=== PATIENT | male | born 1970 | race Caucasian/White ===

== ENCOUNTER 2018-04-26 08:14 | Day surgery (SDC) | payer MEDICARE, OTHER ==
[2018-04-21 10:58] VITALS: BMI 49.7
[~2018-04-26 08:14] MED LIST: LACTATED RINGERS 1,000 ML IV SCH
[2018-04-26 08:43] VITALS: TEMP 98.4
[2018-04-26 08:44] LABS: Glucose,Whole Blood 119 mg/dL (75-99)
[2018-04-26] MEDS ORDERED: LIDOCAINE 1% 20 ML VIAL (10MG/ML) FOR IV START INTRADERMA ONE (08:44)
[2018-04-26] MEDS ORDERED: PROPOFOL 10 MG/ML 20 ML VIAL IV ONE (09:10)
[2018-04-26 10:16] VITALS: BP 135/86; PULSE 87; RESP 18
--- NOTE | 2018-04-26 12:23 | P.PCN ---
Date of Procedure: 04/26/18 Procedure(s) Performed: BRIEF HISTORY: Patient is a 47-year-old pleasant white male, scheduled for an elective colonoscopy as a part of evaluation of rectal bleeding on and off for the last few weeks duration. PROCEDURE PERFORMED: Colonoscopy with biopsy, snare polypectomy and tattooing with Jesika ink. PREOPERATIVE DIAGNOSIS: Intermittent rectal bleeding. IV sedation per Anesthesia. PROCEDURE: After informed consent was obtained, the patient, was brought into the endoscopy unit. IV sedation was administered by Anesthesia under continuous monitoring. Digital rectal examination was normal. Initially the Olympus CF- 160 flexible video colonoscope was then inserted in the rectum, gradually advanced into the cecum without any difficulty. Careful examination was performed as the scope was gradually being withdrawn. Ileocecal valve and the appendiceal orifice were visualized and appeared normal. Prep was excellent. Mucosa of the cecum, appeared normal. In the ascending colon there was a 4-5 cm broad-based polyp with central depression and multiple biopsies were done from this area to rule out neoplasia. The polyp was not amenable for endoscopic resection. Tattooing was performed with Jesika ink. In the transverse colon there was a 1 cm polyp removed by snare polypectomy. The rest of the transverse colon, descending colon, sigmoid colon appeared normal. In the sigmoid: At 27 m from the anal was there was a 2.5-3 cm pedunculated polyp that was removed by snare polypectomy. In the proximal rectum 15 cm from the anal verge there was a 4-5 cm large polypoid lesion with a broad base and the snare polypectomy was performed. 75% of the polyp was removed and at this point the base appeared very brought and it felt hard, because of the clinical suspicion for neoplasm at this point I did not remove the polyp completely. At this point approximately 2 cm the polyp was still present. Retroflexion was performed in the rectum and no lesions were seen. The patient tolerated the procedure well. IMPRESSION: 1. 4-5 cm broad-based ascending colon polyp status post multiple biopsies and tattooing with Jesika ink 2. 1 cm transverse colon polyp status post polypectomy 3. 2.5-3 cm pedunculated rectosigmoid polyp status post polypectomy 4. 4-5 cm polypoid proximal rectal polyp status post partial piecemeal snare polypectomy and complete polypectomy was not performed. Proximal to 75% of the polyp removed. RECOMMENDATIONS: Findings of this examination were discussed with the patient as well as his family. He was advised to follow with the biopsy results. He' ll be seen in office in a week and further plans will be made regarding surgical intervention.
== END 2018-04-26 10:40 | disposition home or self-care (01) ==
LOC: ORWHC2ENDO 08:14
PROVIDERS: ATTEND Internal Medicine Gastroenterology
DX: D12.2 Benign neoplasm of ascending colon (principal); D12.3 Benign neoplasm of transverse colon; D12.7 Benign neoplasm of rectosigmoid junction; C20 Malignant neoplasm of rectum; D12.8 Benign neoplasm of rectum; E66.01 Morbid (severe) obesity due to excess calories; E11.9 Type 2 diabetes mellitus without complications; R56.9 Unspecified convulsions; Z79.84 Long term (current) use of oral hypoglycemic drugs; Z79.899 Other long term (current) drug therapy; Z68.42 Body mass index [BMI] 45.0-49.9, adult
CPT/HCPCS: 88305; 45385; 45380; 45381; J2704; 44404

== ENCOUNTER → 2018-05-09 | Outpatient (CLI) | payer MEDICARE, OTHER ==
[2018-05-09 17:09] LABS: Blood Urea Nitrogen 13 mg/dL (9-20)
--- NOTE | 2018-05-09 21:45 | CT ---
EXAMINATION TYPE: CT abdomen pelvis w con DATE OF EXAM: 05/09/2018 COMPARISON: None HISTORY: Adenocarcinoma of rectum newly diagnosed. CT DLP: 2286.6 mGycm, Automated Exposure Control for Dose Reduction was Utilized. CONTRAST: CT scan of the abdomen and pelvis is performed with oral and with IV Contrast, patient injected with 100 mL of Isovue 300. FINDINGS: LUNG BASES: Slight motion artifact is present. Lung bases are grossly clear. LIVER/GB: Liver is heterogeneously slightly hypodense suggesting fatty infiltration. Gallbladder is n ot visualized and presumed surgically absent. PANCREAS: No significant abnormality is seen. SPLEEN: No significant abnormality is seen. ADRENALS: No significant abnormality is seen. KIDNEYS: No significant abnormality is seen. BOWEL: Oral contrast extends to distal ileum making evaluation of distal bowel including colon subopt imal. There is no suspicious small or large bowel dilatation. There is mild focal wall thickening beg inning at level of hepatic flexure extending through proximal transverse colon. There is mild wall th ickening in the mid to distal transverse colon through splenic flexure extending into the left colon. Diverticular disease in the left colon is present. There is mild wall thickening extending through t he sigmoid colon and rectum. Findings representing products of poor distention. A multifocal colitis is not entirely excluded. Correlate clinically. Rectal mass or neoplasm not obvious on CT. PROSTATE/SEMINAL VESICLES: No gross abnormality seen. LYMPH NODES: No greater than 1cm abdominal or pelvic lymph nodes are appreciated. OSSEOUS STRUCTURES: Moderate axial joint space loss with mild to moderate acetabular spurring in both hips is present. OTHER: There are numerous coils from inguinal hernia repair surgery bilateral groin region. IMPRESSION: No significant suspicious mass or adenopathy is identified to suggest metastatic disease .
== END | disposition home or self-care (01) ==
LOC: RADCTMAIN 16:31
PROVIDERS: ATTEND Internal Medicine Gastroenterology
DX: C20 Malignant neoplasm of rectum (principal)
CPT/HCPCS: 82565; 84520; 74177; 36415; Q9967

== ENCOUNTER → 2018-05-13 | Outpatient (CLI) | payer MEDICARE, OTHER ==
--- NOTE | 2018-05-14 10:00 | PE ---
EXAMINATION TYPE: PET CT fusion skull to thigh DATE OF EXAM: 05/13/2018 COMPARISON: CT abdomen pelvis 05/09/2018 Prior PET/CT: None HISTORY: Rectal cancer TECHNIQUE: Following the intravenous administration of 10.901 mCi of F-18 FDG, whole body images are performed from the skull base to the midthigh. Images are reviewed on the computer in the coronal, axial, and sagittal planes. Reconstructed rotating images are created on independent workstation and reviewed on the computer. A localization and attenuation correction CT is performed in conjunction with the PET scan. DLP: 475.12 mGycm SCAN: Initial Scan Blood glucose: 121 mg/dL Average Mediastinum SUV: 2.03 Average Liver SUV: 3.67 FINDINGS: NECK: No abnormal uptake THORAX: No abnormal uptake ABDOMEN: In the lower right quadrant near the level of the iliac crests there is focal increased radi otracer accumulation within the ascending colon. This area has an SUV value of 8.98. This is more foc al in typically identified. Underlying neoplasm at this level is not excluded. PELVIS: Intense uptake is within urinary bladder. Just posterior to the urinary bladder there is some increased uptake within the rectum. Residual contrast is present in on the localization CT some wall irregularity is noted. SUV value at this level is 9.36. Image 204. No suspicious lymph node uptake. OSSEOUS STRUCTURES: No abnormal uptake LOCALIZATION CT: Some streak opacities are at the lower lung bases likely on the basis of atelectasis . Ascending thoracic aorta at the level of main pulmonary artery is 3.7 cm patent main pulmonary cricket ry bifurcation is 2.8 cm. COMPARISON: The wall irregularity within the rectosigmoid junction is better visualized on the curren t examination. Series 3 image 206. IMPRESSION: 1. Increased uptake within the patient's reported rectal cancer. 2. Metastatic disease is not clearly evident. 3. There is a focal radiotracer accumulation within the ascending colon region. Additional neoplasm a t this level is not excluded.
== END | disposition home or self-care (01) ==
LOC: RADPETMAIN 15:51
PROVIDERS: ATTEND Internal Medicine Hematology & Oncology
DX: C20 Malignant neoplasm of rectum (principal); R93.3 Abnormal findings on diagnostic imaging of other parts of digestive tract
CPT/HCPCS: 78815; A9552

== ENCOUNTER → 2018-08-30 | Outpatient (CLI) | payer MEDICARE, OTHER ==
[2018-08-30 11:26] LABS: Potassium 3.7 mmol/L (3.5-5.1)
[2018-08-30 11:28] LABS: Anisocytosis Moderate; HCT 31.9 % (39.0-53.0); Hypochromasia Marked; MCH 25.9 pg (25.0-35.0); MCHC 31.4 g/dL (31.0-37.0); MCV 82.4 fL (80.0-100.0); Microcytosis Slight; Platelet Count 397 k/uL (150-450); Poikilocytosis Moderate; RBC 3.87 m/uL (4.30-5.90); RDW 20.9 % (11.5-15.5); WBC 3.5 k/uL (3.8-10.6)
== END | disposition home or self-care (01) ==
LOC: LABPAT 10:00
PROVIDERS: ATTEND Surgery
DX: Z01.812 Encounter for preprocedural laboratory examination (principal); C20 Malignant neoplasm of rectum
CPT/HCPCS: 36415; 80051; 85027; 86850; 86900; 86901

== ENCOUNTER 2018-09-05 06:26 | Day surgery (SDC) | payer MEDICARE, OTHER ==
[2018-08-29 12:07] VITALS: BMI 47.7
[2018-09-05 07:26] VITALS: TEMP 98.3
[2018-09-05] MEDS ORDERED: LIDOCAINE 1% INJ 10MG/ML (20 ML MDV) ONE (07:51)
[2018-09-05] MEDS ORDERED: fentaNYL (PF) 50 MCG/ML 2 ML AMP ONE (07:51)
[2018-09-05] MEDS ORDERED: PROPOFOL 10 MG/ML 20 ML VIAL IV ONE (07:51)
--- NOTE | 2018-09-05 07:56 | P.GSHP ---
History of Present Illness H&P Date: 09/05/18 Chief Complaint: History of rectal cancer This a 48-year-old male who presents today for colonoscopy. Patient appears history of rectal cancer he had a colonoscopy performed by Dr. Wright in April 2018 wishes found have an invasive rectal cancer in a polyp. Past Medical History Past Medical History: Cancer, Diabetes Mellitus, GERD/Reflux, Hypertension, Seizure Disorder Additional Past Medical History / Comment(s): epilepsy-last seizure "years ago" , ANEMIA, rectal cancer-had chemo through 08/06/18 and radiation through History of Any Multi-Drug Resistant Organisms: None Reported Past Surgical History: Appendectomy, Cholecystectomy, Hernia Repair Additional Past Surgical History / Comment(s): vasectomy, surg. to repair hypospadias as a child Past Anesthesia/Blood Transfusion Reactions: No Reported Reaction Smoking Status: Former smoker - Past Family History Brother(s) Family Medical History: Deep Vein Thrombosis (DVT) Medications and Allergies Home Medications Medication Instructions Recorded Confirmed Type Divalproex [Depakote] 250 mg PO TID 10/29/15 09/05/18 History clonazePAM [KlonoPIN] 1 mg PO BID 10/29/15 09/05/18 History metFORMIN HCL 1,000 mg PO BID 04/21/18 09/05/18 History Lisinopril-Hctz 20-25 mg 1 tab PO DAILY 08/29/18 09/05/18 History [Zestoretic 20-25] Allergies Allergy/AdvReac Type Severity Reaction Status Date / Time celery Allergy Unknown face turns Verified 09/05/18 07:19 red chicken derived [Chicken] Allergy Unknown face turns Verified 09/05/18 07:19 red Surgical - Exam Vital Signs Temp Pulse Resp BP Pulse Ox 98.3 F 99 16 129/85 93 L 09/05/18 07:24 09/05/18 07:24 09/05/18 07:24 09/05/18 07:24 09/05/18 07:24 - General well developed, no distress - Eyes PERRL - ENT normal pinna - Neck no masses - Respiratory normal expansion - Cardiovascular Rhythm: regular - Abdomen Abdomen: soft, non tender Assessment and Plan Assessment: History of rectal cancer. We'll perform colonoscopy.
--- NOTE | 2018-09-05 08:21 | P.OP ---
Date of Procedure: 09/05/18 Preoperative Diagnosis: Rectal cancer Postoperative Diagnosis: Rectal cancer Villous tumor right colon Procedure(s) Performed: Colonoscopy Anesthesia: MAC Surgeon: Daniel Sherman Pathology: other (Right colon) Condition: stable Disposition: PACU Description of Procedure: The patient's placed on the endoscopy table lateral position. He received IV sedation digital rectal exam performed which revealed a few mild external hemorrhoids. The flexible colonoscope was then placed patient anus and passed throughout the entire colon. The ileocecal valve was visualized. In the right colon just distal to the valve was a villous tumor which was biopsied. Scope was then withdrawn and the remainder of the ascending colon transverse colon and descending colon appeared normal in the sigmoid colon was a few scattered diverticuli. Scope was then brought back the rectum and at the 18 cm robbie there was evidence of a tumor. This had been previously biopsied. The area was tattooed. The scope was withdrawn for patient.
[2018-09-05 08:28] LABS: Glucose,Whole Blood 150 mg/dL (75-99)
[2018-09-05 08:35] VITALS: RESP 18
[2018-09-05 09:08] VITALS: BP 133/86; PULSE 92
== END 2018-09-05 09:52 | disposition home or self-care (01) ==
LOC: ORWHC2ENDO 06:26
PROVIDERS: ATTEND Surgery
DX: D12.2 Benign neoplasm of ascending colon (principal); K64.4 Residual hemorrhoidal skin tags; K57.30 Diverticulosis of large intestine without perforation or abscess without bleeding; E11.9 Type 2 diabetes mellitus without complications; Z79.84 Long term (current) use of oral hypoglycemic drugs; K21.9 Gastro-esophageal reflux disease without esophagitis; I10 Essential (primary) hypertension; G40.909 Epilepsy, unspecified, not intractable, without status epilepticus; Z92.21 Personal history of antineoplastic chemotherapy; Z87.891 Personal history of nicotine dependence; Z79.899 Other long term (current) drug therapy; Z91.018 Allergy to other foods
CPT/HCPCS: 88305; 45380; 45381; J2001; J3010; J2704; 44404

== ENCOUNTER 2018-09-06 08:00 | Inpatient (IN) | payer MEDICARE, OTHER ==
[~2018-09-06 08:00] MED LIST changes: +DEXAMETHASONE SOD PHOSPHATE 10 MG/ML 1 ML VIAL IV ONE; +HEPARIN SODIUM,PORCINE 5,000 UNIT/ML 1 ML VIAL SQ ONE; +HYDROmorphone 1 MG/ML 1 ML SYRINGE IVP PRN; +MIDAZOLAM 2 MG/2 ML VIAL IV PRN; +ONDANSETRON 4 MG/2 ML VIAL IVP ONE; +SCOPOLAMINE 1.5MG/72HR PATCH TRANSDERM ONE; +metroNIDAZOLE-NS PMX 500 MG in SALINE 1 100ML.BAG IVPB ONE
[2018-09-06 09:56] LABS: Glucose,Whole Blood 181 mg/dL (75-99)
[2018-09-06] MEDS ORDERED: LACTATED RINGERS 1,000 ML IV ONE ×2 (10:07→14:04)
[2018-09-06] MEDS ORDERED: LIDOCAINE 1% 20 ML VIAL (10MG/ML) FOR IV START INTRADERMA ONE (10:07)
[2018-09-06] MEDS ORDERED: MIDAZOLAM 2 MG/2 ML VIAL IVP ONE (10:38)
[2018-09-06] MEDS ORDERED: fentaNYL (PF) 50 MCG/ML 2 ML AMP IVP ONE (10:38)
[2018-09-06] MEDS ORDERED: NALOXONE 0.4 MG/ML 1 ML VIAL IV PRN (11:06)
[2018-09-06] MEDS ORDERED: ROPIVACAINE 400 MG, fentaNYL (PF) 1,250 MCG in SODIUM CHLORIDE 0.9% 145 ML EPIDURAL PRN (11:06)
--- NOTE | 2018-09-06 12:05 | P.GSHP ---
History of Present Illness H&P Date: 09/06/18 Chief Complaint: Rectal cancer, right colon polyp 's is a 48-year-old male who presents today for low anterior resection for rectal cancer. Patient also has a large villous polyp of the right colon. He' ll be having a right colectomy with with synchronous low anterior section today. Patient aware the risks of surgery including infection, bleeding and possible colostomy. Past Medical History Past Medical History: Cancer, Diabetes Mellitus, GERD/Reflux, Hypertension, Seizure Disorder Additional Past Medical History / Comment(s): epilepsy-last seizure "years ago" , ANEMIA, rectal cancer-had chemo through 08/06/18 and radiation through History of Any Multi-Drug Resistant Organisms: None Reported Past Surgical History: Appendectomy, Cholecystectomy, Hernia Repair Additional Past Surgical History / Comment(s): vasectomy, surg. to repair hypospadias as a child Past Anesthesia/Blood Transfusion Reactions: No Reported Reaction Smoking Status: Former smoker - Past Family History Brother(s) Family Medical History: Deep Vein Thrombosis (DVT) Medications and Allergies Home Medications Medication Instructions Recorded Confirmed Type Divalproex [Depakote] 250 mg PO TID 10/29/15 09/05/18 History clonazePAM [KlonoPIN] 1 mg PO BID 10/29/15 09/05/18 History metFORMIN HCL 1,000 mg PO BID 04/21/18 09/05/18 History Lisinopril-Hctz 20-25 mg 1 tab PO DAILY 08/29/18 09/05/18 History [Zestoretic 20-25] Allergies Allergy/AdvReac Type Severity Reaction Status Date / Time celery Allergy Unknown face turns Verified 09/05/18 07:19 red chicken derived [Chicken] Allergy Unknown face turns Verified 09/05/18 07:19 red Surgical - Exam Vital Signs Temp Pulse Resp BP Pulse Ox 96.8 F L 118 H 18 119/78 96 09/06/18 09:44 09/06/18 09:44 09/06/18 09:44 09/06/18 09:44 09/06/18 09:44 Morbid obesity with BMI 48 - General well developed, no distress - Eyes PERRL - ENT normal pinna - Neck no masses - Respiratory normal expansion - Cardiovascular Rhythm: regular - Abdomen Abdomen: soft, non tender Results - Labs Abnormal Lab Results - Last 24 Hours (Table) 09/06/18 Range/Units 09:50 POC Glucose (mg/dL) 181 H (75-99) mg/dL Assessment and Plan Assessment: Rectal cancer, right colon villous polyp We'll perform right colectomy and low anterior resection.
[2018-09-06] MEDS ORDERED: GLYCOPYRROLATE 0.2 MG/ML 2 ML VIAL ONE (12:27)
[2018-09-06] MEDS ORDERED: PHENYLEPHRINE-0.9% NACL SYG 1 MG/10 ML SYRINGE ONE (12:27)
[2018-09-06] MEDS ORDERED: PROPOFOL 10 MG/ML 20 ML VIAL IV ONE (12:27)
[2018-09-06] MEDS ORDERED: ROCURONIUM BROMIDE 10 MG/ML 10 ML VIAL IV ONE (12:27)
[2018-09-06] MEDS ORDERED: MIDAZOLAM 2 MG/2 ML VIAL ONE (12:27)
[2018-09-06] MEDS ORDERED: NEOSTIGMINE 1 MG/ML 10 ML VIAL ONE (12:27)
[2018-09-06] MEDS ORDERED: fentaNYL (PF) 50 MCG/ML 2 ML AMP ONE (12:27)
[2018-09-06] MEDS ORDERED: LIDOCAINE 1% INJ 10MG/ML (20 ML MDV) ONE (12:27)
[2018-09-06] MEDS ORDERED: HEPARIN SODIUM,PORCINE 5,000 UNIT/ML 1 ML VIAL ONE (12:27)
[2018-09-06] MEDS ORDERED: BENZOCAINE/MENTHOL LOZENG 1 EACH LOZENGE MUCOUS MEM PRN (15:44)
[2018-09-06] MEDS ORDERED: KETOROLAC 30 MG/ML 1 ML VIAL IVP PRN (15:44)
[2018-09-06] MEDS ORDERED: ALBUTEROL NEBULIZED 2.5 MG/3 ML INHALATION ONE (16:45)
[2018-09-06 18:03] LABS: Anisocytosis Moderate; Basophils % (A) 0 %; Eosinophils % (A) 0 %; HCT 32.7 % (39.0-53.0); HGB 9.5 gm/dL (13.0-17.5); Hypochromasia Marked; Lymphocytes # (A) 0.8 k/uL (1.0-4.8); Lymphocytes % (A) 9 %; MCH 24.7 pg (25.0-35.0); MCHC 29.1 g/dL (31.0-37.0); Mean Platelet Volume 6.5; Monocytes # (A) 0.5 k/uL (0-1.0); Monocytes % (A) 6 %; Neutrophils # (A) 7.5 k/uL (1.3-7.7); Neutrophils % (A) 84 %; Platelet Count 379 k/uL (150-450); Poikilocytosis Moderate; RBC 3.85 m/uL (4.30-5.90); RDW 20.7 % (11.5-15.5)
[2018-09-06 18:18] LABS: Anion Gap 9 mmol/L; Blood Urea Nitrogen 14 mg/dL (9-20); Calcium 8.3 mg/dL (8.4-10.2); Carbon Dioxide 23 mmol/L (22-30); Chloride 105 mmol/L (98-107); Glucose 162 mg/dL (74-99); Potassium 3.9 mmol/L (3.5-5.1); Sodium 137 mmol/L (137-145)
[2018-09-06] MEDS: LACTATED RINGERS 500 ML IV SCH ×3 (18:23→20:06)
[2018-09-06] MEDS: D5-0.45% NACL WITH KCL 20MEQ/L 1,000 ML IV SCH (19:41)
[2018-09-06] MEDS: LACTATED RINGERS 1,000 ML IV SCH ×2 (19:48→20:06)
[2018-09-06] MEDS: FAMOTIDINE 20 MG/2 ML VIAL IV SCH (23:00)
[2018-09-06 23:39] LABS: Glucose,Whole Blood 162 mg/dL (75-99)
[2018-09-07] MEDS: D5-0.45% NACL WITH KCL 20MEQ/L 1,000 ML IV SCH ×3 (03:38→23:09)
--- NOTE | 2018-09-07 05:53 | P.PN ---
Progress Note - Text Progress Note Date: 09/07/18 patient evaluated POD 1 VAS 0/10 Vitals WNL with drop in SBP post op 2/2 Hypovolemia. Epidural Stopped until BP recovered, continued at BAsal rate 5ml/hr Continue rate, managment per primary team
[2018-09-07 06:01] LABS: Glucose,Whole Blood 183 mg/dL (75-99)
[2018-09-07] MEDS ORDERED: INSULIN ASPART 100 UNIT/ML 1 ML 10 ML VIAL SQ SCH (07:30)
[2018-09-07] MEDS: FAMOTIDINE 20 MG/2 ML VIAL IV SCH ×2 (10:12→23:08)
--- NOTE | 2018-09-07 10:40 | P.CONS ---
History of Present Illness - Reason for Consult Tachycardia, hypotension - History of Present Illness 48-year-old pleasant gentleman admitted electively for colectomy for rectal cancer and successful underwent surgery patient has a colostomy bag in place patient was bit hypotensive tachycardic post surgery which is expected outcome patient is also on the scopolamine patch which may have contributed to that and patient does have seizure disorder patient will be resumed on his Depakote patient denied any fever chills nausea vomiting chest pain abdominal pain did pass gas 1 sister he does have sluggish bowel sounds. Review of Systems REVIEW OF SYSTEMS: CONSTITUTIONAL: No fever, no malaise, no fatigue. HEENT: No recent visual problems or hearing problems. Denied any sore throat. CARDIOVASCULAR: No chest pain, orthopnea, PND, no palpitations, no syncope. PULMONARY: No shortness of breath, no cough, no hemoptysis. GASTROINTESTINAL: No diarrhea, no nausea, no vomiting, no abdominal pain. Normoactive bowel sounds. NEUROLOGICAL: No headaches, no weakness, no numbness. HEMATOLOGICAL: Denies any bleeding or petechiae. GENITOURINARY: Denies any burning micturition, frequency, or urgency. MUSCULOSKELETAL/RHEUMATOLOGICAL: Denies any joint pain, swelling, or any muscle pain. ENDOCRINE: Denies any polyuria or polydipsia. The rest of the 14-point review of systems is negative. Past Medical History Past Medical History: Cancer, Diabetes Mellitus, GERD/Reflux, Hypertension, Seizure Disorder Additional Past Medical History / Comment(s): epilepsy-last seizure "10 years ago", ANEMIA, rectal cancer-had chemo through 08/06/18 and radiation through History of Any Multi-Drug Resistant Organisms: None Reported Past Surgical History: Appendectomy, Cholecystectomy, Hernia Repair Additional Past Surgical History / Comment(s): vasectomy, surg. to repair hypospadias as a child Past Anesthesia/Blood Transfusion Reactions: No Reported Reaction Past Psychological History: No Psychological Hx Reported Smoking Status: Former smoker Past Alcohol Use History: Rare Additional Past Alcohol Use History / Comment(s): quit smoking 2009, smoked 1ppd for 4 yrs., STARTED BACK UP FOR A FEW MONTHS, quit smoking 3 months ago Past Drug Use History: None Reported - Past Family History Brother(s) Family Medical History: Deep Vein Thrombosis (DVT) Medications and Allergies Home Medications Medication Instructions Recorded Confirmed Type Divalproex [Depakote] 250 mg PO TID 10/29/15 09/06/18 History clonazePAM [KlonoPIN] 1 mg PO BID 10/29/15 09/06/18 History metFORMIN HCL 1,000 mg PO BID 04/21/18 09/06/18 History Lisinopril-Hctz 20-25 mg 1 tab PO DAILY 08/29/18 09/06/18 History [Zestoretic 20-25] Allergies Allergy/AdvReac Type Severity Reaction Status Date / Time celery Allergy Unknown face turns Verified 09/06/18 18:20 red chicken derived [Chicken] Allergy Unknown face turns Verified 09/06/18 18:20 red Physical Exam Vitals: Vital Signs Temp Pulse Pulse Pulse Pulse Resp BP 09/07/18 07:00 98.9 F 117 H 12 95/67 09/07/18 03:45 98.4 F 89 17 136/88 09/07/18 00:09 17 09/06/18 23:00 99.1 F 93 16 108/68 09/06/18 20:41 90 16 100/64 09/06/18 20:35 96 16 104/66 09/06/18 20:20 97 16 92/61 09/06/18 20:05 89 16 88/59 09/06/18 20:03 98.6 F 90 18 92/61 09/06/18 19:50 88 16 87/60 09/06/18 19:35 89 16 93/63 09/06/18 19:20 88 16 90/58 09/06/18 19:05 90 16 76/51 09/06/18 18:50 91 16 81/56 09/06/18 18:45 93 16 97/63 09/06/18 18:35 89 16 97/63 09/06/18 18:25 68 16 70/52 09/06/18 18:20 89 16 82/52 09/06/18 18:05 90 16 87/59 09/06/18 17:50 91 16 88/58 09/06/18 17:45 97.6 F 95 16 70/46 09/06/18 17:37 97.6 F 95 16 70/43 09/06/18 17:00 94 20 100/46 09/06/18 16:45 87 20 91/46 09/06/18 16:30 91 20 108/48 09/06/18 16:15 95 18 107/53 09/06/18 16:04 97.3 F L 100 18 09/06/18 11:03 99 18 112/73 Pulse Ox 09/07/18 07:00 95 09/07/18 03:45 97 09/07/18 00:09 09/06/18 23:00 89 L 09/06/18 20:41 09/06/18 20:35 91 L 09/06/18 20:20 92 L 09/06/18 20:05 95 09/06/18 20:03 94 L 09/06/18 19:50 96 09/06/18 19:35 95 09/06/18 19:20 96 09/06/18 19:05 98 09/06/18 18:50 88 L 09/06/18 18:45 98 09/06/18 18:35 97 09/06/18 18:25 99 09/06/18 18:20 100 09/06/18 18:05 97 09/06/18 17:50 98 09/06/18 17:45 98 09/06/18 17:37 97 09/06/18 17:00 98 09/06/18 16:45 96 09/06/18 16:30 94 L 09/06/18 16:15 92 L 09/06/18 16:04 100 09/06/18 11:03 99 Intake and Output 09/06/18 09/07/18 09/07/18 22:59 06:59 14:59 Intake Total 3225 Output Total 580 175 Balance 2645 -175 Intake: IV 1600 Intake, IV Titration 1625 Amount D5-0.45% NaCl with KCl 125 20Meq/l 1,000 ml @ 125 mls/hr IV .Q8H SERJIO Rx#: [id number] Lactated Ringers 1,000 ml 1000 @ 999 mls/hr IV .Q1H1M SERJIO Rx#:[id number] Lactated Ringers 500 ml @ 500 999 mls/hr IV .Q31M SERJIO Rx#:[id number] Oral 0 Output: Urine 510 175 Estimated Blood Loss 70 Other: Voiding Method Indwelling Catheter # Voids 1 PHYSICAL EXAMINATION: GENERAL: The patient is alert and oriented x3, not in any acute distress. Well developed, well nourished. HEENT: Pupils are round and equally reacting to light. EOMI. No scleral icterus. No conjunctival pallor. Normocephalic, atraumatic. No pharyngeal erythema. No thyromegaly. CARDIOVASCULAR: S1 and S2 present. No murmurs, rubs, or gallops. PULMONARY: Chest is clear to auscultation, no wheezing or crackles. ABDOMEN: Soft, nontender, nondistended, normoactive bowel sounds. No palpable organomegaly. MUSCULOSKELETAL: No joint swelling or deformity. EXTREMITIES: No cyanosis, clubbing, or pedal edema. NEUROLOGICAL: Gross neurological examination did not reveal any focal deficits. SKIN: No rashes. Results CBC & Chem 7: 09/06/18 17:06 09/06/18 17:06 Labs: Abnormal Lab Results - Last 24 Hours (Table) 09/06/18 09/06/18 09/06/18 Range/Units 17:06 17:06 23:38 RBC 3.85 L (4.30-5.90) m/uL Hgb 9.5 L (13.0-17.5) gm/dL Hct 32.7 L (39.0-53.0) % MCH 24.7 L (25.0-35.0) pg MCHC 29.1 L (31.0-37.0) g/dL RDW 20.7 H (11.5-15.5) % Lymphocytes # 0.8 L (1.0-4.8) k/uL Glucose 162 H (74-99) mg/dL POC Glucose (mg/dL) 162 H (75-99) mg/dL Calcium 8.3 L (8.4-10.2) mg/dL 09/07/18 Range/Units 05:59 RBC (4.30-5.90) m/uL Hgb (13.0-17.5) gm/dL Hct (39.0-53.0) % MCH (25.0-35.0) pg MCHC (31.0-37.0) g/dL RDW (11.5-15.5) % Lymphocytes # (1.0-4.8) k/uL Glucose (74-99) mg/dL POC Glucose (mg/dL) 183 H (75-99) mg/dL Calcium (8.4-10.2) mg/dL Assessment and Plan Plan: -Hypotension and tachycardia: Expected in perioperative period improved with IV fluids and scopolamine patch may have contributed to that which was discontinued. No further intervention is necessary. -Rectal cancer status post colectomy and colostomy. -Seizure disorder patient will be resumed on Depakote we'll give the first dose now -Type 2 diabetes mellitus: Metformin will be held and patient will be on sliding scale insulin for now during this hospitalization . Gastroesophageal reflux disease -Hypertension: Hold off on antidepressant medications to prevent perioperative hypotension -DVT prophylaxis as per primary service
[2018-09-07] MEDS: DIVALPROEX 250 MG TABLET.DR PO SCH ×2 (12:32→18:58)
[2018-09-07 12:33] LABS: Glucose,Whole Blood 139 mg/dL (75-99)
[2018-09-07] MEDS: INSULIN ASPART 100 UNIT/ML 1 ML 10 ML VIAL SQ SCH ×2 (14:23→21:22)
[2018-09-07] MEDS ORDERED: SODIUM CHLORIDE 0.9% 1,000 ML IV ONE (14:44)
[2018-09-07] MEDS ORDERED: DIVALPROEX 250 MG TABLET.DR PO SCH ×2 (16:00→22:00)
--- NOTE | 2018-09-07 16:40 | P.PN ---
Progress Note - Text Progress Note Date: 09/07/18 postoperative day 1 The patient is postop day 1 from low anterior resection and right colectomy. He had some issues with hypotension last night. He received some fluid boluses Patient states he feels well today. He has no significant complaints of pain. On exam his vital signs are stable. His abdomen is soft. His incision site is clean dry and intact. Status post low anterior resection and right colectomy for rectal cancer and large right colon polyp. Patient has a diverting colostomy for protection of his colorectal anastomosis. He'll remain on sips of clears.
--- NOTE | 2018-09-07 17:12 | P.OP ---
Date of Procedure: 09/06/18 Preoperative Diagnosis: rectal cancer Right colon polyp Postoperative Diagnosis: deferred to pathology Procedure(s) Performed: low anterior resection Right colectomy Takedown splenic flexure Diverting loop colostomy Anesthesia: JOHN Surgeon: Daniel Sherman Estimated Blood Loss (ml): 50 Pathology: other (colon, small bowel) Condition: stable Disposition: PACU Description of Procedure: the patient was placed on the operating table in the supine position. He received general ans abdomen was prepped and draped The abdomen was entered through a midline incision. And then the Bookwalter retractor was placed in the wound. The abdomen was explored. The liver was palpated and was normal. Small bowel appeared normal. In the right colon there was a tattoo robbie of the area of the large colon polyp. This was palpated. The transverse colon and descending colon and sigmoid colon appeared normal. At this point the sigmoid colon was transected. Then using the Enseal device the mesentery of the sigmoid colon and rectum were divided. The peritoneal reflection over top the rectum was divided. I then the mesorectum was divided using the Enseal device. The tattoo robbie of the rectum for the rectal cancer was visualized. The rectum was transected very distally beyond the tattoo robbie. The contour stapler was used to divide its the colon. The specimen was opened. The complete rectal cancer appeared to be approximately 2.5 cm from the staple line. next, a pursestring device was placed onto the descending colon and then the anvil for the 25 mm EEA stapler was placed in the colon and the pursen was lengthened by taking down the splenic flexure. This provided adequate length for the anastomosis. Next, the insurance legal assistant placed the EEA stapler in the patient' s anus and then the stapler rectal stump. The spike was driven through the rectal stump and then the anvil was connected to the rectal stapler. The stapler was then closed and fired. 2 intact tissue rings were withdrawn. The anastomosis was very low. Using a hydro-machine plug shaper the bowel was occluded and then a rigid sigmoidoscope was placed in the anus. The rectum was insufflated with air. There was a very small extravasation of air. Due to the very low nature of the anastomosis of this area could not be reached with suture. It was decided to perform a protecting loop transverse colostomy to protect the anastomosis. At this point the right colon was mobilized. Thethe right colon was mobilized. And the terminal ileum and right colon were transected. The mesentery of the right colon and ileum were divided using the Enseal device. A functional end-to-end [id number] anastomosis was created using the ANNITA and TA staplers. A 3-0 GI silk suture was used as a crotch stitch. Next window was made in the mesentery of the transverse colon. And then a suitable loop of transverse colon was brought up in the right upper quadrant. The colostomy site was created by dividing the skin with a 15 blade and then the fascia was divided in a cruciate incision. And the loop colostomy was brought up through the rectus muscles. At this point the abdomen was irrigated. There is no bleeding seen. The fascia was closed with looped #1 PDS suture. Skin was closed staple 3-0 Vicryl suture. A shunt procedure well and sent to recovery room stable condition.
[2018-09-07] MEDS: DIVALPROEX 500 MG TABLET.DR PO SCH ×2 (17:32→23:08)
[2018-09-07 19:46] LABS: Glucose,Whole Blood 188 mg/dL (75-99)
[2018-09-07] MEDS ORDERED: DIVALPROEX 500 MG TABLET.DR PO SCH (22:00)
[2018-09-07 23:32] LABS: Glucose,Whole Blood 158 mg/dL (75-99)
[2018-09-08] MEDS: INSULIN ASPART 100 UNIT/ML 1 ML 10 ML VIAL SQ SCH ×4 (01:08→18:21)
[2018-09-08] MEDS: D5-0.45% NACL WITH KCL 20MEQ/L 1,000 ML IV SCH ×4 (02:59→21:51)
[2018-09-08 06:06] LABS: Glucose,Whole Blood 189 mg/dL (75-99)
[2018-09-08] MEDS: ONDANSETRON 4 MG/2 ML VIAL IVP PRN (06:10)
--- NOTE | 2018-09-08 06:45 | P.PN ---
Progress Note - Text Progress Note Date: 09/08/18 48 yo male s/p open right colectomy. POD#2. Epidural running at a rate of 3 ml/ hr. Adequate pain control.VAS=2/10. No motor deficit, no itching, no headache.feeling bloated this morning. Relieved after he vomited once. Epidural catheter in place. No redness, no discharge, no fever. May D/C catheter today.
[2018-09-08] MEDS: METOCLOPRAMIDE 5 MG/ML 2 ML VIAL IVP PRN (07:18)
[2018-09-08] MEDS: DIVALPROEX 500 MG TABLET.DR PO SCH ×3 (08:14→21:50)
[2018-09-08] MEDS: FAMOTIDINE 20 MG/2 ML VIAL IV SCH ×2 (08:14→21:50)
[2018-09-08] MEDS ORDERED: SODIUM CHLORIDE 0.9% 1,000 ML IV ONE (09:51)
--- NOTE | 2018-09-08 10:00 | P.PN ---
Subjective Progress Note Date: 09/08/18 48-year-old being seen in postop surgical visit. Events noted. Currently awake states pain medication effective for pain control denies dizziness lightheadedness chest pain or shortness of breath. Ostomy stoma pink not passing gas no stool tolerating ice chips and clear liquid nursing reports patient has been reluctant to get out of bed. Postop September 06 diverging loop colostomy, takedown splenic flexure, right colectomy, low anterior resection for rectal cancer Objective - Vital Signs Vital signs: Vital Signs Temp 98.9 F 09/08/18 07:00 Pulse 107 H 09/08/18 07:00 Resp 14 09/08/18 00:00 BP 131/81 09/08/18 07:00 Pulse Ox 90 L 09/08/18 07:00 Intake & Output 09/07/18 09/08/18 09/08/18 18:59 06:59 18:59 Intake Total 106.25 1370 Output Total 125 750 Balance -18.75 620 Intake: Intake, IV Titration 106.25 1250 Amount D5-0.45% NaCl with KCl 1250 20Meq/l 1,000 ml @ 125 mls/hr IV .Q8H [facility] Rx#: [id number] Ropivacaine 400 mg 106.25 fentaNYL (PF) 1,250 mcg In Sodium Chloride 0.9% 145 ml @ Per Protocol EPIDURAL .Q0M PRN Rx#: [id number] Oral 120 Output: Urine 125 750 Other: Voiding Method Indwelling Catheter Indwelling Catheter Indwelling Catheter # Voids 1 - Exam Physical exam 48-year-old male resting in bed at bedside appears in no acute distress reports a nausea sensation no active emesis Lungs adequate air movement bilaterally Heart S1-S2 audible regular Abdomen soft surgical incisions dressing dry ostomy right quadrant no stool not passing gas stoma pink surgical tenderness appropriate to hypoactive bowel tones indwelling Samuel catheter in place with dark urine Extremities Venodyne's on to the bilateral lower extremities trace pedal edema - Labs CBC & Chem 7: 09/06/18 17:06 09/06/18 17:06 Labs: Abnormal Lab Results - Last 24 Hours (Table) 09/07/18 09/07/18 09/07/18 Range/Units 12:32 19:44 23:31 POC Glucose (mg/dL) 139 H 188 H 158 H (75-99) mg/dL 09/08/18 Range/Units 06:04 POC Glucose (mg/dL) 189 H (75-99) mg/dL Assessment and Plan Assessment: Impression Status post September 06 low anterior resection right colectomy for rectal cancer with a diverting colostomy for protection of his colorectal anastomosis. Postop hypotensive with tachycardia expected improved suspect due to scopolamine patch and hypovolemia improved with IV fluid bolus and scopolamine patch being discontinued Seizure disorder Type 2 diabetes Hypertension off antihypertensive meds for now to prevent perioperative hypotension Morbid obesity BMI 47 Plan 1 L fluid bolus now Continue postop surgical care Epidural per anesthesia for pain control Increase activity DVT and GI prophylaxis Monitor labs Will follow The above impression and plan of care have been discussed and directed by signing physician. Ailin Pino nurse practitioner acting as scribe for signing physician.
--- NOTE | 2018-09-08 11:24 | P.PN ---
Subjective 48-year-old admitted for low anterior resection of the rectum patient has a colostomy in place patient abdomen is distended has sluggish bowel sounds because of which his heart rate is bit elevated will obtain a TSH. Patient the SATURATIONS IS GONE DOWN TO 90% I'M OBTAINING A CHEST X-RAY, PATIENT WILL CONTINUE HIS INCENTIVE SPIROMETRY. PATIENT HAS AN EPIDURAL IN PLACE AN BIT NAUSEOUS NOW. THIS IS BEING ADDRESSED BY GENERAL SURGERY. Constitutional: Denied any fatigue denied any fever. Cardio vascular: denied any chest pain, palpitations Gastrointestinal she and is having nausea abdomen is bit distended Pulmonary: Denied any shortness of breath cough Neurologic denied any new focal deficits All inpatient medications were reviewed and appropriate changes in these medications as dictated in the interval history and assessment and plan. Objective - Vital Signs Vital signs: Vital Signs Temp 98.9 F 09/08/18 07:00 Pulse 107 H 09/08/18 07:00 Resp 14 09/08/18 00:00 BP 131/81 09/08/18 07:00 Pulse Ox 90 L 09/08/18 07:00 Intake & Output 09/07/18 09/08/18 09/08/18 18:59 06:59 18:59 Intake Total 106.25 1370 Output Total 125 750 Balance -18.75 620 Intake: Intake, IV Titration 106.25 1250 Amount D5-0.45% NaCl with KCl 1250 20Meq/l 1,000 ml @ 125 mls/hr IV .Q8H [facility] Rx#: [id number] Ropivacaine 400 mg 106.25 fentaNYL (PF) 1,250 mcg In Sodium Chloride 0.9% 145 ml @ Per Protocol EPIDURAL .Q0M PRN Rx#: [id number] Oral 120 Output: Urine 125 750 Other: Voiding Method Indwelling Catheter Indwelling Catheter Indwelling Catheter # Voids 1 - Exam PHYSICAL EXAMINATION: GENERAL: The patient is alert and oriented x3, not in any acute distress. Morbidly obese HEENT: Pupils are round and equally reacting to light. EOMI. No scleral icterus. No conjunctival pallor. Normocephalic, atraumatic. No pharyngeal erythema. No thyromegaly. CARDIOVASCULAR: S1 and S2 present. No murmurs, rubs, or gallops. PULMONARY: Chest is clear to auscultation, no wheezing or crackles. ABDOMEN: Distended colostomy in place. Tympanic. MUSCULOSKELETAL: No joint swelling or deformity. EXTREMITIES: No cyanosis, clubbing, or pedal edema. NEUROLOGICAL: Gross neurological examination did not reveal any focal deficits. SKIN: No rashes. - Labs CBC & Chem 7: 09/06/18 17:06 09/06/18 17:06 Labs: Abnormal Lab Results - Last 24 Hours (Table) 09/07/18 09/07/18 09/07/18 Range/Units 12:32 19:44 23:31 POC Glucose (mg/dL) 139 H 188 H 158 H (75-99) mg/dL 09/08/18 Range/Units 06:04 POC Glucose (mg/dL) 189 H (75-99) mg/dL Assessment and Plan Plan: -Hypotension and tachycardia: Patient is hypotension improved with IV fluids. Patient remains bit tachycardic secondary to nausea and believed will obtain a TSH. Due to prophylaxis as per primary service. -Abdominal distention: Secondary to epidural expected to improve once his pain is controlled and once epidural is removed. Obtaining a chest x-ray because of mild hypoxia most probably related to atelectasis and his body habitus -Rectal cancer status post colectomy and colostomy. -Seizure disorder patient was resumed on Depakote -Type 2 diabetes mellitus: Metformin held and patient will be on sliding scale insulin for now during this hospitalization . Gastroesophageal reflux disease -Hypertension: Hold off on antihypertensive medications medications to prevent perioperative hypotension -DVT prophylaxis as per primary service
--- NOTE | 2018-09-08 11:24 | XR ---
EXAMINATION TYPE: XR chest 1V DATE OF EXAM: 09/08/2018 CLINICAL HISTORY: Hypoxia. History of rectal cancer. TECHNIQUE: Single AP portable frontal upright view of the chest is obtained. COMPARISON: PET/CT May 13, 2018 FINDINGS: Low lung volumes are redemonstrated. There is new left basilar opacity and patchy right med ial basilar opacity. No pleural effusion or pneumothorax is seen bilaterally. Cardiac silhouette size is stable and upper limits of normal. Osseous structures are intact. IMPRESSION: Low lung volumes with left greater than right bibasilar acute infiltrate and/or atelectas is.
[2018-09-08 11:59] LABS: Glucose,Whole Blood 183 mg/dL (75-99)
[2018-09-08 18:19] LABS: Glucose,Whole Blood 166 mg/dL (75-99)
[2018-09-08] MEDS: HYDROmorphone 1 MG/ML 1 ML SYRINGE IVP PRN ×2 (18:21→22:59)
[2018-09-09 00:01] LABS: Glucose,Whole Blood 141 mg/dL (75-99)
[2018-09-09 00:55] LABS: Anion Gap 7 mmol/L; Blood Urea Nitrogen 13 mg/dL (9-20); Carbon Dioxide 26 mmol/L (22-30); Chloride 102 mmol/L (98-107); Glucose 134 mg/dL (74-99); Sodium 135 mmol/L (137-145)
[2018-09-09] MEDS: INSULIN ASPART 100 UNIT/ML 1 ML 10 ML VIAL SQ SCH ×4 (01:10→17:30)
[2018-09-09 01:14] LABS: Anisocytosis Moderate; Basophils % (A) 0 %; Eosinophils % (A) 0 %; HCT 26.7 % (39.0-53.0); Hypochromasia Marked; Lymphocytes # (A) 0.8 k/uL (1.0-4.8); Lymphocytes % (A) 8 %; MCH 24.9 pg (25.0-35.0); MCHC 29.6 g/dL (31.0-37.0); Mean Platelet Volume 6.8; Monocytes # (A) 1.3 k/uL (0-1.0); Monocytes % (A) 14 %; Neutrophils # (A) 6.8 k/uL (1.3-7.7); Neutrophils % (A) 74 %; Platelet Count 265 k/uL (150-450); Poikilocytosis Moderate; RBC 3.18 m/uL (4.30-5.90); WBC 9.2 k/uL (3.8-10.6)
[2018-09-09 01:29] LABS: HGB 7.9 gm/dL (13.0-17.5)
[2018-09-09] MEDS ORDERED: IPRATROPIUM-ALBUTEROL 3 ML NEB INHALATION PRN (01:58)
[2018-09-09] MEDS ORDERED: IPRATROPIUM-ALBUTEROL 3 ML NEB INHALATION STA (01:58)
[2018-09-09] MEDS ORDERED: LEVOFLOXACIN 500MG-D5W PMX 500 MG in DEXTROSE/WATER 1 100ML.BAG IVPB STA (01:59)
[2018-09-09] MEDS: LEVOFLOXACIN 500MG-D5W PMX 500 MG in DEXTROSE/WATER 1 100ML.BAG IVPB SCH (03:22)
--- NOTE | 2018-09-09 03:24 | CT ---
EXAM: CT Chest With Intravenous Contrast CLINICAL HISTORY: Reason: Rule out PE TECHNIQUE: Axial computed tomography images of the chest with intravenous contrast during the arterial phase of enhancement. CTDI is 28.6 mGy and DLP is 906.3 mGy-cm. This CT exam was performed using one or more of the following dose reduction techniques: automated exposure control, adjustment of the mA and/or kV according to patient size, and/or use of iterative reconstruction technique. COMPARISON: None available FINDINGS: Pulmonary arteries: Evidence of extensive pulmonary embolic disease. There are multiple lobar and segmental pulmonary emboli involving right upper lobe, right middle lobe and right lower lobe pulmonary arteries. Nonoccluding embolus identified at bifurcation of the left main pulmonary artery as well as multiple lobar and segmental pulmonary emboli involving left upper lobe and left lower lobe pulmonary arteries. Aorta: Mild aneurysmal dilatation of ascending thoracic aorta measuring 4.2 cm in maximum AP diameter. No evidence of dissection. Lungs: Bilateral dependent and scattered subsegmental atelectasis. No evidence of acute pulmonary parenchymal disease or pulmonary consolidation. Pleural space: No significant effusion. No pneumothorax. Heart: Heart size is within normal limits. No significant pericardial effusion. Mediastinum: Probable adherent mucus secretions along right side of upper trachea. Bones/joints: No acute bony abnormality is identified. Soft tissues: Soft tissue gas in the left paramedian dorsal subcutaneous soft tissues of lower thorax which is of uncertain etiology. This could be postsurgical or related to other intervention. Clinical correlation recommended. Lymph nodes: No pathologically enlarged lymphadenopathy. Intraperitoneal space: Small amount of pneumoperitoneum with several small extraluminal gas locules identified along the imaged anterior upper abdomen. Moderate gaseous and fluid distention of stomach. Moderate gaseous and fluid dilatation of several small bowel loops in the imaged upper to mid abdomen which may reflect focal ileus or possible early or partial small bowel obstruction. Small amount of abdominal free fluid. IMPRESSION: Evidence of extensive pulmonary embolic disease throughout both lungs as described in body of report. Mild aneurysmal dilatation of ascending thoracic aorta measuring 4.2 cm in maximum AP diameter. No evidence of dissection. Small amount of pneumoperitoneum which may be post surgical as midline abdominal surgical skin el are evident on applications coordinator image. Clinical correlation is recommended as gastrointestinal perforation would be differential possibility if the patient has not undergone recent abdominal surgery. Moderate gaseous and fluid dilatation of partially imaged small bowel loops in the upper-mid abdomen which may reflect focal ileus or possible small bowel obstruction. Small amount of abdominal free fluid. Critical Value Communications 09/09/18 03:29 Call Doctor Regarding Other, called ANTONIA Goss on 4S on 09/09 03:28 (-05:00) 09/09/18 03:55 Call Doctor Regarding Pulmonary Embolism, called Dr. Worrell on 09/09 03:55 (-05:00)
[2018-09-09] MEDS: HYDROmorphone 1 MG/ML 1 ML SYRINGE IVP PRN (04:11)
[2018-09-09 04:21] LABS: Glucose,Whole Blood 145 mg/dL (75-99)
[2018-09-09] MEDS: HEPARIN SOD,PORK IN 0.45% NACL 25,000 UNIT in 0.45% NACL 1 500ML.BAG IV SCH ×2 (04:40→17:30)
[2018-09-09 05:20] LABS: Anisocytosis Moderate; Basophils % (A) 0 %; Eosinophils % (A) 0 %; HCT 25.9 % (39.0-53.0); HGB 7.8 gm/dL (13.0-17.5); Hypochromasia Marked; Lymphocytes # (A) 0.5 k/uL (1.0-4.8); Lymphocytes % (A) 7 %; MCV 83.2 fL (80.0-100.0); Mean Platelet Volume 6.7; Microcytosis Slight; Monocytes # (A) 1.1 k/uL (0-1.0); Monocytes % (A) 14 %; Neutrophils # (A) 6.1 k/uL (1.3-7.7); Neutrophils % (A) 76 %; Platelet Count 262 k/uL (150-450); Poikilocytosis Moderate; RBC 3.11 m/uL (4.30-5.90); RDW 20.9 % (11.5-15.5); WBC 8.1 k/uL (3.8-10.6)
[2018-09-09 05:22] LABS: INR 1.1 (<1.2); Partial Thromboplastin Time 25.4 sec (22.0-30.0); Prothrombin Time 10.4 sec (9.0-12.0)
[2018-09-09 05:32] LABS: ALT 17 U/L (21-72); AST 18 U/L (17-59); Albumin 2.4 g/dL (3.5-5.0); Alkaline Phosphatase 51 U/L (38-126); Anion Gap 6 mmol/L; Blood Urea Nitrogen 12 mg/dL (9-20); Calcium 8.2 mg/dL (8.4-10.2); Carbon Dioxide 27 mmol/L (22-30); Chloride 101 mmol/L (98-107); Glucose 134 mg/dL (74-99); Magnesium 1.9 mg/dL (1.6-2.3); Phosphorus 3.1 mg/dL (2.5-4.5); Potassium 4.2 mmol/L (3.5-5.1); Sodium 134 mmol/L (137-145); Total Bilirubin 0.4 mg/dL (0.2-1.3); Total Protein 5.1 g/dL (6.3-8.2)
[2018-09-09] MEDS: ONDANSETRON 4 MG/2 ML VIAL IVP PRN ×2 (06:23→17:30)
[2018-09-09 06:26] LABS: Glucose,Whole Blood 151 mg/dL (75-99)
[2018-09-09] MEDS ORDERED: Magnesium Replacement Protocol 1 EACH MISC MISCELLANE PRN (07:03)
[2018-09-09] MEDS: MAGNESIUM SULFATE-D5W PMX 1 GM in DEXTROSE/WATER 1 100ML.BAG IVPB SCH ×2 (07:44→10:29)
[2018-09-09] MEDS: DIVALPROEX 500 MG TABLET.DR PO SCH ×3 (08:07→21:01)
[2018-09-09] MEDS: FAMOTIDINE 20 MG/2 ML VIAL IV SCH ×2 (08:07→20:48)
[2018-09-09] MEDS: D5-0.45% NACL WITH KCL 20MEQ/L 1,000 ML IV SCH ×2 (08:08→17:31)
--- NOTE | 2018-09-09 08:17 | XR ---
EXAMINATION TYPE: XR chest 1V DATE OF EXAM: 09/09/2018 COMPARISON: 09/08/2018 HISTORY: Shortness of breath. Follow-up exam. TECHNIQUE: Single frontal view of the chest is obtained. FINDINGS: There is redemonstration of slight elevation of the right hemidiaphragm and minimal bibasi lar airspace disease that appears linear likely related to atelectasis. Cardiomediastinal silhouette is upper limits of normal. No sizable pneumothorax or pleural effusion. IMPRESSION: Smaller appearing bibasilar atelectasis and low lung volumes.
--- NOTE | 2018-09-09 11:12 | P.PN ---
Subjective Progress Note Date: 09/09/18 Principal diagnosis: Colectomy Patient develops shortness of breath last night. He was found on CAT scan to have a large pulmonary embolism. The patient was started on anticoagulation. Remains short of breath. Patient actually complaining of hunger. No bowel function. Ostomy remains pink. Objective - Vital Signs Vital signs: Vital Signs Temp 98.9 F 09/09/18 04:36 Pulse 99 09/09/18 07:00 Resp 29 H 09/09/18 07:00 BP 133/87 09/09/18 07:00 Pulse Ox 96 09/09/18 07:00 Intake & Output 09/08/18 09/09/18 09/09/18 18:59 06:59 18:59 Intake Total 1625 1282 171 Output Total 720 75 Balance 1625 562 96 Weight 134.263 kg Intake: IV 342 171 [id number] 250 125 Heparin Sod,Pork in 0.45% 92 46 NaCl 25,000 unit In 0.45 % NaCl 1 500ml.bag @ 46 mls/hr IV .[id number] [facility] Rx #:[id number] Intake, IV Titration 1625 490 Amount D5-0.45% NaCl with KCl 625 490 20Meq/l 1,000 ml @ 125 mls/hr IV .Q8H [facility] Rx#: [id number] Sodium Chloride 0.9% 1, 1000 000 ml @ 999 mls/hr IV . Q1H1M [facility] Rx#:[id number] Oral 450 Output: Urine 720 75 Other: Voiding Method Indwelling Catheter Indwelling Catheter # Voids 1 - Exam Abdomen: Soft, distended, ostomy pink, mild tenderness - Labs CBC & Chem 7: 09/09/18 04:53 09/09/18 04:46 Labs: Abnormal Lab Results - Last 24 Hours (Table) 09/08/18 09/08/18 09/08/18 Range/Units 11:56 18:17 23:49 RBC (4.30-5.90) m/uL Hgb (13.0-17.5) gm/dL Hct (39.0-53.0) % MCH (25.0-35.0) pg MCHC (31.0-37.0) g/dL RDW (11.5-15.5) % Lymphocytes # (1.0-4.8) k/uL Monocytes # (0-1.0) k/uL Sodium (137-145) mmol/L Creatinine (0.66-1.25) mg/dL Glucose (74-99) mg/dL POC Glucose (mg/dL) 183 H 166 H 141 H (75-99) mg/dL Calcium (8.4-10.2) mg/dL ALT (21-72) U/L Total Protein (6.3-8.2) g/dL Albumin (3.5-5.0) g/dL 09/09/18 09/09/18 09/09/18 Range/Units 00:17 00:17 04:09 RBC 3.18 L (4.30-5.90) m/uL Hgb 7.9 L D (13.0-17.5) gm/dL Hct 26.7 L (39.0-53.0) % MCH 24.9 L (25.0-35.0) pg MCHC 29.6 L (31.0-37.0) g/dL RDW 21.0 H (11.5-15.5) % Lymphocytes # 0.8 L (1.0-4.8) k/uL Monocytes # 1.3 H (0-1.0) k/uL Sodium 135 L (137-145) mmol/L Creatinine 0.54 L (0.66-1.25) mg/dL Glucose 134 H (74-99) mg/dL POC Glucose (mg/dL) 145 H (75-99) mg/dL Calcium 8.0 L (8.4-10.2) mg/dL ALT (21-72) U/L Total Protein (6.3-8.2) g/dL Albumin (3.5-5.0) g/dL 09/09/18 09/09/18 09/09/18 Range/Units 04:46 04:53 06:14 RBC 3.11 L (4.30-5.90) m/uL Hgb 7.8 L (13.0-17.5) gm/dL Hct 25.9 L (39.0-53.0) % MCH (25.0-35.0) pg MCHC 30.0 L (31.0-37.0) g/dL RDW 20.9 H (11.5-15.5) % Lymphocytes # 0.5 L (1.0-4.8) k/uL Monocytes # 1.1 H (0-1.0) k/uL Sodium 134 L (137-145) mmol/L Creatinine 0.53 L (0.66-1.25) mg/dL Glucose 134 H (74-99) mg/dL POC Glucose (mg/dL) 151 H (75-99) mg/dL Calcium 8.2 L (8.4-10.2) mg/dL ALT 17 L (21-72) U/L Total Protein 5.1 L (6.3-8.2) g/dL Albumin 2.4 L (3.5-5.0) g/dL Assessment and Plan (1) Rectal cancer Narrative/Plan: Patient post low anterior resection with right colectomy and loop colostomy. Patient with large pulmonary embolism identified last night. Pulmonary following this patient closely. They're considering transfer for endovascular therapy. Keep nothing by mouth for now. Current Visit: Yes Status: Acute Code(s): C20 - MALIGNANT NEOPLASM OF RECTUM SNOMED Code(s): 981580493
--- NOTE | 2018-09-09 11:13 | P.CNPUL ---
History of Present Illness Consult date: 09/09/18 Requesting physician: Jose M Miner Reason for consult: dyspnea, hypoxemia, pulmonary embolism, abnormal CXR/CT Chief complaint: Acute pulmonary embolisms, hypoxemia, tachycardia History of present illness: This is a 48-year-old white male patient who initially came into the hospital for low anterior resection of the rectum her history of rectal cell carcinoma. Patient had surgery on 09/07/2018 Dr. Sherman, he had right colectomy, lower anterior resection, with loop colostomy, and the biopsies of the surgical specimen are still pending. Patient was on the medical surgical floor, doing relatively well. On 09/08/2018, patient was noted to be approximately, chest x- ray was obtained, and showed low lung volumes with left greater than the right bibasilar infiltrate and/or atelectasis. Later in the evening patient's saturations went down to mid 80s on 3 L per nasal cannula, patient was increasingly tachycardic, rapid response team was called, stated CT angios of the chest was obtained, and it showed evidence of extensive pulmonary embolic disease, multiple lobar and segmental pulmonary emboli involving right upper lobe, right middle lobe and right lower lobe pulmonary arteries. Nonoccluding embolus and bifurcation of the left main pulmonary artery as well as multiple lobar and segmental pulmonary emboli involving left upper lobe and left lower lobe pulmonary arteries. Lung windows showed bilateral dependent and scattered subsegmental atelectasis, no evidence of any acute pulmonary parenchymal disease or pulmonary consolidation. No pleural effusion, no pneumothorax. Patient was transferred to the intensive care for further monitoring, he was started on heparin infusion, and currently patient is on auto percent nonrebreather with a pulse ox of 96%, currently less tachycardic, and the heart rate is ranging in the 99-100 BPM. Patient denies any acute distress, looking slightly pale, denied any chest pain, or hemoptysis. Today's chest x-ray showed smaller-appearing bibasilar atelectasis and low lung volumes. Today's lab work showed WBC of 8.1, hemoglobin 7.8, INR of 1.1, sodium is 134, the rest of electrolytes were within normal limits, BUN was 12 and creatinine 0.53, current IV fluids is D5.45 with 20 of potassium at a rate of 125 ML per hour. High intensity heparin infusion is currently on. Lung sounds are diminished, mid abdominal incision is clean dry and intact, ostomy is pink, patient has not passed any gas or stool. He is tolerating ice chips. Other past vertical history is positive for diabetes mellitus type 2, GERD/reflux, hypertension, seizure disorder in patient has not had any breakthrough seizures in years, chronic anemia, street of rectal cancer status post chemo and radiation therapy completed on 08/06/2018. Patient is a former smoker. Review of Systems All systems: negative Constitutional: Denies chills, Denies fever Eyes: denies blurred vision, denies pain Ears, nose, mouth and throat: Denies headache, Denies sore throat Cardiovascular: Denies chest pain, Denies shortness of breath Respiratory: Reports dyspnea, Denies cough Gastrointestinal: Denies abdominal pain, Denies diarrhea, Denies nausea, Denies vomiting Musculoskeletal: Denies myalgias Integumentary: Denies pruritus, Denies rash Neurological: Denies numbness, Denies weakness Psychiatric: Denies anxiety, Denies depression Endocrine: Denies fatigue, Denies weight change Past Medical History Past Medical History: Cancer, Diabetes Mellitus, GERD/Reflux, Hypertension, Seizure Disorder Additional Past Medical History / Comment(s): epilepsy-last seizure "10 years ago", ANEMIA, rectal cancer-had chemo through 08/06/18 and radiation through History of Any Multi-Drug Resistant Organisms: None Reported Past Surgical History: Appendectomy, Cholecystectomy, Hernia Repair Additional Past Surgical History / Comment(s): vasectomy, surg. to repair hypospadias as a child Past Anesthesia/Blood Transfusion Reactions: No Reported Reaction Past Psychological History: No Psychological Hx Reported Smoking Status: Former smoker Past Alcohol Use History: Rare Additional Past Alcohol Use History / Comment(s): quit smoking 2009, smoked 1ppd for 4 yrs., STARTED BACK UP FOR A FEW MONTHS, quit smoking 3 months ago Past Drug Use History: None Reported - Past Family History Brother(s) Family Medical History: Deep Vein Thrombosis (DVT) Medications and Allergies Home Medications Medication Instructions Recorded Confirmed Type Divalproex [Depakote] 500 mg PO TID 10/29/15 09/07/18 History clonazePAM [KlonoPIN] 1 mg PO BID 10/29/15 09/06/18 History metFORMIN HCL 1,000 mg PO BID 04/21/18 09/06/18 History Lisinopril-Hctz 20-25 mg 1 tab PO DAILY 08/29/18 09/06/18 History [Zestoretic 20-25] Allergies Allergy/AdvReac Type Severity Reaction Status Date / Time celery Allergy Unknown face turns Verified 09/06/18 18:20 red chicken derived [Chicken] Allergy Unknown face turns Verified 09/06/18 18:20 red Physical Exam Vitals: Vital Signs Temp Pulse Pulse Resp BP BP Pulse Ox 09/09/18 07:00 99 29 H 133/87 96 09/09/18 06:00 100 30 H 133/87 96 09/09/18 05:30 101 H 16 145/95 97 09/09/18 05:00 100 16 96 09/09/18 04:36 98.9 F 101 H 24 145/89 98 09/09/18 03:12 98 09/09/18 03:05 98 09/08/18 23:09 98.6 F 106 H 20 155/86 86 L 09/08/18 21:40 98 20 09/08/18 18:44 98.5 F 85 134/85 90 L 09/08/18 16:06 14 09/08/18 14:42 97.5 F L 113 H 129/90 88 L Intake and Output 09/08/18 09/09/18 09/09/18 22:59 06:59 14:59 Intake Total 815 467 171 Output Total 520 200 75 Balance 295 267 96 Intake: IV 342 171 D5.4520K 250 125 Heparin Sod,Pork in 0.45% 92 46 NaCl 25,000 unit In 0.45 % NaCl 1 500ml.bag @ 46 mls/hr IV .[id number] [facility] Rx #:[id number] Intake, IV Titration 365 125 Amount D5-0.45% NaCl with KCl 365 125 20Meq/l 1,000 ml @ 125 mls/hr IV .Q8H [facility] Rx#: [id number] Oral 450 Output: Urine 520 200 75 Other: Voiding Method Indwelling Catheter Indwelling Catheter # Voids 1 1 Weight 134.263 kg GENERAL EXAM: Alert, pleasant, 48-year-old white male on 100% nonrebreather, comfortable in no apparent distress. HEAD: Normocephalic/atraumatic. EYES: Normal reaction of pupils, equal size. Conjunctiva pink, sclera white. NOSE: Clear with pink turbinates. THROAT: No erythema or exudates. NECK: No masses, no JVD, no thyroid enlargement, no adenopathy. CHEST: No chest wall deformity. Symmetrical expansion. LUNGS: Equal air entry with no crackles, wheeze, rhonchi or dullness. CVS: Regular rate and rhythm, normal S1 and S2, no gallops, no murmurs, no rubs ABDOMEN: Soft, nontender. No hepatosplenomegaly, normal bowel sounds, no guarding or rigidity. Midline abdominal incision is clean dry and intact, covered with a surgical dressing, right-sided colostomy, and colostomy is pink, viable, no gas or stool noted in the bag. EXTREMITIES: No clubbing, diffuse generalized edema, no cyanosis, 2+ pulses and upper and lower extremities. MUSCULOSKELETAL: Muscle strength and tone normal. SPINE: No scoliosis or deformity SKIN: No rashes CENTRAL NERVOUS SYSTEM: Alert and oriented -3. No focal deficits, tone is normal in all 4 extremities. PSYCHIATRIC: Alert and oriented -3. Appropriate affect. Intact judgment and insight. Results - Laboratory Findings CBC and BMP: 09/09/18 04:53 09/09/18 04:46 PT/INR, D-dimer PT 10.4 sec (9.0-12.0) 09/09/18 04:46 INR 1.1 (<1.2) 09/09/18 04:46 Abnormal lab findings: Abnormal Labs 09/06/18 09/06/18 09/06/18 09:50 17:06 17:06 RBC 3.85 L Hgb 9.5 L Hct 32.7 L MCH 24.7 L MCHC 29.1 L RDW 20.7 H Lymphocytes # 0.8 L Monocytes # Sodium Creatinine Glucose 162 H POC Glucose (mg/dL) 181 H Calcium 8.3 L ALT Total Protein Albumin 09/06/18 09/07/18 09/07/18 23:38 05:59 12:32 RBC Hgb Hct MCH MCHC RDW Lymphocytes # Monocytes # Sodium Creatinine Glucose POC Glucose (mg/dL) 162 H 183 H 139 H Calcium ALT Total Protein Albumin 09/07/18 09/07/18 09/08/18 19:44 23:31 06:04 RBC Hgb Hct MCH MCHC RDW Lymphocytes # Monocytes # Sodium Creatinine Glucose POC Glucose (mg/dL) 188 H 158 H 189 H Calcium ALT Total Protein Albumin 09/08/18 09/08/18 09/08/18 11:56 18:17 23:49 RBC Hgb Hct MCH MCHC RDW Lymphocytes # Monocytes # Sodium Creatinine Glucose POC Glucose (mg/dL) 183 H 166 H 141 H Calcium ALT Total Protein Albumin 09/09/18 09/09/18 09/09/18 00:17 00:17 04:09 RBC 3.18 L Hgb 7.9 L D Hct 26.7 L MCH 24.9 L MCHC 29.6 L RDW 21.0 H Lymphocytes # 0.8 L Monocytes # 1.3 H Sodium 135 L Creatinine 0.54 L Glucose 134 H POC Glucose (mg/dL) 145 H Calcium 8.0 L ALT Total Protein Albumin 09/09/18 09/09/18 09/09/18 04:46 04:53 06:14 RBC 3.11 L Hgb 7.8 L Hct 25.9 L MCH MCHC 30.0 L RDW 20.9 H Lymphocytes # 0.5 L Monocytes # 1.1 H Sodium 134 L Creatinine 0.53 L Glucose 134 H POC Glucose (mg/dL) 151 H Calcium 8.2 L ALT 17 L Total Protein 5.1 L Albumin 2.4 L - Diagnostic Findings Chest x-ray: report reviewed, image reviewed CT scan - chest: report reviewed, image reviewed Assessment and Plan Plan: Assessment: #1. Acute hypoxemic respiratory failure secondary to extensive pulmonary embolic disease, and CT angios chest showed multiple lobar and segmental pulmonary emboli involving the right upper lobe, right middle lobe, right lower lobe pulmonary arteries, nonoccluding embolus at the bifurcation of the left main pulmonary artery, as well as multiple lobar and segmental pulmonary emboli involving left upper lobe and left lower lobe pulmonary arteries. #2. Rectal cancer status post colectomy and colostomy, this is postop day 3, patient surgery was on 09/07/2018 #3. History of rectal cancer, status post chemo and radiation, completed on , patient had a PET scan on 05/14/2018 which showed increased uptake within the patient reported rectal cancer, but metastatic disease was not clearly evident, there was a focal radiotracer accumulation within the ascending colon region, and additional neoplasm at that level was not excluded. #4. Diabetes mellitus type 2 #5. GERD/reflux #6. Hypertension #7. Seizure disorder, on Depakote, patient has not had a breakthrough seizure in years #8. Nicotine dependence, in remission Plan: Stat echocardiogram has been ordered and is pending at this time, patient is hemodynamically stable, non-tachycardic, still requiring high dose of oxygen, currently on 100% nonrebreather. CT angios chest, chest x-rays, labs have been reviewed by Dr. Jones. If the echocardiogram shows ventricular strain, will be inclined to arrange a transfer to [facility] for possible ECOS procedure. For now continue with current medical treatment, continue heparin infusion. We'll continue to monitor I performed a history & physical examination of the patient and discussed their management with my nurse practitioner, Kenisha Kaur. I reviewed the nurse practitioner's note and agree with the documented findings and plan of care. Lung sounds are diminished. The findings and the impression was discussed with the patient. I attest to the documentation by the nurse practitioner. Time with Patient: Greater than 30
[2018-09-09 11:43] LABS: Glucose,Whole Blood 132 mg/dL (75-99)
[2018-09-09 12:54] LABS: Glucose,Whole Blood 159 mg/dL (75-99)
--- NOTE | 2018-09-09 13:21 | ECHOF ---
Referral Reason:pulmonary embolisms MEASUREMENTS -------- HEIGHT: 165.1 cm WEIGHT: 108.4 kg BP: 160/98 IVSd: 1.4 cm (0.6 - 1.1) LVIDd: 3.0 cm (3.9 - 5.3) LVPWd: 1.4 cm (0.6 - 1.1) EDV(Teich): 34 ml IVSs: 1.7 cm LVIDs: 2.3 cm LVPWs: 1.9 cm %IVS Thck: 22 % ESV(Teich): 19 ml EF(Teich): 44 % %FS: 21 % SV(Teich): 15 ml LA Diam: 2.9 cm (2.7 - 3.8) RVIDd: 3.7 cm (< 3.3) LALs A4C: 4.4 cm LAAs A4C: 14.2 cm LAESV A-L A4C: 39 ml LAESV MOD A4C: 37 ml LALs A2C: 5.3 cm LAAs A2C: 13.4 cm LAESV A-L A2C: 29 ml LAESV MOD A2C: 26 ml LAESV(A-L): 37 ml LAESV Index (A-L): 17.09 ml/m Ao Diam: 3.3 cm (2.0 - 3.7) AV Cusp: 2.5 cm (1.5 - 2.6) EPSS: 1.7 cm MV E Kd: 0.98 m/s MV DecT: 182 ms MV Dec [place]: 5.4 m/s MV A Kd: 1.03 m/s MV E/A Ratio: 0.95 MV PHT: 53 ms AV Vmax: 1.34 m/s AV maxP.13 mmHg TR Vmax: 3.76 m/s TR maxP.60 mmHg RAP: 5.00 mmHg RVSP: 61.60 mmHg MV EF SLOPE: 72.68 mm/s (70 - 150) MV EXCURSION: 18.05 mm (> 18.000) FINDINGS -------- Sinus rhythm. This was a technically difficult study with suboptimal views. The left ventricular size is normal. There is moderate concentric left ventricular hypertrophy. O verall left ventricular systolic function is normal with, an EF between 60 - 65 %. The right ventricle is mild to moderately enlarged. Normal LA size by volume 22+/-6 ml/m2. The right atrium was not well visualized. 3 ml of Lumason was utilized for enhancement of images. There is mild aortic valve sclerosis. The mitral valve is normal. Mild tricuspid regurgitation present. There is severe pulmonary hypertension. The right ventricul ar systolic pressure, as measured by Doppler, is 61.60mmHg. There is no pulmonic regurgitation present. The aortic root size is normal. Normal inferior vena cava with normal inspiratory collapse consistent with estimated right atrial pre ssure of 5 mmHg. There is no pericardial effusion. CONCLUSIONS -------- 1. Sinus rhythm. 2. This was a technically difficult study with suboptimal views. 3. The left ventricular size is normal. 4. There is moderate concentric left ventricular hypertrophy. 5. Overall left ventricular systolic function is normal with, an EF between 60 - 65 %. 6. The right ventricle is mild to moderately enlarged. 7. Normal LA size by volume 22+/-6 ml/m2. 8. The right atrium was not well visualized. 9. 3 ml of Lumason was utilized for enhancement of images. 10. There is mild aortic valve sclerosis. 11. The mitral valve is normal. 12. Mild tricuspid regurgitation present. 13. There is severe pulmonary hypertension. 14. The right ventricular systolic pressure, as measured by Doppler, is 61.60mmHg. 15. There is no pulmonic regurgitation present. 16. The aortic root size is normal. 17. Normal inferior vena cava with normal inspiratory collapse consistent with estimated right atrial pressure of 5 mmHg. 18. There is no pericardial effusion. RESIDENTIAL TEAM LEADER: Chrissie Sandhu RDCS
--- NOTE | 2018-09-09 13:29 | P.CONS ---
History of Present Illness - Reason for Consult Consult date: 09/09/18 PE Requesting physician: Dina Torres - Chief Complaint elective colon surgery - History of Present Illness Mr. Weller is a very pleasant 48-year-old male patient of Dr. Vargas. He completed neoadjuvant chemotherapy and concurrent radiation at the end of May for rectal cancer. I do not have all of the details of patient's treatment history but I will get more information to the chart after reviewing office medical records. Patient was admitted for rectal surgery post treatment. Patient did have a colonoscopy posttreatment with noted large polyp, plan was to resect that as well. Patient is status post low anterior resection, right colectomy and diverting loop colostomy. Postprocedure patient did experience significant difficulty in breathing requiring a nonrebreather, increased respiratory rate and tachycardia. CTA of the chest was positive for bilateral pulmonary embolism and a non-occluding saddle PE. Patient is on a heparin drip. When seen today patient is still having some difficulty breathing, he denies fever, nausea, cough or hemoptysis, other bleeding, unrealistic abdominal pain, or pain in his legs. Patient is a lethargic during our conversation but he arouses easily to voice and answers questions appropriately Review of Systems 14 point ROS is negative except as stated in HPI Past Medical History Past Medical History: Cancer, Diabetes Mellitus, GERD/Reflux, Hypertension, Seizure Disorder Additional Past Medical History / Comment(s): epilepsy-last seizure "10 years ago", ANEMIA, rectal cancer-had chemo through 08/06/18 and radiation through History of Any Multi-Drug Resistant Organisms: None Reported Past Surgical History: Appendectomy, Cholecystectomy, Hernia Repair Additional Past Surgical History / Comment(s): vasectomy, surg. to repair hypospadias as a child Past Anesthesia/Blood Transfusion Reactions: No Reported Reaction Past Psychological History: No Psychological Hx Reported Smoking Status: Former smoker Past Alcohol Use History: Rare Additional Past Alcohol Use History / Comment(s): quit smoking 2009, smoked 1ppd for 4 yrs., STARTED BACK UP FOR A FEW MONTHS, quit smoking 3 months ago Past Drug Use History: None Reported - Past Family History Brother(s) Family Medical History: Deep Vein Thrombosis (DVT) Medications and Allergies Home Medications Medication Instructions Recorded Confirmed Type Divalproex [Depakote] 500 mg PO TID 10/29/15 09/07/18 History clonazePAM [KlonoPIN] 1 mg PO BID 10/29/15 09/06/18 History metFORMIN HCL 1,000 mg PO BID 04/21/18 09/06/18 History Lisinopril-Hctz 20-25 mg 1 tab PO DAILY 08/29/18 09/06/18 History [Zestoretic 20-25] Allergies Allergy/AdvReac Type Severity Reaction Status Date / Time celery Allergy Unknown face turns Verified 09/06/18 18:20 red chicken derived [Chicken] Allergy Unknown face turns Verified 09/06/18 18:20 red Physical Exam Vitals: Vital Signs Temp Pulse Pulse Resp BP BP Pulse Ox 09/09/18 07:00 99 29 H 133/87 96 09/09/18 06:00 100 30 H 133/87 96 09/09/18 05:30 101 H 16 145/95 97 09/09/18 05:00 100 16 96 09/09/18 04:36 98.9 F 101 H 24 145/89 98 09/09/18 03:12 98 09/09/18 03:05 98 09/08/18 23:09 98.6 F 106 H 20 155/86 86 L 09/08/18 21:40 98 20 09/08/18 18:44 98.5 F 85 134/85 90 L 09/08/18 16:06 14 09/08/18 14:42 97.5 F L 113 H 129/90 88 L Intake and Output 09/08/18 09/09/18 09/09/18 22:59 06:59 14:59 Intake Total 815 467 522.9 Output Total 520 200 75 Balance 295 267 447.9 Intake: IV 342 171 D5.4520K 250 125 Heparin Sod,Pork in 0.45% 92 46 NaCl 25,000 unit In 0.45 % NaCl 1 500ml.bag @ 46 mls/hr IV .[id number] [facility] Rx #:[id number] Intake, IV Titration 365 125 351.9 Amount D5-0.45% NaCl with KCl 365 125 20Meq/l 1,000 ml @ 125 mls/hr IV .Q8H [facility] Rx#: [id number] Heparin Sod,Pork in 0.45% 351.9 NaCl 25,000 unit In 0.45 % NaCl 1 500ml.bag @ 46 mls/hr IV .[id number] [facility] Rx #:[id number] Oral 450 Output: Urine 520 200 75 Other: Voiding Method Indwelling Catheter Indwelling Catheter # Voids 1 1 Weight 134.263 kg - Constitutional drifts off to sleep but arouses easily and answers questions appropriately General appearance: mild distress, morbidly obese - EENT Eyes: anicteric sclerae, EOMI ENT: hearing grossly normal - Neck Neck: no lymphadenopathy - Respiratory Respiratory: bilateral: CTA - Cardiovascular Rhythm: regular Heart sounds: normal: S1, S2 Abnormal Heart Sounds: no systolic murmur, no diastolic murmur, no rub, no S3 Gallop, no S4 Gallop, no click, no other leg Peripheral Edema: bilateral: Trace - Gastrointestinal 2 BS noted at 1 min ausculatation. Midline incision dressing CDI, small amount of serosang drainage in ostomy appliance, no gross bleeding of stoma noted General gastrointestinal: distended - Neurologic Neurologic: CNII-XII intact - Musculoskeletal Musculoskeletal: generalized weakness - Psychiatric oriented x 3 Psychiatric: appropriate affect, intact judgment & insight Results CBC & Chem 7: 09/09/18 04:53 09/09/18 04:46 Labs: Abnormal Lab Results - Last 24 Hours (Table) 09/08/18 09/08/18 09/09/18 Range/Units 18:17 23:49 00:17 RBC 3.18 L (4.30-5.90) m/uL Hgb 7.9 L D (13.0-17.5) gm/dL Hct 26.7 L (39.0-53.0) % MCH 24.9 L (25.0-35.0) pg MCHC 29.6 L (31.0-37.0) g/dL RDW 21.0 H (11.5-15.5) % Lymphocytes # 0.8 L (1.0-4.8) k/uL Monocytes # 1.3 H (0-1.0) k/uL APTT (22.0-30.0) sec Sodium (137-145) mmol/L Creatinine (0.66-1.25) mg/dL Glucose (74-99) mg/dL POC Glucose (mg/dL) 166 H 141 H (75-99) mg/dL Calcium (8.4-10.2) mg/dL ALT (21-72) U/L Total Protein (6.3-8.2) g/dL Albumin (3.5-5.0) g/dL 09/09/18 09/09/18 09/09/18 Range/Units 00:17 04:09 04:46 RBC (4.30-5.90) m/uL Hgb (13.0-17.5) gm/dL Hct (39.0-53.0) % MCH (25.0-35.0) pg MCHC (31.0-37.0) g/dL RDW (11.5-15.5) % Lymphocytes # (1.0-4.8) k/uL Monocytes # (0-1.0) k/uL APTT (22.0-30.0) sec Sodium 135 L 134 L (137-145) mmol/L Creatinine 0.54 L 0.53 L (0.66-1.25) mg/dL Glucose 134 H 134 H (74-99) mg/dL POC Glucose (mg/dL) 145 H (75-99) mg/dL Calcium 8.0 L 8.2 L (8.4-10.2) mg/dL ALT 17 L (21-72) U/L Total Protein 5.1 L (6.3-8.2) g/dL Albumin 2.4 L (3.5-5.0) g/dL 09/09/18 09/09/18 09/09/18 Range/Units 04:53 06:14 10:20 RBC 3.11 L (4.30-5.90) m/uL Hgb 7.8 L (13.0-17.5) gm/dL Hct 25.9 L (39.0-53.0) % MCH (25.0-35.0) pg MCHC 30.0 L (31.0-37.0) g/dL RDW 20.9 H (11.5-15.5) % Lymphocytes # 0.5 L (1.0-4.8) k/uL Monocytes # 1.1 H (0-1.0) k/uL APTT 53.0 H (22.0-30.0) sec Sodium (137-145) mmol/L Creatinine (0.66-1.25) mg/dL Glucose (74-99) mg/dL POC Glucose (mg/dL) 151 H (75-99) mg/dL Calcium (8.4-10.2) mg/dL ALT (21-72) U/L Total Protein (6.3-8.2) g/dL Albumin (3.5-5.0) g/dL 09/09/18 Range/Units 11:31 RBC (4.30-5.90) m/uL Hgb (13.0-17.5) gm/dL Hct (39.0-53.0) % MCH (25.0-35.0) pg MCHC (31.0-37.0) g/dL RDW (11.5-15.5) % Lymphocytes # (1.0-4.8) k/uL Monocytes # (0-1.0) k/uL APTT (22.0-30.0) sec Sodium (137-145) mmol/L Creatinine (0.66-1.25) mg/dL Glucose (74-99) mg/dL POC Glucose (mg/dL) 132 H (75-99) mg/dL Calcium (8.4-10.2) mg/dL ALT (21-72) U/L Total Protein (6.3-8.2) g/dL Albumin (3.5-5.0) g/dL Chest x-ray: report reviewed CT scan - chest: report reviewed Assessment and Plan (1) Pulmonary embolism during current hospitalization Narrative/Plan: Bilateral lungs with non-occluding saddle PE. Agree with heparin drip for now due to symptoms and recent surgery. Close monitoring for bleeding post op, CBC daily. BLE doppler ordered for baseline Transition to oral anticoagulation once symptoms improved and Hgb has remained stable for a few days after post op Anticipate at least 1 year anticoagulation but, quite possibly longer due to extensiveness of this post op PE. Current Visit: Yes Status: Acute Priority: High Code(s): I26.99 - OTHER PULMONARY EMBOLISM WITHOUT ACUTE COR PULMONALE SNOMED Code(s): 48146766 (2) Normocytic normochromic anemia Narrative/Plan: Anemia work up ordered. Pt is post chemo and surgery for rectal cancer so, multifactorial underlying cause anticipated. Will supplement as work up indicates. Conservative transfusion for Hgb< 7 or if symptomatic Current Visit: Yes Status: Acute Priority: High Code(s): D64.9 - ANEMIA, UNSPECIFIED SNOMED Code(s): 08206769 (3) Rectal cancer Narrative/Plan: Noble-adjuvant treatment with chemo and XRT completed in the last 4 months. Pt had surgery to remove cancerous area of the rectum and a suspicious polyp identified on colonoscopy done post treatment. Path pending. Current Visit: Yes Status: Chronic Priority: Medium Code(s): C20 - MALIGNANT NEOPLASM OF RECTUM SNOMED Code(s): 068971758
--- NOTE | 2018-09-09 14:57 | US ---
EXAMINATION TYPE: US venous doppler duplex LE BI DATE OF EXAM: 09/09/2018 1:53 PM COMPARISON: NONE CLINICAL HISTORY: massive bilateral PE, baseline. SIDE PERFORMED: TECHNIQUE: The lower extremity deep venous system is examined utilizing real time linear array sonog levi with graded compression, doppler sonography and color-flow sonography. VESSELS IMAGED: External Iliac Vein (EIV) Common Femoral Vein Deep Femoral Vein Greater Saphenous Vein * Femoral Vein Popliteal Vein Small Saphenous Vein * Proximal Calf Veins (* superficial vessels) Limited due to body habitus. Right Leg: Negative for DVT Left Leg: Negative for DVT IMPRESSION: Normal bilateral leg duplex venous sonogram.
[2018-09-09 17:27] LABS: Glucose,Whole Blood 145 mg/dL (75-99)
[2018-09-09 17:40] LABS: Iron Saturation 3.11 (15.00-50.00)
[2018-09-09] MEDS: METOCLOPRAMIDE 5 MG/ML 2 ML VIAL IVP PRN (17:53)
--- NOTE | 2018-09-09 18:07 | P.PN ---
Subjective 48-year-old admitted for low anterior resection of the rectum patient has a colostomy in place patient abdomen is distended has sluggish bowel sounds because of which his heart rate is bit elevated will obtain a TSH. Patient the SATURATIONS IS GONE DOWN TO 90% I'M OBTAINING A CHEST X-RAY, PATIENT WILL CONTINUE HIS INCENTIVE SPIROMETRY. PATIENT HAS AN EPIDURAL IN PLACE AN BIT NAUSEOUS NOW. THIS IS BEING ADDRESSED BY GENERAL SURGERY. 09/09/2018 Patient became more hypoxic yesterday the chest x-ray are ordered before the left showed bilateral infiltrates may be atelectasis rather than pneumonia although patient was started on empiric antibiotics which are being continued him unfortunately I'm unable to open the CAT scan. Patient became more hypoxic and tachycardic because of which CAT scan was opted to rule out pulmonary embolism which showed extensive bilateral PE. Patient was started on IV heparin transferred to ICU because patient is on Ventimask troponin is negative BNP is not elevated patient is low to intermediate risk pulmonary embolism probably will not be a candidate for intralesional thrombolytics. Patient is presently on Ventimask All inpatient medications were reviewed and appropriate changes in these medications as dictated in the interval history and assessment and plan. Objective - Vital Signs Vital signs: Vital Signs Temp 98.1 F 09/09/18 16:00 Pulse 92 09/09/18 18:00 Resp 25 H 09/09/18 18:00 BP 162/81 09/09/18 18:00 Pulse Ox 96 09/09/18 18:00 Intake & Output 09/08/18 09/09/18 09/09/18 18:59 06:59 18:59 Intake Total 1625 1282 2631.0 Output Total 720 1115 Balance 7420 084 0965.0 Weight 134.263 kg 134.263 kg Intake: IV 342 1881 D5.4520K 250 1375 Heparin Sod,Pork in 0.45% 92 506 NaCl 25,000 unit In 0.45 % NaCl 1 500ml.bag @ 46 mls/hr IV .[id number] [facility] Rx #:[id number] Intake, IV Titration 1625 490 500.0 Amount D5-0.45% NaCl with KCl 625 490 20Meq/l 1,000 ml @ 125 mls/hr IV .Q8H [facility] Rx#: [id number] Heparin Sod,Pork in 0.45% 500.0 NaCl 25,000 unit In 0.45 % NaCl 1 500ml.bag @ 46 mls/hr IV .[id number] [facility] Rx #:[id number] Sodium Chloride 0.9% 1, 1000 000 ml @ 999 mls/hr IV . Q1H1M ONE Rx#:[id number] Oral 450 250 Output: Urine 720 1075 Uretheral (Samuel) 200 Stool 40 Other: Voiding Method Indwelling Catheter Indwelling Catheter Indwelling Catheter # Voids 1 0 - Exam PHYSICAL EXAMINATION: GENERAL: The patient is drowsy sleepy unable to assess his orientation, not in any acute distress. Morbidly obese him on Ventimask HEENT: Pupils are round and equally reacting to light. EOMI. No scleral icterus. No conjunctival pallor. Normocephalic, atraumatic. No pharyngeal erythema. No thyromegaly. CARDIOVASCULAR: S1 and S2 present. No murmurs, rubs, or gallops. PULMONARY: Chest is clear to auscultation, no wheezing or crackles. ABDOMEN: Distended colostomy in place. Tympanic. MUSCULOSKELETAL: No joint swelling or deformity. EXTREMITIES: No cyanosis, clubbing, or pedal edema. NEUROLOGICAL: Gross neurological examination did not reveal any focal deficits. SKIN: No rashes. - Labs CBC & Chem 7: 09/09/18 04:53 09/09/18 04:46 Labs: Abnormal Lab Results - Last 24 Hours (Table) 09/08/18 09/08/18 09/09/18 Range/Units 18:17 23:49 00:17 RBC 3.18 L (4.30-5.90) m/uL Hgb 7.9 L D (13.0-17.5) gm/dL Hct 26.7 L (39.0-53.0) % MCH 24.9 L (25.0-35.0) pg MCHC 29.6 L (31.0-37.0) g/dL RDW 21.0 H (11.5-15.5) % Lymphocytes # 0.8 L (1.0-4.8) k/uL Monocytes # 1.3 H (0-1.0) k/uL APTT (22.0-30.0) sec Sodium (137-145) mmol/L Creatinine (0.66-1.25) mg/dL Glucose (74-99) mg/dL POC Glucose (mg/dL) 166 H 141 H (75-99) mg/dL Calcium (8.4-10.2) mg/dL Iron (65-175) ug/dL Iron Saturation (15.00-50.00) ALT (21-72) U/L Total Protein (6.3-8.2) g/dL Albumin (3.5-5.0) g/dL 09/09/18 09/09/18 09/09/18 Range/Units 00:17 04:09 04:46 RBC (4.30-5.90) m/uL Hgb (13.0-17.5) gm/dL Hct (39.0-53.0) % MCH (25.0-35.0) pg MCHC (31.0-37.0) g/dL RDW (11.5-15.5) % Lymphocytes # (1.0-4.8) k/uL Monocytes # (0-1.0) k/uL APTT (22.0-30.0) sec Sodium 135 L 134 L (137-145) mmol/L Creatinine 0.54 L 0.53 L (0.66-1.25) mg/dL Glucose 134 H 134 H (74-99) mg/dL POC Glucose (mg/dL) 145 H (75-99) mg/dL Calcium 8.0 L 8.2 L (8.4-10.2) mg/dL Iron (65-175) ug/dL Iron Saturation (15.00-50.00) ALT 17 L (21-72) U/L Total Protein 5.1 L (6.3-8.2) g/dL Albumin 2.4 L (3.5-5.0) g/dL 09/09/18 09/09/18 09/09/18 Range/Units 04:53 06:14 10:20 RBC 3.11 L (4.30-5.90) m/uL Hgb 7.8 L (13.0-17.5) gm/dL Hct 25.9 L (39.0-53.0) % MCH (25.0-35.0) pg MCHC 30.0 L (31.0-37.0) g/dL RDW 20.9 H (11.5-15.5) % Lymphocytes # 0.5 L (1.0-4.8) k/uL Monocytes # 1.1 H (0-1.0) k/uL APTT 53.0 H (22.0-30.0) sec Sodium (137-145) mmol/L Creatinine (0.66-1.25) mg/dL Glucose (74-99) mg/dL POC Glucose (mg/dL) 151 H (75-99) mg/dL Calcium (8.4-10.2) mg/dL Iron (65-175) ug/dL Iron Saturation (15.00-50.00) ALT (21-72) U/L Total Protein (6.3-8.2) g/dL Albumin (3.5-5.0) g/dL 09/09/18 09/09/18 09/09/18 Range/Units 10:20 11:31 12:18 RBC (4.30-5.90) m/uL Hgb (13.0-17.5) gm/dL Hct (39.0-53.0) % MCH (25.0-35.0) pg MCHC (31.0-37.0) g/dL RDW (11.5-15.5) % Lymphocytes # (1.0-4.8) k/uL Monocytes # (0-1.0) k/uL APTT (22.0-30.0) sec Sodium (137-145) mmol/L Creatinine (0.66-1.25) mg/dL Glucose (74-99) mg/dL POC Glucose (mg/dL) 132 H 159 H (75-99) mg/dL Calcium (8.4-10.2) mg/dL Iron 9 L (65-175) ug/dL Iron Saturation 3.11 L (15.00-50.00) ALT (21-72) U/L Total Protein (6.3-8.2) g/dL Albumin (3.5-5.0) g/dL 09/09/18 Range/Units 17:06 RBC (4.30-5.90) m/uL Hgb (13.0-17.5) gm/dL Hct (39.0-53.0) % MCH (25.0-35.0) pg MCHC (31.0-37.0) g/dL RDW (11.5-15.5) % Lymphocytes # (1.0-4.8) k/uL Monocytes # (0-1.0) k/uL APTT (22.0-30.0) sec Sodium (137-145) mmol/L Creatinine (0.66-1.25) mg/dL Glucose (74-99) mg/dL POC Glucose (mg/dL) 145 H (75-99) mg/dL Calcium (8.4-10.2) mg/dL Iron (65-175) ug/dL Iron Saturation (15.00-50.00) ALT (21-72) U/L Total Protein (6.3-8.2) g/dL Albumin (3.5-5.0) g/dL Assessment and Plan Plan: -Extensive bilateral pulmonary embolism leading to acute hypoxic respiratory failure: Continue with respiratory support Ventimask patient is on Olympic antibiotics for possibility of her pneumonia mostly appears to have atelectasis. Patient doesn't have any left ventricle strain on the echocardiogram will continue the respirator support IV heparin. Patient may have had PE even before surgery -Tachycardia secondary to PE -Abdominal distention: And constipation secondary to abdominal surgery and multiple other radical issues going on at this time -Rectal cancer status post colectomy and colostomy. -Seizure disorder patient was resumed on Depakote -Type 2 diabetes mellitus: Metformin held and patient will be on sliding scale insulin for now during this hospitalization . Gastroesophageal reflux disease -Hypertension: Hold off on antihypertensive medications medications to prevent perioperative hypotension -DVT prophylaxis as per primary service
[2018-09-10] MEDS: INSULIN ASPART 100 UNIT/ML 1 ML 10 ML VIAL SQ SCH ×4 (00:22→19:31)
[2018-09-10 00:32] LABS: Glucose,Whole Blood 136 mg/dL (75-99)
[2018-09-10] MEDS: D5-0.45% NACL WITH KCL 20MEQ/L 1,000 ML IV SCH ×2 (02:00→09:28)
[2018-09-10] MEDS: HEPARIN SOD,PORK IN 0.45% NACL 25,000 UNIT in 0.45% NACL 1 500ML.BAG IV SCH ×2 (04:23→14:31)
[2018-09-10 05:19] LABS: Anisocytosis Moderate; Basophils % (A) 0 %; Eosinophils # (A) 0.1 k/uL (0-0.7); Eosinophils % (A) 1 %; HCT 25.8 % (39.0-53.0); HGB 7.6 gm/dL (13.0-17.5); Hypochromasia Marked; Lymphocytes # (A) 0.6 k/uL (1.0-4.8); Lymphocytes % (A) 10 %; MCH 24.5 pg (25.0-35.0); MCHC 29.3 g/dL (31.0-37.0); MCV 83.8 fL (80.0-100.0); Mean Platelet Volume 6.8; Microcytosis Slight; Monocytes # (A) 0.8 k/uL (0-1.0); Monocytes % (A) 13 %; Neutrophils # (A) 4.4 k/uL (1.3-7.7); Neutrophils % (A) 72 %; Platelet Count 287 k/uL (150-450); Poikilocytosis Moderate; RBC 3.08 m/uL (4.30-5.90); RDW 20.6 % (11.5-15.5); WBC 6.1 k/uL (3.8-10.6)
[2018-09-10 05:28] LABS: Anion Gap 6 mmol/L; Blood Urea Nitrogen 13 mg/dL (9-20); Carbon Dioxide 26 mmol/L (22-30); Chloride 102 mmol/L (98-107); Glucose 118 mg/dL (74-99); Magnesium 2.3 mg/dL (1.6-2.3); Phosphorus 3.3 mg/dL (2.5-4.5); Potassium 4.3 mmol/L (3.5-5.1); Sodium 134 mmol/L (137-145)
[2018-09-10 05:29] LABS: Glucose,Whole Blood 128 mg/dL (75-99)
--- NOTE | 2018-09-10 07:31 | XR ---
EXAMINATION TYPE: XR chest 1V portable DATE OF EXAM: 09/10/2018 HISTORY: Shortness of breath. COMPARISON: 09/09/2018 TECHNIQUE: Single view of the chest is submitted. FINDINGS: Demonstrated are scattered senescent parenchymal change. Increasing patchy airspace infiltrates may reflect underlying pneumonia. Continued progress study is advised. The heart is stable. Hilar and mediastinal structures are within normal limits. Degenerative changes are seen of the dorsal spine. IMPRESSION: 1. Increasing patchy airspace infiltrates may reflect underlying pneumonia. Continued progress study is advised.
[2018-09-10] MEDS: DIVALPROEX 500 MG TABLET.DR PO SCH ×3 (08:59→21:45)
[2018-09-10] MEDS: FAMOTIDINE 20 MG/2 ML VIAL IV SCH ×2 (08:59→21:45)
--- NOTE | 2018-09-10 09:08 | P.PN ---
Subjective Progress Note Date: 09/10/18 Principal diagnosis: Colectomy Patient has shown some improvement from an oxygenation standpoint. His echo showed no evidence of right heart strain. He was not transferred to a higher level of care for that reason. Mild abdominal discomfort. He had some stool and flatus in his ostomy bag. Appetite diminished today however. Objective - Vital Signs Vital signs: Vital Signs Temp 98.5 F 09/10/18 05:00 Pulse 92 09/10/18 07:00 Resp 22 09/10/18 07:00 BP 151/90 09/10/18 07:00 Pulse Ox 97 09/10/18 07:00 Intake & Output 09/09/18 09/10/18 09/10/18 18:59 06:59 18:59 Intake Total 2631.0 2046 125 Output Total 1115 2505 20 Balance 1516.0 -459 105 Weight 134.263 kg Intake: IV 1881 171 D5.4520K 1375 125 Heparin Sod,Pork in 0.45% 506 46 NaCl 25,000 unit In 0.45 % NaCl 1 500ml.bag @ 46 mls/hr IV .[id number] [facility] Rx #:[id number] Intake, IV Titration 500.0 1875 125 Amount D5-0.45% NaCl with KCl 1375 125 20Meq/l 1,000 ml @ 125 mls/hr IV .Q8H [facility] Rx#: [id number] Heparin Sod,Pork in 0.45% 500.0 500 NaCl 25,000 unit In 0.45 % NaCl 1 500ml.bag @ 46 mls/hr IV .[id number] [facility] Rx #:[id number] Oral 250 Output: Urine 1075 605 20 Uretheral (Samuel) 200 150 Stool 40 1900 Other: Voiding Method Indwelling Catheter Indwelling Catheter # Voids 0 0 - Exam Abdomen: Soft, distended, dressing clean and dry, ostomy pink with some function - Labs CBC & Chem 7: 09/10/18 04:29 09/10/18 04:29 Labs: Abnormal Lab Results - Last 24 Hours (Table) 09/09/18 09/09/18 09/09/18 Range/Units 10:20 10:20 11:31 RBC (4.30-5.90) m/uL Hgb (13.0-17.5) gm/dL Hct (39.0-53.0) % MCH (25.0-35.0) pg MCHC (31.0-37.0) g/dL RDW (11.5-15.5) % Lymphocytes # (1.0-4.8) k/uL APTT 53.0 H (22.0-30.0) sec Sodium (137-145) mmol/L Creatinine (0.66-1.25) mg/dL Glucose (74-99) mg/dL POC Glucose (mg/dL) 132 H (75-99) mg/dL Calcium (8.4-10.2) mg/dL Iron 9 L (65-175) ug/dL Iron Saturation 3.11 L (15.00-50.00) 09/09/18 09/09/18 09/10/18 Range/Units : 17:06 00:20 RBC (4.30-5.90) m/uL Hgb (13.0-17.5) gm/dL Hct (39.0-53.0) % MCH (25.0-35.0) pg MCHC (31.0-37.0) g/dL RDW (11.5-15.5) % Lymphocytes # (1.0-4.8) k/uL APTT (22.0-30.0) sec Sodium (137-145) mmol/L Creatinine (0.66-1.25) mg/dL Glucose (74-99) mg/dL POC Glucose (mg/dL) 159 H 145 H 136 H (75-99) mg/dL Calcium (8.4-10.2) mg/dL Iron (65-175) ug/dL Iron Saturation (15.00-50.00) 09/10/18 09/10/18 09/10/18 Range/Units 04:29 04:29 04:29 RBC 3.08 L (4.30-5.90) m/uL Hgb 7.6 L (13.0-17.5) gm/dL Hct 25.8 L (39.0-53.0) % MCH 24.5 L (25.0-35.0) pg MCHC 29.3 L (31.0-37.0) g/dL RDW 20.6 H (11.5-15.5) % Lymphocytes # 0.6 L (1.0-4.8) k/uL APTT 51.5 H (22.0-30.0) sec Sodium 134 L (137-145) mmol/L Creatinine 0.51 L (0.66-1.25) mg/dL Glucose 118 H (74-99) mg/dL POC Glucose (mg/dL) (75-99) mg/dL Calcium 8.0 L (8.4-10.2) mg/dL Iron (65-175) ug/dL Iron Saturation (15.00-50.00) 09/10/18 Range/Units 05:18 RBC (4.30-5.90) m/uL Hgb (13.0-17.5) gm/dL Hct (39.0-53.0) % MCH (25.0-35.0) pg MCHC (31.0-37.0) g/dL RDW (11.5-15.5) % Lymphocytes # (1.0-4.8) k/uL APTT (22.0-30.0) sec Sodium (137-145) mmol/L Creatinine (0.66-1.25) mg/dL Glucose (74-99) mg/dL POC Glucose (mg/dL) 128 H (75-99) mg/dL Calcium (8.4-10.2) mg/dL Iron (65-175) ug/dL Iron Saturation (15.00-50.00) Assessment and Plan (1) Rectal cancer Narrative/Plan: Continue ICU care. Keep nothing by mouth for now. Continue anticoagulation. Appreciate pulmonary and hematology consult. Current Visit: Yes Status: Chronic Priority: Medium Code(s): C20 - MALIGNANT NEOPLASM OF RECTUM SNOMED Code(s): 747509589
[2018-09-10] MEDS ORDERED: FUROSEMIDE 10 MG/ML 2 ML VIAL IV STA (09:17)
[2018-09-10 09:21] LABS: Glucose,Whole Blood 126 mg/dL (75-99)
[2018-09-10] MEDS: ONDANSETRON 4 MG/2 ML VIAL IVP PRN (09:27)
--- NOTE | 2018-09-10 11:40 | PN ---
PROGRESS NOTE DATE OF SERVICE: 09/10/2018 This is a patient who was seen yesterday in consultation. Today is a progress note dated September 10. This is a 48-year-old male who was admitted on September 06. He has a history of acute hypoxemic respiratory failure secondary to extensive bilateral pulmonary embolic disease. The patient was initially considered for possible EKOS, but the patient's echocardiogram, although it did reveal evidence of pulmonary hypertension, did not show evidence of right heart strain or changes in his septum including shift or flattening. Hence, the patient was kept here at [facility]. The patient has a history of rectal carcinoma status post colectomy with colostomy, who is postop day #4. The surgery was done on September 07. He had previous chemo and radiation for his rectal carcinoma completed back on July 29, 2018. A PET scan did not reveal any metastatic disease. In addition, he has a history of diabetes, GERD, hypertension, seizure disorder, and nicotine dependence. He has not smoked for some time. Currently, he is resting comfortably in the ICU. He has been seen by surgery already. Dr. Sherman actually did the procedure. Today, he was seen by Dr. Rivera. He is currently on a non-rebreather. He is going to be converted over to high-flow oxygen. He is getting D5 0.45 IV with 20 of KCl at 1:25 am to be turned on the 75 mL an hour. He is on heparin via weight based protocol. His ejection fraction on echo was 60-65 percent. His right ventricular systolic pressure, estimated, over 62 mmHg. There was no evidence of right heart strain. His Doppler studies of the lower extremities were negative. Over the last couple days, he has been way down fluids. On September 09 he was up to 2 L; on September 08 he was up to 600 mL and on September 07, he was up to 5 L. For that reason, his IV will be turned on the 75 mL an hour. He is going to get Lasix 20 mg IV push x1. That may improve his oxygenation. The patient states he is feeling okay. Does have some abdominal pain. A bit short of breath. No pain otherwise. He does look better today than he did yesterday. PHYSICAL EXAMINATION: Current vital signs include temperature 98.5, heart rate about 90 beats per minute, respiratory rate about 19 breaths per minute, blood pressure 151/90 with a mean of 110, saturations are 97% on 15 L high flow. He appears mildly diaphoretic. Mildly tachypneic. States his breathing is better today than it was yesterday. HEENT examination is grossly unremarkable. Nasal O2 in place. NECK: Supple. Full range of motion. No adenopathy or thyromegaly. Neck veins are flat. Cardiovascular examination reveals regular rhythm and rate. Heart rate about 90. S1, S2 normal. No murmur noted. LUNGS: A few scattered rhonchi. No wheezes or crackles. Breath sounds equal. ABDOMEN: Obese bowel sounds are not heard. There is a colostomy bag. Abdomen is mildly distended and mildly tender on palpation. Extremities are intact. No cyanosis, clubbing, or edema. Skin without rash. Neurologic examination is brief but nonfocal. Again, the Dopplers of the lower extremities were negative. Echocardiogram showed ejection fraction of 60 to 65%. Estimated right ventricular systolic pressure was 62. The patient remains on his IV all those to be cut back to 75 mL an hour. He will be given Lasix 20 mg IV push. He remains on IV heparin. His chest x-ray shows some patchy bilateral and mostly basilar infiltrates. White count 6.1, hemoglobin 7.6, hematocrit 25.8, platelet count 287,000, PTT 51.5. Sodium 134, potassium 4.3, chloride 102, CO2 26, BUN and creatinine were 13 and 0.51. Microbiologic studies are negative. Medications are reviewed. He remains on all appropriate medications. He does get 1 dose of Lasix today. He is on breathing treatments in the form of DuoNeb. He also remains on Levaquin. ASSESSMENT: 1. Acute hypoxemic respiratory failure secondary to extensive bilateral pulmonary embolism. No evidence of right heart strain or septal shift or flattening. 2. Rectal carcinoma, status post colectomy and colostomy, postop day number four. 3. History of rectal cancer, status post chemo/radiation, completed in late July, with a PET scan showing no evidence of metastatic disease. 4. Diabetes mellitus. 5. Gastroesophageal reflux disease. 6. Hypertension. 7. Seizure disorder. 8. Previous history of nicotine dependence. PLAN: The patient remains on IV heparin. The IV fluids will be cut back to 75 mL an hour. The patient will be given some Lasix 20 mg IV push x1. Dopplers of the lower extremities were negative. I had reviewed the echocardiogram with Dr. Flowers. The patient's fluid status is noted. Additional recommendations and suggestions are forthcoming. Prognosis is guarded. I did speak to the patient and to the . They understand. Critical care time is 34 minutes. MMODL / IJN: [id number] /
--- NOTE | 2018-09-10 12:46 | P.PN ---
Subjective Progress Note Date: 09/10/18 Principal diagnosis: elective surgery for treated rectal cancer, post op PE Pt seen today in f/u, breathing is better then yesterday but he is still unable to complete a sentence without having SOB, denies bleeding, abd is distended, not unrealistically painful. Objective - Vital Signs Vital signs: Vital Signs Temp 98.5 F 09/10/18 05:00 Pulse 92 09/10/18 07:00 Resp 22 09/10/18 07:00 BP 151/90 09/10/18 07:00 Pulse Ox 97 09/10/18 07:00 Intake & Output 09/09/18 09/10/18 09/10/18 18:59 06:59 18:59 Intake Total 2631.0 2046 125 Output Total 1115 2505 20 Balance 1516.0 -459 105 Weight 134.263 kg Intake: IV 1881 171 D5.4520K 1375 125 Heparin Sod,Pork in 0.45% 506 46 NaCl 25,000 unit In 0.45 % NaCl 1 500ml.bag @ 46 mls/hr IV .[id number] [facility] Rx #:[id number] Intake, IV Titration 500.0 1875 125 Amount D5-0.45% NaCl with KCl 1375 125 20Meq/l 1,000 ml @ 125 mls/hr IV .Q8H [facility] Rx#: [id number] Heparin Sod,Pork in 0.45% 500.0 500 NaCl 25,000 unit In 0.45 % NaCl 1 500ml.bag @ 46 mls/hr IV .[id number] [facility] Rx #:[id number] Oral 250 Output: Urine 1075 605 20 Uretheral (Samuel) 200 150 Stool 40 1900 Other: Voiding Method Indwelling Catheter Indwelling Catheter # Voids 0 0 - Constitutional General appearance: Present: cooperative, mild distress, obese - EENT Eyes: Present: anicteric sclerae, edentulous ENT: Present: hearing grossly normal - Respiratory Respiratory: bilateral: CTA - Cardiovascular Rhythm: regular Heart sounds: normal: S1, S2 Abnormal Heart Sounds: Absent: systolic murmur, diastolic murmur, rub, S3 Gallop , S4 Gallop, click, other - Peripheral edema leg Peripheral Edema: bilateral: 1+ - Gastrointestinal Gastrointestinal Comment(s): 1 BS noted at 1 min, ostomy in LLQ has large amount of bloody fluid, midline dressing is CDI. General gastrointestinal: Present: distended - Integumentary Integumentary: Present: pale - Musculoskeletal Musculoskeletal: Present: generalized weakness - Psychiatric Psychiatric Comment(s): drifts to sleep, easily aroused with voice Psychiatric: Present: appropriate affect, intact judgment & insight - Labs CBC & Chem 7: 09/10/18 04:29 09/10/18 04:29 Labs: Abnormal Lab Results - Last 24 Hours (Table) 09/09/18 09/09/18 09/09/18 Range/Units 10:20 12:18 17:06 RBC (4.30-5.90) m/uL Hgb (13.0-17.5) gm/dL Hct (39.0-53.0) % MCH (25.0-35.0) pg MCHC (31.0-37.0) g/dL RDW (11.5-15.5) % Lymphocytes # (1.0-4.8) k/uL APTT (22.0-30.0) sec Sodium (137-145) mmol/L Creatinine (0.66-1.25) mg/dL Glucose (74-99) mg/dL POC Glucose (mg/dL) 159 H 145 H (75-99) mg/dL Calcium (8.4-10.2) mg/dL Iron 9 L (65-175) ug/dL Iron Saturation 3.11 L (15.00-50.00) 09/10/18 09/10/18 09/10/18 Range/Units 00:20 04:29 04:29 RBC 3.08 L (4.30-5.90) m/uL Hgb 7.6 L (13.0-17.5) gm/dL Hct 25.8 L (39.0-53.0) % MCH 24.5 L (25.0-35.0) pg MCHC 29.3 L (31.0-37.0) g/dL RDW 20.6 H (11.5-15.5) % Lymphocytes # 0.6 L (1.0-4.8) k/uL APTT (22.0-30.0) sec Sodium 134 L (137-145) mmol/L Creatinine 0.51 L (0.66-1.25) mg/dL Glucose 118 H (74-99) mg/dL POC Glucose (mg/dL) 136 H (75-99) mg/dL Calcium 8.0 L (8.4-10.2) mg/dL Iron (65-175) ug/dL Iron Saturation (15.00-50.00) 09/10/18 09/10/18 09/10/18 Range/Units 04:29 05:18 09:08 RBC (4.30-5.90) m/uL Hgb (13.0-17.5) gm/dL Hct (39.0-53.0) % MCH (25.0-35.0) pg MCHC (31.0-37.0) g/dL RDW (11.5-15.5) % Lymphocytes # (1.0-4.8) k/uL APTT 51.5 H (22.0-30.0) sec Sodium (137-145) mmol/L Creatinine (0.66-1.25) mg/dL Glucose (74-99) mg/dL POC Glucose (mg/dL) 128 H 126 H (75-99) mg/dL Calcium (8.4-10.2) mg/dL Iron (65-175) ug/dL Iron Saturation (15.00-50.00) - Imaging and Cardiology Chest x-ray: report reviewed Venous US: report reviewed Assessment and Plan (1) Pulmonary embolism during current hospitalization Narrative/Plan: BLE doppler neg for DVT Cont hep drip for now. Pt is still symptomatic but, improving Current Visit: Yes Status: Acute Priority: High Code(s): I26.99 - OTHER PULMONARY EMBOLISM WITHOUT ACUTE COR PULMONALE SNOMED Code(s): 17056727 (2) Normocytic normochromic anemia Narrative/Plan: No transfusion today, Hgb stable. Work up reveals iron deficiency and low normal B12, more likely deficient. Supplementation for both planned. Current Visit: Yes Status: Acute Priority: High Code(s): D64.9 - ANEMIA, UNSPECIFIED SNOMED Code(s): 08635197 (3) Rectal cancer Narrative/Plan: S/P neoadjuvant chemo. Path pending. Current Visit: Yes Status: Chronic Priority: Medium Code(s): C20 - MALIGNANT NEOPLASM OF RECTUM SNOMED Code(s): 589304446
[2018-09-10] MEDS: CYANOCOBALAMIN 1,000 MCG/ML 1 ML VIAL IM SCH (14:34)
--- NOTE | 2018-09-10 16:05 | P.PN ---
Subjective 48-year-old admitted for low anterior resection of the rectum patient has a colostomy in place patient abdomen is distended has sluggish bowel sounds because of which his heart rate is bit elevated will obtain a TSH. Patient the SATURATIONS IS GONE DOWN TO 90% I'M OBTAINING A CHEST X-RAY, PATIENT WILL CONTINUE HIS INCENTIVE SPIROMETRY. PATIENT HAS AN EPIDURAL IN PLACE AN BIT NAUSEOUS NOW. THIS IS BEING ADDRESSED BY GENERAL SURGERY. 09/09/2018 Patient became more hypoxic yesterday the chest x-ray are ordered before the left showed bilateral infiltrates may be atelectasis rather than pneumonia although patient was started on empiric antibiotics which are being continued him unfortunately I'm unable to open the CAT scan. Patient became more hypoxic and tachycardic because of which CAT scan was opted to rule out pulmonary embolism which showed extensive bilateral PE. Patient was started on IV heparin transferred to ICU because patient is on Ventimask troponin is negative BNP is not elevated patient is low to intermediate risk pulmonary embolism probably will not be a candidate for intralesional thrombolytics. Patient is presently on Ventimask All inpatient medications were reviewed and appropriate changes in these medications as dictated in the interval history and assessment and plan. 09/10/2018 Patient is feeling much better today patient is on high flow nasal cannula oxygen Patient does have significant output from the colostomy abdominal distention improved Constitutional: Denied any fatigue denied any fever. Cardio vascular: denied any chest pain, palpitations Gastrointestinal denied any nausea vomiting Pulmonary: Denied any shortness of breath cough Neurologic denied any new focal deficits All inpatient medications were reviewed and appropriate changes in these medications as dictated in the interval history and assessment and plan. Objective - Vital Signs Vital signs: Vital Signs Temp 97.4 F L 09/10/18 12:00 Pulse 92 09/10/18 15:00 Resp 20 09/10/18 15:00 BP 144/88 09/10/18 15:00 Pulse Ox 92 L 09/10/18 15:00 Intake & Output 09/09/18 09/10/18 09/10/18 18:59 06:59 18:59 Intake Total 2631.0 2046 1276.133 Output Total 1115 2505 1485 Balance 1516.0 -459 -208.867 Weight 134.263 kg Intake: IV 1881 171 625 D5.4520K 1375 125 625 Heparin Sod,Pork in 0.45% 506 46 NaCl 25,000 unit In 0.45 % NaCl 1 500ml.bag @ 46 mls/hr IV .[id number] [facility] Rx #:[id number] Intake, IV Titration 500.0 1875 591.133 Amount D5-0.45% NaCl with KCl 1375 125 20Meq/l 1,000 ml @ 75 mls /hr IV .[id number] [facility] Rx#: [id number] Heparin Sod,Pork in 0.45% 500.0 500 466.133 NaCl 25,000 unit In 0.45 % NaCl 1 500ml.bag @ 46 mls/hr IV .[id number] [facility] Rx #:[id number] Oral 250 60 Output: Urine 4312 408 2938 Uretheral (Samuel) 200 150 Stool 40 1900 400 Other: Voiding Method Indwelling Catheter Indwelling Catheter Indwelling Catheter # Voids 0 0 0 - Exam PHYSICAL EXAMINATION: GENERAL: Her to oriented 3 not in any acute distress. Morbidly obese him on Ventimask HEENT: Pupils are round and equally reacting to light. EOMI. No scleral icterus. No conjunctival pallor. Normocephalic, atraumatic. No pharyngeal erythema. No thyromegaly. CARDIOVASCULAR: S1 and S2 present. No murmurs, rubs, or gallops. PULMONARY: Chest is clear to auscultation, no wheezing or crackles. ABDOMEN: Abdominal distention improved bowel sounds are present MUSCULOSKELETAL: No joint swelling or deformity. EXTREMITIES: No cyanosis, clubbing, or pedal edema. NEUROLOGICAL: Gross neurological examination did not reveal any focal deficits. SKIN: No rashes. - Labs CBC & Chem 7: 09/10/18 04:29 09/10/18 04:29 Labs: Abnormal Lab Results - Last 24 Hours (Table) 09/09/18 09/09/18 09/10/18 Range/Units 10:20 17:06 00:20 RBC (4.30-5.90) m/uL Hgb (13.0-17.5) gm/dL Hct (39.0-53.0) % MCH (25.0-35.0) pg MCHC (31.0-37.0) g/dL RDW (11.5-15.5) % Lymphocytes # (1.0-4.8) k/uL APTT (22.0-30.0) sec Sodium (137-145) mmol/L Creatinine (0.66-1.25) mg/dL Glucose (74-99) mg/dL POC Glucose (mg/dL) 145 H 136 H (75-99) mg/dL Calcium (8.4-10.2) mg/dL Iron 9 L (65-175) ug/dL Iron Saturation 3.11 L (15.00-50.00) 09/10/18 09/10/18 09/10/18 Range/Units 04:29 04:29 04:29 RBC 3.08 L (4.30-5.90) m/uL Hgb 7.6 L (13.0-17.5) gm/dL Hct 25.8 L (39.0-53.0) % MCH 24.5 L (25.0-35.0) pg MCHC 29.3 L (31.0-37.0) g/dL RDW 20.6 H (11.5-15.5) % Lymphocytes # 0.6 L (1.0-4.8) k/uL APTT 51.5 H (22.0-30.0) sec Sodium 134 L (137-145) mmol/L Creatinine 0.51 L (0.66-1.25) mg/dL Glucose 118 H (74-99) mg/dL POC Glucose (mg/dL) (75-99) mg/dL Calcium 8.0 L (8.4-10.2) mg/dL Iron (65-175) ug/dL Iron Saturation (15.00-50.00) 09/10/18 09/10/18 Range/Units 05:18 09:08 RBC (4.30-5.90) m/uL Hgb (13.0-17.5) gm/dL Hct (39.0-53.0) % MCH (25.0-35.0) pg MCHC (31.0-37.0) g/dL RDW (11.5-15.5) % Lymphocytes # (1.0-4.8) k/uL APTT (22.0-30.0) sec Sodium (137-145) mmol/L Creatinine (0.66-1.25) mg/dL Glucose (74-99) mg/dL POC Glucose (mg/dL) 128 H 126 H (75-99) mg/dL Calcium (8.4-10.2) mg/dL Iron (65-175) ug/dL Iron Saturation (15.00-50.00) Assessment and Plan Plan: -Extensive bilateral pulmonary embolism leading to acute hypoxic respiratory failure: Continue with respiratory support patient is on high flow nasal cannula oxygen patient is on empiric and a biotics antibiotics for possibility of her pneumonia mostly appears to have atelectasis. Patient doesn't have any left ventricle strain on the echocardiogram will continue the respirator support IV heparin. Patient may have had PE even before surgery -Tachycardia secondary to PE -Abdominal distention: And constipation secondary to abdominal surgery and multiple other radical issues going on at this time -Rectal cancer status post colectomy and colostomy. -Seizure disorder patient is on Depakote -Type 2 diabetes mellitus: Metformin held and patient will be on sliding scale insulin for now during this hospitalization . Gastroesophageal reflux disease -Hypertension: Hold off on antihypertensive medications medications to prevent perioperative hypotension -DVT prophylaxis as per primary service
[2018-09-10] MEDS: HYDROmorphone 1 MG/ML 1 ML SYRINGE IVP PRN (18:17)
[2018-09-10 18:40] LABS: Glucose,Whole Blood 111 mg/dL (75-99)
[2018-09-10] MEDS: LEVOFLOXACIN 500MG-D5W PMX 500 MG in DEXTROSE/WATER 1 100ML.BAG IVPB SCH (21:44)
[2018-09-11] MEDS: D5-0.45% NACL WITH KCL 20MEQ/L 1,000 ML IV SCH ×2 (00:35→17:51)
[2018-09-11 00:57] LABS: Glucose,Whole Blood 91 mg/dL (75-99)
[2018-09-11] MEDS: INSULIN ASPART 100 UNIT/ML 1 ML 10 ML VIAL SQ SCH ×4 (01:09→20:53)
[2018-09-11] MEDS: HEPARIN SOD,PORK IN 0.45% NACL 25,000 UNIT in 0.45% NACL 1 500ML.BAG IV SCH ×3 (01:33→21:53)
[2018-09-11 06:22] LABS: Glucose,Whole Blood 97 mg/dL (75-99)
[2018-09-11 06:48] LABS: Anisocytosis Moderate; HGB 7.2 gm/dL (13.0-17.5); Hypochromasia Marked; MCH 24.5 pg (25.0-35.0); MCHC 28.7 g/dL (31.0-37.0); MCV 85.3 fL (80.0-100.0); Mean Platelet Volume 6.5; Platelet Count 302 k/uL (150-450); Poikilocytosis Moderate; RBC 2.93 m/uL (4.30-5.90); RDW 20.9 % (11.5-15.5); WBC 5.1 k/uL (3.8-10.6)
[2018-09-11 07:03] LABS: Anion Gap 6 mmol/L; Blood Urea Nitrogen 14 mg/dL (9-20); Calcium 7.9 mg/dL (8.4-10.2); Carbon Dioxide 26 mmol/L (22-30); Chloride 101 mmol/L (98-107); Glucose 86 mg/dL (74-99); Potassium 4.2 mmol/L (3.5-5.1); Sodium 133 mmol/L (137-145)
[2018-09-11] MEDS: FAMOTIDINE 20 MG/2 ML VIAL IV SCH ×2 (08:21→20:44)
[2018-09-11] MEDS: CYANOCOBALAMIN 1,000 MCG/ML 1 ML VIAL IM SCH (08:21)
[2018-09-11] MEDS: SODIUM FERRIC GLUCONAT-SUCROSE 125 MG in SODIUM CHLORIDE 0.9% 100 ML IVPB SCH (08:21)
[2018-09-11] MEDS: DIVALPROEX 500 MG TABLET.DR PO SCH ×3 (08:21→21:52)
--- NOTE | 2018-09-11 10:40 | P.PN ---
Subjective Progress Note Date: 09/11/18 Principal diagnosis: elective surgery for treated rectal cancer, post op PE Pt seen today in f/u, he continues on high flow O2, he can speak a short sentence without having SOB, denies bleeding, abd pain. Objective - Vital Signs Vital signs: Vital Signs Temp 97.6 F 09/11/18 08:00 Pulse 84 09/11/18 09:00 Resp 15 09/11/18 09:00 BP 127/80 09/11/18 09:00 Pulse Ox 94 L 09/11/18 09:00 Intake & Output 09/10/18 09/11/18 09/11/18 18:59 06:59 18:59 Intake Total 2295.262 5237 346 Output Total 1785 690 350 Balance 31.133 986 -4 Weight 144.8 kg Intake: IV 925 1176 346 D5.4520K 925 900 300 Heparin Sod,Pork in 0.45% 276 46 NaCl 25,000 unit In 0.45 % NaCl 1 500ml.bag @ 46 mls/hr IV .[id number] [facility] Rx #:[id number] Intake, IV Titration 591.133 500 Amount D5-0.45% NaCl with KCl 125 20Meq/l 1,000 ml @ 75 mls /hr IV .[id number] [facility] Rx#: [id number] Heparin Sod,Pork in 0.45% 466.133 500 NaCl 25,000 unit In 0.45 % NaCl 1 500ml.bag @ 46 mls/hr IV .[id number] [facility] Rx #:[id number] Oral 300 Output: Urine 1385 690 350 Stool 400 Other: Voiding Method Indwelling Catheter Indwelling Catheter Indwelling Catheter # Voids 0 - Constitutional General appearance: Present: cooperative, morbidly obese, no acute distress - EENT Eyes: Present: anicteric sclerae, EOMI ENT: Present: hearing grossly normal - Respiratory Respiratory: bilateral: rhonchi (scattered, slightly improved) - Cardiovascular Rhythm: regular Heart sounds: normal: S1, S2 - Peripheral edema leg Peripheral Edema: bilateral: Trace - Gastrointestinal General gastrointestinal: Present: decreased bowel sounds, soft - Integumentary Integumentary Comment(s): pale but, better color in the cheeks today, some pink - Neurologic Neurologic: Present: CNII-XII intact - Musculoskeletal Musculoskeletal: Present: generalized weakness - Psychiatric Psychiatric: Present: A&O x's 3, appropriate affect, intact judgment & insight - Labs CBC & Chem 7: 09/11/18 04:37 09/11/18 04:37 Labs: Abnormal Lab Results - Last 24 Hours (Table) 09/09/18 09/10/18 09/11/18 Range/Units 10:20 18:28 04:37 RBC (4.30-5.90) m/uL Hgb (13.0-17.5) gm/dL Hct (39.0-53.0) % MCH (25.0-35.0) pg MCHC (31.0-37.0) g/dL RDW (11.5-15.5) % APTT 63.4 H (22.0-30.0) sec Sodium (137-145) mmol/L Creatinine (0.66-1.25) mg/dL POC Glucose (mg/dL) 111 H (75-99) mg/dL Calcium (8.4-10.2) mg/dL RBC Folate 1,268 H (280 - 791) ng/mL 09/11/18 09/11/18 Range/Units 04:37 04:37 RBC 2.93 L (4.30-5.90) m/uL Hgb 7.2 L (13.0-17.5) gm/dL Hct 25.0 L (39.0-53.0) % MCH 24.5 L (25.0-35.0) pg MCHC 28.7 L (31.0-37.0) g/dL RDW 20.9 H (11.5-15.5) % APTT (22.0-30.0) sec Sodium 133 L (137-145) mmol/L Creatinine 0.50 L (0.66-1.25) mg/dL POC Glucose (mg/dL) (75-99) mg/dL Calcium 7.9 L (8.4-10.2) mg/dL RBC Folate (280 - 791) ng/mL Assessment and Plan (1) Pulmonary embolism during current hospitalization Narrative/Plan: BLE doppler neg for DVT Cont hep drip for now. Pt is still symptomatic but, improving. Plan for oral anticoagulation once pt deemed stable from Pulmonary and Surgery standpoint. Pt reports a history of blood clots in brother and mother so, hypercoaguable work will be ordered as an outpatient as the results do not change current management of patient. Current Visit: Yes Status: Acute Priority: High Code(s): I26.99 - OTHER PULMONARY EMBOLISM WITHOUT ACUTE COR PULMONALE SNOMED Code(s): 76637660 (2) Normocytic normochromic anemia Narrative/Plan: No transfusion today, Hgb stable. Iron deficiency and low normal B12, more likely deficient. Supplementation for both ordered. Current Visit: Yes Status: Acute Priority: High Code(s): D64.9 - ANEMIA, UNSPECIFIED SNOMED Code(s): 50154023 (3) Rectal cancer Narrative/Plan: S/P neoadjuvant chemo with curative surgery completed. Path pending. Pt will begin routine monitoring as dictated by NCCN guidelines Current Visit: Yes Status: Chronic Priority: Medium Code(s): C20 - MALIGNANT NEOPLASM OF RECTUM SNOMED Code(s): 044295526
[2018-09-11] MEDS ORDERED: FUROSEMIDE 10 MG/ML 4 ML VIAL IV STA (10:45)
--- NOTE | 2018-09-11 11:01 | P.PN ---
Subjective Progress Note Date: 09/11/18 Principal diagnosis: Acute pulmonary embolisms, hypoxemia, tachycardia, rectal carcinoma status post colectomy and colostomy This is a 48-year-old white male patient who initially came into the hospital for low anterior resection of the rectum her history of rectal cell carcinoma. Patient had surgery on 09/07/2018 Dr. Sherman, he had right colectomy, lower anterior resection, with loop colostomy, and the biopsies of the surgical specimen are still pending. Patient was on the medical surgical floor, doing relatively well. On 09/08/2018, patient was noted to be approximately, chest x- ray was obtained, and showed low lung volumes with left greater than the right bibasilar infiltrate and/or atelectasis. Later in the evening patient's saturations went down to mid 80s on 3 L per nasal cannula, patient was increasingly tachycardic, rapid response team was called, stated CT angios of the chest was obtained, and it showed evidence of extensive pulmonary embolic disease, multiple lobar and segmental pulmonary emboli involving right upper lobe, right middle lobe and right lower lobe pulmonary arteries. Nonoccluding embolus and bifurcation of the left main pulmonary artery as well as multiple lobar and segmental pulmonary emboli involving left upper lobe and left lower lobe pulmonary arteries. Lung windows showed bilateral dependent and scattered subsegmental atelectasis, no evidence of any acute pulmonary parenchymal disease or pulmonary consolidation. No pleural effusion, no pneumothorax. Patient was transferred to the intensive care for further monitoring, he was started on heparin infusion, and currently patient is on auto percent nonrebreather with a pulse ox of 96%, currently less tachycardic, and the heart rate is ranging in the 99-100 BPM. Patient denies any acute distress, looking slightly pale, denied any chest pain, or hemoptysis. Today's chest x-ray showed smaller-appearing bibasilar atelectasis and low lung volumes. Today's lab work showed WBC of 8.1, hemoglobin 7.8, INR of 1.1, sodium is 134, the rest of electrolytes were within normal limits, BUN was 12 and creatinine 0.53, current IV fluids is D5.45 with 20 of potassium at a rate of 125 ML per hour. High intensity heparin infusion is currently on. Lung sounds are diminished, mid abdominal incision is clean dry and intact, ostomy is pink, patient has not passed any gas or stool. He is tolerating ice chips. Other past vertical history is positive for diabetes mellitus type 2, GERD/reflux, hypertension, seizure disorder in patient has not had any breakthrough seizures in years, chronic anemia, street of rectal cancer status post chemo and radiation therapy completed on 08/06/2018. Patient is a former smoker. On 09/11/2018 patient seen in follow-up in the intensive care unit, he is resting comfortably in bed, currently on 15 L per high flow nasal cannula, his pulse ox is 94%, he is calm and comfortable, he denies any dyspnea, denies any chest pain, denies any hemoptysis. He is afebrile, hemodynamically stable, non- tachycardic, heart rate is 87 BPM, in sinus mechanism. Respirations are even and nonlabored, lung sounds are diminished. Patient remains on heparin infusion at 16 units per kilo per hour. Daily labs have been reviewed, the WBC is 5.1, hemoglobin 7.2, serum sodium is 133, and rest of the electrodes urine profile are within normal limits. Venous Dopplers were negative for any evidence of DVT. X-rays chest x-ray has been reviewed by Dr. Cruz, and showed increasing patchy airspace infiltrates, patient has some generalized swelling, in upper and lower extremities, yesterday she received 1 dose of Lasix 20 mg IV push. Patient is at least 10 kg positive since admission. He has been at least 10 L positive since surgery. Surgical biopsy of the colon is still pending at this time. Patient is tolerating clear liquid diet, no nausea no vomiting, his colostomy is producing gas and liquid stool. Objective - Vital Signs Vital signs: Vital Signs Temp 97.6 F 09/11/18 08:00 Pulse 84 09/11/18 09:00 Resp 15 09/11/18 09:00 BP 127/80 09/11/18 09:00 Pulse Ox 94 L 09/11/18 09:00 Intake & Output 09/10/18 09/11/18 09/11/18 18:59 06:59 18:59 Intake Total 1847.426 2626 346 Output Total 1785 690 350 Balance 31.133 986 -4 Weight 144.8 kg Intake: IV 925 1176 346 D5.4520K 925 900 300 Heparin Sod,Pork in 0.45% 276 46 NaCl 25,000 unit In 0.45 % NaCl 1 500ml.bag @ 46 mls/hr IV .[id number] [facility] Rx #:[id number] Intake, IV Titration 591.133 500 Amount D5-0.45% NaCl with KCl 125 20Meq/l 1,000 ml @ 75 mls /hr IV .[id number] [facility] Rx#: [id number] Heparin Sod,Pork in 0.45% 466.133 500 NaCl 25,000 unit In 0.45 % NaCl 1 500ml.bag @ 46 mls/hr IV .[id number] [facility] Rx #:[id number] Oral 300 Output: Urine 1385 690 350 Stool 400 Other: Voiding Method Indwelling Catheter Indwelling Catheter Indwelling Catheter # Voids 0 - Exam GENERAL EXAM: Alert, pleasant, 48-year-old white male on 15l high flow nasal cannula comfortable in no apparent distress. HEAD: Normocephalic/atraumatic. EYES: Normal reaction of pupils, equal size. Conjunctiva pink, sclera white. NOSE: Clear with pink turbinates. THROAT: No erythema or exudates. NECK: No masses, no JVD, no thyroid enlargement, no adenopathy. CHEST: No chest wall deformity. Symmetrical expansion. LUNGS: Equal air entry with no crackles, wheeze, rhonchi or dullness. CVS: Regular rate and rhythm, normal S1 and S2, no gallops, no murmurs, no rubs ABDOMEN: Soft, nontender. No hepatosplenomegaly, normal bowel sounds, no guarding or rigidity. Midline abdominal incision is clean dry and intact, covered with a surgical dressing, right-sided colostomy, and colostomy is pink, viable, there is liquid green stool and gas in the colostomy EXTREMITIES: No clubbing, diffuse generalized edema, no cyanosis, 2+ pulses and upper and lower extremities. MUSCULOSKELETAL: Muscle strength and tone normal. SPINE: No scoliosis or deformity SKIN: No rashes CENTRAL NERVOUS SYSTEM: Alert and oriented -3. No focal deficits, tone is normal in all 4 extremities. PSYCHIATRIC: Alert and oriented -3. Appropriate affect. Intact judgment and insight. - Labs CBC & Chem 7: 09/11/18 04:37 09/11/18 04:37 Labs: Abnormal Lab Results - Last 24 Hours (Table) 09/09/18 09/10/18 09/11/18 Range/Units 10:20 18:28 04:37 RBC (4.30-5.90) m/uL Hgb (13.0-17.5) gm/dL Hct (39.0-53.0) % MCH (25.0-35.0) pg MCHC (31.0-37.0) g/dL RDW (11.5-15.5) % APTT 63.4 H (22.0-30.0) sec Sodium (137-145) mmol/L Creatinine (0.66-1.25) mg/dL POC Glucose (mg/dL) 111 H (75-99) mg/dL Calcium (8.4-10.2) mg/dL RBC Folate 1,268 H (280 - 791) ng/mL 09/11/18 09/11/18 Range/Units 04:37 04:37 RBC 2.93 L (4.30-5.90) m/uL Hgb 7.2 L (13.0-17.5) gm/dL Hct 25.0 L (39.0-53.0) % MCH 24.5 L (25.0-35.0) pg MCHC 28.7 L (31.0-37.0) g/dL RDW 20.9 H (11.5-15.5) % APTT (22.0-30.0) sec Sodium 133 L (137-145) mmol/L Creatinine 0.50 L (0.66-1.25) mg/dL POC Glucose (mg/dL) (75-99) mg/dL Calcium 7.9 L (8.4-10.2) mg/dL RBC Folate (280 - 791) ng/mL Assessment and Plan Plan: Assessment: #1. Acute hypoxemic respiratory failure secondary to extensive pulmonary embolic disease, and CT angios chest showed multiple lobar and segmental pulmonary emboli involving the right upper lobe, right middle lobe, right lower lobe pulmonary arteries, nonoccluding embolus at the bifurcation of the left main pulmonary artery, as well as multiple lobar and segmental pulmonary emboli involving left upper lobe and left lower lobe pulmonary arteries. 2-D echocardiogram was completed, and showed evidence of pulmonary hypertension, did not show evidence of right heart strain or changes in his septum including shifter flattening. #2. Rectal cancer status post colectomy and colostomy, this is postop day , patient surgery was on 09/07/2018 #3. History of rectal cancer, status post chemo and radiation, completed on , patient had a PET scan on 05/14/2018 which showed increased uptake within the patient reported rectal cancer, but metastatic disease was not clearly evident, there was a focal radiotracer accumulation within the ascending colon region, and additional neoplasm at that level was not excluded. #4. Diabetes mellitus type 2 #5. GERD/reflux #6. Hypertension #7. Seizure disorder, on Depakote, patient has not had a breakthrough seizure in years #8. Nicotine dependence, in remission Plan: Continue current plan of care, may decrease the IV fluids down to KVO, patient is positive at least 10 kg since admission, yesterday we gave the patient a dose of IV Lasix 1, did not have significant diuresis, we will give the patient another dose of IV Lasix today, weaning FiO2, encourage deep breathing and coughing, patient remains on heparin infusion. Hematology is following. He denies any worsening dyspnea, no chest pain or hemoptysis. We'll continue to follow. I performed a history & physical examination of the patient and discussed their management with my nurse practitioner, Kenisha Kaur. I reviewed the nurse practitioner's note and agree with the documented findings and plan of care. Lung sounds are diminished. The findings and the impression was discussed with the patient. I attest to the documentation by the nurse practitioner. Time with Patient: Greater than 30
[2018-09-11 12:38] LABS: Glucose,Whole Blood 97 mg/dL (75-99)
--- NOTE | 2018-09-11 13:32 | P.PN ---
Subjective Progress Note Date: 09/11/18 48-year-old male seen in the ICU this morning currently on 15 L high flow nasal cannula sats are 93-94%. With coaching will use IS can achieve 500. Currently on IV heparin drip due to a pulmonary emboli involving the right upper lobe right middle lobe right lower lobe currently is awake alert and oriented 3 at bedside.. Ostomy is noted in the ostomy bag liquid stool noted. Nursing reports that they indicated 600 stool in the ostomy bag this morning. Currently is taking ice chips and tolerating Postop September 06 diverging loop colostomy, takedown splenic flexure, right colectomy, low anterior resection for rectal cancer Objective - Vital Signs Vital signs: Vital Signs Temp 97.6 F 09/11/18 08:00 Pulse 89 09/11/18 11:00 Resp 15 09/11/18 11:00 BP 140/88 09/11/18 11:00 Pulse Ox 94 L 09/11/18 11:00 Intake & Output 09/10/18 09/11/18 09/11/18 18:59 06:59 18:59 Intake Total 6251.455 5061 897.1 Output Total 1785 690 475 Balance 31.133 986 422.1 Weight 144.8 kg 144.8 kg Intake: IV 925 1176 421 D5.4520K 925 900 375 Heparin Sod,Pork in 0.45% 276 46 NaCl 25,000 unit In 0.45 % NaCl 1 500ml.bag @ 46 mls/hr IV .[id number] [facility] Rx #:[id number] Intake, IV Titration 591.133 500 476.1 Amount D5-0.45% NaCl with KCl 125 20Meq/l 1,000 ml @ 20 mls /hr IV .Q24H [facility] Rx#: [id number] Heparin Sod,Pork in 0.45% 466.133 500 476.1 NaCl 25,000 unit In 0.45 % NaCl 1 500ml.bag @ 46 mls/hr IV .[id number] [facility] Rx #:[id number] Oral 300 Output: Urine 1385 690 475 Stool 400 Other: Voiding Method Indwelling Catheter Indwelling Catheter Indwelling Catheter # Voids 0 - Exam Physical exam 48-year-old male sitting up in bed awake alert oriented 3 Lungs posterior diminished at the bases otherwise adequate air movement on high flow 15 L Heart S1-S2 audible heart rate in the 80s Abdomen surgical dressing dry a moderate amount of liquid green stool with gas noted in the ostomy bag surgical tenderness appropriate mid abdominal incision dressing dry ostomy in the right quadrant indwelling Samuel catheter in place tolerating ice chips was no nausea no vomiting Extremities edema noted to the lower extreme - Labs CBC & Chem 7: 09/11/18 04:37 09/11/18 04:37 Labs: Abnormal Lab Results - Last 24 Hours (Table) 09/09/18 09/10/18 09/11/18 Range/Units 10:20 18:28 04:37 RBC (4.30-5.90) m/uL Hgb (13.0-17.5) gm/dL Hct (39.0-53.0) % MCH (25.0-35.0) pg MCHC (31.0-37.0) g/dL RDW (11.5-15.5) % APTT 63.4 H (22.0-30.0) sec Sodium (137-145) mmol/L Creatinine (0.66-1.25) mg/dL POC Glucose (mg/dL) 111 H (75-99) mg/dL Calcium (8.4-10.2) mg/dL RBC Folate 1,268 H (280 - 791) ng/mL 09/11/18 09/11/18 Range/Units 04:37 04:37 RBC 2.93 L (4.30-5.90) m/uL Hgb 7.2 L (13.0-17.5) gm/dL Hct 25.0 L (39.0-53.0) % MCH 24.5 L (25.0-35.0) pg MCHC 28.7 L (31.0-37.0) g/dL RDW 20.9 H (11.5-15.5) % APTT (22.0-30.0) sec Sodium 133 L (137-145) mmol/L Creatinine 0.50 L (0.66-1.25) mg/dL POC Glucose (mg/dL) (75-99) mg/dL Calcium 7.9 L (8.4-10.2) mg/dL RBC Folate (280 - 791) ng/mL Assessment and Plan Assessment: Impression Status post September 06 low anterior resection right colectomy for rectal cancer with a diverting colostomy for protection of his colorectal anastomosis. Postop hypotensive with tachycardia expected improved suspect due to scopolamine patch and hypovolemia improved with IV fluid bolus and scopolamine patch being discontinued Seizure disorder Type 2 diabetes Hypertension off antihypertensive meds for now to prevent perioperative hypotension Morbid obesity BMI 47 Acute hypoxic respiratory failure secondary to extensive pulmonary emboli disease CAT scan and showed the chest showed evidence of multiple lobar and segmental pulmonary emboli involving the right upper middle and lower lobe History of rectal cancer status post colectomy and ostomy Plan Continue postop surgical care Continue ICU management 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 Ailin Pino nurse practitioner acting as scribe for signing physician.
--- NOTE | 2018-09-11 14:17 | P.PN ---
Subjective 48-year-old admitted for low anterior resection of the rectum patient has a colostomy in place patient abdomen is distended has sluggish bowel sounds because of which his heart rate is bit elevated will obtain a TSH. Patient the SATURATIONS IS GONE DOWN TO 90% I'M OBTAINING A CHEST X-RAY, PATIENT WILL CONTINUE HIS INCENTIVE SPIROMETRY. PATIENT HAS AN EPIDURAL IN PLACE AN BIT NAUSEOUS NOW. THIS IS BEING ADDRESSED BY GENERAL SURGERY. 09/09/2018 Patient became more hypoxic yesterday the chest x-ray are ordered before the left showed bilateral infiltrates may be atelectasis rather than pneumonia although patient was started on empiric antibiotics which are being continued him unfortunately I'm unable to open the CAT scan. Patient became more hypoxic and tachycardic because of which CAT scan was opted to rule out pulmonary embolism which showed extensive bilateral PE. Patient was started on IV heparin transferred to ICU because patient is on Ventimask troponin is negative BNP is not elevated patient is low to intermediate risk pulmonary embolism probably will not be a candidate for intralesional thrombolytics. Patient is presently on Ventimask All inpatient medications were reviewed and appropriate changes in these medications as dictated in the interval history and assessment and plan. 09/10/2018 Patient is feeling much better today patient is on high flow nasal cannula oxygen Patient does have significant output from the colostomy abdominal distention improved 09/11/2018 Patient is presently on 30 L of high flow mask cannula oxygen no significant overnight events good output from the colostomy. Constitutional: Denied any fatigue denied any fever. Cardio vascular: denied any chest pain, palpitations Gastrointestinal denied any nausea vomiting Pulmonary: Denied any shortness of breath cough Neurologic denied any new focal deficits All inpatient medications were reviewed and appropriate changes in these medications as dictated in the interval history and assessment and plan. Objective - Vital Signs Vital signs: Vital Signs Temp 97.6 F 09/11/18 08:00 Pulse 89 09/11/18 11:00 Resp 15 09/11/18 11:00 BP 140/88 09/11/18 11:00 Pulse Ox 94 L 09/11/18 11:00 Intake & Output 09/10/18 09/11/18 09/11/18 18:59 06:59 18:59 Intake Total 2359.782 6569 1022.1 Output Total 1785 690 475 Balance 31.133 986 547.1 Weight 144.8 kg 144.8 kg Intake: IV 925 1176 421 D5.4520K 925 900 375 Heparin Sod,Pork in 0.45% 276 46 NaCl 25,000 unit In 0.45 % NaCl 1 500ml.bag @ 46 mls/hr IV .[id number] [facility] Rx #:[id number] Intake, IV Titration 591.133 500 476.1 Amount D5-0.45% NaCl with KCl 125 20Meq/l 1,000 ml @ 20 mls /hr IV .Q24H [facility] Rx#: [id number] Heparin Sod,Pork in 0.45% 466.133 500 476.1 NaCl 25,000 unit In 0.45 % NaCl 1 500ml.bag @ 46 mls/hr IV .[id number] [facility] Rx #:[id number] Oral 300 125 Output: Urine 1385 690 475 Stool 400 Other: Voiding Method Indwelling Catheter Indwelling Catheter Indwelling Catheter # Voids 0 - Exam PHYSICAL EXAMINATION: GENERAL: Her to oriented 3 not in any acute distress. Morbidly obese him on Ventimask HEENT: Pupils are round and equally reacting to light. EOMI. No scleral icterus. No conjunctival pallor. Normocephalic, atraumatic. No pharyngeal erythema. No thyromegaly. CARDIOVASCULAR: S1 and S2 present. No murmurs, rubs, or gallops. PULMONARY: Chest is clear to auscultation, no wheezing or crackles. ABDOMEN: Abdominal distention improved bowel sounds are present MUSCULOSKELETAL: No joint swelling or deformity. EXTREMITIES: No cyanosis, clubbing, or pedal edema. NEUROLOGICAL: Gross neurological examination did not reveal any focal deficits. SKIN: No rashes. - Labs CBC & Chem 7: 09/11/18 04:37 09/11/18 04:37 Labs: Abnormal Lab Results - Last 24 Hours (Table) 09/09/18 09/10/18 09/11/18 Range/Units 10:20 18:28 04:37 RBC (4.30-5.90) m/uL Hgb (13.0-17.5) gm/dL Hct (39.0-53.0) % MCH (25.0-35.0) pg MCHC (31.0-37.0) g/dL RDW (11.5-15.5) % APTT 63.4 H (22.0-30.0) sec Sodium (137-145) mmol/L Creatinine (0.66-1.25) mg/dL POC Glucose (mg/dL) 111 H (75-99) mg/dL Calcium (8.4-10.2) mg/dL RBC Folate 1,268 H (280 - 791) ng/mL 09/11/18 09/11/18 Range/Units 04:37 04:37 RBC 2.93 L (4.30-5.90) m/uL Hgb 7.2 L (13.0-17.5) gm/dL Hct 25.0 L (39.0-53.0) % MCH 24.5 L (25.0-35.0) pg MCHC 28.7 L (31.0-37.0) g/dL RDW 20.9 H (11.5-15.5) % APTT (22.0-30.0) sec Sodium 133 L (137-145) mmol/L Creatinine 0.50 L (0.66-1.25) mg/dL POC Glucose (mg/dL) (75-99) mg/dL Calcium 7.9 L (8.4-10.2) mg/dL RBC Folate (280 - 791) ng/mL Assessment and Plan Plan: -Extensive bilateral pulmonary embolism leading to acute hypoxic respiratory failure: Continue with respiratory support patient is on high flow nasal cannula oxygen patient is on empiric and a biotics antibiotics for possibility of her pneumonia mostly appears to have atelectasis. Patient doesn't have any left ventricle strain on the echocardiogram will continue the respirator support IV heparin. Patient may have had PE even before surgery -Tachycardia secondary to PE -Abdominal distention: And constipation secondary to abdominal surgery and multiple other radical issues going on at this time -Rectal cancer status post colectomy and colostomy. -Seizure disorder patient is on Depakote -Type 2 diabetes mellitus: Metformin held and patient will be on sliding scale insulin for now during this hospitalization . Gastroesophageal reflux disease -Hypertension: Hold off on antihypertensive medications medications to prevent perioperative hypotension -DVT prophylaxis as per primary service
[2018-09-11 17:57] LABS: Glucose,Whole Blood 106 mg/dL (75-99)
[2018-09-11] MEDS: LEVOFLOXACIN 500MG-D5W PMX 500 MG in DEXTROSE/WATER 1 100ML.BAG IVPB SCH (20:44)
[2018-09-11] MEDS ORDERED: FUROSEMIDE 10 MG/ML 4 ML VIAL IV SCH (21:00)
[2018-09-11 21:02] LABS: Glucose,Whole Blood 110 mg/dL (75-99)
[2018-09-12] MEDS: HYDROmorphone 1 MG/ML 1 ML SYRINGE IVP PRN ×2 (00:33→21:07)
[2018-09-12] MEDS: HEPARIN SOD,PORK IN 0.45% NACL 25,000 UNIT in 0.45% NACL 1 500ML.BAG IV SCH (00:37)
[2018-09-12] MEDS: D5-0.45% NACL WITH KCL 20MEQ/L 1,000 ML IV SCH ×2 (00:38→14:57)
[2018-09-12 06:00] LABS: Anion Gap 8 mmol/L; Blood Urea Nitrogen 13 mg/dL (9-20); Calcium 8.6 mg/dL (8.4-10.2); Carbon Dioxide 26 mmol/L (22-30); Chloride 101 mmol/L (98-107); Glucose 93 mg/dL (74-99); Magnesium 2.1 mg/dL (1.6-2.3); Phosphorus 3.8 mg/dL (2.5-4.5); Potassium 4.2 mmol/L (3.5-5.1); Sodium 135 mmol/L (137-145)
[2018-09-12 06:26] LABS: Anisocytosis Moderate; HCT 28.1 % (39.0-53.0); HGB 7.9 gm/dL (13.0-17.5); Hypochromasia Marked; MCH 24.4 pg (25.0-35.0); MCHC 28.1 g/dL (31.0-37.0); MCV 86.9 fL (80.0-100.0); Mean Platelet Volume 6.7; Platelet Count 299 k/uL (150-450); Poikilocytosis Moderate; RBC 3.24 m/uL (4.30-5.90); RDW 20.4 % (11.5-15.5); WBC 5.8 k/uL (3.8-10.6)
[2018-09-12 06:55] LABS: Glucose,Whole Blood 102 mg/dL (75-99)
[2018-09-12] MEDS: INSULIN ASPART 100 UNIT/ML 1 ML 10 ML VIAL SQ SCH ×4 (08:36→22:34)
[2018-09-12] MEDS: FAMOTIDINE 20 MG/2 ML VIAL IV SCH ×2 (08:36→21:07)
[2018-09-12] MEDS: CYANOCOBALAMIN 1,000 MCG/ML 1 ML VIAL IM SCH (08:36)
[2018-09-12] MEDS: SODIUM FERRIC GLUCONAT-SUCROSE 125 MG in SODIUM CHLORIDE 0.9% 100 ML IVPB SCH (08:36)
[2018-09-12] MEDS: DIVALPROEX 500 MG TABLET.DR PO SCH ×3 (08:36→21:07)
[2018-09-12] MEDS: FUROSEMIDE 10 MG/ML 4 ML VIAL IV SCH ×2 (11:29→21:06)
--- NOTE | 2018-09-12 11:43 | P.PN ---
Subjective Progress Note Date: 09/12/18 Principal diagnosis: Acute pulmonary embolisms, hypoxemia, tachycardia, rectal carcinoma status post colectomy and colostomy This is a 48-year-old white male patient who initially came into the hospital for low anterior resection of the rectum her history of rectal cell carcinoma. Patient had surgery on 09/07/2018 Dr. Sherman, he had right colectomy, lower anterior resection, with loop colostomy, and the biopsies of the surgical specimen are still pending. Patient was on the medical surgical floor, doing relatively well. On 09/08/2018, patient was noted to be approximately, chest x- ray was obtained, and showed low lung volumes with left greater than the right bibasilar infiltrate and/or atelectasis. Later in the evening patient's saturations went down to mid 80s on 3 L per nasal cannula, patient was increasingly tachycardic, rapid response team was called, stated CT angios of the chest was obtained, and it showed evidence of extensive pulmonary embolic disease, multiple lobar and segmental pulmonary emboli involving right upper lobe, right middle lobe and right lower lobe pulmonary arteries. Nonoccluding embolus and bifurcation of the left main pulmonary artery as well as multiple lobar and segmental pulmonary emboli involving left upper lobe and left lower lobe pulmonary arteries. Lung windows showed bilateral dependent and scattered subsegmental atelectasis, no evidence of any acute pulmonary parenchymal disease or pulmonary consolidation. No pleural effusion, no pneumothorax. Patient was transferred to the intensive care for further monitoring, he was started on heparin infusion, and currently patient is on auto percent nonrebreather with a pulse ox of 96%, currently less tachycardic, and the heart rate is ranging in the 99-100 BPM. Patient denies any acute distress, looking slightly pale, denied any chest pain, or hemoptysis. Today's chest x-ray showed smaller-appearing bibasilar atelectasis and low lung volumes. Today's lab work showed WBC of 8.1, hemoglobin 7.8, INR of 1.1, sodium is 134, the rest of electrolytes were within normal limits, BUN was 12 and creatinine 0.53, current IV fluids is D5.45 with 20 of potassium at a rate of 125 ML per hour. High intensity heparin infusion is currently on. Lung sounds are diminished, mid abdominal incision is clean dry and intact, ostomy is pink, patient has not passed any gas or stool. He is tolerating ice chips. Other past vertical history is positive for diabetes mellitus type 2, GERD/reflux, hypertension, seizure disorder in patient has not had any breakthrough seizures in years, chronic anemia, street of rectal cancer status post chemo and radiation therapy completed on 08/06/2018. Patient is a former smoker. On 09/11/2018 patient seen in follow-up in the intensive care unit, he is resting comfortably in bed, currently on 15 L per high flow nasal cannula, his pulse ox is 94%, he is calm and comfortable, he denies any dyspnea, denies any chest pain, denies any hemoptysis. He is afebrile, hemodynamically stable, non- tachycardic, heart rate is 87 BPM, in sinus mechanism. Respirations are even and nonlabored, lung sounds are diminished. Patient remains on heparin infusion at 16 units per kilo per hour. Daily labs have been reviewed, the WBC is 5.1, hemoglobin 7.2, serum sodium is 133, and rest of the electrodes urine profile are within normal limits. Venous Dopplers were negative for any evidence of DVT. X-rays chest x-ray has been reviewed by Dr. Cruz, and showed increasing patchy airspace infiltrates, patient has some generalized swelling, in upper and lower extremities, yesterday she received 1 dose of Lasix 20 mg IV push. Patient is at least 10 kg positive since admission. He has been at least 10 L positive since surgery. Surgical biopsy of the colon is still pending at this time. Patient is tolerating clear liquid diet, no nausea no vomiting, his colostomy is producing gas and liquid stool. On 09/12/2018 patient seen in follow-up in the intensive care unit. Awake and alert, in no acute distress, his FiO2 is down to 4 L per high flow nasal cannula and the pulse ox is 92%, yesterday 8. Patient is dose of IV Lasix, and he is in negative 1 L fluid balance over the last 24 hours. He is down 5.8 kg. Lung sounds are diminished. His labs have been reviewed, WBC is 5.8, hemoglobin is 7.9, BMP is unremarkable. Ostomy is viable, patient is producing gas and liquid stool. He is tolerating full liquid diet, we will advance his diet. May increase patient's activity, up out of bed, encouraged deep breathing and coughing. Her chest x-rays today, we will give the patient additional doses of Lasix, we'll initiate oral anticoagulation was Xarelto. Objective - Vital Signs Vital signs: Vital Signs Temp 97.8 F 09/12/18 08:00 Pulse 90 09/12/18 10:00 Resp 19 09/12/18 10:00 BP 127/83 09/12/18 10:00 Pulse Ox 92 L 09/12/18 10:00 Intake & Output 09/11/18 09/12/18 09/12/18 18:59 06:59 18:59 Intake Total 1722.1 1384.966 620.3 Output Total 3000 1115 915 Balance -1277.9 269.966 -294.7 Weight 144.8 kg 139 kg 139 kg Intake: IV 771 600 250 D5.4520K 725 600 250 Heparin Sod,Pork in 0.45% 46 NaCl 25,000 unit In 0.45 % NaCl 1 500ml.bag @ 46 mls/hr IV .[id number] [facility] Rx #:[id number] Intake, IV Titration 476.1 584.966 370.3 Amount Heparin Sod,Pork in 0.45% 476.1 584.966 370.3 NaCl 25,000 unit In 0.45 % NaCl 1 500ml.bag @ 46 mls/hr IV .[id number] [facility] Rx #:[id number] Oral 475 200 Output: Urine 3000 715 915 Stool 400 Other: Voiding Method Indwelling Catheter Indwelling Catheter Indwelling Catheter # Bowel Movements 1,000 150 - Exam GENERAL EXAM: Alert, pleasant, 48-year-old white male on 4l high flow nasal cannula comfortable in no apparent distress. HEAD: Normocephalic/atraumatic. EYES: Normal reaction of pupils, equal size. Conjunctiva pink, sclera white. NOSE: Clear with pink turbinates. THROAT: No erythema or exudates. NECK: No masses, no JVD, no thyroid enlargement, no adenopathy. CHEST: No chest wall deformity. Symmetrical expansion. LUNGS: Equal air entry with no crackles, wheeze, rhonchi or dullness. CVS: Regular rate and rhythm, normal S1 and S2, no gallops, no murmurs, no rubs ABDOMEN: Soft, nontender. No hepatosplenomegaly, normal bowel sounds, no guarding or rigidity. Midline abdominal incision is clean dry and intact, covered with a surgical dressing, right-sided colostomy, and colostomy is pink, viable, there is liquid green stool and gas in the colostomy EXTREMITIES: No clubbing, diffuse generalized edema, no cyanosis, 2+ pulses and upper and lower extremities. MUSCULOSKELETAL: Muscle strength and tone normal. SPINE: No scoliosis or deformity SKIN: No rashes CENTRAL NERVOUS SYSTEM: Alert and oriented -3. No focal deficits, tone is normal in all 4 extremities. PSYCHIATRIC: Alert and oriented -3. Appropriate affect. Intact judgment and insight. - Labs CBC & Chem 7: 09/12/18 05:13 09/12/18 05:13 Labs: Abnormal Lab Results - Last 24 Hours (Table) 09/11/18 09/11/18 09/12/18 Range/Units 17:45 20:51 05:13 RBC 3.24 L (4.30-5.90) m/uL Hgb 7.9 L (13.0-17.5) gm/dL Hct 28.1 L (39.0-53.0) % MCH 24.4 L (25.0-35.0) pg MCHC 28.1 L (31.0-37.0) g/dL RDW 20.4 H (11.5-15.5) % APTT (22.0-30.0) sec Sodium (137-145) mmol/L Creatinine (0.66-1.25) mg/dL POC Glucose (mg/dL) 106 H 110 H (75-99) mg/dL 09/12/18 09/12/18 09/12/18 Range/Units 05:13 05:13 06:52 RBC (4.30-5.90) m/uL Hgb (13.0-17.5) gm/dL Hct (39.0-53.0) % MCH (25.0-35.0) pg MCHC (31.0-37.0) g/dL RDW (11.5-15.5) % APTT 42.3 H (22.0-30.0) sec Sodium 135 L (137-145) mmol/L Creatinine 0.48 L (0.66-1.25) mg/dL POC Glucose (mg/dL) 102 H (75-99) mg/dL Assessment and Plan Plan: Assessment: #1. Acute hypoxemic respiratory failure secondary to extensive pulmonary embolic disease, and CT angios chest showed multiple lobar and segmental pulmonary emboli involving the right upper lobe, right middle lobe, right lower lobe pulmonary arteries, nonoccluding embolus at the bifurcation of the left main pulmonary artery, as well as multiple lobar and segmental pulmonary emboli involving left upper lobe and left lower lobe pulmonary arteries. 2-D echocardiogram was completed, and showed evidence of pulmonary hypertension, did not show evidence of right heart strain or changes in his septum including shifter flattening. #2. Rectal cancer status post colectomy and colostomy, this is postop day 5, patient surgery was on 09/07/2018 #3. History of rectal cancer, status post chemo and radiation, completed on , patient had a PET scan on 05/14/2018 which showed increased uptake within the patient reported rectal cancer, but metastatic disease was not clearly evident, there was a focal radiotracer accumulation within the ascending colon region, and additional neoplasm at that level was not excluded. #4. Diabetes mellitus type 2 #5. GERD/reflux #6. Hypertension #7. Seizure disorder, on Depakote, patient has not had a breakthrough seizure in years #8. Nicotine dependence, in remission Plan: We will advance patient stop to soft diet, We'll give the patient additional dose of Lasix from the 24 hours, patient is in negative fluid balance. Increase activity as tolerated, up out of bed. Ostomy is functioning, patient is tolerating oral diet. No nausea no vomiting, passing liquid stool. We will start the patient on oral Xarelto, 50 mg twice daily for 21 days, and 20 mg daily thereafter. We'll discontinue heparin drip. I performed a history & physical examination of the patient and discussed their management with my nurse practitioner, Kenisha Kaur. I reviewed the nurse practitioner's note and agree with the documented findings and plan of care. Lung sounds are diminished. The findings and the impression was discussed with the patient. I attest to the documentation by the nurse practitioner. Time with Patient: Greater than 30
[2018-09-12 12:23] LABS: Glucose,Whole Blood 121 mg/dL (75-99)
[2018-09-12] MEDS: RIVAROXABAN 15 MG TAB PO SCH ×2 (12:49→18:59)
[2018-09-12] MEDS: LEVOFLOXACIN 500 MG TAB PO SCH (12:50)
--- NOTE | 2018-09-12 13:43 | P.PN ---
Subjective Progress Note Date: 09/12/18 48-year-old male seen in the ICU currently sitting up in a chair. A moderate amount of liquid brown stool in the ostomy tolerating diet no nausea no vomiting pain medication effective for pain control O2 down to 4 L keeping a sat greater than 90% Objective - Vital Signs Vital signs: Vital Signs Temp 97.8 F 09/12/18 08:00 Pulse 96 09/12/18 13:00 Resp 18 09/12/18 13:00 BP 131/83 09/12/18 13:00 Pulse Ox 92 L 09/12/18 13:00 Intake & Output 09/11/18 09/12/18 09/12/18 18:59 06:59 18:59 Intake Total 1722.1 1384.966 720.3 Output Total 3000 1115 2215 Balance -1277.9 269.966 -1494.7 Weight 144.8 kg 139 kg 139 kg Intake: IV 771 600 350 D5.4520K 725 600 350 Heparin Sod,Pork in 0.45% 46 NaCl 25,000 unit In 0.45 % NaCl 1 500ml.bag @ 46 mls/hr IV .[id number] [facility] Rx #:[id number] Intake, IV Titration 476.1 584.966 370.3 Amount Heparin Sod,Pork in 0.45% 476.1 584.966 370.3 NaCl 25,000 unit In 0.45 % NaCl 1 500ml.bag @ 46 mls/hr IV .[id number] [facility] Rx #:[id number] Oral 475 200 Output: Urine 3000 715 2215 Stool 400 Other: Voiding Method Indwelling Catheter Indwelling Catheter Indwelling Catheter # Bowel Movements 1,000 150 - Exam Physical exam 48-year-old male sitting up in a chair being seen in the ICU pleasant cooperative oriented 3 Lungs diminished at the bases no wheezing rail rhonchi noted O2 4 L nasal cannula no shortness of breath with conversation no cough Heart S1-S2 audible regular Abdomen ostomy right quadrant moderate amount of liquid brown stool states no nausea no vomiting midline abdominal incision dressing dry. Indwelling Samuel catheter in place surgical tenderness appropriate nondistended tolerating diet bowel tones present Extremities 1+ pitting edema to the bilateral lower extremities - Labs CBC & Chem 7: 09/12/18 05:13 09/12/18 05:13 Labs: Abnormal Lab Results - Last 24 Hours (Table) 09/11/18 09/11/18 09/12/18 Range/Units 17:45 20:51 05:13 RBC 3.24 L (4.30-5.90) m/uL Hgb 7.9 L (13.0-17.5) gm/dL Hct 28.1 L (39.0-53.0) % MCH 24.4 L (25.0-35.0) pg MCHC 28.1 L (31.0-37.0) g/dL RDW 20.4 H (11.5-15.5) % APTT (22.0-30.0) sec Sodium (137-145) mmol/L Creatinine (0.66-1.25) mg/dL POC Glucose (mg/dL) 106 H 110 H (75-99) mg/dL 09/12/18 09/12/18 09/12/18 Range/Units 05:13 05:13 06:52 RBC (4.30-5.90) m/uL Hgb (13.0-17.5) gm/dL Hct (39.0-53.0) % MCH (25.0-35.0) pg MCHC (31.0-37.0) g/dL RDW (11.5-15.5) % APTT 42.3 H (22.0-30.0) sec Sodium 135 L (137-145) mmol/L Creatinine 0.48 L (0.66-1.25) mg/dL POC Glucose (mg/dL) 102 H (75-99) mg/dL 09/12/18 Range/Units 12:09 RBC (4.30-5.90) m/uL Hgb (13.0-17.5) gm/dL Hct (39.0-53.0) % MCH (25.0-35.0) pg MCHC (31.0-37.0) g/dL RDW (11.5-15.5) % APTT (22.0-30.0) sec Sodium (137-145) mmol/L Creatinine (0.66-1.25) mg/dL POC Glucose (mg/dL) 121 H (75-99) mg/dL Assessment and Plan Assessment: Impression Status post September 06 low anterior resection right colectomy for rectal cancer with a diverting colostomy for protection of his colorectal anastomosis. Postop hypotensive with tachycardia expected improved suspect due to scopolamine patch and hypovolemia improved with IV fluid bolus and scopolamine patch being discontinued Seizure disorder Type 2 diabetes Hypertension off antihypertensive meds for now to prevent perioperative hypotension Morbid obesity BMI 47 Acute hypoxic respiratory failure secondary to extensive pulmonary emboli disease CAT scan and showed the chest showed evidence of multiple lobar and segmental pulmonary emboli involving the right upper middle and lower lobe History of rectal cancer status post colectomy and ostomy Plan Encourage the use of the incentive spirometer Pain control Titrate the O2 down keep sats greater than 90% Continue postop surgical care Continue ICU management per the crossing supervisor Continue recommendations by hematology Increase activity DVT and GI prophylaxis Will follow The above impression and plan of care have been discussed and directed by signing physician. Ailin Pino nurse practitioner acting as scribe for signing physician.
--- NOTE | 2018-09-12 14:38 | CDI ---
Last Revision, September 2017 Documentation Clarification Form Date: 09/12/2018 1:58:58 PM From: Avril Huang RN, CCDS Admit Date: 09/06/2018 9:18:00 AM Patient Name: Edd Weller Visit Number: [id number] Discharge Date: ATTENTION: The Clinical Documentation Specialists (CDI) and [facility] Coding Staff appreciate your assistance in clarifying documentation. Please respond to the clarification below the line at the bottom and electronically sign. The CDI & [facility] Coding staff will review the response and follow-up if needed. Please note: Queries are made part of the Legal Health Record. If you have any questions, please contact the author of this message via ITS. Daniel Solorio MD 09/09/18 Acute pulmonary embolism is documented in the Internal medicine and pulmonary progress notes per Ct angiogram of the chest. . Patients Admitting Diagnosis: Rectal cancer, Right colon polyp Post-Operative Diagnosis: deferred to pathology Procedure performed: 09/07/18 Low anterior resection, Right colectomy, Takedown splenic flexture, Diverting loop colostomy History/Risk Factors: Rectal cancer, Diabetes mellitus, Hypertension, Former smoker Clinical Indicators: Patient had surgery on 09/07/18. On 09/08/18 chest x-ray showed low lung volumes with left greater than the right bibasilar infiltrate and /or atelectasis. Later patient's saturations went down to mid 80s on 3/L per nasal cannula. The patient had increasing tachycardia and a CT angio showed evidence of extensive pulmonary embolic disease, multiple lobar and segmental pulmonary emboli involving right upper lobe, right middle lobe and right lower lobe pulmonary arteries. Nonoccluding embolus and bifurcation of the left main pulmonary artery and pulmonary emboli involving left upper and lower lobe pulmonary arteries. Treatment: ICU Monitoring Heparin drip Monitor PT/INR, CBC Non rebreather, Monitor O2 Sat's and titrate In order to accurately reflect this patients severity of illness, please clarify if the bilateral pulmonary embolism is a complication of the surgical procedure? Yes No Other, please specify Unable to determine Please continue to document in your progress notes and discharge summary in order to capture severity of illness and risk of mortality. Include clinical findings that support your diagnosis. MTDD
--- NOTE | 2018-09-12 15:44 | P.PN ---
Subjective 48-year-old admitted for low anterior resection of the rectum patient has a colostomy in place patient abdomen is distended has sluggish bowel sounds because of which his heart rate is bit elevated will obtain a TSH. Patient the SATURATIONS IS GONE DOWN TO 90% I'M OBTAINING A CHEST X-RAY, PATIENT WILL CONTINUE HIS INCENTIVE SPIROMETRY. PATIENT HAS AN EPIDURAL IN PLACE AN BIT NAUSEOUS NOW. THIS IS BEING ADDRESSED BY GENERAL SURGERY. 09/09/2018 Patient became more hypoxic yesterday the chest x-ray are ordered before the left showed bilateral infiltrates may be atelectasis rather than pneumonia although patient was started on empiric antibiotics which are being continued him unfortunately I'm unable to open the CAT scan. Patient became more hypoxic and tachycardic because of which CAT scan was opted to rule out pulmonary embolism which showed extensive bilateral PE. Patient was started on IV heparin transferred to ICU because patient is on Ventimask troponin is negative BNP is not elevated patient is low to intermediate risk pulmonary embolism probably will not be a candidate for intralesional thrombolytics. Patient is presently on Ventimask All inpatient medications were reviewed and appropriate changes in these medications as dictated in the interval history and assessment and plan. 09/10/2018 Patient is feeling much better today patient is on high flow nasal cannula oxygen Patient does have significant output from the colostomy abdominal distention improved 09/11/2018 Patient is presently on 30 L of high flow mask cannula oxygen no significant overnight events good output from the colostomy. 09/12/2018 Patient is not doing much better today patient is on 5 L of onset today, had about 1 50 mL of liquidy stool Constitutional: Denied any fatigue denied any fever. Cardio vascular: denied any chest pain, palpitations Gastrointestinal denied any nausea vomiting Pulmonary: Denied any shortness of breath cough Neurologic denied any new focal deficits All inpatient medications were reviewed and appropriate changes in these medications as dictated in the interval history and assessment and plan. Objective - Vital Signs Vital signs: Vital Signs Temp 97.8 F 09/12/18 08:00 Pulse 91 09/12/18 14:00 Resp 18 09/12/18 14:00 BP 127/88 09/12/18 14:00 Pulse Ox 91 L 09/12/18 14:00 Intake & Output 09/11/18 09/12/18 09/12/18 18:59 06:59 18:59 Intake Total 1722.1 1384.966 820.3 Output Total 3000 1115 2365 Balance -1277.9 269.966 -1544.7 Weight 144.8 kg 139 kg 139 kg Intake: IV 771 600 450 [id number] 725 600 450 Heparin Sod,Pork in 0.45% 46 NaCl 25,000 unit In 0.45 % NaCl 1 500ml.bag @ 46 mls/hr IV .[id number] [facility] Rx #:[id number] Intake, IV Titration 476.1 584.966 370.3 Amount Heparin Sod,Pork in 0.45% 476.1 584.966 370.3 NaCl 25,000 unit In 0.45 % NaCl 1 500ml.bag @ 46 mls/hr IV .[id number] [facility] Rx #:[id number] Oral 475 200 Output: Urine 3000 715 2365 Stool 400 Other: Voiding Method Indwelling Catheter Indwelling Catheter Indwelling Catheter # Bowel Movements 1,000 150 - Exam PHYSICAL EXAMINATION: GENERAL: Her to oriented 3 not in any acute distress. Morbidly obese him on Ventimask HEENT: Pupils are round and equally reacting to light. EOMI. No scleral icterus. No conjunctival pallor. Normocephalic, atraumatic. No pharyngeal erythema. No thyromegaly. CARDIOVASCULAR: S1 and S2 present. No murmurs, rubs, or gallops. PULMONARY: Chest is clear to auscultation, no wheezing or crackles. ABDOMEN: Abdominal distention improved bowel sounds are present MUSCULOSKELETAL: No joint swelling or deformity. EXTREMITIES: No cyanosis, clubbing, or pedal edema. NEUROLOGICAL: Gross neurological examination did not reveal any focal deficits. SKIN: No rashes. - Labs CBC & Chem 7: 09/12/18 05:13 09/12/18 05:13 Labs: Abnormal Lab Results - Last 24 Hours (Table) 09/11/18 09/11/18 09/12/18 Range/Units 17:45 20:51 05:13 RBC 3.24 L (4.30-5.90) m/uL Hgb 7.9 L (13.0-17.5) gm/dL Hct 28.1 L (39.0-53.0) % MCH 24.4 L (25.0-35.0) pg MCHC 28.1 L (31.0-37.0) g/dL RDW 20.4 H (11.5-15.5) % APTT (22.0-30.0) sec Sodium (137-145) mmol/L Creatinine (0.66-1.25) mg/dL POC Glucose (mg/dL) 106 H 110 H (75-99) mg/dL 09/12/18 09/12/18 09/12/18 Range/Units 05:13 05:13 06:52 RBC (4.30-5.90) m/uL Hgb (13.0-17.5) gm/dL Hct (39.0-53.0) % MCH (25.0-35.0) pg MCHC (31.0-37.0) g/dL RDW (11.5-15.5) % APTT 42.3 H (22.0-30.0) sec Sodium 135 L (137-145) mmol/L Creatinine 0.48 L (0.66-1.25) mg/dL POC Glucose (mg/dL) 102 H (75-99) mg/dL 09/12/18 Range/Units 12:09 RBC (4.30-5.90) m/uL Hgb (13.0-17.5) gm/dL Hct (39.0-53.0) % MCH (25.0-35.0) pg MCHC (31.0-37.0) g/dL RDW (11.5-15.5) % APTT (22.0-30.0) sec Sodium (137-145) mmol/L Creatinine (0.66-1.25) mg/dL POC Glucose (mg/dL) 121 H (75-99) mg/dL Assessment and Plan Plan: -Extensive bilateral pulmonary embolism leading to acute hypoxic respiratory failure: Continue with respiratory support patient is on high flow nasal cannula oxygen patient is on empiric and a biotics antibiotics for possibility of her pneumonia mostly appears to have atelectasis. Patient doesn't have any left ventricle strain on the echocardiogram will continue the respirator support IV heparin. Patient may have had PE even before surgery -Tachycardia secondary to PE -Abdominal distention: And constipation secondary to abdominal surgery and multiple other radical issues going on at this time -Rectal cancer status post colectomy and colostomy. -Seizure disorder patient is on Depakote -Type 2 diabetes mellitus: Metformin held and patient will be on sliding scale insulin for now during this hospitalization . Gastroesophageal reflux disease -Hypertension: Hold off on antihypertensive medications medications to prevent perioperative hypotension -DVT prophylaxis as per primary service
[2018-09-12 17:05] LABS: Glucose,Whole Blood 156 mg/dL (75-99)
[2018-09-12 21:07] LABS: Glucose,Whole Blood 107 mg/dL (75-99)
[2018-09-13 05:35] LABS: Anisocytosis Moderate; HCT 26.1 % (39.0-53.0); HGB 7.9 gm/dL (13.0-17.5); Hypochromasia Marked; MCH 25.3 pg (25.0-35.0); MCHC 30.2 g/dL (31.0-37.0); MCV 83.7 fL (80.0-100.0); Mean Platelet Volume 6.9; Microcytosis Slight; Platelet Count 368 k/uL (150-450); Poikilocytosis Moderate; RBC 3.12 m/uL (4.30-5.90); RDW 21.9 % (11.5-15.5); WBC 7.2 k/uL (3.8-10.6)
[2018-09-13 05:50] LABS: Anion Gap 10 mmol/L; Blood Urea Nitrogen 13 mg/dL (9-20); Calcium 8.7 mg/dL (8.4-10.2); Carbon Dioxide 27 mmol/L (22-30); Chloride 98 mmol/L (98-107); Glucose 104 mg/dL (74-99); Phosphorus 4.3 mg/dL (2.5-4.5); Potassium 3.6 mmol/L (3.5-5.1); Sodium 135 mmol/L (137-145)
[2018-09-13] MEDS ORDERED: Potassium Replacement Protocol 1 EACH MISC MISCELLANE PRN (05:53)
[2018-09-13] MEDS ORDERED: POTASSIUM CHLORIDE ER 20 MEQ TAB.ER PO SCH (06:00)
[2018-09-13 07:48] LABS: Glucose,Whole Blood 105 mg/dL (75-99)
[2018-09-13] MEDS: FAMOTIDINE 20 MG/2 ML VIAL IV SCH ×2 (08:01→21:33)
[2018-09-13] MEDS: FUROSEMIDE 10 MG/ML 4 ML VIAL IV SCH ×2 (08:02→21:32)
[2018-09-13] MEDS: DIVALPROEX 500 MG TABLET.DR PO SCH ×3 (08:02→21:33)
[2018-09-13] MEDS: CYANOCOBALAMIN 1,000 MCG/ML 1 ML VIAL IM SCH (08:03)
[2018-09-13] MEDS: RIVAROXABAN 15 MG TAB PO SCH ×2 (08:03→16:56)
[2018-09-13] MEDS: SODIUM FERRIC GLUCONAT-SUCROSE 125 MG in SODIUM CHLORIDE 0.9% 100 ML IVPB SCH (08:08)
[2018-09-13] MEDS: INSULIN ASPART 100 UNIT/ML 1 ML 10 ML VIAL SQ SCH ×4 (08:09→21:32)
[2018-09-13 12:09] LABS: Glucose,Whole Blood 139 mg/dL (75-99)
--- NOTE | 2018-09-13 13:08 | P.PN ---
Subjective Progress Note Date: 09/13/18 48-year-old seen in the ICU this morning has been up ambulating in the hallway this morning. Nasal cannula at 3 L titrating down to keep a sat greater than 90 % Moderate amount stool from the ostomy. Pain medication effective for pain control surgical dressing dry tolerating a diet with no nausea no vomiting indwelling Samuel catheter in place abdomen soft September 06 low anterior resection right colectomy for rectal cancer with a diverting colostomy for protection of his colorectal anastomosis. Objective - Vital Signs Vital signs: Vital Signs Temp 97.8 F 09/13/18 12:00 Pulse 102 H 09/13/18 12:00 Resp 19 09/13/18 12:00 BP 148/94 09/13/18 12:00 Pulse Ox 94 L 09/13/18 12:00 Intake & Output 09/12/18 09/13/18 09/13/18 18:59 06:59 18:59 Intake Total 1020.3 600 250 Output Total 2625 2295 1910 Balance -1604.7 -1695 -1660 Weight 139 kg 137.2 kg Intake: IV 650 600 250 [id number] 650 600 250 Intake, IV Titration 370.3 Amount Heparin Sod,Pork in 0.45% 370.3 NaCl 25,000 unit In 0.45 % NaCl 1 500ml.bag @ 46 mls/hr IV .[id number] [facility] Rx #:[id number] Output: Urine 2625 2070 1910 Stool 225 Other: Voiding Method Indwelling Catheter Indwelling Catheter Indwelling Catheter - Exam Physical exam 48-year-old male sitting up in a chair being seen in the ICU pleasant cooperative oriented 3 has been up ambulating in the hallway Lungs diminished at the bases no wheezing rail rhonchi noted O2 3 L nasal cannula no shortness of breath with conversation no cough Heart S1-S2 audible regular denying chest pain Abdomen ostomy right quadrant moderate amount of liquid brown stool states no nausea no vomiting midline abdominal incision dressing dry. Indwelling Samuel catheter in place surgical tenderness appropriate nondistended tolerating diet no nausea no vomiting bowel tones present Extremities 1+ pitting edema to the bilateral lower extremities - Labs CBC & Chem 7: 09/13/18 04:58 09/13/18 04:58 Labs: Abnormal Lab Results - Last 24 Hours (Table) 09/12/18 09/12/1809/13/18 Range/Units 16:53 20:55 04:58 RBC 3.12 L (4.30-5.90) m/uL Hgb 7.9 L (13.0-17.5) gm/dL Hct 26.1 L (39.0-53.0) % MCHC 30.2 L (31.0-37.0) g/dL RDW 21.9 H (11.5-15.5) % APTT (22.0-30.0) sec Sodium (137-145) mmol/L Creatinine (0.66-1.25) mg/dL Glucose (74-99) mg/dL POC Glucose (mg/dL) 156 H 107 H (75-99) mg/dL 09/13/18 09/13/18 09/13/18 Range/Units 04:58 04:58 07:36 RBC (4.30-5.90) m/uL Hgb (13.0-17.5) gm/dL Hct (39.0-53.0) % MCHC (31.0-37.0) g/dL RDW (11.5-15.5) % APTT 30.9 H (22.0-30.0) sec Sodium 135 L (137-145) mmol/L Creatinine 0.57 L (0.66-1.25) mg/dL Glucose 104 H (74-99) mg/dL POC Glucose (mg/dL) 105 H (75-99) mg/dL 09/13/18 Range/Units 11:58 RBC (4.30-5.90) m/uL Hgb (13.0-17.5) gm/dL Hct (39.0-53.0) % MCHC (31.0-37.0) g/dL RDW (11.5-15.5) % APTT (22.0-30.0) sec Sodium (137-145) mmol/L Creatinine (0.66-1.25) mg/dL Glucose (74-99) mg/dL POC Glucose (mg/dL) 139 H (75-99) mg/dL Assessment and Plan Assessment: Impression Status post September 06 low anterior resection right colectomy for rectal cancer with a diverting colostomy for protection of his colorectal anastomosis. Postop hypotensive with tachycardia expected improved suspect due to scopolamine patch and hypovolemia improved with IV fluid bolus and scopolamine patch being discontinued Seizure disorder Type 2 diabetes Hypertension off antihypertensive meds for now to prevent perioperative hypotension Morbid obesity BMI 47 Acute hypoxic respiratory failure secondary to extensive pulmonary emboli disease CAT scan of chest showed evidence of multiple lobar and segmental pulmonary emboli involving the right upper middle and lower lobe pulmonary emboli was not a surgical complication of the procedure History of rectal cancer status post colectomy and ostomy Pulmonary embolus was not a complication of this surgical procedure Normocytic normochromic Anemia iron deficiency with a low B12 most likely deficit supplements being given Plan Encourage the use of the incentive spirometer Pain control Titrate the O2 down keep sats greater than 90% Continue postop surgical care Continue ICU management per the lead tinner Continue recommendations by hematology Increase activity DVT and GI prophylaxis Iron supplements as ordered The above impression and plan of care have been discussed and directed by signing physician. Ailin Pino nurse practitioner acting as scribe for signing physician.
--- NOTE | 2018-09-13 14:09 | P.PN ---
Subjective Progress Note Date: 09/13/18 Principal diagnosis: Acute pulmonary embolisms, hypoxemia, tachycardia, rectal carcinoma status post colectomy and colostomy This is a 48-year-old white male patient who initially came into the hospital for low anterior resection of the rectum her history of rectal cell carcinoma. Patient had surgery on 09/07/2018 Dr. Sherman, he had right colectomy, lower anterior resection, with loop colostomy, and the biopsies of the surgical specimen are still pending. Patient was on the medical surgical floor, doing relatively well. On 09/08/2018, patient was noted to be approximately, chest x- ray was obtained, and showed low lung volumes with left greater than the right bibasilar infiltrate and/or atelectasis. Later in the evening patient's saturations went down to mid 80s on 3 L per nasal cannula, patient was increasingly tachycardic, rapid response team was called, stated CT angios of the chest was obtained, and it showed evidence of extensive pulmonary embolic disease, multiple lobar and segmental pulmonary emboli involving right upper lobe, right middle lobe and right lower lobe pulmonary arteries. Nonoccluding embolus and bifurcation of the left main pulmonary artery as well as multiple lobar and segmental pulmonary emboli involving left upper lobe and left lower lobe pulmonary arteries. Lung windows showed bilateral dependent and scattered subsegmental atelectasis, no evidence of any acute pulmonary parenchymal disease or pulmonary consolidation. No pleural effusion, no pneumothorax. Patient was transferred to the intensive care for further monitoring, he was started on heparin infusion, and currently patient is on auto percent nonrebreather with a pulse ox of 96%, currently less tachycardic, and the heart rate is ranging in the 99-100 BPM. Patient denies any acute distress, looking slightly pale, denied any chest pain, or hemoptysis. Today's chest x-ray showed smaller-appearing bibasilar atelectasis and low lung volumes. Today's lab work showed WBC of 8.1, hemoglobin 7.8, INR of 1.1, sodium is 134, the rest of electrolytes were within normal limits, BUN was 12 and creatinine 0.53, current IV fluids is D5.45 with 20 of potassium at a rate of 125 ML per hour. High intensity heparin infusion is currently on. Lung sounds are diminished, mid abdominal incision is clean dry and intact, ostomy is pink, patient has not passed any gas or stool. He is tolerating ice chips. Other past vertical history is positive for diabetes mellitus type 2, GERD/reflux, hypertension, seizure disorder in patient has not had any breakthrough seizures in years, chronic anemia, street of rectal cancer status post chemo and radiation therapy completed on 08/06/2018. Patient is a former smoker. On 09/11/2018 patient seen in follow-up in the intensive care unit, he is resting comfortably in bed, currently on 15 L per high flow nasal cannula, his pulse ox is 94%, he is calm and comfortable, he denies any dyspnea, denies any chest pain, denies any hemoptysis. He is afebrile, hemodynamically stable, non- tachycardic, heart rate is 87 BPM, in sinus mechanism. Respirations are even and nonlabored, lung sounds are diminished. Patient remains on heparin infusion at 16 units per kilo per hour. Daily labs have been reviewed, the WBC is 5.1, hemoglobin 7.2, serum sodium is 133, and rest of the electrodes urine profile are within normal limits. Venous Dopplers were negative for any evidence of DVT. X-rays chest x-ray has been reviewed by Dr. Cruz, and showed increasing patchy airspace infiltrates, patient has some generalized swelling, in upper and lower extremities, yesterday she received 1 dose of Lasix 20 mg IV push. Patient is at least 10 kg positive since admission. He has been at least 10 L positive since surgery. Surgical biopsy of the colon is still pending at this time. Patient is tolerating clear liquid diet, no nausea no vomiting, his colostomy is producing gas and liquid stool. On 09/12/2018 patient seen in follow-up in the intensive care unit. Awake and alert, in no acute distress, his FiO2 is down to 4 L per high flow nasal cannula and the pulse ox is 92%, yesterday 8. Patient is dose of IV Lasix, and he is in negative 1 L fluid balance over the last 24 hours. He is down 5.8 kg. Lung sounds are diminished. His labs have been reviewed, WBC is 5.8, hemoglobin is 7.9, BMP is unremarkable. Ostomy is viable, patient is producing gas and liquid stool. He is tolerating full liquid diet, we will advance his diet. May increase patient's activity, up out of bed, encouraged deep breathing and coughing. Her chest x-rays today, we will give the patient additional doses of Lasix, we'll initiate oral anticoagulation was Xarelto. On 09/13/2018 patient seen in follow-up in the intensive care unit, 5 to is down to 3 L, his pulse ox is 94%, patient is afebrile, hemodynamically stable. She is are even and nonlabored, lung sounds are diminished to auscultation. No chest pain, no worsening dyspnea, patient has been diuresing, is in -30-99 mL fluid balance over the last 24 hours. The generalized edema is improving. Today's blood work has been reviewed, WBC 7.2, hemoglobin is 7.9, sodium is 135 , the rest of the electrolytes and renal profile were unremarkable. No chest x- ray today, patient is working his incentive spirometry, history of started patient on oral anticoagulation the form of Xarelto. Heparin drip has been discontinued, is tolerating an oral diet, his colostomy is producing gas and liquid stool. His biopsy of the colon is still pending. We'll continue with the current pain of care, patient will remain in the ICU 1 more day, we will probably cut back to diuretics tomorrow, increase activity as tolerated, continue encouraging incentive spirometry Objective - Vital Signs Vital signs: Vital Signs Temp 97.8 F 09/13/18 12:00 Pulse 102 H 09/13/18 12:00 Resp 19 09/13/18 12:00 BP 148/94 09/13/18 12:00 Pulse Ox 94 L 09/13/18 12:00 Intake & Output 09/12/18 09/13/18 09/13/18 18:59 06:59 18:59 Intake Total 1020.3 600 250 Output Total 2625 2295 1910 Balance -1604.7 -1695 -1660 Weight 139 kg 137.2 kg Intake: IV 650 600 250 D5.4520K 650 600 250 Intake, IV Titration 370.3 Amount Heparin Sod,Pork in 0.45% 370.3 NaCl 25,000 unit In 0.45 % NaCl 1 500ml.bag @ 46 mls/hr IV .[id number] [facility] Rx #:[id number] Output: Urine 2625 2070 1910 Stool 225 Other: Voiding Method Indwelling Catheter Indwelling Catheter Indwelling Catheter - Exam GENERAL EXAM: Alert, pleasant, 48-year-old white male on 3 l/min high flow nasal cannula comfortable in no apparent distress. HEAD: Normocephalic/atraumatic. EYES: Normal reaction of pupils, equal size. Conjunctiva pink, sclera white. NOSE: Clear with pink turbinates. THROAT: No erythema or exudates. NECK: No masses, no JVD, no thyroid enlargement, no adenopathy. CHEST: No chest wall deformity. Symmetrical expansion. LUNGS: Equal air entry with no crackles, wheeze, rhonchi or dullness. CVS: Regular rate and rhythm, normal S1 and S2, no gallops, no murmurs, no rubs ABDOMEN: Soft, nontender. No hepatosplenomegaly, normal bowel sounds, no guarding or rigidity. Midline abdominal incision is clean dry and intact, covered with a surgical dressing, right-sided colostomy, and colostomy is pink, viable, there is liquid green stool and gas in the colostomy EXTREMITIES: No clubbing, diffuse generalized edema, no cyanosis, 2+ pulses and upper and lower extremities. MUSCULOSKELETAL: Muscle strength and tone normal. SPINE: No scoliosis or deformity SKIN: No rashes CENTRAL NERVOUS SYSTEM: Alert and oriented -3. No focal deficits, tone is normal in all 4 extremities. PSYCHIATRIC: Alert and oriented -3. Appropriate affect. Intact judgment and insight. - Labs CBC & Chem 7: 09/13/18 04:58 09/13/18 12:40 Labs: Abnormal Lab Results - Last 24 Hours (Table) 09/12/18 09/12/18 09/13/18 Range/Units 16:53 20:55 04:58 RBC 3.12 L (4.30-5.90) m/uL Hgb 7.9 L (13.0-17.5) gm/dL Hct 26.1 L (39.0-53.0) % MCHC 30.2 L (31.0-37.0) g/dL RDW 21.9 H (11.5-15.5) % APTT (22.0-30.0) sec Sodium (137-145) mmol/L Creatinine (0.66-1.25) mg/dL Glucose (74-99) mg/dL POC Glucose (mg/dL) 156 H 107 H (75-99) mg/dL 09/13/18 09/13/18 09/13/18 Range/Units 04:58 04:58 07:36 RBC (4.30-5.90) m/uL Hgb (13.0-17.5) gm/dL Hct (39.0-53.0) % MCHC (31.0-37.0) g/dL RDW (11.5-15.5) % APTT 30.9 H (22.0-30.0) sec Sodium 135 L (137-145) mmol/L Creatinine 0.57 L (0.66-1.25) mg/dL Glucose 104 H (74-99) mg/dL POC Glucose (mg/dL) 105 H (75-99) mg/dL 09/13/18 Range/Units 11:58 RBC (4.30-5.90) m/uL Hgb (13.0-17.5) gm/dL Hct (39.0-53.0) % MCHC (31.0-37.0) g/dL RDW (11.5-15.5) % APTT (22.0-30.0) sec Sodium (137-145) mmol/L Creatinine (0.66-1.25) mg/dL Glucose (74-99) mg/dL POC Glucose (mg/dL) 139 H (75-99) mg/dL Assessment and Plan Plan: Assessment: #1. Acute hypoxemic respiratory failure secondary to extensive pulmonary embolic disease, and CT angios chest showed multiple lobar and segmental pulmonary emboli involving the right upper lobe, right middle lobe, right lower lobe pulmonary arteries, nonoccluding embolus at the bifurcation of the left main pulmonary artery, as well as multiple lobar and segmental pulmonary emboli involving left upper lobe and left lower lobe pulmonary arteries. 2-D echocardiogram was completed, and showed evidence of pulmonary hypertension, did not show evidence of right heart strain or changes in his septum including shifter flattening. #2. Rectal cancer status post colectomy and colostomy, this is postop day 6, patient surgery was on 09/07/2018 #3. History of rectal cancer, status post chemo and radiation, completed on , patient had a PET scan on 05/14/2018 which showed increased uptake within the patient reported rectal cancer, but metastatic disease was not clearly evident, there was a focal radiotracer accumulation within the ascending colon region, and additional neoplasm at that level was not excluded. #4. Diabetes mellitus type 2 #5. GERD/reflux #6. Hypertension #7. Seizure disorder, on Depakote, patient has not had a breakthrough seizure in years #8. Nicotine dependence, in remission Plan: Patient is working on his incentive spirometry, yesterday we started patient on oral anticoagulation in the form of Xarelto. Heparin drip has been discontinued , is tolerating an oral diet, his colostomy is producing gas and liquid stool. His biopsy of the colon is still pending. We'll continue with the current pain of care, patient will remain in the ICU 1 more day, we will probably cut back to diuretics tomorrow, increase activity as tolerated, continue encouraging incentive spirometryOstomy is functioning, patient is tolerating oral diet. No nausea no vomiting, passing liquid stool. I performed a history & physical examination of the patient and discussed their management with my nurse practitioner, Kenisha Kaur. I reviewed the nurse practitioner's note and agree with the documented findings and plan of care. Lung sounds are diminished. The findings and the impression was discussed with the patient. I attest to the documentation by the nurse practitioner. Time with Patient: Greater than 30
[2018-09-13] MEDS: LEVOFLOXACIN 500 MG TAB PO SCH (16:56)
[2018-09-13] MEDS: D5-0.45% NACL WITH KCL 20MEQ/L 1,000 ML IV SCH (16:58)
[2018-09-13 17:22] LABS: Glucose,Whole Blood 125 mg/dL (75-99)
[2018-09-13 21:42] LABS: Glucose,Whole Blood 112 mg/dL (75-99)
[2018-09-13] MEDS: HYDROmorphone 1 MG/ML 1 ML SYRINGE IVP PRN (23:19)
[2018-09-14 06:23] LABS: Anisocytosis Moderate; HCT 27.8 % (39.0-53.0); HGB 8.3 gm/dL (13.0-17.5); Hypochromasia Marked; MCH 25.3 pg (25.0-35.0); MCHC 29.8 g/dL (31.0-37.0); MCV 84.9 fL (80.0-100.0); Mean Platelet Volume 6.5; Microcytosis Slight; Platelet Count 360 k/uL (150-450); Poikilocytosis Moderate; RBC 3.28 m/uL (4.30-5.90); RDW 23.7 % (11.5-15.5); WBC 7.9 k/uL (3.8-10.6)
[2018-09-14 06:35] LABS: Anion Gap 7 mmol/L; Blood Urea Nitrogen 13 mg/dL (9-20); Calcium 8.7 mg/dL (8.4-10.2); Carbon Dioxide 29 mmol/L (22-30); Chloride 99 mmol/L (98-107); Glucose 106 mg/dL (74-99); Phosphorus 4.5 mg/dL (2.5-4.5); Sodium 135 mmol/L (137-145)
[2018-09-14] MEDS: INSULIN ASPART 100 UNIT/ML 1 ML 10 ML VIAL SQ SCH ×4 (06:55→21:19)
[2018-09-14] MEDS: RIVAROXABAN 15 MG TAB PO SCH ×2 (06:55→17:45)
[2018-09-14 07:04] LABS: Glucose,Whole Blood 108 mg/dL (75-99)
[2018-09-14] MEDS: HYDROmorphone 1 MG/ML 1 ML SYRINGE IVP PRN (08:07)
[2018-09-14] MEDS: FUROSEMIDE 10 MG/ML 4 ML VIAL IV SCH (08:12)
[2018-09-14] MEDS: DIVALPROEX 500 MG TABLET.DR PO SCH ×3 (08:13→20:59)
[2018-09-14] MEDS: D5-0.45% NACL WITH KCL 20MEQ/L 1,000 ML IV SCH (08:13)
[2018-09-14] MEDS: SODIUM FERRIC GLUCONAT-SUCROSE 125 MG in SODIUM CHLORIDE 0.9% 100 ML IVPB SCH (08:13)
[2018-09-14] MEDS: FAMOTIDINE 20 MG/2 ML VIAL IV SCH (08:13)
[2018-09-14] MEDS: CYANOCOBALAMIN 1,000 MCG/ML 1 ML VIAL IM SCH (08:36)
--- NOTE | 2018-09-14 10:08 | P.PN ---
Subjective Progress Note Date: 09/14/18 Principal diagnosis: Acute pulmonary embolisms, hypoxemia, tachycardia, rectal carcinoma status post colectomy and colostomy. This is a 48-year-old white male patient who initially came into the hospital for low anterior resection of the rectum her history of rectal cell carcinoma. Patient had surgery on 09/07/2018 Dr. Sherman, he had right colectomy, lower anterior resection, with loop colostomy, and the biopsies of the surgical specimen are still pending. Patient was on the medical surgical floor, doing relatively well. On 09/08/2018, patient was noted to be approximately, chest x- ray was obtained, and showed low lung volumes with left greater than the right bibasilar infiltrate and/or atelectasis. Later in the evening patient's saturations went down to mid 80s on 3 L per nasal cannula, patient was increasingly tachycardic, rapid response team was called, stated CT angios of the chest was obtained, and it showed evidence of extensive pulmonary embolic disease, multiple lobar and segmental pulmonary emboli involving right upper lobe, right middle lobe and right lower lobe pulmonary arteries. Nonoccluding embolus and bifurcation of the left main pulmonary artery as well as multiple lobar and segmental pulmonary emboli involving left upper lobe and left lower lobe pulmonary arteries. Lung windows showed bilateral dependent and scattered subsegmental atelectasis, no evidence of any acute pulmonary parenchymal disease or pulmonary consolidation. No pleural effusion, no pneumothorax. Patient was transferred to the intensive care for further monitoring, he was started on heparin infusion, and currently patient is on auto percent nonrebreather with a pulse ox of 96%, currently less tachycardic, and the heart rate is ranging in the 99-100 BPM. Patient denies any acute distress, looking slightly pale, denied any chest pain, or hemoptysis. Today's chest x-ray showed smaller-appearing bibasilar atelectasis and low lung volumes. Today's lab work showed WBC of 8.1, hemoglobin 7.8, INR of 1.1, sodium is 134, the rest of electrolytes were within normal limits, BUN was 12 and creatinine 0.53, current IV fluids is D5.45 with 20 of potassium at a rate of 125 ML per hour. High intensity heparin infusion is currently on. Lung sounds are diminished, mid abdominal incision is clean dry and intact, ostomy is pink, patient has not passed any gas or stool. He is tolerating ice chips. Other past vertical history is positive for diabetes mellitus type 2, GERD/reflux, hypertension, seizure disorder in patient has not had any breakthrough seizures in years, chronic anemia, street of rectal cancer status post chemo and radiation therapy completed on 08/06/2018. Patient is a former smoker. On 09/11/2018 patient seen in follow-up in the intensive care unit, he is resting comfortably in bed, currently on 15 L per high flow nasal cannula, his pulse ox is 94%, he is calm and comfortable, he denies any dyspnea, denies any chest pain, denies any hemoptysis. He is afebrile, hemodynamically stable, non- tachycardic, heart rate is 87 BPM, in sinus mechanism. Respirations are even and nonlabored, lung sounds are diminished. Patient remains on heparin infusion at 16 units per kilo per hour. Daily labs have been reviewed, the WBC is 5.1, hemoglobin 7.2, serum sodium is 133, and rest of the electrodes urine profile are within normal limits. Venous Dopplers were negative for any evidence of DVT. X-rays chest x-ray has been reviewed by Dr. Cruz, and showed increasing patchy airspace infiltrates, patient has some generalized swelling, in upper and lower extremities, yesterday she received 1 dose of Lasix 20 mg IV push. Patient is at least 10 kg positive since admission. He has been at least 10 L positive since surgery. Surgical biopsy of the colon is still pending at this time. Patient is tolerating clear liquid diet, no nausea no vomiting, his colostomy is producing gas and liquid stool. On 09/12/2018 patient seen in follow-up in the intensive care unit. Awake and alert, in no acute distress, his FiO2 is down to 4 L per high flow nasal cannula and the pulse ox is 92%, yesterday 8. Patient is dose of IV Lasix, and he is in negative 1 L fluid balance over the last 24 hours. He is down 5.8 kg. Lung sounds are diminished. His labs have been reviewed, WBC is 5.8, hemoglobin is 7.9, BMP is unremarkable. Ostomy is viable, patient is producing gas and liquid stool. He is tolerating full liquid diet, we will advance his diet. May increase patient's activity, up out of bed, encouraged deep breathing and coughing. Her chest x-rays today, we will give the patient additional doses of Lasix, we'll initiate oral anticoagulation was Xarelto. On 09/13/2018 patient seen in follow-up in the intensive care unit, 5 to is down to 3 L, his pulse ox is 94%, patient is afebrile, hemodynamically stable. She is are even and nonlabored, lung sounds are diminished to auscultation. No chest pain, no worsening dyspnea, patient has been diuresing, is in -30-99 mL fluid balance over the last 24 hours. The generalized edema is improving. Today's blood work has been reviewed, WBC 7.2, hemoglobin is 7.9, sodium is 135 , the rest of the electrolytes and renal profile were unremarkable. No chest x- ray today, patient is working his incentive spirometry, history of started patient on oral anticoagulation the form of Xarelto. Heparin drip has been discontinued, is tolerating an oral diet, his colostomy is producing gas and liquid stool. His biopsy of the colon is still pending. We'll continue with the current pain of care, patient will remain in the ICU 1 more day, we will probably cut back to diuretics tomorrow, increase activity as tolerated, continue encouraging incentive spirometry. The patient is seen again today 09/14/2018 in follow-up in the intensive care unit. He is awake and alert in no acute distress. He denies any worsening shortness of breath, cough or congestion. He continues to maintain good O2 saturations in the 90s on 3 L/m per nasal cannula. Chest x-ray shows improvement. He continues to work well with the incentive spirometer. He's been afebrile. Hemodynamically stable. White count 7.9. Hemoglobin 8.3. Creatinine 0.58. He has been initiated on Xarelto. His only complaint today is some mild discomfort at the surgical area. Colostomy is functioning. Objective - Vital Signs Vital signs: Vital Signs Temp 98.2 F 09/14/18 08:00 Pulse 90 09/14/18 09:00 Resp 17 09/14/18 09:00 BP 156/95 09/14/18 09:00 Pulse Ox 92 L 09/14/18 09:00 Intake & Output 09/13/18 09/14/18 09/14/18 18:59 06:59 18:59 Intake Total 950 600 600 Output Total 2200 1810 1545 Balance -8850 -9340 -585 Weight 139.5 kg Intake: IV 550 600 150 [id number] 550 600 150 Intake, IV Titration 100 Amount Sodium Ferric Gluconat- 100 Sucrose 125 mg In Sodium Chloride 0.9% 100 ml @ 100 mls/hr IVPB DAILY [facility] Rx#:[id number] Oral 400 350 Output: Urine 2200 1710 1545 Stool 100 Other: Voiding Method Indwelling Catheter Indwelling Catheter Indwelling Catheter - Exam GENERAL EXAM: Alert, oriented 3, on 3 l/min high flow nasal cannula comfortable in no acute respiratory distress. HEAD: Normocephalic/atraumatic. EYES: Normal reaction of pupils, equal size. Conjunctiva pink, sclera white. NOSE: Clear with pink turbinates. THROAT: No erythema or exudates. NECK: No masses, no JVD, no thyroid enlargement, no adenopathy. CHEST: No chest wall deformity. Symmetrical expansion. LUNGS: Equal air entry with no crackles, wheeze, rhonchi or dullness. CVS: Regular rate and rhythm, normal S1 and S2, no gallops, no murmurs, no rubs ABDOMEN: Soft, nontender. No hepatosplenomegaly, normal bowel sounds, no guarding or rigidity. Midline abdominal incision is clean dry and intact, covered with a surgical dressing, right-sided colostomy, and colostomy is pink, viable, there is liquid green stool and gas in the colostomy EXTREMITIES: No clubbing, diffuse generalized edema, no cyanosis, 2+ pulses and upper and lower extremities. MUSCULOSKELETAL: Muscle strength and tone normal. SPINE: No scoliosis or deformity SKIN: No rashes CENTRAL NERVOUS SYSTEM: Alert and oriented -3. No focal deficits, tone is normal in all 4 extremities. PSYCHIATRIC: Alert and oriented -3. Appropriate affect. Intact judgment and insight. - Labs CBC & Chem 7: 09/14/18 05:55 09/14/18 05:55 Labs: Abnormal Lab Results - Last 24 Hours (Table) 09/13/18 09/13/18 09/13/18 Range/Units 11:58 17:10 21:31 RBC (4.30-5.90) m/uL Hgb (13.0-17.5) gm/dL Hct (39.0-53.0) % MCHC (31.0-37.0) g/dL RDW (11.5-15.5) % Sodium (137-145) mmol/L Creatinine (0.66-1.25) mg/dL Glucose (74-99) mg/dL POC Glucose (mg/dL) 139 H 125 H 112 H (75-99) mg/dL 09/14/18 09/14/18 09/14/18 Range/Units 05:55 05:55 06:52 RBC 3.28 L (4.30-5.90) m/uL Hgb 8.3 L (13.0-17.5) gm/dL Hct 27.8 L (39.0-53.0) % MCHC 29.8 L (31.0-37.0) g/dL RDW 23.7 H (11.5-15.5) % Sodium 135 L (137-145) mmol/L Creatinine 0.58 L (0.66-1.25) mg/dL Glucose 106 H (74-99) mg/dL POC Glucose (mg/dL) 108 H (75-99) mg/dL Assessment and Plan Assessment: Assessment: #1. Acute hypoxemic respiratory failure secondary to extensive pulmonary embolic disease, and CT angios chest showed multiple lobar and segmental pulmonary emboli involving the right upper lobe, right middle lobe, right lower lobe pulmonary arteries, nonoccluding embolus at the bifurcation of the left main pulmonary artery, as well as multiple lobar and segmental pulmonary emboli involving left upper lobe and left lower lobe pulmonary arteries. 2-D echocardiogram was completed, and showed evidence of pulmonary hypertension, did not show evidence of right heart strain or changes in his septum including flattening. Improved. Maintaining good O2 saturations in the 90s on 3 L/m per nasal cannula. #2. Rectal cancer status post colectomy and colostomy, this is postop day 7, patient surgery was on 09/07/2018 #3. History of rectal cancer, status post chemo and radiation, completed on , patient had a PET scan on 05/14/2018 which showed increased uptake within the patient reported rectal cancer, but metastatic disease was not clearly evident, there was a focal radiotracer accumulation within the ascending colon region, and additional neoplasm at that level was not excluded. #4. Diabetes mellitus type 2 #5. GERD/reflux #6. Hypertension #7. Seizure disorder, on Depakote, patient has not had a breakthrough seizure in years #8. Nicotine dependence, in remission Plan: The patient was seen and evaluated by Dr. Cruz. The patient is stable from the pulmonary and critical care standpoint and could be transferred out of the ICU today. He's been transitioned to oral anticoagulant in the form of Xarelto. Chest x-ray shows improvement. We'll continue to titrate down the FiO2 as tolerated. Continue to work with the incentive spirometer. He remains in a negative balance. We'll discontinue IV Lasix. Discontinue Samuel catheter. Continue regular diet. We will continue to follow and make further recommendations based on his clinical status. I, the cosigning physician, performed a history & physical examination of the patient. Lungs sounds with few scattered rhonchi. Maintaining good O2 saturations in the 90s on 3 L/m per nasal cannula. I discussed the assessment and plan of care with my nurse practitioner, Sushma Coello. I attest to the above note as dictated by her.
[2018-09-14] MEDS: LEVOFLOXACIN 500 MG TAB PO SCH (11:33)
--- NOTE | 2018-09-14 11:50 | XR ---
EXAMINATION TYPE: XR chest 1V portable DATE OF EXAM: 09/14/2018 COMPARISON: 09/10/2018 HISTORY: Cough and congestion TECHNIQUE: Single frontal view of the chest is obtained. FINDINGS: There is a new linear oriented left basilar opacity. 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 Remainder the lungs are clear. Cardia mediastinal silhouette is mildly enlarged. No sizable pneu mothorax or pleural effusion. IMPRESSION: New linear left basilar opacity that may represent atelectasis or pneumonia in the appro priate clinical setting.
[2018-09-14 12:28] LABS: Glucose,Whole Blood 121 mg/dL (75-99)
--- NOTE | 2018-09-14 15:33 | P.PN ---
Subjective Progress Note Date: 09/14/18 48-year-old male sitting up in bed being seen in the intensive care unit eli cooperative oriented 3 ostomy functioning moderate amount of stool passing gas ostomy teaching has been initiated. September 06 low anterior resection right colectomy for rectal cancer with a diverting colostomy for protection of his colorectal anastomosis. Objective - Vital Signs Vital signs: Vital Signs Temp 98.2 F 09/14/18 08:00 Pulse 91 09/14/18 11:00 Resp 17 09/14/18 11:00 BP 148/82 09/14/18 11:00 Pulse Ox 95 09/14/18 11:16 Intake & Output 09/13/18 09/14/18 09/14/18 18:59 06:59 18:59 Intake Total 950 600 900 Output Total 2200 1810 1650 Balance -1250 -1210 -750 Weight 139.5 kg Intake: IV 550 600 250 [id number] 550 600 250 Intake, IV Titration 100 Amount Sodium Ferric Gluconat- 100 Sucrose 125 mg In Sodium Chloride 0.9% 100 ml @ 100 mls/hr IVPB DAILY [facility] Rx#:[id number] Oral 400 550 Output: Urine 2200 1710 1650 Stool 100 Other: Voiding Method Indwelling Catheter Indwelling Catheter Indwelling Catheter # Voids 1 - Exam Physical exam eli 48-year-old male sitting up in bed this morning taking a diet no nausea no vomiting states pain medication effective for pain control Lungs decreased at the bases otherwise adequate air movement Heart S1-S2 audible regular Abdomen ostomy moderate amount stool midline abdominal incision dry ostomy appliance in place tolerating diet no nausea no vomiting Extremities decrease edema to the lower extremities - Labs CBC & Chem 7: 09/14/18 05:55 09/14/18 05:55 Labs: Abnormal Lab Results - Last 24 Hours (Table) 09/13/18 09/13/18 09/14/18 Range/Units 17:10 21:31 05:55 RBC 3.28 L (4.30-5.90) m/uL Hgb 8.3 L (13.0-17.5) gm/dL Hct 27.8 L (39.0-53.0) % MCHC 29.8 L (31.0-37.0) g/dL RDW 23.7 H (11.5-15.5) % Sodium (137-145) mmol/L Creatinine (0.66-1.25) mg/dL Glucose (74-99) mg/dL POC Glucose (mg/dL) 125 H 112 H (75-99) mg/dL 09/14/18 09/14/18 09/14/18 Range/Units 05:55 06:52 12:16 RBC (4.30-5.90) m/uL Hgb (13.0-17.5) gm/dL Hct (39.0-53.0) % MCHC (31.0-37.0) g/dL RDW (11.5-15.5) % Sodium 135 L (137-145) mmol/L Creatinine 0.58 L (0.66-1.25) mg/dL Glucose 106 H (74-99) mg/dL POC Glucose (mg/dL) 108 H 121 H (75-99) mg/dL Assessment and Plan Assessment: Impression Status post September 06 low anterior resection right colectomy for rectal cancer with a diverting colostomy for protection of his colorectal anastomosis. Postop hypotensive with tachycardia expected improved suspect due to scopolamine patch and hypovolemia improved with IV fluid bolus and scopolamine patch being discontinued Seizure disorder Type 2 diabetes Hypertension off antihypertensive meds for now to prevent perioperative hypotension Morbid obesity BMI 47 Acute hypoxic respiratory failure secondary to extensive pulmonary emboli disease CAT scan of chest showed evidence of multiple lobar and segmental pulmonary emboli involving the right upper middle and lower lobe pulmonary emboli was not a surgical complication of the procedure History of rectal cancer status post colectomy and ostomy Pulmonary embolus was not a complication of this surgical procedure Normocytic normochromic Anemia iron deficiency with a low B12 most likely deficit supplements being given Plan Encourage the use of the incentive spirometer Pain control Titrate the O2 down keep sats greater than 90% Continue postop surgical care Continue ICU management per the art director Continue recommendations by hematology Increase activity DVT and GI prophylaxis Iron supplements as ordered The above impression and plan of care have been discussed and directed by signing physician. Ailin Pino nurse practitioner acting as scribe for signing physician.
[2018-09-14 17:09] LABS: Glucose,Whole Blood 119 mg/dL (75-99)
--- NOTE | 2018-09-14 17:51 | P.PN ---
Subjective Progress Note Date: 09/13/18 Progress note being dictated for Dr. Miner Interval history:48-year-old admitted for low anterior resection of the rectum patient has a colostomy in place patient abdomen is distended has sluggish bowel sounds because of which his heart rate is bit elevated will obtain a TSH. Patient the SATURATIONS IS GONE DOWN TO 90% I'M OBTAINING A CHEST X-RAY, PATIENT WILL CONTINUE HIS INCENTIVE SPIROMETRY. PATIENT HAS AN EPIDURAL IN PLACE AN BIT NAUSEOUS NOW. THIS IS BEING ADDRESSED BY GENERAL SURGERY. 09/09/2018 Patient became more hypoxic yesterday the chest x-ray are ordered before the left showed bilateral infiltrates may be atelectasis rather than pneumonia although patient was started on empiric antibiotics which are being continued him unfortunately I'm unable to open the CAT scan. Patient became more hypoxic and tachycardic because of which CAT scan was opted to rule out pulmonary embolism which showed extensive bilateral PE. Patient was started on IV heparin transferred to ICU because patient is on Ventimask troponin is negative BNP is not elevated patient is low to intermediate risk pulmonary embolism probably will not be a candidate for intralesional thrombolytics. Patient is presently on Ventimask All inpatient medications were reviewed and appropriate changes in these medications as dictated in the interval history and assessment and plan. 09/10/2018 Patient is feeling much better today patient is on high flow nasal cannula oxygen Patient does have significant output from the colostomy abdominal distention improved 09/11/2018 Patient is presently on 30 L of high flow mask cannula oxygen no significant overnight events good output from the colostomy. 09/12/2018 Patient is not doing much better today patient is on 5 L of onset today, had about 1 50 mL of liquidy stool 09/13/2018 ambulating in [place], maintaining O2 sats in the low 90s on 3 L nasal cannula. Incentive spirometer up to 1999. Telemetry sinus rhythm. Diet intake improving, approximately 25%. Blood sugars controlled. Diuretics decreased .Anticoagulated on Xarelto. Colon biopsy pending. Constitutional: Denied any fatigue denied any fever. Cardio vascular: denied any chest pain, palpitations Gastrointestinal denied any nausea vomiting Pulmonary: Denied any shortness of breath cough Neurologic denied any new focal deficits Active Medications Generic Name Dose Route Start Last Admin Trade Name Freq PRN Reason Stop Dose Admin Hydrocodone Bitart/Acetaminophen 1 each 09/14/18 10:01 Thor 5-325 PO Q4HR PRN Moderate Pain Albuterol/Ipratropium 3 ml 09/09/18 01:58 09/10/18 20:14 Duoneb 0.5 Mg-3 Mg/3 Ml Soln INHALATION 3 ml RT-Q2H PRN Administration Shortness Of Breath Or Wheezing Benzocaine/Menthol 1 each 09/06/18 15:44 Cepacol Lozenge MUCOUS MEM Q1HR PRN Sore Throat Cyanocobalamin 1,000 mcg 09/10/18 13:00 09/14/18 08:36 Vitamin B-12 IM 09/16/18 09:01 1,000 mcg DAILY SERJIO Administration Divalproex Sodium 500 mg 09/07/18 17:06 09/14/18 08:13 Depakote PO 500 mg TID SERJIO Administration Famotidine 20 mg 09/14/18 21:00 Pepcid PO BID [facility] Insulin Aspart 0 unit 09/11/18 21:00 09/14/18 14:25 Novolog SQ Not Given ACHS [facility] Protocol Levofloxacin 500 mg 09/12/18 11:00 09/14/18 11:33 Levaquin PO 500 mg Q24H SERJIO Administration Melatonin 6 mg 09/14/18 21:00 Melatonin PO HS [facility] Metoclopramide HCl 10 mg 09/06/18 15:44 09/09/18 17:53 Reglan IVP 10 mg Q6HR PRN Administration Nausea and Vomiting Miscellaneous Information 1 each 09/09/18 07:03 Magnesium Per Protocol MISCELLANE DAILY PRN Per Protocol Protocol Miscellaneous Information 1 each 09/13/18 05:53 Potassium Per Protocol MISCELLANE DAILY PRN Per Protocol Protocol Naloxone HCl 0.2 mg 09/06/18 11:06 Narcan IV Q2M PRN Opioid Reversal Ondansetron HCl 4 mg 09/06/18 15:44 09/10/18 09:27 Zofran IVP 4 mg Q8HR PRN Administration Nausea And Vomiting Rivaroxaban 15 mg 09/12/18 11:00 09/14/18 06:55 Xarelto PO 10/03/18 11:01 15 mg BID-W/MEALS SERJIO Administration Objective - Vital Signs Vital signs: Vital Signs Temp 98 F 09/13/18 08:00 Pulse 92 09/13/18 10:00 Resp 19 09/13/18 10:00 BP 127/82 09/13/18 10:00 Pulse Ox 91 L 09/13/18 10:00 Intake & Output 09/12/18 09/13/18 09/13/18 18:59 06:59 18:59 Intake Total 1020.3 600 150 Output Total 2625 2295 1790 Balance -1604.7 -1695 -1640 Weight 139 kg 137.2 kg Intake: IV 650 600 150 D5.4520K 650 600 150 Intake, IV Titration 370.3 Amount Heparin Sod,Pork in 0.45% 370.3 NaCl 25,000 unit In 0.45 % NaCl 1 500ml.bag @ 46 mls/hr IV .[id number] [facility] Rx #:[id number] Output: Urine 2625 2070 1790 Stool 225 Other: Voiding Method Indwelling Catheter Indwelling Catheter Indwelling Catheter - Exam GENERAL: Sitting up in chair, alert, oriented 3 not in any acute distress. HEENT: Pupils are round and equally reacting to light. EOMI. No scleral icterus. No conjunctival pallor. Normocephalic, atraumatic. CARDIOVASCULAR: S1 and S2 present. No murmurs, rubs, or gallops. PULMONARY: Chest is clear to auscultation, no wheezing or crackles. ABDOMEN: Soft, nontender, colostomy bag with gas and green liquidy stool, positive bowel sounds. Midline abdominal dressing clean dry and intact. MUSCULOSKELETAL: No joint swelling or deformity. EXTREMITIES: No cyanosis, clubbing, or pedal edema. NEUROLOGICAL: Gross neurological examination did not reveal any focal deficits. SKIN: No rashes. - Labs CBC & Chem 7: 09/14/18 05:55 09/14/18 05:55 Labs: Abnormal Lab Results - Last 24 Hours (Table) 09/12/18 09/12/18 09/12/18 Range/Units 12:09 16:53 20:55 RBC (4.30-5.90) m/uL Hgb (13.0-17.5) gm/dL Hct (39.0-53.0) % MCHC (31.0-37.0) g/dL RDW (11.5-15.5) % APTT (22.0-30.0) sec Sodium (137-145) mmol/L Creatinine (0.66-1.25) mg/dL Glucose (74-99) mg/dL POC Glucose (mg/dL) 121 H 156 H 107 H (75-99) mg/dL 09/13/18 09/13/18 09/13/18 Range/Units 04:58 04:58 04:58 RBC 3.12 L (4.30-5.90) m/uL Hgb 7.9 L (13.0-17.5) gm/dL Hct 26.1 L (39.0-53.0) % MCHC 30.2 L (31.0-37.0) g/dL RDW 21.9 H (11.5-15.5) % APTT 30.9 H (22.0-30.0) sec Sodium 135 L (137-145) mmol/L Creatinine 0.57 L (0.66-1.25) mg/dL Glucose 104 H (74-99) mg/dL POC Glucose (mg/dL) (75-99) mg/dL 09/13/18 Range/Units 07:36 RBC (4.30-5.90) m/uL Hgb (13.0-17.5) gm/dL Hct (39.0-53.0) % MCHC (31.0-37.0) g/dL RDW (11.5-15.5) % APTT (22.0-30.0) sec Sodium (137-145) mmol/L Creatinine (0.66-1.25) mg/dL Glucose (74-99) mg/dL POC Glucose (mg/dL) 105 H (75-99) mg/dL Assessment and Plan Assessment: -Extensive bilateral pulmonary embolism leading to acute hypoxic respiratory failure: Continue with respiratory support patient is on high flow nasal cannula oxygen patient is on empiric and a biotics antibiotics for possibility of her pneumonia mostly appears to have atelectasis. Patient doesn't have any left ventricle strain on the echocardiogram will continue the respirator support IV heparin. Patient may have had PE even before surgery -Tachycardia secondary to PE -Abdominal distention: And constipation secondary to abdominal surgery and multiple other radical issues going on at this time -Rectal cancer status post colectomy and colostomy. -Seizure disorder patient is on Depakote -Type 2 diabetes mellitus: Metformin held and patient will be on sliding scale insulin for now during this hospitalization . Gastroesophageal reflux disease -Hypertension: Hold off on antihypertensive medications medications to prevent perioperative hypotension -DVT prophylaxis as per primary service Plan: Continue current medication regime , Xarelto, monitoring and symptomatic treatment. Colon biopsy pending .Aggressive pulmonary toileting with incentive spirometer reinforced. Potential transfer out of ICU tomorrow as per ferris wheel attendant. PT/OT. Increase ambulation as tolerated. The impression and plan of care has been dictated as directed. : I performed a history and examination of this patient, discussed the same with the dictator. I agree with the dictator's note ,documented as a scribe. Any additional findings or plans will be noted.
--- NOTE | 2018-09-14 18:32 | P.PN ---
Subjective Progress Note Date: 09/14/18 Progress note being dictated for Dr. Miner Interval history:48-year-old admitted for low anterior resection of the rectum patient has a colostomy in place patient abdomen is distended has sluggish bowel sounds because of which his heart rate is bit elevated will obtain a TSH. Patient the SATURATIONS IS GONE DOWN TO 90% I'M OBTAINING A CHEST X-RAY, PATIENT WILL CONTINUE HIS INCENTIVE SPIROMETRY. PATIENT HAS AN EPIDURAL IN PLACE AN BIT NAUSEOUS NOW. THIS IS BEING ADDRESSED BY GENERAL SURGERY. 09/09/2018 Patient became more hypoxic yesterday the chest x-ray are ordered before the left showed bilateral infiltrates may be atelectasis rather than pneumonia although patient was started on empiric antibiotics which are being continued him unfortunately I'm unable to open the CAT scan. Patient became more hypoxic and tachycardic because of which CAT scan was opted to rule out pulmonary embolism which showed extensive bilateral PE. Patient was started on IV heparin transferred to ICU because patient is on Ventimask troponin is negative BNP is not elevated patient is low to intermediate risk pulmonary embolism probably will not be a candidate for intralesional thrombolytics. Patient is presently on Ventimask All inpatient medications were reviewed and appropriate changes in these medications as dictated in the interval history and assessment and plan. 09/10/2018 Patient is feeling much better today patient is on high flow nasal cannula oxygen Patient does have significant output from the colostomy abdominal distention improved 09/11/2018 Patient is presently on 30 L of high flow mask cannula oxygen no significant overnight events good output from the colostomy. 09/12/2018 Patient is not doing much better today patient is on 5 L of onset today, had about 1 50 mL of liquidy stool 09/13/2018 ambulating in [place], maintaining O2 sats in the low 90s on 3 L nasal cannula. Incentive spirometer up to 2000. Telemetry sinus rhythm. Diet intake improving, approximately 25%. Blood sugars controlled. Diuretics decreased .Anticoagulated on Xarelto. Colon biopsy pending. 09/14/2018 afebrile, maintaining O2 sats in the low 90s on 3 L nasal cannula. Chest x-ray reports new linear left basilar opacity. Colon biopsy pending. Constitutional: Denied any fatigue denied any fever. Cardio vascular: denied any chest pain, palpitations Gastrointestinal denied any nausea vomiting Pulmonary: Denied any shortness of breath cough Neurologic denied any new focal deficits Active Medications Generic Name Dose Route Start Last Admin Trade Name Freq PRN Reason Stop Dose Admin Hydrocodone Bitart/Acetaminophen 1 each 09/14/18 10:01 [place] 5-325 PO Q4HR PRN Moderate Pain Albuterol/Ipratropium 3 ml 09/09/18 01:58 09/10/18 20:14 Duoneb 0.5 Mg-3 Mg/3 Ml Soln INHALATION 3 ml RT-Q2H PRN Administration Shortness Of Breath Or Wheezing Benzocaine/Menthol 1 each 09/06/18 15:44 Cepacol Lozenge MUCOUS MEM Q1HR PRN Sore Throat Cyanocobalamin 1,000 mcg 09/10/18 13:00 09/14/18 08:36 Vitamin B-12 IM 09/16/18 09:01 1,000 mcg DAILY SERJIO Administration Divalproex Sodium 500 mg 09/07/18 17:06 09/14/18 08:13 Depakote PO 500 mg TID SERJIO Administration Famotidine 20 mg 09/14/18 21:00 Pepcid PO BID SERJIO Insulin Aspart 0 unit 09/11/18 21:00 09/14/18 14:25 Novolog SQ Not Given ACHS [facility] Protocol Levofloxacin 500 mg 09/12/18 11:00 09/14/18 11:33 Levaquin PO 500 mg Q24H SERJIO Administration Melatonin 6 mg 09/14/18 21:00 Melatonin PO HS SERJIO Metoclopramide HCl 10 mg 09/06/18 15:44 09/09/18 17:53 Reglan IVP 10 mg Q6HR PRN Administration Nausea and Vomiting Miscellaneous Information 1 each 09/09/18 07:03 Magnesium Per Protocol MISCELLANE DAILY PRN Per Protocol Protocol Miscellaneous Information 1 each 09/13/18 05:53 Potassium Per Protocol MISCELLANE DAILY PRN Per Protocol Protocol Naloxone HCl 0.2 mg 09/06/18 11:06 Narcan IV Q2M PRN Opioid Reversal Ondansetron HCl 4 mg 09/06/18 15:44 09/10/18 09:27 Zofran IVP 4 mg Q8HR PRN Administration Nausea And Vomiting Rivaroxaban 15 mg 09/12/18 11:00 09/14/18 06:55 Xarelto PO 10/03/18 11:01 15 mg BID-W/MEALS SERJIO Administration Objective - Vital Signs Vital signs: Vital Signs Temp 97.9 F 09/14/18 15:00 Pulse 93 09/14/18 15:00 Resp 18 09/14/18 15:00 BP 148/82 09/14/18 11:00 Pulse Ox 93 L 09/14/18 15:00 Intake & Output 09/13/18 09/14/18 09/14/18 18:59 06:59 18:59 Intake Total 950 600 900 Output Total 2200 1810 1650 Balance -1250 -1210 -750 Weight 139.5 kg Intake: IV 550 600 250 D5.4520K 550 600 250 Intake, IV Titration 100 Amount Sodium Ferric Gluconat- 100 Sucrose 125 mg In Sodium Chloride 0.9% 100 ml @ 100 mls/hr IVPB DAILY SERJIO Rx#:[id number] Oral 400 550 Output: Urine 2200 1710 1650 Stool 100 Other: Voiding Method Indwelling Catheter Indwelling Catheter Indwelling Catheter # Voids 1 - Exam GENERAL: Sitting up in chair, alert, oriented 3 not in any acute distress. HEENT: Pupils are round and equally reacting to light. EOMI. No scleral icterus. No conjunctival pallor. Normocephalic, atraumatic. CARDIOVASCULAR: S1 and S2 present. No murmurs, rubs, or gallops. PULMONARY: Chest is clear to auscultation, no wheezing or crackles. ABDOMEN: Soft, nontender, colostomy bag with stool, positive bowel sounds. Midline abdominal dressing clean dry and intact. MUSCULOSKELETAL: No joint swelling or deformity. EXTREMITIES: No cyanosis, clubbing, or pedal edema. NEUROLOGICAL: Gross neurological examination did not reveal any focal deficits. SKIN: No rashes. - Labs CBC & Chem 7: 09/14/18 05:55 09/14/18 05:55 Labs: Abnormal Lab Results - Last 24 Hours (Table) 09/13/18 09/14/18 09/14/18 Range/Units 21:31 05:55 05:55 RBC 3.28 L (4.30-5.90) m/uL Hgb 8.3 L (13.0-17.5) gm/dL Hct 27.8 L (39.0-53.0) % MCHC 29.8 L (31.0-37.0) g/dL RDW 23.7 H (11.5-15.5) % Sodium 135 L (137-145) mmol/L Creatinine 0.58 L (0.66-1.25) mg/dL Glucose 106 H (74-99) mg/dL POC Glucose (mg/dL) 112 H (75-99) mg/dL 09/14/18 09/14/18 09/14/18 Range/Units 06:52 12:16 16:57 RBC (4.30-5.90) m/uL Hgb (13.0-17.5) gm/dL Hct (39.0-53.0) % MCHC (31.0-37.0) g/dL RDW (11.5-15.5) % Sodium (137-145) mmol/L Creatinine (0.66-1.25) mg/dL Glucose (74-99) mg/dL POC Glucose (mg/dL) 108 H 121 H 119 H (75-99) mg/dL Assessment and Plan Assessment: -Extensive bilateral pulmonary embolism leading to acute hypoxic respiratory failure -Rectal cancer status post colectomy and colostomy. Colon biopsy pending -Seizure disorder patient is on Depakote -Type 2 diabetes mellitulitis Gastroesophageal reflux disease -Hypertension -DVT prophylaxis as per primary service Plan: Continue current medication regime , Xarelto, monitoring and symptomatic treatment. Sewer And Inspector has cleared patient for transfer out of ICU to [facility]. Aggressive pulmonary toileting with incentive spirometer reinforced. Increase ambulation as tolerated. PT/OT The impression and plan of care has been dictated as directed. : I performed a history and examination of this patient, discussed the same with the dictator. I agree with the dictator's note ,documented as a scribe. Any additional findings or plans will be noted.
[2018-09-14] MEDS: HYDROcodone/APAP 5-325MG 1 EACH TAB PO PRN (19:13)
[2018-09-14 20:53] LABS: Glucose,Whole Blood 113 mg/dL (75-99)
[2018-09-14] MEDS: MELATONIN 3 MG TABLET PO SCH (20:59)
[2018-09-14] MEDS: FAMOTIDINE 20 MG TAB PO SCH (20:59)
[2018-09-15 05:46] LABS: Anisocytosis Marked; HCT 28.5 % (39.0-53.0); HGB 8.3 gm/dL (13.0-17.5); Hypochromasia Marked; MCH 25.4 pg (25.0-35.0); MCHC 29.3 g/dL (31.0-37.0); MCV 86.9 fL (80.0-100.0); Macrocytosis Slight; Mean Platelet Volume 6.7; Microcytosis Slight; Platelet Count 355 k/uL (150-450); Poikilocytosis Moderate; RBC 3.28 m/uL (4.30-5.90); WBC 7.1 k/uL (3.8-10.6)
[2018-09-15 05:49] LABS: RDW 25.1 % (11.5-15.5)
[2018-09-15 06:06] LABS: Anion Gap 8 mmol/L; Blood Urea Nitrogen 16 mg/dL (9-20); Calcium 9.2 mg/dL (8.4-10.2); Carbon Dioxide 29 mmol/L (22-30); Chloride 98 mmol/L (98-107); Glucose 102 mg/dL (74-99); Phosphorus 5.4 mg/dL (2.5-4.5); Potassium 4.1 mmol/L (3.5-5.1); Sodium 135 mmol/L (137-145)
[2018-09-15] MEDS: INSULIN ASPART 100 UNIT/ML 1 ML 10 ML VIAL SQ SCH ×4 (06:35→20:47)
[2018-09-15] MEDS: RIVAROXABAN 15 MG TAB PO SCH ×2 (06:38→19:03)
[2018-09-15] MEDS: HYDROcodone/APAP 5-325MG 1 EACH TAB PO PRN ×3 (07:04→17:48)
[2018-09-15] MEDS: FAMOTIDINE 20 MG TAB PO SCH ×2 (07:51→20:48)
[2018-09-15] MEDS: DIVALPROEX 500 MG TABLET.DR PO SCH ×3 (07:51→20:48)
[2018-09-15] MEDS: CYANOCOBALAMIN 1,000 MCG/ML 1 ML VIAL IM SCH (07:51)
[2018-09-15 09:57] VITALS: BMI 49.6
[2018-09-15] MEDS: LEVOFLOXACIN 500 MG TAB PO SCH (10:37)
--- NOTE | 2018-09-15 11:51 | P.PN ---
Subjective Progress Note Date: 09/15/18 48-year-old male seen in the intensive care unit sitting in a chair. Ostomy functioning moderate amount of stool noted in the ostomy bag surgical dressing dry with el in place suture line well approximated no redness white count 7.1 hemoglobin 8.3 Mag 2 afebrile currently patient is on room air sats greater than 90% path report pending September 06 low anterior resection right colectomy for rectal cancer with a diverting colostomy for protection of his colorectal anastomosis. Objective - Vital Signs Vital signs: Vital Signs Temp 98.0 F 09/15/18 06:52 Pulse 84 09/15/18 06:52 Resp 14 09/15/18 06:52 BP 152/97 09/15/18 06:52 Pulse Ox 94 L 09/15/18 08:35 Intake & Output 09/14/18 09/15/18 09/15/18 18:59 06:59 18:59 Intake Total 900 400 Output Total 1650 0 Balance -750 400 Weight 139.5 kg Intake: IV 250 D5.4520K 250 Intake, IV Titration 100 Amount Sodium Ferric Gluconat- 100 Sucrose 125 mg In Sodium Chloride 0.9% 100 ml @ 100 mls/hr IVPB DAILY [facility] Rx#:[id number] Oral 550 400 Output: Urine 1650 0 Other: Voiding Method Urinal Indwelling Catheter Urinal # Voids 1 5 - Exam Physical exam 48-year-old male sitting up in a chair at bedside talkative appears in no acute distress Lungs adequate air movement bilaterally on room air Heart S1-S2 audible regular Abdomen dressing to surgical site dry el in place ostomy appliance in place moderate amount of stool brown in the bag no nausea no vomiting tolerating diet Extremities decreasing edema to the lower extremity - Labs CBC & Chem 7: 09/15/18 05:22 09/15/18 05:22 Labs: Abnormal Lab Results - Last 24 Hours (Table) 09/14/18 09/14/18 09/14/18 Range/Units 12:16 16:57 20:41 RBC (4.30-5.90) m/uL Hgb (13.0-17.5) gm/dL Hct (39.0-53.0) % MCHC (31.0-37.0) g/dL RDW (11.5-15.5) % Sodium (137-145) mmol/L Glucose (74-99) mg/dL POC Glucose (mg/dL) 121 H 119 H 113 H (75-99) mg/dL Phosphorus (2.5-4.5) mg/dL 09/15/18 09/15/18 Range/Units 05:22 05:22 RBC 3.28 L (4.30-5.90) m/uL Hgb 8.3 L (13.0-17.5) gm/dL Hct 28.5 L (39.0-53.0) % MCHC 29.3 L (31.0-37.0) g/dL RDW 25.1 H (11.5-15.5) % Sodium 135 L (137-145) mmol/L Glucose 102 H (74-99) mg/dL POC Glucose (mg/dL) (75-99) mg/dL Phosphorus 5.4 H (2.5-4.5) mg/dL Assessment and Plan Assessment: Impression Status post September 06 low anterior resection right colectomy for rectal cancer with a diverting colostomy for protection of his colorectal anastomosis. Postop hypotensive with tachycardia expected improved suspect due to scopolamine patch and hypovolemia improved with IV fluid bolus and scopolamine patch being discontinued Seizure disorder Type 2 diabetes Hypertension off antihypertensive meds for now to prevent perioperative hypotension Morbid obesity BMI 47 Acute hypoxic respiratory failure secondary to extensive pulmonary emboli disease CAT scan of chest showed evidence of multiple lobar and segmental pulmonary emboli involving the right upper middle and lower lobe pulmonary emboli was not a surgical complication of the procedure History of rectal cancer status post colectomy and ostomy Pulmonary embolus was not a complication of this surgical procedure Normocytic normochromic Anemia iron deficiency with a low B12 most likely deficit supplements being given Plan Encourage the use of the incentive spirometer Pain control Titrate the O2 down keep sats greater than 90% Continue postop surgical care Continue ICU management per the aircraft lay out worker Increase activity DVT and GI prophylaxis The above impression and plan of care have been discussed and directed by signing physician. Ailin Pino nurse practitioner acting as scribe for signing physician.
[2018-09-15 12:23] LABS: Glucose,Whole Blood 103 mg/dL (75-99)
--- NOTE | 2018-09-15 15:10 | P.PN ---
Subjective Progress Note Date: 09/15/18 Principal diagnosis: Acute pulmonary embolisms, hypoxemia, tachycardia, rectal carcinoma status post colectomy and colostomy. This is a 48-year-old white male patient who initially came into the hospital for low anterior resection of the rectum her history of rectal cell carcinoma. Patient had surgery on 09/07/2018 Dr. Sherman, he had right colectomy, lower anterior resection, with loop colostomy, and the biopsies of the surgical specimen are still pending. Patient was on the medical surgical floor, doing relatively well. On 09/08/2018, patient was noted to be approximately, chest x- ray was obtained, and showed low lung volumes with left greater than the right bibasilar infiltrate and/or atelectasis. Later in the evening patient's saturations went down to mid 80s on 3 L per nasal cannula, patient was increasingly tachycardic, rapid response team was called, stated CT angios of the chest was obtained, and it showed evidence of extensive pulmonary embolic disease, multiple lobar and segmental pulmonary emboli involving right upper lobe, right middle lobe and right lower lobe pulmonary arteries. Nonoccluding embolus and bifurcation of the left main pulmonary artery as well as multiple lobar and segmental pulmonary emboli involving left upper lobe and left lower lobe pulmonary arteries. Lung windows showed bilateral dependent and scattered subsegmental atelectasis, no evidence of any acute pulmonary parenchymal disease or pulmonary consolidation. No pleural effusion, no pneumothorax. Patient was transferred to the intensive care for further monitoring, he was started on heparin infusion, and currently patient is on auto percent nonrebreather with a pulse ox of 96%, currently less tachycardic, and the heart rate is ranging in the 99-100 BPM. Patient denies any acute distress, looking slightly pale, denied any chest pain, or hemoptysis. Today's chest x-ray showed smaller-appearing bibasilar atelectasis and low lung volumes. Today's lab work showed WBC of 8.1, hemoglobin 7.8, INR of 1.1, sodium is 134, the rest of electrolytes were within normal limits, BUN was 12 and creatinine 0.53, current IV fluids is D5.45 with 20 of potassium at a rate of 125 ML per hour. High intensity heparin infusion is currently on. Lung sounds are diminished, mid abdominal incision is clean dry and intact, ostomy is pink, patient has not passed any gas or stool. He is tolerating ice chips. Other past vertical history is positive for diabetes mellitus type 2, GERD/reflux, hypertension, seizure disorder in patient has not had any breakthrough seizures in years, chronic anemia, street of rectal cancer status post chemo and radiation therapy completed on 08/06/2018. Patient is a former smoker. On 09/11/2018 patient seen in follow-up in the intensive care unit, he is resting comfortably in bed, currently on 15 L per high flow nasal cannula, his pulse ox is 94%, he is calm and comfortable, he denies any dyspnea, denies any chest pain, denies any hemoptysis. He is afebrile, hemodynamically stable, non- tachycardic, heart rate is 87 BPM, in sinus mechanism. Respirations are even and nonlabored, lung sounds are diminished. Patient remains on heparin infusion at 16 units per kilo per hour. Daily labs have been reviewed, the WBC is 5.1, hemoglobin 7.2, serum sodium is 133, and rest of the electrodes urine profile are within normal limits. Venous Dopplers were negative for any evidence of DVT. X-rays chest x-ray has been reviewed by Dr. Cruz, and showed increasing patchy airspace infiltrates, patient has some generalized swelling, in upper and lower extremities, yesterday she received 1 dose of Lasix 20 mg IV push. Patient is at least 10 kg positive since admission. He has been at least 10 L positive since surgery. Surgical biopsy of the colon is still pending at this time. Patient is tolerating clear liquid diet, no nausea no vomiting, his colostomy is producing gas and liquid stool. On 09/12/2018 patient seen in follow-up in the intensive care unit. Awake and alert, in no acute distress, his FiO2 is down to 4 L per high flow nasal cannula and the pulse ox is 92%, yesterday 8. Patient is dose of IV Lasix, and he is in negative 1 L fluid balance over the last 24 hours. He is down 5.8 kg. Lung sounds are diminished. His labs have been reviewed, WBC is 5.8, hemoglobin is 7.9, BMP is unremarkable. Ostomy is viable, patient is producing gas and liquid stool. He is tolerating full liquid diet, we will advance his diet. May increase patient's activity, up out of bed, encouraged deep breathing and coughing. Her chest x-rays today, we will give the patient additional doses of Lasix, we'll initiate oral anticoagulation was Xarelto. On 09/13/2018 patient seen in follow-up in the intensive care unit, 5 to is down to 3 L, his pulse ox is 94%, patient is afebrile, hemodynamically stable. She is are even and nonlabored, lung sounds are diminished to auscultation. No chest pain, no worsening dyspnea, patient has been diuresing, is in -30-99 mL fluid balance over the last 24 hours. The generalized edema is improving. Today's blood work has been reviewed, WBC 7.2, hemoglobin is 7.9, sodium is 135 , the rest of the electrolytes and renal profile were unremarkable. No chest x- ray today, patient is working his incentive spirometry, history of started patient on oral anticoagulation the form of Xarelto. Heparin drip has been discontinued, is tolerating an oral diet, his colostomy is producing gas and liquid stool. His biopsy of the colon is still pending. We'll continue with the current pain of care, patient will remain in the ICU 1 more day, we will probably cut back to diuretics tomorrow, increase activity as tolerated, continue encouraging incentive spirometry. The patient is seen again today 09/14/2018 in follow-up in the intensive care unit. He is awake and alert in no acute distress. He denies any worsening shortness of breath, cough or congestion. He continues to maintain good O2 saturations in the 90s on 3 L/m per nasal cannula. Chest x-ray shows improvement. He continues to work well with the incentive spirometer. He's been afebrile. Hemodynamically stable. White count 7.9. Hemoglobin 8.3. Creatinine 0.58. He has been initiated on Xarelto. His only complaint today is some mild discomfort at the surgical area. Colostomy is functioning. The patient is seen again today 09/15/2018 in follow-up in the intensive care unit. He is currently sitting up in a chair at the bedside. He is awake and alert in no acute distress. He denies any worsening shortness of breath, cough or congestion. He continues to work well with the incentive spirometer. He has been up ambulating in the hallway with assistance. He is maintaining good O2 saturations in the 90s on room air. He's been afebrile. Hemodynamically stable. His pain is well controlled. He's ostomy is patent. His surgical site is clean dry well approximated other than a very tiny area just below the navel that is losing serous fluid. White count 7.1. Hemoglobin 8.3. Creatinine 0.68 Objective - Vital Signs Vital signs: Vital Signs Temp 98.0 F 09/15/18 06:52 Pulse 84 09/15/18 06:52 Resp 14 09/15/18 06:52 BP 152/97 09/15/18 06:52 Pulse Ox 94 L 09/15/18 08:35 Intake & Output 09/14/18 09/15/18 09/15/18 18:59 06:59 18:59 Intake Total 900 400 Output Total 1650 0 Balance -750 400 Weight 139.5 kg Intake: IV 250 D5.4520K 250 Intake, IV Titration 100 Amount Sodium Ferric Gluconat- 100 Sucrose 125 mg In Sodium Chloride 0.9% 100 ml @ 100 mls/hr IVPB DAILY [facility] Rx#:[id number] Oral 550 400 Output: Urine 1650 0 Other: Voiding Method Urinal Indwelling Catheter Urinal # Voids 1 5 - Exam GENERAL EXAM: Alert, oriented 3, comfortable in no acute respiratory distress. On room air. HEAD: Normocephalic/atraumatic. EYES: Normal reaction of pupils, equal size. Conjunctiva pink, sclera white. NOSE: Clear with pink turbinates. THROAT: No erythema or exudates. NECK: No masses, no JVD, no thyroid enlargement, no adenopathy. CHEST: No chest wall deformity. Symmetrical expansion. LUNGS: Equal air entry with no crackles, wheeze, rhonchi or dullness. CVS: Regular rate and rhythm, normal S1 and S2, no gallops, no murmurs, no rubs ABDOMEN: Soft, nontender. No hepatosplenomegaly, normal bowel sounds, no guarding or rigidity. Midline abdominal incision is clean dry and intact other than 1 tiny opening just below the navel that is leaking serosanguineous fluid. Right-sided colostomy, and colostomy is pink, viable, there is liquid green stool and gas in the colostomy EXTREMITIES: No clubbing, diffuse generalized edema, no cyanosis, 2+ pulses and upper and lower extremities. MUSCULOSKELETAL: Muscle strength and tone normal. SPINE: No scoliosis or deformity SKIN: No rashes CENTRAL NERVOUS SYSTEM: Alert and oriented -3. No focal deficits, tone is normal in all 4 extremities. PSYCHIATRIC: Alert and oriented -3. Appropriate affect. Intact judgment and insight. - Labs CBC & Chem 7: 09/15/18 05:22 09/15/18 05:22 Labs: Abnormal Lab Results - Last 24 Hours (Table) 09/14/18 09/14/18 09/15/18 Range/Units 16:57 20:41 05:22 RBC 3.28 L (4.30-5.90) m/uL Hgb 8.3 L (13.0-17.5) gm/dL Hct 28.5 L (39.0-53.0) % MCHC 29.3 L (31.0-37.0) g/dL RDW 25.1 H (11.5-15.5) % Sodium (137-145) mmol/L Glucose (74-99) mg/dL POC Glucose (mg/dL) 119 H 113 H (75-99) mg/dL Phosphorus (2.5-4.5) mg/dL 09/15/18 09/15/18 Range/Units 05:22 12:11 RBC (4.30-5.90) m/uL Hgb (13.0-17.5) gm/dL Hct (39.0-53.0) % MCHC (31.0-37.0) g/dL RDW (11.5-15.5) % Sodium 135 L (137-145) mmol/L Glucose 102 H (74-99) mg/dL POC Glucose (mg/dL) 103 H (75-99) mg/dL Phosphorus 5.4 H (2.5-4.5) mg/dL Assessment and Plan Assessment: Assessment: #1. Acute hypoxemic respiratory failure secondary to extensive pulmonary embolic disease, and CT angios chest showed multiple lobar and segmental pulmonary emboli involving the right upper lobe, right middle lobe, right lower lobe pulmonary arteries, nonoccluding embolus at the bifurcation of the left main pulmonary artery, as well as multiple lobar and segmental pulmonary emboli involving left upper lobe and left lower lobe pulmonary arteries. 2-D echocardiogram was completed, and showed evidence of pulmonary hypertension, did not show evidence of right heart strain or changes in his septum including flattening. Improved. Maintaining good O2 saturations in the 90s on 3 L/m per nasal cannula. #2. Rectal cancer status post colectomy and colostomy, this is postop day 8, patient surgery was on 09/07/2018 #3. History of rectal cancer, status post chemo and radiation, completed on , patient had a PET scan on 05/14/2018 which showed increased uptake within the patient reported rectal cancer, but metastatic disease was not clearly evident, there was a focal radiotracer accumulation within the ascending colon region, and additional neoplasm at that level was not excluded. #4. Diabetes mellitus type 2 #5. GERD/reflux #6. Hypertension #7. Seizure disorder, on Depakote, patient has not had a breakthrough seizure in years #8. Nicotine dependence, in remission Plan: The patient was seen and evaluated by Dr. Cruz. The patient is stable from the pulmonary standpoint and could be transferred out of the ICU today. Maintaining good O2 saturations in the 90s on room air. We will continue to follow and make further recommendations based on his clinical status. I, the cosigning physician, performed a history & physical examination of the patient. Lungs sounds are clear. Maintaining good O2 saturations in the 90s on room air. I discussed the assessment and plan of care with my nurse practitioner, Sushma Coello. I attest to the above note as dictated by her.
--- NOTE | 2018-09-15 15:11 | P.PN ---
Subjective Progress Note Date: 09/15/18 Progress note being dictated for Dr. Miner Interval history:48-year-old admitted for low anterior resection of the rectum patient has a colostomy in place patient abdomen is distended has sluggish bowel sounds because of which his heart rate is bit elevated will obtain a TSH. Patient the SATURATIONS IS GONE DOWN TO 90% I'M OBTAINING A CHEST X-RAY, PATIENT WILL CONTINUE HIS INCENTIVE SPIROMETRY. PATIENT HAS AN EPIDURAL IN PLACE AN BIT NAUSEOUS NOW. THIS IS BEING ADDRESSED BY GENERAL SURGERY. 09/09/2018 Patient became more hypoxic yesterday the chest x-ray are ordered before the left showed bilateral infiltrates may be atelectasis rather than pneumonia although patient was started on empiric antibiotics which are being continued him unfortunately I'm unable to open the CAT scan. Patient became more hypoxic and tachycardic because of which CAT scan was opted to rule out pulmonary embolism which showed extensive bilateral PE. Patient was started on IV heparin transferred to ICU because patient is on Ventimask troponin is negative BNP is not elevated patient is low to intermediate risk pulmonary embolism probably will not be a candidate for intralesional thrombolytics. Patient is presently on Ventimask All inpatient medications were reviewed and appropriate changes in these medications as dictated in the interval history and assessment and plan. 09/10/2018 Patient is feeling much better today patient is on high flow nasal cannula oxygen Patient does have significant output from the colostomy abdominal distention improved 09/11/2018 Patient is presently on 30 L of high flow mask cannula oxygen no significant overnight events good output from the colostomy. 09/12/2018 Patient is not doing much better today patient is on 5 L of onset today, had about 1 50 mL of liquidy stool 09/13/2018 ambulating in hallway, maintaining O2 sats in the low 90s on 3 L nasal cannula. Incentive spirometer up to 1999. Telemetry sinus rhythm. Diet intake improving, approximately 25%. Blood sugars controlled. Diuretics decreased .Anticoagulated on Xarelto. Colon biopsy pending. 09/14/2018 afebrile, maintaining O2 sats in the low 90s on 3 L nasal cannula. Chest x-ray reports new linear left basilar opacity. Colon biopsy pending. 09/15/2018 afebrile, IS up to 1999, awaiting transfer out of ICU to [facility]. Diet intake improving, denies nausea or vomiting. Colon biopsy reporting rectosigmoid: Adenocarcinoma invading but not perforating muscularis propria. Tumor 1 cm proximal to tattooed anterior peritoneal refelction.All margins negative for involvement by adenocarcinoma. 2 of the 5 lymph nodes positive.Terminel Ileum, cecum ,ascending colon tubulovillous adenoma with high- grade dysplasia. Negative for infiltrating adenocarcinoma. Objective - Vital Signs Vital signs: Vital Signs Temp 98.0 F 09/15/18 06:52 Pulse 84 09/15/18 06:52 Resp 14 09/15/18 06:52 BP 152/97 09/15/18 06:52 Pulse Ox 94 L 09/15/18 08:35 Intake & Output 09/14/18 09/15/18 09/15/18 18:59 06:59 18:59 Intake Total 900 400 Output Total 1650 0 Balance -750 400 Weight 139.5 kg Intake: IV 250 [id number] 250 Intake, IV Titration 100 Amount Sodium Ferric Gluconat- 100 Sucrose 125 mg In Sodium Chloride 0.9% 100 ml @ 100 mls/hr IVPB DAILY [facility] Rx#:[id number] Oral 550 400 Output: Urine 1650 0 Other: Voiding Method Urinal Indwelling Catheter Urinal # Voids 1 5 - Exam GENERAL: Sitting up in chair, alert, oriented 3, no acute distress. HEENT: Pupils are round and equally reacting to light. EOMI. No scleral icterus. No conjunctival pallor. Normocephalic, atraumatic. CARDIOVASCULAR: S1 and S2 present. No murmurs, rubs, or gallops. PULMONARY: Chest is clear to auscultation, no wheezing or crackles. ABDOMEN: Soft, nontender, colostomy bag with stool, positive bowel sounds. Midline abdominal dressing clean dry and intact. MUSCULOSKELETAL: No joint swelling or deformity. EXTREMITIES: No cyanosis, clubbing, or pedal edema. NEUROLOGICAL: Gross neurological examination did not reveal any focal deficits. SKIN: No rashes. - Labs CBC & Chem 7: 09/15/18 05:22 09/15/18 05:22 Labs: Abnormal Lab Results - Last 24 Hours (Table) 09/14/18 09/14/18 09/15/18 Range/Units 16:57 20:41 05:22 RBC 3.28 L (4.30-5.90) m/uL Hgb 8.3 L (13.0-17.5) gm/dL Hct 28.5 L (39.0-53.0) % MCHC 29.3 L (31.0-37.0) g/dL RDW 25.1 H (11.5-15.5) % Sodium (137-145) mmol/L Glucose (74-99) mg/dL POC Glucose (mg/dL) 119 H 113 H (75-99) mg/dL Phosphorus (2.5-4.5) mg/dL 09/15/18 09/15/18 Range/Units 05:22 12:11 RBC (4.30-5.90) m/uL Hgb (13.0-17.5) gm/dL Hct (39.0-53.0) % MCHC (31.0-37.0) g/dL RDW (11.5-15.5) % Sodium 135 L (137-145) mmol/L Glucose 102 H (74-99) mg/dL POC Glucose (mg/dL) 103 H (75-99) mg/dL Phosphorus 5.4 H (2.5-4.5) mg/dL Assessment and Plan Assessment: -Extensive bilateral pulmonary embolism leading to acute hypoxic respiratory failure -Rectal cancer status post colectomy and colostomy. Adenocarcinoma, adenoma with high-grade dysplasia. -Seizure disorder patient is on Depakote -Type 2 diabetes mellitulitis Gastroesophageal reflux disease -Hypertension -DVT prophylaxis as per primary service Plan: Continue current medication regime , Xarelto, monitoring and symptomatic treatment. Scheduled for transfer out of ICU today to [facility]. Colon biopsy results as noted above. Oncology consulted. Aggressive pulmonary toileting with incentive spirometer reinforced. Increase ambulation as tolerated. PT/OT. The impression and plan of care has been dictated as directed. : I performed a history and examination of this patient, discussed the same with the dictator. I agree with the dictator's note ,documented as a scribe. Any additional findings or plans will be noted.
[2018-09-15 16:42] LABS: Glucose,Whole Blood 93 mg/dL (75-99)
[2018-09-15 19:46] LABS: Glucose,Whole Blood 141 mg/dL (75-99)
--- NOTE | 2018-09-15 21:13 | P.PN ---
Subjective Progress Note Date: 09/15/18 Principal diagnosis: Colon Cancer status Post Resection, with Pulmonary Embolism complication Sitting up in bed, feeling better, has been transferred to [facility], working with PT and walking with assistance. Objective - Vital Signs Vital signs: Vital Signs Temp 98.2 F 09/15/18 14:40 Pulse 94 09/15/18 14:40 Resp 18 09/15/18 14:40 BP 127/83 09/15/18 14:40 Pulse Ox 94 L 09/15/18 14:40 Intake & Output 09/14/18 09/15/18 09/15/18 18:59 06:59 18:59 Intake Total 900 400 Output Total 1650 0 Balance -750 400 Weight 139.5 kg Intake: IV 250 D5.4520K 250 Intake, IV Titration 100 Amount Sodium Ferric Gluconat- 100 Sucrose 125 mg In Sodium Chloride 0.9% 100 ml @ 100 mls/hr IVPB DAILY [facility] Rx#:[id number] Oral 550 400 Output: Urine 1650 0 Other: Voiding Method Urinal Indwelling Catheter Urinal # Voids 1 5 1 - Exam - Constitutional General appearance: Present: cooperative, morbidly obese, no acute distress - EENT Eyes: Present: anicteric sclerae, EOMI ENT: Present: hearing grossly normal - Respiratory Respiratory: bilateral:diminished - Cardiovascular Rhythm: regular Heart sounds: normal: S1, S2 - Peripheral edema leg Peripheral Edema: bilateral: Trace - Gastrointestinal General gastrointestinal: Present: decreased bowel sounds, soft - Integumentary Integumentary Comment(s): pale - Neurologic Neurologic: Present: CNII-XII intact - Musculoskeletal Musculoskeletal: Present: generalized weakness - Psychiatric Psychiatric: Present: A&O x's 3, appropriate affect, intact judgment & insight - Labs CBC & Chem 7: 09/15/18 05:22 09/15/18 05:22 Labs: Abnormal Lab Results - Last 24 Hours (Table) 09/14/18 09/14/18 09/15/18 Range/Units 16:57 20:41 05:22 RBC 3.28 L (4.30-5.90) m/uL Hgb 8.3 L (13.0-17.5) gm/dL Hct 28.5 L (39.0-53.0) % MCHC 29.3 L (31.0-37.0) g/dL RDW 25.1 H (11.5-15.5) % Sodium (137-145) mmol/L Glucose (74-99) mg/dL POC Glucose (mg/dL) 119 H 113 H (75-99) mg/dL Phosphorus (2.5-4.5) mg/dL 09/15/18 09/15/18 Range/Units 05:22 12:11 RBC (4.30-5.90) m/uL Hgb (13.0-17.5) gm/dL Hct (39.0-53.0) % MCHC (31.0-37.0) g/dL RDW (11.5-15.5) % Sodium 135 L (137-145) mmol/L Glucose 102 H (74-99) mg/dL POC Glucose (mg/dL) 103 H (75-99) mg/dL Phosphorus 5.4 H (2.5-4.5) mg/dL Assessment and Plan Plan: (1) Pulmonary embolism during current hospitalization Narrative/Plan: - Continue on xarelto - Pt reports a history of blood clots in brother and mother so, hypercoaguable work will be ordered as an outpatient as the results do not change current management of patient. Current Visit: Yes Status: Acute Priority: High Code(s): I26.99 - OTHER PULMONARY EMBOLISM WITHOUT ACUTE COR PULMONALE SNOMED Code(s): 29449357 (2) Normocytic normochromic anemia Narrative/Plan: Hemoglobin 8.3, stable - Iron deficiency and low normal B12, more likely deficient. - Monitor daily, no need for Transfusion today Current Visit: Yes Status: Acute Priority: High Code(s): D64.9 - ANEMIA, UNSPECIFIED SNOMED Code(s): 56699071 (3) Rectal cancer Narrative/Plan: S/P neoadjuvant chemo with curative surgery completed. - Pathology Reviewed - Plan for adjuvant chemotherapy and possibe radiation with 2 of 5 positive lymph nodes after recovery of surgery. - Follow-up appointment in office has been made for patient.
[2018-09-15] MEDS: MELATONIN 3 MG TABLET PO SCH (21:58)
[2018-09-16 01:46] VITALS: RESP 16
[2018-09-16] MEDS: HYDROcodone/APAP 5-325MG 1 EACH TAB PO PRN ×4 (06:20→18:28)
[2018-09-16 07:25] LABS: Glucose,Whole Blood 120 mg/dL (75-99)
[2018-09-16] MEDS: INSULIN ASPART 100 UNIT/ML 1 ML 10 ML VIAL SQ SCH ×4 (07:39→20:49)
[2018-09-16] MEDS: FAMOTIDINE 20 MG TAB PO SCH ×2 (08:45→20:49)
[2018-09-16] MEDS: RIVAROXABAN 15 MG TAB PO SCH ×2 (08:45→18:28)
[2018-09-16] MEDS: DIVALPROEX 500 MG TABLET.DR PO SCH ×3 (08:45→21:42)
[2018-09-16] MEDS: CYANOCOBALAMIN 1,000 MCG/ML 1 ML VIAL IM SCH (08:46)
--- NOTE | 2018-09-16 10:33 | P.PN ---
Progress Note - Text Progress Note Date: 09/16/18 The patient is resting comfortably in bed. He has no complaints of significant pain. He has had trouble managing his colostomy. On exam his vital signs are stable. His abdomen soft. Incision has some minimal drainage. Status post low anterior section and right colectomy for colon cancer. Patient' s pathology was reviewed. We anticipate discharge home once he has been cleared by pulmonology.
[2018-09-16 12:08] LABS: Glucose,Whole Blood 95 mg/dL (75-99)
[2018-09-16] MEDS: LEVOFLOXACIN 500 MG TAB PO SCH (12:24)
--- NOTE | 2018-09-16 14:00 | P.PN ---
Subjective Progress Note Date: 09/16/18 This is a 48-year-old white male patient who initially came into the hospital for low anterior resection of the rectum her history of rectal cell carcinoma. Patient had surgery on 09/07/2018 Dr. Sherman, he had right colectomy, lower anterior resection, with loop colostomy, and the biopsies of the surgical specimen are still pending. Patient was on the medical surgical floor, doing relatively well. On 09/08/2018, patient was noted to be approximately, chest x- ray was obtained, and showed low lung volumes with left greater than the right bibasilar infiltrate and/or atelectasis. Later in the evening patient's saturations went down to mid 80s on 3 L per nasal cannula, patient was increasingly tachycardic, rapid response team was called, stated CT angios of the chest was obtained, and it showed evidence of extensive pulmonary embolic disease, multiple lobar and segmental pulmonary emboli involving right upper lobe, right middle lobe and right lower lobe pulmonary arteries. Nonoccluding embolus and bifurcation of the left main pulmonary artery as well as multiple lobar and segmental pulmonary emboli involving left upper lobe and left lower lobe pulmonary arteries. Lung windows showed bilateral dependent and scattered subsegmental atelectasis, no evidence of any acute pulmonary parenchymal disease or pulmonary consolidation. No pleural effusion, no pneumothorax. Patient was transferred to the intensive care for further monitoring, he was started on heparin infusion, and currently patient is on auto percent nonrebreather with a pulse ox of 96%, currently less tachycardic, and the heart rate is ranging in the 99-100 BPM. Patient denies any acute distress, looking slightly pale, denied any chest pain, or hemoptysis. Today's chest x-ray showed smaller-appearing bibasilar atelectasis and low lung volumes. Today's lab work showed WBC of 8.1, hemoglobin 7.8, INR of 1.1, sodium is 134, the rest of electrolytes were within normal limits, BUN was 12 and creatinine 0.53, current IV fluids is D5.45 with 20 of potassium at a rate of 125 ML per hour. High intensity heparin infusion is currently on. Lung sounds are diminished, mid abdominal incision is clean dry and intact, ostomy is pink, patient has not passed any gas or stool. He is tolerating ice chips. Other past vertical history is positive for diabetes mellitus type 2, GERD/reflux, hypertension, seizure disorder in patient has not had any breakthrough seizures in years, chronic anemia, street of rectal cancer status post chemo and radiation therapy completed on 08/06/2018. Patient is a former smoker. On 09/11/2018 patient seen in follow-up in the intensive care unit, he is resting comfortably in bed, currently on 15 L per high flow nasal cannula, his pulse ox is 94%, he is calm and comfortable, he denies any dyspnea, denies any chest pain, denies any hemoptysis. He is afebrile, hemodynamically stable, non- tachycardic, heart rate is 87 BPM, in sinus mechanism. Respirations are even and nonlabored, lung sounds are diminished. Patient remains on heparin infusion at 16 units per kilo per hour. Daily labs have been reviewed, the WBC is 5.1, hemoglobin 7.2, serum sodium is 133, and rest of the electrodes urine profile are within normal limits. Venous Dopplers were negative for any evidence of DVT. X-rays chest x-ray has been reviewed by Dr. Cruz, and showed increasing patchy airspace infiltrates, patient has some generalized swelling, in upper and lower extremities, yesterday she received 1 dose of Lasix 20 mg IV push. Patient is at least 10 kg positive since admission. He has been at least 10 L positive since surgery. Surgical biopsy of the colon is still pending at this time. Patient is tolerating clear liquid diet, no nausea no vomiting, his colostomy is producing gas and liquid stool. On 09/12/2018 patient seen in follow-up in the intensive care unit. Awake and alert, in no acute distress, his FiO2 is down to 4 L per high flow nasal cannula and the pulse ox is 92%, yesterday 8. Patient is dose of IV Lasix, and he is in negative 1 L fluid balance over the last 24 hours. He is down 5.8 kg. Lung sounds are diminished. His labs have been reviewed, WBC is 5.8, hemoglobin is 7.9, BMP is unremarkable. Ostomy is viable, patient is producing gas and liquid stool. He is tolerating full liquid diet, we will advance his diet. May increase patient's activity, up out of bed, encouraged deep breathing and coughing. Her chest x-rays today, we will give the patient additional doses of Lasix, we'll initiate oral anticoagulation was Xarelto. On 09/13/2018 patient seen in follow-up in the intensive care unit, 5 to is down to 3 L, his pulse ox is 94%, patient is afebrile, hemodynamically stable. She is are even and nonlabored, lung sounds are diminished to auscultation. No chest pain, no worsening dyspnea, patient has been diuresing, is in -30-99 mL fluid balance over the last 24 hours. The generalized edema is improving. Today's blood work has been reviewed, WBC 7.2, hemoglobin is 7.9, sodium is 135 , the rest of the electrolytes and renal profile were unremarkable. No chest x- ray today, patient is working his incentive spirometry, history of started patient on oral anticoagulation the form of Xarelto. Heparin drip has been discontinued, is tolerating an oral diet, his colostomy is producing gas and liquid stool. His biopsy of the colon is still pending. We'll continue with the current pain of care, patient will remain in the ICU 1 more day, we will probably cut back to diuretics tomorrow, increase activity as tolerated, continue encouraging incentive spirometry. The patient is seen again today 09/14/2018 in follow-up in the intensive care unit. He is awake and alert in no acute distress. He denies any worsening shortness of breath, cough or congestion. He continues to maintain good O2 saturations in the 90s on 3 L/m per nasal cannula. Chest x-ray shows improvement. He continues to work well with the incentive spirometer. He's been afebrile. Hemodynamically stable. White count 7.9. Hemoglobin 8.3. Creatinine 0.58. He has been initiated on Xarelto. His only complaint today is some mild discomfort at the surgical area. Colostomy is functioning. The patient is seen again today 09/15/2018 in follow-up in the intensive care unit. He is currently sitting up in a chair at the bedside. He is awake and alert in no acute distress. He denies any worsening shortness of breath, cough or congestion. He continues to work well with the incentive spirometer. He has been up ambulating in the hallway with assistance. He is maintaining good O2 saturations in the 90s on room air. He's been afebrile. Hemodynamically stable. His pain is well controlled. He's ostomy is patent. His surgical site is clean dry well approximated other than a very tiny area just below the navel that is losing serous fluid. White count 7.1. Hemoglobin 8.3. Creatinine 0.68 On 09/16/2018 I'm seeing this patient for a follow-up. The patient is doing well. Resting comfortably in bed. No stridor difficulties. No cough sputum production chest answer wheezing. No leak from the surgical wound site. His colostomy site dysfunction. No nausea. No vomiting. No abdominal pain. He is ambulating. He is on room air. His AT 7.1. HEMOGLOBIN WAS 8.3. HE'LL FUNCTION REMAINS STABLE AND THE PATIENT IS ON LONG-TERM AND TO COAGULATION WITH XARELTO. Objective - Vital Signs Vital signs: Vital Signs Temp 98.3 F 09/16/18 08:40 Pulse 95 09/16/18 08:40 Resp 16 09/16/18 08:40 BP 151/82 09/16/18 08:40 Pulse Ox 93 L 09/16/18 08:40 Intake & Output 09/15/18 09/16/18 09/16/18 18:59 06:59 18:59 Intake Total 222 800 Output Total 100 Balance 222 -100 800 Weight 139.5 kg Intake: Oral 222 800 Output: Stool 100 Other: Voiding Method Urinal Toilet # Voids 1 1 1 - Exam GENERAL EXAM: Alert, oriented 3, comfortable in no acute respiratory distress. On room air. HEAD: Normocephalic/atraumatic. EYES: Normal reaction of pupils, equal size. Conjunctiva pink, sclera white. NOSE: Clear with pink turbinates. THROAT: No erythema or exudates. NECK: No masses, no JVD, no thyroid enlargement, no adenopathy. CHEST: No chest wall deformity. Symmetrical expansion. LUNGS: Equal air entry with no crackles, wheeze, rhonchi or dullness. CVS: Regular rate and rhythm, normal S1 and S2, no gallops, no murmurs, no rubs ABDOMEN: Soft, nontender. No hepatosplenomegaly, normal bowel sounds, no guarding or rigidity. Midline abdominal incision is clean dry and intact other than 1 tiny opening just below the navel that is leaking serosanguineous fluid. Right-sided colostomy, and colostomy is pink, viable, there is liquid green stool and gas in the colostomy EXTREMITIES: No clubbing, diffuse generalized edema, no cyanosis, 2+ pulses and upper and lower extremities. MUSCULOSKELETAL: Muscle strength and tone normal. SPINE: No scoliosis or deformity SKIN: No rashes CENTRAL NERVOUS SYSTEM: Alert and oriented -3. No focal deficits, tone is normal in all 4 extremities. PSYCHIATRIC: Alert and oriented -3. Appropriate affect. Intact judgment and insight. - Labs CBC & Chem 7: 09/15/18 05:22 09/15/18 05:22 Labs: Abnormal Lab Results - Last 24 Hours (Table) 09/15/18 09/16/18 Range/Units 19:36 07:24 POC Glucose (mg/dL) 141 H 120 H (75-99) mg/dL Assessment and Plan Plan: Assessment 1 rectal cancer post-colectomy and diverting colostomy. Surgery was done on 2 acute hypoxic history failure secondary to pulmonary embolism, recovered and the patient is currently on Xarelto 3 diabetes mellitus type 2 4 hypertension 5 seizure disorder maintained on Depakote on outpatient basis 6 chronic smoker Plan The pathologic findings showed adenocarcinoma of the rectosigmoid colon with mucinous features invading but not penetrating for the muscularis. Oncology is on the case. Meanwhile, the patient be asked to increase the level of activity as tolerated. He'll be established in the hallway. He is doing well and is taking anticoagulants without any complication. His colostomy is functional. His surgical wound site is being monitored and evaluated on a daily basis. We'll continue to follow.
--- NOTE | 2018-09-16 14:59 | P.PN ---
Subjective 48-year-old admitted for low anterior resection of the rectum patient has a colostomy in place patient abdomen is distended has sluggish bowel sounds because of which his heart rate is bit elevated will obtain a TSH. Patient the SATURATIONS IS GONE DOWN TO 90% I'M OBTAINING A CHEST X-RAY, PATIENT WILL CONTINUE HIS INCENTIVE SPIROMETRY. PATIENT HAS AN EPIDURAL IN PLACE AN BIT NAUSEOUS NOW. THIS IS BEING ADDRESSED BY GENERAL SURGERY. 09/09/2018 Patient became more hypoxic yesterday the chest x-ray are ordered before the left showed bilateral infiltrates may be atelectasis rather than pneumonia although patient was started on empiric antibiotics which are being continued him unfortunately I'm unable to open the CAT scan. Patient became more hypoxic and tachycardic because of which CAT scan was opted to rule out pulmonary embolism which showed extensive bilateral PE. Patient was started on IV heparin transferred to ICU because patient is on Ventimask troponin is negative BNP is not elevated patient is low to intermediate risk pulmonary embolism probably will not be a candidate for intralesional thrombolytics. Patient is presently on Ventimask All inpatient medications were reviewed and appropriate changes in these medications as dictated in the interval history and assessment and plan. 09/10/2018 Patient is feeling much better today patient is on high flow nasal cannula oxygen Patient does have significant output from the colostomy abdominal distention improved 09/11/2018 Patient is presently on 30 L of high flow mask cannula oxygen no significant overnight events good output from the colostomy. 09/12/2018 Patient is not doing much better today patient is on 5 L of onset today, had about 1 50 mL of liquidy stool 09/13/2018 [address] in hallway, maintaining O2 sats in the low 90s on 3 L nasal cannula. Incentive spirometer up to 1999. Telemetry sinus rhythm. Diet intake improving, approximately 25%. Blood sugars controlled. Diuretics decreased .Anticoagulated on Xarelto. Colon biopsy pending. 09/14/2018 afebrile, maintaining O2 sats in the low 90s on 3 L nasal cannula. Chest x-ray reports new linear left basilar opacity. Colon biopsy pending. 09/15/2018 afebrile, IS up to 2000, awaiting transfer out of ICU to [facility] bed. Diet intake improving, denies nausea or vomiting. Colon biopsy reporting rectosigmoid: Adenocarcinoma invading but not perforating muscularis propria. Tumor 1 cm proximal to tattooed anterior peritoneal refelction.All margins negative for involvement by adenocarcinoma. 2 of the 5 lymph nodes positive.Terminel Ileum, cecum ,ascending colon tubulovillous adenoma with high- grade dysplasia. Negative for infiltrating adenocarcinoma. 09/16/2018 No overnight events clinically doing well not on oxygen will be discharged on Tuesday Constitutional: Denied any fatigue denied any fever. Cardio vascular: denied any chest pain, palpitations Gastrointestinal denied any nausea vomiting Pulmonary: Denied any shortness of breath cough Neurologic denied any new focal deficits All inpatient medications were reviewed and appropriate changes in these medications as dictated in the interval history and assessment and plan. Objective - Vital Signs Vital signs: Vital Signs Temp 97.7 F 09/16/18 14:11 Pulse 94 09/16/18 14:11 Resp 16 09/16/18 14:11 BP 108/72 09/16/18 14:11 Pulse Ox 95 09/16/18 14:11 Intake & Output 09/15/18 09/16/18 09/16/18 18:59 06:59 18:59 Intake Total 222 800 Output Total 100 Balance 222 -100 800 Weight 139.5 kg Intake: Oral 222 800 Output: Stool 100 Other: Voiding Method Urinal Toilet # Voids 1 1 1 - Exam GENERAL: Sitting up in chair, alert, oriented 3, no acute distress. HEENT: Pupils are round and equally reacting to light. EOMI. No scleral icterus. No conjunctival pallor. Normocephalic, atraumatic. CARDIOVASCULAR: S1 and S2 present. No murmurs, rubs, or gallops. PULMONARY: Chest is clear to auscultation, no wheezing or crackles. ABDOMEN: Soft, nontender, colostomy bag with stool, positive bowel sounds. Midline abdominal dressing clean dry and intact. MUSCULOSKELETAL: No joint swelling or deformity. EXTREMITIES: No cyanosis, clubbing, or pedal edema. NEUROLOGICAL: Gross neurological examination did not reveal any focal deficits. SKIN: No rashes. - Labs CBC & Chem 7: 09/15/18 05:22 09/15/18 05:22 Labs: Abnormal Lab Results - Last 24 Hours (Table) 09/15/18 09/16/18 Range/Units 19:36 07:24 POC Glucose (mg/dL) 141 H 120 H (75-99) mg/dL Assessment and Plan Plan: Assessment and Plan Assessment: -Extensive bilateral pulmonary embolism leading to acute hypoxic respiratory failure -Rectal cancer status post colectomy and colostomy. Adenocarcinoma, adenoma with high-grade dysplasia. -Seizure disorder patient is on Depakote -Type 2 diabetes mellitulitis Gastroesophageal reflux disease -Hypertension -DVT prophylaxis as per primary service Plan: Continue current medication regime , Xarelto, monitoring and symptomatic treatment. Scheduled for transfer out of ICU today to [facility]. Colon biopsy results as noted above. Oncology consulted. Aggressive pulmonary toileting with incentive spirometer reinforced. Increase ambulation as tolerated. PT/OT.
[2018-09-16 16:46] LABS: Glucose,Whole Blood 111 mg/dL (75-99)
[2018-09-16 20:31] LABS: Glucose,Whole Blood 152 mg/dL (75-99)
[2018-09-16] MEDS: MELATONIN 3 MG TABLET PO SCH (20:49)
[2018-09-17] MEDS: HYDROcodone/APAP 5-325MG 1 EACH TAB PO PRN ×4 (03:59→19:13)
[2018-09-17 07:18] LABS: Glucose,Whole Blood 108 mg/dL (75-99)
[2018-09-17] MEDS: INSULIN ASPART 100 UNIT/ML 1 ML 10 ML VIAL SQ SCH ×4 (07:59→22:05)
[2018-09-17] MEDS: DIVALPROEX 500 MG TABLET.DR PO SCH ×3 (07:59→22:08)
[2018-09-17] MEDS: FAMOTIDINE 20 MG TAB PO SCH ×2 (07:59→22:08)
[2018-09-17] MEDS: RIVAROXABAN 15 MG TAB PO SCH ×2 (07:59→17:25)
[2018-09-17 12:01] LABS: Glucose,Whole Blood 105 mg/dL (75-99)
[2018-09-17] MEDS: LEVOFLOXACIN 500 MG TAB PO SCH (12:30)
--- NOTE | 2018-09-17 13:08 | P.PN ---
Progress Note - Text Progress Note Date: 09/17/18 Patient's resting comfortably in his bed. He has minimal plates of pain. On exam his vital signs are stable. His abdomen soft her incision site is clean dry and intact. Status post right colectomy and low anterior resection for colon cancer. Patient still quite well. He has no shortness of breath related to his pulmonary was. We anticipate discharge home the next 24-48 hours.
--- NOTE | 2018-09-17 15:28 | P.PN ---
Subjective Progress Note Date: 09/17/18 This is a 48-year-old white male patient who initially came into the hospital for low anterior resection of the rectum her history of rectal cell carcinoma. Patient had surgery on 09/07/2018 Dr. Sherman, he had right colectomy, lower anterior resection, with loop colostomy, and the biopsies of the surgical specimen are still pending. Patient was on the medical surgical floor, doing relatively well. On 09/08/2018, patient was noted to be approximately, chest x- ray was obtained, and showed low lung volumes with left greater than the right bibasilar infiltrate and/or atelectasis. Later in the evening patient's saturations went down to mid 80s on 3 L per nasal cannula, patient was increasingly tachycardic, rapid response team was called, stated CT angios of the chest was obtained, and it showed evidence of extensive pulmonary embolic disease, multiple lobar and segmental pulmonary emboli involving right upper lobe, right middle lobe and right lower lobe pulmonary arteries. Nonoccluding embolus and bifurcation of the left main pulmonary artery as well as multiple lobar and segmental pulmonary emboli involving left upper lobe and left lower lobe pulmonary arteries. Lung windows showed bilateral dependent and scattered subsegmental atelectasis, no evidence of any acute pulmonary parenchymal disease or pulmonary consolidation. No pleural effusion, no pneumothorax. Patient was transferred to the intensive care for further monitoring, he was started on heparin infusion, and currently patient is on auto percent nonrebreather with a pulse ox of 96%, currently less tachycardic, and the heart rate is ranging in the 99-100 BPM. Patient denies any acute distress, looking slightly pale, denied any chest pain, or hemoptysis. Today's chest x-ray showed smaller-appearing bibasilar atelectasis and low lung volumes. Today's lab work showed WBC of 8.1, hemoglobin 7.8, INR of 1.1, sodium is 134, the rest of electrolytes were within normal limits, BUN was 12 and creatinine 0.53, current IV fluids is D5.45 with 20 of potassium at a rate of 125 ML per hour. High intensity heparin infusion is currently on. Lung sounds are diminished, mid abdominal incision is clean dry and intact, ostomy is pink, patient has not passed any gas or stool. He is tolerating ice chips. Other past vertical history is positive for diabetes mellitus type 2, GERD/reflux, hypertension, seizure disorder in patient has not had any breakthrough seizures in years, chronic anemia, street of rectal cancer status post chemo and radiation therapy completed on 08/06/2018. Patient is a former smoker. On 09/11/2018 patient seen in follow-up in the intensive care unit, he is resting comfortably in bed, currently on 15 L per high flow nasal cannula, his pulse ox is 94%, he is calm and comfortable, he denies any dyspnea, denies any chest pain, denies any hemoptysis. He is afebrile, hemodynamically stable, non- tachycardic, heart rate is 87 BPM, in sinus mechanism. Respirations are even and nonlabored, lung sounds are diminished. Patient remains on heparin infusion at 16 units per kilo per hour. Daily labs have been reviewed, the WBC is 5.1, hemoglobin 7.2, serum sodium is 133, and rest of the electrodes urine profile are within normal limits. Venous Dopplers were negative for any evidence of DVT. X-rays chest x-ray has been reviewed by Dr. Cruz, and showed increasing patchy airspace infiltrates, patient has some generalized swelling, in upper and lower extremities, yesterday she received 1 dose of Lasix 20 mg IV push. Patient is at least 10 kg positive since admission. He has been at least 10 L positive since surgery. Surgical biopsy of the colon is still pending at this time. Patient is tolerating clear liquid diet, no nausea no vomiting, his colostomy is producing gas and liquid stool. On 09/12/2018 patient seen in follow-up in the intensive care unit. Awake and alert, in no acute distress, his FiO2 is down to 4 L per high flow nasal cannula and the pulse ox is 92%, yesterday 8. Patient is dose of IV Lasix, and he is in negative 1 L fluid balance over the last 24 hours. He is down 5.8 kg. Lung sounds are diminished. His labs have been reviewed, WBC is 5.8, hemoglobin is 7.9, BMP is unremarkable. Ostomy is viable, patient is producing gas and liquid stool. He is tolerating full liquid diet, we will advance his diet. May increase patient's activity, up out of bed, encouraged deep breathing and coughing. Her chest x-rays today, we will give the patient additional doses of Lasix, we'll initiate oral anticoagulation was Xarelto. On 09/13/2018 patient seen in follow-up in the intensive care unit, 5 to is down to 3 L, his pulse ox is 94%, patient is afebrile, hemodynamically stable. She is are even and nonlabored, lung sounds are diminished to auscultation. No chest pain, no worsening dyspnea, patient has been diuresing, is in -30-99 mL fluid balance over the last 24 hours. The generalized edema is improving. Today's blood work has been reviewed, WBC 7.2, hemoglobin is 7.9, sodium is 135 , the rest of the electrolytes and renal profile were unremarkable. No chest x- ray today, patient is working his incentive spirometry, history of started patient on oral anticoagulation the form of Xarelto. Heparin drip has been discontinued, is tolerating an oral diet, his colostomy is producing gas and liquid stool. His biopsy of the colon is still pending. We'll continue with the current pain of care, patient will remain in the ICU 1 more day, we will probably cut back to diuretics tomorrow, increase activity as tolerated, continue encouraging incentive spirometry. The patient is seen again today 09/14/2018 in follow-up in the intensive care unit. He is awake and alert in no acute distress. He denies any worsening shortness of breath, cough or congestion. He continues to maintain good O2 saturations in the 90s on 3 L/m per nasal cannula. Chest x-ray shows improvement. He continues to work well with the incentive spirometer. He's been afebrile. Hemodynamically stable. White count 7.9. Hemoglobin 8.3. Creatinine 0.58. He has been initiated on Xarelto. His only complaint today is some mild discomfort at the surgical area. Colostomy is functioning. The patient is seen again today 09/15/2018 in follow-up in the intensive care unit. He is currently sitting up in a chair at the bedside. He is awake and alert in no acute distress. He denies any worsening shortness of breath, cough or congestion. He continues to work well with the incentive spirometer. He has been up ambulating in the hallway with assistance. He is maintaining good O2 saturations in the 90s on room air. He's been afebrile. Hemodynamically stable. His pain is well controlled. He's ostomy is patent. His surgical site is clean dry well approximated other than a very tiny area just below the navel that is losing serous fluid. White count 7.1. Hemoglobin 8.3. Creatinine 0.68 On 09/16/2018 I'm seeing this patient for a follow-up. The patient is doing well. Resting comfortably in bed. No stridor difficulties. No cough sputum production chest answer wheezing. No leak from the surgical wound site. His colostomy site dysfunction. No nausea. No vomiting. No abdominal pain. He is ambulating. He is on room air. His AT 7.1. HEMOGLOBIN WAS 8.3. HE'LL FUNCTION REMAINS STABLE AND THE PATIENT IS ON LONG-TERM AND TO COAGULATION WITH XARELTO. On 09/17/2018 the patient is still out of the intensive care unit. No complaints. Ambulating. He is on anticoagulants. No respiratory difficulties. Surgical wound site is clean and dry. Objective - Vital Signs Vital signs: Vital Signs Temp 97.8 F 09/17/18 07:16 Pulse 88 09/17/18 07:16 Resp 16 09/17/18 07:16 BP 136/81 09/17/18 07:16 Pulse Ox 94 L 09/17/18 07:16 Intake & Output 09/16/18 09/17/18 09/17/18 18:59 06:59 18:59 Intake Total 1180 680 640 Output Total 1 Balance 1180 679 640 Intake: Oral 1180 680 640 Output: Stool 1 Other: # Voids 1 3 # Bowel Movements 2 1 - Exam GENERAL EXAM: Alert, oriented 3, comfortable in no acute respiratory distress. On room air. HEAD: Normocephalic/atraumatic. EYES: Normal reaction of pupils, equal size. Conjunctiva pink, sclera white. NOSE: Clear with pink turbinates. THROAT: No erythema or exudates. NECK: No masses, no JVD, no thyroid enlargement, no adenopathy. CHEST: No chest wall deformity. Symmetrical expansion. LUNGS: Equal air entry with no crackles, wheeze, rhonchi or dullness. CVS: Regular rate and rhythm, normal S1 and S2, no gallops, no murmurs, no rubs ABDOMEN: Soft, nontender. No hepatosplenomegaly, normal bowel sounds, no guarding or rigidity. Midline abdominal incision is clean dry and intact other than 1 tiny opening just below the navel that is leaking serosanguineous fluid. Right-sided colostomy, and colostomy is pink, viable, there is liquid green stool and gas in the colostomy EXTREMITIES: No clubbing, diffuse generalized edema, no cyanosis, 2+ pulses and upper and lower extremities. MUSCULOSKELETAL: Muscle strength and tone normal. SPINE: No scoliosis or deformity SKIN: No rashes CENTRAL NERVOUS SYSTEM: Alert and oriented -3. No focal deficits, tone is normal in all 4 extremities. PSYCHIATRIC: Alert and oriented -3. Appropriate affect. Intact judgment and insight. - Labs CBC & Chem 7: 09/15/18 05:22 09/15/18 05:22 Labs: Abnormal Lab Results - Last 24 Hours (Table) 09/16/18 09/16/18 09/17/18 Range/Units 16:45 20:20 07:16 POC Glucose (mg/dL) 111 H 152 H 108 H (75-99) mg/dL 09/17/18 Range/Units 11:57 POC Glucose (mg/dL) 105 H (75-99) mg/dL Assessment and Plan Plan: Assessment 1 rectal cancer post-colectomy and diverting colostomy. Surgery was done on 2 acute hypoxic history failure secondary to pulmonary embolism, recovered and the patient is currently on Xarelto 3 diabetes mellitus type 2 4 hypertension 5 seizure disorder maintained on Depakote on outpatient basis 6 chronic smoker Plan Continue Xarelto. Get discharged home with the next 24 hours. Outpatient follow-up regarding pulmonary embolism, baseline PFT and possible sleep apnea evaluation. Continue using dialysis. Surgery to monitor the abdominal wounds.
[2018-09-17 16:29] LABS: Glucose,Whole Blood 101 mg/dL (75-99)
[2018-09-17 20:32] LABS: Glucose,Whole Blood 114 mg/dL (75-99)
[2018-09-17] MEDS: MELATONIN 3 MG TABLET PO SCH (22:08)
[2018-09-18] MEDS: HYDROcodone/APAP 5-325MG 1 EACH TAB PO PRN ×4 (06:20→18:01)
[2018-09-18 07:01] LABS: Glucose,Whole Blood 115 mg/dL (75-99)
[2018-09-18] MEDS: LEVOFLOXACIN 500MG-D5W PMX 500 MG in DEXTROSE/WATER 1 100ML.BAG IVPB SCH (07:06)
[2018-09-18] MEDS: INSULIN ASPART 100 UNIT/ML 1 ML 10 ML VIAL SQ SCH ×3 (07:33→17:41)
[2018-09-18] MEDS: DIVALPROEX 500 MG TABLET.DR PO SCH ×2 (07:51→15:43)
[2018-09-18] MEDS: RIVAROXABAN 15 MG TAB PO SCH ×2 (07:51→18:01)
[2018-09-18] MEDS: LEVOFLOXACIN 500 MG TAB PO SCH (07:51)
[2018-09-18] MEDS: FAMOTIDINE 20 MG TAB PO SCH (07:51)
[2018-09-18 11:48] LABS: Glucose,Whole Blood 95 mg/dL (75-99)
--- NOTE | 2018-09-18 12:05 | P.PN ---
Subjective Progress Note Date: 09/18/18 48-year-old male seen sitting up in a chair. States has been up ambulating in the hallway at the bedside ostomy functioning moderate amount of stool in the ostomy bag. Remained afebrile. States pain medication has been effective for pain control path report reviewed September 06 low anterior resection right colectomy for rectal cancer with a diverting colostomy for protection of his colorectal anastomosis. Objective - Vital Signs Vital signs: Vital Signs Temp 97.6 F 09/18/18 07:22 Pulse 85 09/18/18 07:22 Resp 16 09/18/18 07:22 BP 141/89 09/18/18 07:22 Pulse Ox 94 L 09/18/18 07:22 Intake & Output 09/17/18 09/18/18 09/18/18 18:59 06:59 18:59 Intake Total 1030 680 120 Output Total 1 100 Balance 1030 679 20 Intake: Oral 1030 680 120 Output: Stool 1 100 Other: Voiding Method Toilet # Voids 3 # Bowel Movements 1 - Exam Physical exam 48-year-old sitting up in a chair appears in no acute distress Lungs clear adequate air movement on room air Heart S1-S2 audible regular abdomen ostomy moderate amount of stool in the ostomy bag surgical dressing dry tolerating diet no nausea no vomiting urinating no difficulty Extremities decreasing edema to the lower extremity - Labs CBC & Chem 7: 09/15/18 05:22 09/15/18 05:22 Labs: Abnormal Lab Results - Last 24 Hours (Table) 09/17/18 09/17/18 09/17/18 Range/Units 11:57 16:27 20:21 POC Glucose (mg/dL) 105 H 101 H 114 H (75-99) mg/dL 09/18/18 Range/Units 06:49 POC Glucose (mg/dL) 115 H (75-99) mg/dL Assessment and Plan Assessment: Impression Status post September 06 low anterior resection right colectomy for rectal cancer with a diverting colostomy for protection of his colorectal anastomosis. Postop hypotensive with tachycardia expected improved suspect due to scopolamine patch and hypovolemia improved with IV fluid bolus and scopolamine patch being discontinued Seizure disorder Type 2 diabetes Hypertension off antihypertensive meds for now to prevent perioperative hypotension Morbid obesity BMI 47 Acute hypoxic respiratory failure secondary to extensive pulmonary emboli disease CAT scan of chest showed evidence of multiple lobar and segmental pulmonary emboli involving the right upper middle and lower lobe pulmonary emboli was not a surgical complication of the procedure History of rectal cancer status post colectomy and ostomy Pulmonary embolus was not a complication of this surgical procedure Normocytic normochromic Anemia iron deficiency with a low B12 most likely deficit supplements being given Plan Anticipate discharge in the next 24-40 Titrate the O2 down keep sats greater than 90% Continue postop surgical care Increase activity DVT and GI prophylaxis The above impression and plan of care have been discussed and directed by signing physician. Ailin Pino nurse practitioner acting as scribe for signing physician.
--- NOTE | 2018-09-18 13:52 | P.DS ---
Providers Date of admission: 09/06/18 09:18 Expected date of discharge: 09/18/18 Attending physician: Daniel Sherman Consults: 09/06/18 15:46 Consult Physician Routine Consulting Provider: Priya Worrell Consult Reason/Comments: Medical management Do you want consulting provider notified?: Yes 09/09/18 04:49 Consult Physician Routine Consulting Provider: Blair Jones Consult Reason/Comments: CT positive for extensive pulmonary emboli and transfer to ICU. Do you want consulting provider notified?: Already Contacted 09/09/18 04:50 Consult Physician Routine Consulting Provider: Nick Darnell Consult Reason/Comments: CT positive for extensive pulmonary emboli - family history of DVT Do you want consulting provider notified?: Yes, Notify in am 09/15/18 15:11 Consult Physician Routine Consulting Provider: Nick Darnell Consult Reason/Comments: rectal Ca, adenoca Do you want consulting provider notified?: Yes Primary care physician: Stated None Hospital Course: A 48-year-old gentleman who presented to undergo an elective low anterior resection of the rectum with a history of rectal cell carcinoma status post neoadjuvant chemo with curative surgery completed. The surgical procedure was done on September 07 right colectomy with a low anterior resection with loop colostomy was admitted to a medical surgical floor. on September 08 developed an episode of shortness of breath hypoxic pulse ox sats down into the mid 80s nasal cannula needed to be titrated up to keep sats greater than 90 was tachycardic. Rapid response team was activated Scan of the chest was obtained did show evidence reviewing the report of extensive pulmonary disease multiple lobar and segmental pulmonary emboli involving the right upper lobe, right middle lobe, right lower lobe pulmonary arteries patient was transferred to the ICU monitored closely by pulmonary and cardiology service anticoagulation was initiated able to transition from IV heparin to oral anticoagulation hemoglobin remained stable the oxygen was able to be titrated off on the day of discharge was on room air with sats of 94% ostomy teaching was initiated the path report was reviewed with the patient and by the attending patient was felt to be appropriate to be discharged home Impression discharge diagnosis Status post elective surgery September 06 low anterior resection right colectomy for rectal cancer with a diverting colostomy for protection of colorectal anastomosis. Postop hypotensive with tachycardia expected improved suspect due to scopolamine patch and hypovolemia improved with IV fluid bolus and scopolamine patch being discontinued Seizure disorder maintained on Depakote on the outpatient basis Type 2 diabetes Hypertension off antihypertensive meds for now to prevent perioperative hypotension Morbid obesity BMI 47 Acute post operative episode of hypoxic respiratory failure secondary to extensive pulmonary emboli disease CAT scan of chest showed evidence of multiple lobar and segmental pulmonary emboli involving the right upper middle and lower lobe pulmonary emboli was not a surgical complication of the procedure History of rectal cancer status post colectomy and ostomy Pulmonary embolus was not a complication of this surgical procedure Normocytic normochromic Anemia iron deficiency with a low B12 most likely deficit supplements being given The above impression and plan of care have been discussed and directed by signing physician. Ailin Pino nurse practitioner acting as scribe for signing physician. Plan - Discharge Summary Discharge Rx Participant: No New Discharge Prescriptions: New Rivaroxaban [Xarelto] 15 mg PO BID-W/MEALS #60 tab metFORMIN HCL 1,000 mg PO BID #1 tab HYDROcodone/APAP 5-325MG [Columbia 5-325] 1 each PO Q4HR PRN #18 tab PRN Reason: Moderate Pain Continue Divalproex [Depakote] 500 mg PO TID Discontinued clonazePAM [KlonoPIN] 1 mg PO BID metFORMIN HCL 1,000 mg PO BID Lisinopril-Hctz 20-25 mg [Zestoretic 20-25] 1 tab PO DAILY Discharge Medication List Divalproex [Depakote] 500 mg PO TID 10/29/15 [History] HYDROcodone/APAP 5-325MG [[place]ia 5-325] 1 each PO Q4HR PRN #18 tab 09/18/18 [Rx] Rivaroxaban [Xarelto] 15 mg PO BID-W/MEALS #60 tab 09/18/18 [Rx] metFORMIN HCL 1,000 mg PO BID #1 tab 09/18/18 [Rx] Follow up Appointment(s)/Referral(s): Nick Darnell MD [STAFF PHYSICIAN] - 10/19/18 9:45 am (This appt is at the [employer] office location) [facility], [NON-STAFF] - Daniel Sherman MD [STAFF PHYSICIAN] - 1 Week Blair Jones DO [Doctor of Osteopathic Medicine] - 3 Weeks Patient Instructions/Handouts: Colostomy Care (GEN) Activity/Diet/Wound Care/Special Instructions: Abdominal Incision Care Beatrice has $0 copay. Glucometer and rolling [facility] - [phone] - will deliver to bedside before discharge Colostomy Care Recommendations Last appliance Change: 09.17.2018 Recommendations for Home Colostomy Care: Stoma with sutured stays in place to three points Pouch the non-sutured stay in the pouching bag [employer] one piece cut to fit with filter #[id number] (three from hospital provided for home) No sting prep pads (12 from hospital for home) Ostomy Powder for around the stoma irritation as needed with pouching system change Mr Weller will be receiving sample ostomy appliances form [employer] and [employer] in 4- 5 days to his home. Home Health please set up Mr Weller for Durable Medical Supplies prior to discharging from service for ostomy supplies - Patient desires disposable pouches in 2 - 3 weeks HGBA1c 6.0 Accu checks achs, maintain log and take to F/U visit with PCP No tub bath for six weeks. Shower daily. No lifting over 10 pounds for the next 2 weeks. May use ice packs to surgical site. No driving while taking narcotic for pain. Discharge Disposition: HOME WITH HOME HEALTH SERVICES
[2018-09-18 15:09] VITALS: BP 112/73; TEMP 98.4
[2018-09-18 17:00] LABS: Glucose,Whole Blood 103 mg/dL (75-99)
[2018-09-18 18:08] VITALS: PULSE 85
--- NOTE | 2018-09-18 19:05 | P.PN ---
Subjective Progress Note Date: 09/18/18 Progress note being dictated for Dr. Miner Interval history:48-year-old admitted for low anterior resection of the rectum patient has a colostomy in place patient abdomen is distended has sluggish bowel sounds because of which his heart rate is bit elevated will obtain a TSH. Patient the SATURATIONS IS GONE DOWN TO 90% I'M OBTAINING A CHEST X-RAY, PATIENT WILL CONTINUE HIS INCENTIVE SPIROMETRY. PATIENT HAS AN EPIDURAL IN PLACE AN BIT NAUSEOUS NOW. THIS IS BEING ADDRESSED BY GENERAL SURGERY. 09/09/2018 Patient became more hypoxic yesterday the chest x-ray are ordered before the left showed bilateral infiltrates may be atelectasis rather than pneumonia although patient was started on empiric antibiotics which are being continued him unfortunately I'm unable to open the CAT scan. Patient became more hypoxic and tachycardic because of which CAT scan was opted to rule out pulmonary embolism which showed extensive bilateral PE. Patient was started on IV heparin transferred to ICU because patient is on Ventimask troponin is negative BNP is not elevated patient is low to intermediate risk pulmonary embolism probably will not be a candidate for intralesional thrombolytics. Patient is presently on Ventimask All inpatient medications were reviewed and appropriate changes in these medications as dictated in the interval history and assessment and plan. 09/10/2018 Patient is feeling much better today patient is on high flow nasal cannula oxygen Patient does have significant output from the colostomy abdominal distention improved 09/11/2018 Patient is presently on 30 L of high flow mask cannula oxygen no significant overnight events good output from the colostomy. 09/12/2018 Patient is not doing much better today patient is on 5 L of onset today, had about 1 50 mL of liquidy stool 09/13/2018 [address] in hallway, maintaining O2 sats in the low 90s on 3 L nasal cannula. Incentive spirometer up to 1999. Telemetry sinus rhythm. Diet intake improving, approximately 25%. Blood sugars controlled. Diuretics decreased .Anticoagulated on Xarelto. Colon biopsy pending. 09/14/2018 afebrile, maintaining O2 sats in the low 90s on 3 L nasal cannula. Chest x-ray reports new linear left basilar opacity. Colon biopsy pending. 09/15/2018 afebrile, IS up to 1999, awaiting transfer out of ICU to [facility]. Diet intake improving, denies nausea or vomiting. Colon biopsy reporting rectosigmoid: Adenocarcinoma invading but not perforating muscularis propria. Tumor 1 cm proximal to tattooed anterior peritoneal refelction.All margins negative for involvement by adenocarcinoma. 2 of the 5 lymph nodes positive.Terminel Ileum, cecum ,ascending colon tubulovillous adenoma with high- grade dysplasia. Negative for infiltrating adenocarcinoma. 09/18/2018 continues to do well. No overnight events. Vital signs stable. Patient is being discharged home today. Objective - Vital Signs Vital signs: Vital Signs Temp 98.4 F 09/18/18 15:08 Pulse 85 09/18/18 16:00 Resp 16 09/18/18 15:08 BP 112/73 09/18/18 15:08 Pulse Ox 91 L 09/18/18 15:08 Intake & Output 09/17/18 09/18/18 09/18/18 18:59 06:59 18:59 Intake Total 1030 680 240 Output Total 1 100 Balance 1030 679 140 Intake: Oral 1030 680 240 Output: Stool 1 100 Other: Voiding Method Toilet # Voids 3 3 # Bowel Movements 1 1 - Exam GENERAL: Sitting up in chair, alert, oriented 3, no acute distress. HEENT: Pupils are round and equally reacting to light. EOMI. No scleral icterus. No conjunctival pallor. Normocephalic, atraumatic. CARDIOVASCULAR: S1 and S2 present. No murmurs, rubs, or gallops. PULMONARY: Chest is clear to auscultation, no wheezing or crackles. ABDOMEN: Soft, nontender, colostomy bag with stool, positive bowel sounds. MUSCULOSKELETAL: No joint swelling or deformity. EXTREMITIES: No cyanosis, clubbing, or pedal edema. NEUROLOGICAL: Gross neurological examination did not reveal any focal deficits. SKIN: No rashes. - Labs CBC & Chem 7: 09/15/18 05:22 09/15/18 05:22 Labs: Abnormal Lab Results - Last 24 Hours (Table) 09/17/18 09/18/18 09/18/18 Range/Units 20:21 06:49 16:59 POC Glucose (mg/dL) 114 H 115 H 103 H (75-99) mg/dL Assessment and Plan Assessment: -Extensive bilateral pulmonary embolism leading to acute hypoxic respiratory failure -Rectal cancer status post colectomy and colostomy. Adenocarcinoma, adenoma with high-grade dysplasia. -Seizure disorder patient is on Depakote -Type 2 diabetes mellitulitis Gastroesophageal reflux disease -Hypertension -DVT prophylaxis as per primary service Plan: Continue current medication regime ,monitoring and symptomatic treatment. Patient is being discharged home today as per surgery. Pathology reviewed by oncology with plans for chemotherapy, possible radiation. Follow-up with PCP in 3 days. Further recommendations to follow. The impression and plan of care has been dictated as directed. : I performed a history and examination of this patient, discussed the same with the dictator. I agree with the dictator's note ,documented as a scribe. Any additional findings or plans will be noted.
== END 2018-09-18 18:10 | disposition home health service (06) | DRG 329 ==
LOC: 2ORMAIN 09:18 → 4SSUR 17:29 → 2SICU 09-09 04:40 → 4SSUR 09-15 13:04
PROVIDERS: ADMIT Surgery; ATTEND Surgery
PROC: 0D1L0Z4 Bypass Transverse Colon to Cutaneous, Open Approach (ICD-10-PCS; 2018-09-06)
PROC: 0DTF0ZZ Resection of Right Large Intestine, Open Approach (ICD-10-PCS; principal; 2018-09-06 11:40)
DX: C19 Malignant neoplasm of rectosigmoid junction (principal); J96.01 Acute respiratory failure with hypoxia; I26.92 Saddle embolus of pulmonary artery without acute cor pulmonale; J18.9 Pneumonia, unspecified organism; Z68.42 Body mass index [BMI] 45.0-49.9, adult; J98.11 Atelectasis; E66.01 Morbid (severe) obesity due to excess calories; I27.20 Pulmonary hypertension, unspecified; I95.9 Hypotension, unspecified; E86.1 Hypovolemia; D12.2 Benign neoplasm of ascending colon; D12.3 Benign neoplasm of transverse colon; D64.9 Anemia, unspecified; E61.1 Iron deficiency; E53.8 Deficiency of other specified B group vitamins; E11.9 Type 2 diabetes mellitus without complications; K21.9 Gastro-esophageal reflux disease without esophagitis; K59.00 Constipation, unspecified; I10 Essential (primary) hypertension; F17.201 Nicotine dependence, unspecified, in remission; G40.909 Epilepsy, unspecified, not intractable, without status epilepticus; Z79.84 Long term (current) use of oral hypoglycemic drugs; Z79.899 Other long term (current) drug therapy; Z92.21 Personal history of antineoplastic chemotherapy; Z92.3 Personal history of irradiation; Z90.49 Acquired absence of other specified parts of digestive tract; Z98.52 Vasectomy status; Z91.018 Allergy to other foods; Z83.2 Family history of diseases of the blood and blood-forming organs and certain disorders involving the immune mechanism
CPT/HCPCS: 71045; 71275; 80048; 80053; 82607; 82728; 82747; 83036; 83540; 83550; 83735; 83880; 84100; 84132; 84443; 84484; 85025; 85027; 85610; 85730; 86850; 86900; 86901; 88309; 93005; 93306; 93970; 94640

== ENCOUNTER 2018-10-26 07:45 | Day surgery (SDC) | payer MEDICARE, OTHER ==
[2018-10-24 11:49] VITALS: BMI 46.1
[~2018-10-26 07:45] MED LIST changes: +HYDROmorphone 0.5 MG/0.5 ML SYRINGE IVP PRN; -HYDROmorphone 1 MG/ML 1 ML SYRINGE IVP PRN; +MIDAZOLAM (PF) 2 MG/2 ML VIAL IV PRN; -MIDAZOLAM 2 MG/2 ML VIAL IV PRN; +Pre Op ABX Message 1 EACH MISC MISCELLANE ONE; -metroNIDAZOLE-NS PMX 500 MG in SALINE 1 100ML.BAG IVPB ONE
[2018-10-26 08:29] LABS: Glucose,Whole Blood 110 mg/dL (75-99)
[2018-10-26 08:36] LABS: Anisocytosis Slight; HCT 35.9 % (39.0-53.0); HGB 10.6 gm/dL (13.0-17.5); Hypochromasia Marked; MCH 24.1 pg (25.0-35.0); MCHC 29.5 g/dL (31.0-37.0); Mean Platelet Volume 6.4; Microcytosis Slight; Platelet Count 314 k/uL (150-450); RDW 19.2 % (11.5-15.5); WBC 6.3 k/uL (3.8-10.6)
[2018-10-26 08:38] LABS: MCV 81.6 fL (80.0-100.0)
--- NOTE | 2018-10-26 08:53 | P.GSHP ---
History of Present Illness H&P Date: 10/26/18 Chief Complaint: History of rectal cancer This is a 48-year-old male who presents today for Port-A-Cath placement. Patient a previous history of rectal cancer. Past Medical History Past Medical History: Cancer, Diabetes Mellitus, Hyperlipidemia, Hypertension, Pulmonary Embolus (PE), Seizure Disorder Additional Past Medical History / Comment(s): epilepsy-last seizure "10 years ago", ANEMIA, rectal cancer-had chemo through 08/06/18 and radiation through History of Any Multi-Drug Resistant Organisms: None Reported Past Surgical History: Appendectomy, Bowel Resection, Cholecystectomy, Hernia Repair Additional Past Surgical History / Comment(s): vasectomy, surg. to repair hypospadias as a child, bowel resection/colostomy 09/06/18, Past Anesthesia/Blood Transfusion Reactions: No Reported Reaction Smoking Status: Former smoker - Past Family History Brother(s) Family Medical History: Cancer, Deep Vein Thrombosis (DVT) Mother Family Medical History: Pulmonary Embolus Medications and Allergies Home Medications Medication Instructions Recorded Confirmed Type Divalproex [Depakote] 500 mg PO BID 10/29/15 10/26/18 History metFORMIN HCL 1,000 mg PO BID #1 tab 09/18/18 10/26/18 Rx Atorvastatin [Lipitor] 20 mg PO HS 10/24/18 10/26/18 History Divalproex [Depakote] 750 mg PO HS 10/24/18 10/26/18 History Hydrochlorothiazide 12.5 mg PO DAILY 10/24/18 10/26/18 History Rivaroxaban [Xarelto] 15 mg PO DAILY 10/24/18 10/26/18 History Allergies Allergy/AdvReac Type Severity Reaction Status Date / Time No Known Allergies Allergy Verified 10/26/18 08:38 Surgical - Exam Vital Signs Temp Pulse Resp BP Pulse Ox 98 F 90 16 153/93 90 L 10/26/18 08:25 10/26/18 08:25 10/26/18 08:25 10/26/18 08:25 10/26/18 08:25 - General well developed, no distress - Eyes PERRL - ENT normal pinna - Neck no masses - Respiratory normal expansion - Cardiovascular Rhythm: regular - Abdomen Abdomen: soft, non tender Results - Labs 10/26/18 08:23 Abnormal Lab Results - Last 24 Hours (Table) 10/26/18 10/26/18 Range/Units 08:22 08:23 Hgb 10.6 L (13.0-17.5) gm/dL Hct 35.9 L (39.0-53.0) % MCH 24.1 L (25.0-35.0) pg MCHC 29.5 L (31.0-37.0) g/dL RDW 19.2 H (11.5-15.5) % POC Glucose (mg/dL) 110 H (75-99) mg/dL Assessment and Plan Assessment: History of rectal cancer. We'll perform Port-A-Cath placement. Patient aware the risk of hematoma and pneumothorax.
[2018-10-26] MEDS ORDERED: KETAMINE 10 MG/ML 20 ML VIAL ONE (09:19)
[2018-10-26] MEDS ORDERED: PROPOFOL 10 MG/ML 20 ML VIAL IV ONE (09:19)
[2018-10-26] MEDS ORDERED: MIDAZOLAM 2 MG/2 ML VIAL ONE (09:19)
[2018-10-26] MEDS ORDERED: fentaNYL (PF) 50 MCG/ML 2 ML AMP ONE (09:19)
[2018-10-26] MEDS ORDERED: BUPIVACAIN-EPI 0.25%-1:200,000 30 ML VIAL SQ ONE ×2 (09:43)
[2018-10-26] MEDS ORDERED: IOPAMIDOL M200 10 ML VIAL MISCELLANE ONE (09:51)
[2018-10-26 10:23] VITALS: TEMP 97
[2018-10-26 10:32] LABS: Glucose,Whole Blood 139 mg/dL (75-99)
--- NOTE | 2018-10-26 10:39 | P.OP ---
Date of Procedure: 10/26/18 Preoperative Diagnosis: Rectal cancer Postoperative Diagnosis: Rectal cancer Procedure(s) Performed: Insertion of right subclavian Port-A-Cath Anesthesia: MAC Surgeon: Daniel Sherman Estimated Blood Loss (ml): 5 Pathology: none sent Condition: stable Disposition: PACU Description of Procedure: PROCEDURE: The patient was placed on the operating table in the supine position. She received MAC anesthetic. The [right] chest was prepped and draped in the usual sterile fashion. The skin underneath the right clavicle was anesthetized with 1% Xylocaine and using Seldinger technique, the right subclavian vein was cannulized. The wire was placed through the needle and positioned under fluoroscopy. Next, the needle was removed and the port site was anesthetized with 1% Xylocaine. Skin was incised with #15 blade and port pocket was made using blunt and sharp dissection. Following this the catheter was attached to the sport and the port was flushed. The port was positioned into the pocket site and was secured with 3-0 Vicryl suture. The catheter was then brought out through the wire site and then the dilator sheath was placed over the wire and the dilator and the wire were removed. The catheter was placed through the sheath and the sheath was removed. The port was flushed with hep-lock solution. Skin was closed with interrupted 3-0 Vicryl sutures. Steri-Strips were applied. The patient tolerated the procedure well. The patient was sent to recovery room for chest x-ray after the procedure.
--- NOTE | 2018-10-26 11:01 | XR ---
EXAMINATION TYPE: XR chest 1V portable DATE OF EXAM: 10/26/2018 Comparison: 09/14/2018 Clinical History: 48-year-old male port placement Findings: Right subclavian CVC tip at the level of the mid SVC. No appreciable pneumothorax. Heart remains bord eugenia enlarged. Hazy lower lung densities related to overlying soft tissue. Some strandy basilar ate lectasis is present. No edgardo consolidation or sizable effusion. Impression: Right subclavian CVC tip in the mid SVC. No acute process seen.
--- NOTE | 2018-10-26 11:13 | FL ---
EXAMINATION TYPE: FL guided central line treatment DATE OF EXAM: 10/26/2018 FLUOROSCOPY Fluoroscopy time of 7 seconds was used during Port-A-Cath insertion. 1 image/s document/s the proced ure.
[2018-10-26] MEDS ORDERED: hydrALAZINE HCL 20 MG/ML 1 ML VIAL IVP ONE (11:32)
[2018-10-26 12:57] VITALS: BP 116/78; PULSE 100; RESP 20
== END 2018-10-26 13:25 | disposition home or self-care (01) ==
LOC: OR 07:45
PROVIDERS: ATTEND Surgery
DX: C20 Malignant neoplasm of rectum (principal); K63.5 Polyp of colon; E11.9 Type 2 diabetes mellitus without complications; G40.909 Epilepsy, unspecified, not intractable, without status epilepticus; E78.5 Hyperlipidemia, unspecified; I10 Essential (primary) hypertension; D64.9 Anemia, unspecified; Z93.3 Colostomy status; Z90.49 Acquired absence of other specified parts of digestive tract; Z92.21 Personal history of antineoplastic chemotherapy; Z92.3 Personal history of irradiation; Z86.711 Personal history of pulmonary embolism; Z79.84 Long term (current) use of oral hypoglycemic drugs; Z79.899 Other long term (current) drug therapy; Z79.01 Long term (current) use of anticoagulants; Z87.891 Personal history of nicotine dependence
CPT/HCPCS: 85027; 77001; 71045; 36561; C1788; J2250; J0360; J1644; J1100; J2405; J3010; J1642; J2704; Q9966

== ENCOUNTER 2019-02-20 11:16 | Emergency (ER) | payer MEDICARE, OTHER ==
[2019-02-20] MEDS ORDERED: HYDROmorphone 0.5 MG/0.5 ML SYRINGE IVP STA (11:47)
[2019-02-20] MEDS ORDERED: SODIUM CHLORIDE 0.9% 1,000 ML IV STA (11:47)
[2019-02-20] MEDS ORDERED: KETOROLAC 30 MG/ML 1 ML VIAL IVP STA (11:47)
--- NOTE | 2019-02-20 11:54 | ED ---
General Adult HPI - General Chief complaint: Nausea/Vomiting/Diarrhea Stated complaint: back pain Time Seen by Provider: 02/20/19 11:27 Source: patient, RN notes reviewed Mode of arrival: ambulatory Limitations: no limitations - History of Present Illness Initial comments: 48-year-old male presents emergency Department chief complaint of left flank pain. Patient is a sudden onset. Patient states he went to receiving chemotherapy today for rectal cancer and states that he has some onset of pain. Patient states is unbearable nothing makes it feel better or worse. Patient states he is very nauseated but no vomiting. He's had normal output in his ostomy. Patient denies any fevers, chills, chest pain or shortness breath. - Related Data Home Medications Medication Instructions Recorded Confirmed Divalproex [Depakote] 500 mg PO AC-BID 10/29/15 02/20/19 Atorvastatin [Lipitor] 20 mg PO HS 10/24/18 02/20/19 Divalproex [Depakote] 750 mg PO HS 10/24/18 02/20/19 Hydrochlorothiazide 12.5 mg PO BID 10/24/18 02/20/19 Rivaroxaban [Xarelto] 15 mg PO DAILY 10/24/18 02/20/19 Previous Rx's Medication Instructions Recorded metFORMIN HCL 1,000 mg PO BID #1 tab 09/18/18 Hydrocodone/Acetaminophen [Lohn 1 tab PO Q6HR PRN #12 tab 02/20/19 5-325] Ondansetron Odt [Zofran Odt] 4 mg PO Q8HR PRN #10 tab 02/20/19 Sulfamethox-Tmp 800-160Mg [Bactrim 1 each PO Q12HR #14 tab 02/20/19 Ds] Tamsulosin [Flomax] 0.4 mg PO DAILY #7 cap 02/20/19 Allergies Allergy/AdvReac Type Severity Reaction Status Date / Time No Known Allergies Allergy Verified 02/20/19 11:42 Review of Systems ROS Statement: Those systems with pertinent positive or pertinent negative responses have been documented in the HPI. ROS Other: All systems not noted in ROS Statement are negative. Past Medical History Past Medical History: Cancer, Diabetes Mellitus, Hyperlipidemia, Hypertension, Pulmonary Embolus (PE), Seizure Disorder Additional Past Medical History / Comment(s): epilepsy-last seizure "10 years ago", ANEMIA, rectal cancer-had chemo through 08/06/18 and radiation through 08/06/18 History of Any Multi-Drug Resistant Organisms: None Reported Past Surgical History: Appendectomy, Bowel Resection, Cholecystectomy, Hernia Repair Additional Past Surgical History / Comment(s): vasectomy, surg. to repair hypospadias as a child, bowel resection/colostomy 09/06/18, Past Anesthesia/Blood Transfusion Reactions: No Reported Reaction Past Psychological History: No Psychological Hx Reported Smoking Status: Former smoker Past Alcohol Use History: None Reported Past Drug Use History: None Reported - Past Family History Brother(s) Family Medical History: Cancer, Deep Vein Thrombosis (DVT) Mother Family Medical History: Pulmonary Embolus General Exam Limitations: no limitations General appearance: alert, in no apparent distress Head exam: Present: atraumatic, normocephalic, normal inspection Eye exam: Present: normal appearance, PERRL, EOMI. Absent: scleral icterus, conjunctival injection, periorbital swelling Respiratory exam: Present: normal lung sounds bilaterally. Absent: respiratory distress, wheezes, rales, rhonchi, stridor Cardiovascular Exam: Present: regular rate, normal rhythm, normal heart sounds. Absent: systolic murmur, diastolic murmur, rubs, gallop, clicks GI/Abdominal exam: Present: soft, normal bowel sounds. Absent: distended, tenderness, guarding, rebound, rigid Back exam: Present: CVA tenderness (L). Absent: CVA tenderness (R) Skin exam: Present: warm, dry, intact, normal color. Absent: rash Course Vital Signs 02/20/19 02/20/19 11:24 13:24 Temperature 97.9 F Pulse Rate 88 91 Respiratory 24 18 Rate Blood Pressure 162/118 135/82 O2 Sat by Pulse 99 95 Oximetry Medical Decision Making - Medical Decision Making 48-year-old male presented for left flank pain send onset of pain. Patient has evidence of a 4 mm UVJ stone. Patient's pain is improved. Patient does have 12 WBCs his urinalysis we treated for possible infection. [place] to be less likely. Patient we discharged on antibiotics and return parameters were discussed. - Lab Data Result diagrams: 02/20/19 11:50 02/20/19 11:50 Lab Results 05/14/19 05/14/19 05/14/19 Range/Units 11:50 11:50 13:32 WBC 4.6 (3.8-10.6) k/uL RBC 4.61 (4.30-5.90) m/uL Hgb 14.2 (13.0-17.5) gm/dL Hct 44.8 (39.0-53.0) % MCV 97.2 (80.0-100.0) fL MCH 30.8 (25.0-35.0) pg MCHC 31.7 (31.0-37.0) g/dL RDW 21.7 H (11.5-15.5) % Plt Count 213 (150-450) k/uL Neutrophils % (Manual) 48 % Lymphocytes % (Manual) 26 % Monocytes % (Manual) 24 % Eosinophils % (Manual) 2 % Neutrophils # (Manual) 2.21 (1.3-7.7) k/uL Lymphocytes # (Manual) 1.20 (1.0-4.8) k/uL Monocytes # (Manual) 1.10 H (0-1.0) k/uL Eosinophils # (Manual) 0.09 (0-0.7) k/uL Nucleated RBCs 0 (0-0) /100 WBC Manual Slide Review Performed Poikilocytosis (manual Present Anisocytosis Moderate Macrocytosis Slight Sodium 139 (137-145) mmol/L Potassium 4.1 (3.5-5.1) mmol/L Chloride 104 (98-107) mmol/L Carbon Dioxide 24 (22-30) mmol/L Anion Gap 11 mmol/L BUN 10 (9-20) mg/dL Creatinine 0.70 (0.66-1.25) mg/dL Est GFR (CKD-EPI)AfAm >90 (>60 ml/min/1.73 sqM) Est GFR (CKD-EPI)NonAf >90 (>60 ml/min/1.73 sqM) Glucose 149 H (74-99) mg/dL Calcium 9.6 (8.4-10.2) mg/dL Total Bilirubin 0.4 (0.2-1.3) mg/dL AST 26 (17-59) U/L ALT 31 (21-72) U/L Alkaline Phosphatase 70 (38-126) U/L Total Protein 6.9 (6.3-8.2) g/dL Albumin 3.6 (3.5-5.0) g/dL Lipase 282 (23-300) U/L Urine Color Yellow Urine Appearance Clear (Clear) Urine pH 5.5 (5.0-8.0) Ur Specific [place] 1.027 (1.001-1.035) Urine Protein Trace H (Negative) Urine Glucose (UA) 4+ H (Negative) Urine Ketones Trace H (Negative) Urine Blood Negative (Negative) Urine Nitrite Negative (Negative) Urine Bilirubin Negative (Negative) Urine Urobilinogen <2.0 (<2.0) mg/dL Ur Leukocyte Esterase Small H (Negative) Urine RBC 3 (0-5) /hpf Urine WBC 12 H (0-5) /hpf Ur Squamous Epith Cells 4 (0-4) /hpf Urine Bacteria Occasional H (None) /hpf Hyaline Casts 3 H (0-2) /lpf Urine Mucus Many H (None) /hpf Disposition Clinical Impression: Ureteral calculi Disposition: HOME SELF-CARE Condition: Stable Instructions (If sedation given, give patient instructions): Kidney Stones (ED) Additional Instructions: Please return to the Emergency Department if symptoms worsen or any other concerns. Prescriptions: Sulfamethox-Tmp 800-160Mg [Bactrim Ds] 1 each PO Q12HR #14 tab Tamsulosin [Flomax] 0.4 mg PO DAILY #7 cap Hydrocodone/Acetaminophen [Lohn 5-325] 1 tab PO Q6HR PRN #12 tab PRN Reason: Pain Ondansetron Odt [Zofran Odt] 4 mg PO Q8HR PRN #10 tab PRN Reason: Nausea Is patient prescribed a controlled substance at d/c from ED?: Yes When asked, does pt state using other controlled substances?: No If prescribed controlled substance>3 days was MAPS reviewed?: Prescribed <3 Days If opioid is for acute pain is fill amount 7 days or less?: Yes If Rx opioid, was Start Talking consent form obtained?: Yes Referrals: Leydi Davies MD [Primary Care Provider] - 1-2 days Time of Disposition: 14:11
[2019-02-20] MEDS: ONDANSETRON 4 MG/2 ML VIAL IVP STA ×2 (12:00→12:01)
[2019-02-20 12:23] LABS: ALT 31 U/L (21-72); AST 26 U/L (17-59); Albumin 3.6 g/dL (3.5-5.0); Alkaline Phosphatase 70 U/L (38-126); Anion Gap 11 mmol/L; Blood Urea Nitrogen 10 mg/dL (9-20); Calcium 9.6 mg/dL (8.4-10.2); Carbon Dioxide 24 mmol/L (22-30); Chloride 104 mmol/L (98-107); Glucose 149 mg/dL (74-99); Lipase 282 U/L (23-300); Potassium 4.1 mmol/L (3.5-5.1); Sodium 139 mmol/L (137-145); Total Bilirubin 0.4 mg/dL (0.2-1.3); Total Protein 6.9 g/dL (6.3-8.2)
[2019-02-20 12:32] LABS: Anisocytosis Moderate; HCT 44.8 % (39.0-53.0); HGB 14.2 gm/dL (13.0-17.5); MCH 30.8 pg (25.0-35.0); MCHC 31.7 g/dL (31.0-37.0); MCV 97.2 fL (80.0-100.0); Macrocytosis Slight; Mean Platelet Volume 7.4; Platelet Count 213 k/uL (150-450); RBC 4.61 m/uL (4.30-5.90); RDW 21.7 % (11.5-15.5); WBC 4.6 k/uL (3.8-10.6)
--- NOTE | 2019-02-20 13:11 | CT ---
EXAMINATION TYPE: CT abdomen pelvis wo con DATE OF EXAM: 02/20/2019 COMPARISON: 05/09/2018 HISTORY: 48-year-old male abdominal pain Low back pain today. CT DLP: 1284 mGycm. Automated exposure control for dose reduction was used. TECHNIQUE: Contiguous axial scanning of the abdomen and pelvis without IV contrast. Coronal and sagit danielle reconstructions performed. FINDINGS: Heart normal size without pericardial effusion. Streaky atelectasis at the lung bases. Stable 4 mm po sterior basilar pulmonary nodule from 05/09/2013 suggesting a benign etiology. No pleural effusion. Liver enlarged measuring 20.9 cm. Otherwise, noncontrast appearance of the liver, adrenal glands, kid neys, spleen, pancreas within normal limits. No dilated small bowel, free fluid, or free air. Nonspecific borderline distended small bowel loop an terior left mid abdomen measures 3.0 cm may be transient. There is a diverting right mid abdominal colostomy at the level of the hepatic flexure. There is an a ssociated parastomal hernia containing a short loop of nonobstructed small bowel. Left hemicolonic diverticulosis. Evidence of prior resection with ileocolonic anastomosis at the asce nding colon. Additional resection and anastomosis at the rectosigmoid junction. No pericolonic inflam matory change. Some soft tissue thickening at the umbilicus and down the anterior infraumbilical midline suggesting scar tissue formation. Multiple surgical clips or coils from measure. Redemonstrated along the anterior pelvis. Some focal nodular soft tissue thickening within the anterior low left pelvis measures 2.9 cm and cou ld represent some scar tissue and can be reassessed at follow-up. Bladder is collapsed but shows thic kened appearance. Mild presacral edema. No pelvic lymphadenopathy seen. No mesenteric or retroperiton eal lymphadenopathy seen. Bones: Mild degenerative changes at the hips. Posterior fusion defect of S1 is unchanged. No osseous destructive process. IMPRESSION: 1. Partial colon resection near the ileocecal region and rectosigmoid junction with anastomoses. Add itional right mid abdominal burning colostomy also containing a short loop of herniated nonobstructed small bowel. 2. Collapsed and thickened appearing bladder. Correlate to exclude cystitis. However, given the pres ence of presacral edema and prior neoplasm in the pelvis, consider post radiation therapy change. 3. A 2.9 cm area of focal nodularity in the lower anterior left pelvis likely represents scar tissue given adjacent coils and measured. Consider 3 month follow-up to reassess. 4. Left-sided colonic diverticulosis without evidence for acute diverticulitis.
[2019-02-20 13:25] LABS: Eosinophils # (M) 0.09 k/uL (0-0.7); Neutrophils # (M) 2.21 k/uL (1.3-7.7); Neutrophils % (M) 48 %; Nucleated Red Blood Cells 0 /100 WBC (0-0); Poikilocytosis (M) Present; Total Cells Counted 100
[2019-02-20 13:26] VITALS: RESP 18
[2019-02-20 13:53] LABS: Appearance,Urine Clear (Clear); Bacteria,Urine Occasional /hpf; Bilirubin,Urine Negative (Negative); Blood,Urine Negative (Negative); Color,Urine Yellow; Glucose,Urine (UA) 4+ (Negative); Hyaline Casts,Urine 3 /lpf (0-2); Ketones,Urine Trace (Negative); Leukocyte Esterase,Urine Small (Negative); Mucus,Urine Many /hpf; Nitrite,Urine Negative (Negative); PH, Urine 5.5 (5.0-8.0); Protein,Urine Trace (Negative); RBC,Urine 3 /hpf (0-5); Specific Gravity,Urine 1.027 (1.001-1.035); Squamous Epithelial Cell,Urine 4 /hpf (0-4); Urobilinogen,Urine <2.0 mg/dL (<2.0)
[2019-02-20] MEDS ORDERED: cefTRIAXone IN SWFI 1,000 MG/10 ML SYRINGE IVP STA (14:09)
[2019-02-20 14:24] VITALS: BP 130/84; PULSE 88; TEMP 97.8
== END 2019-02-20 14:21 | disposition home or self-care (01) ==
LOC: EC 11:16
DX: N20.1 Calculus of ureter (principal); E78.5 Hyperlipidemia, unspecified; I10 Essential (primary) hypertension; G40.909 Epilepsy, unspecified, not intractable, without status epilepticus; Z87.891 Personal history of nicotine dependence; Z79.01 Long term (current) use of anticoagulants; Z79.899 Other long term (current) drug therapy; Z86.711 Personal history of pulmonary embolism; Z85.048 Personal history of other malignant neoplasm of rectum, rectosigmoid junction, and anus; Z92.21 Personal history of antineoplastic chemotherapy; Z92.3 Personal history of irradiation; Z90.49 Acquired absence of other specified parts of digestive tract; Z93.3 Colostomy status; Z53.8 Procedure and treatment not carried out for other reasons
CPT/HCPCS: 99284 ×2; 96374 ×2; 96375 ×3; 96361 ×2; 36415; 80053; 83690; 85025; 81001; 87086; 74176; 96366; 96413; 96415; 96411; 96368; 36591; J9190; J1100; J0640 ×2; J0696; J1885; J2405; J9263; J1170

== ENCOUNTER → 2019-03-01 | Outpatient (CLI) | payer MEDICARE, OTHER ==
--- NOTE | 2019-03-01 12:39 | US ---
EXAMINATION TYPE: US venous doppler duplex LE DATE OF EXAM: 03/01/2019 12:21 PM COMPARISON: NONE CLINICAL HISTORY: R22.43 Swelling bilateral lower legs. SIDE PERFORMED: TECHNIQUE: The lower extremity deep venous system is examined utilizing real time linear array sonog levi with graded compression, doppler sonography and color-flow sonography. VESSELS IMAGED: External Iliac Vein (EIV) Common Femoral Vein Deep Femoral Vein Greater Saphenous Vein * Femoral Vein Popliteal Vein Small Saphenous Vein * Proximal Calf Veins (* superficial vessels) Morbidly obese patient, technically difficult. Right Leg: Negative for DVT Left Leg: Negative for DVT IMPRESSION: 1. Bilateral lower extremity ultrasound negative for deep venous thrombosis.
== END | disposition home or self-care (01) ==
LOC: RADUSWWP 11:45
PROVIDERS: ATTEND Family Medicine
DX: R22.43 Localized swelling, mass and lump, lower limb, bilateral (principal)
CPT/HCPCS: 93970

== ENCOUNTER → 2019-03-28 | Outpatient (CLI) | payer MEDICARE, OTHER ==
[2019-03-28 15:06] LABS: African American GFR (CKD) >90 (>60 ml/min/1.73 sqM); Blood Urea Nitrogen 6 mg/dL (9-20)
--- NOTE | 2019-03-28 16:56 | CT ---
EXAMINATION TYPE: CT ChestAbdPelvis w con DATE OF EXAM: 03/28/2019 COMPARISON: 02/20/2019 and 05/13/2018 HISTORY: 48-year-old male f/u rectal ca TECHNIQUE: Contiguous axial scanning of the chest, abdomen, and pelvis performed with IV Contrast, pa tient injected with 100 mL of Isovue 300. Delayed images through the kidneys were obtained. Coronal/s agittal reconstructions performed. CT DLP: 2602 mGycm Automated exposure control for dose reduction was used. FINDINGS: CHEST: Heart normal size without pericardial effusion. Ascending aorta is ectatic at 3.8 cm. Variant direct takeoff of the left vertebral artery directly fr om the aortic arch. No thoracic lymphadenopathy. Right anterior chest wall injection port with catheter tip at the upper SVC level. Mild bilateral gynecomastia. No consolidation or pleural effusion. No new pulmonary nodules are identified. ABDOMEN: No focal liver lesion or biliary ductal dilatation. Portal venous system is patent. Gallbladder not seen, likely surgically absent. Adrenal glands, left kidney, spleen, and pancreas rachel w no gross abnormal. A few subcentimeter cortical hypodensities within the right kidney too small for accurate CT characte rization, probable tiny cysts. Possible tiny 2 mm calculus dependent within the distal left ureter. No dilated small bowel, free fluid, or free air. No mesenteric or retroperitoneal lymphadenopathy. Ileocolonic anastomosis on the right with a diverting colostomy at the right mid abdomen redemonstrat ed. The colostomy continues to contain a short loop of nonobstructed small bowel. The descending and proximal to mid sigmoid colonic diverticulosis. No pericolonic inflammatory change. There is prior resection and re-anastomosis at the rectosigmoid junction. No abnormal soft tissue thi ckening in this location. Soft tissue thickening along the anterior midline compatible with surgical scar. Pelvis: Prior mesh repair along the anterior pelvic wall. Bladder partially distended. Distal colonic anastom osis redemonstrated. 2.4 cm soft tissue nodule just behind the left deep inguinal ring was present ba ck to at least 05/13/2018 where no associated hypermetabolism is identified. Findings could represent s ome chronic scar tissue formation. Pelvic phlebolith. Presacral fat stranding remains unchanged. No p elvic lymphadenopathy seen. Bones: Mild endplate spondylosis lower thoracic spine. No osseous destructive process. IMPRESSION: 1. Right mid abdominal diverting colostomy. Stable parastomal hernia containing a short segment of no nobstructed small bowel. 2. Prior resection and reanastomosis at the rectosigmoid junction. No evidence for local recurrence o r metastatic disease. Continued presacral fat stranding probably postsurgical or posttreatment change . 3. Suggestion of a tiny 2 mm calculus dependently in the distal left ureter. Correlate for any renal colic symptoms. 4. Left-sided colonic diverticulosis without acute diverticulitis.
== END | disposition home or self-care (01) ==
LOC: RADPROMAIN 14:04
PROVIDERS: ATTEND Internal Medicine Hematology & Oncology
DX: C20 Malignant neoplasm of rectum (principal); K57.30 Diverticulosis of large intestine without perforation or abscess without bleeding; K43.5 Parastomal hernia without obstruction or gangrene; Z93.3 Colostomy status; Z98.890 Other specified postprocedural states
CPT/HCPCS: 82565; 84520; 71260; 74177; 36415; J1642; Q9967

== ENCOUNTER → 2019-04-11 | Outpatient (CLI) | payer MEDICARE, OTHER ==
[2019-04-11 14:45] LABS: African American GFR (CKD) >90 (>60 ml/min/1.73 sqM); Blood Urea Nitrogen 9 mg/dL (9-20)
== END | disposition home or self-care (01) ==
LOC: RADPROMAIN 13:54
PROVIDERS: ATTEND Internal Medicine Hematology & Oncology
DX: C20 Malignant neoplasm of rectum (principal)
CPT/HCPCS: 82565; 84520; J1642

== ENCOUNTER → 2019-04-27 | Outpatient (CLI) | payer MEDICARE, OTHER ==
[2019-04-27 12:03] LABS: African American GFR (CKD) >90 (>60 ml/min/1.73 sqM); Blood Urea Nitrogen 9 mg/dL (9-20)
--- NOTE | 2019-04-27 12:39 | CT ---
EXAMINATION TYPE: CT angio chest DATE OF EXAM: 04/27/2019 COMPARISON: 03/28/2019 HISTORY: Shortness of breath CT DLP: 549 mGycm CONTRAST: CT chest with contrast and 3D reconstruction with MIP imaging is performed with IV Contrast, patient injected with 100 mL of Isovue 370. Contrast-enhanced CT of the chest was performed through the course of the pulmonary arteries with sukhdev g and mediastinal window settings submitted. 3D reconstruction with MIP imaging was also performed. PULMONARY ARTERIES: The pulmonary arteries and their major tributaries are patent. I do not see thuy dence for sizable filling defect to suggest pulmonary embolic process. LUNGS: The lungs are clear and free of infiltrate. No evidence for atelectasis. No pulmonary nodule or mass is detected. No pleural effusion. MEDIASTINUM: Ascending thoracic aortic aneurysm measuring 4.3 cm AP dimension. No evidence for dissec tion or complicating factor. If there is concern for thoracic aortic pathology consider IDA. Correla te clinically . The heart is not enlarged. No evidence for mediastinal mass. No mediastinal lymph n odes greater than 1cm. HILAR STRUCTURES: No evidence for mass. No hilar lymph nodes greater than 1 cm. UPPER ABDOMEN: No significant abnormality is seen. IMPRESSION: 1. No evidence for Pulmonary embolism at this time.
== END | disposition home or self-care (01) ==
LOC: RADPROMAIN 11:05
PROVIDERS: ATTEND Nurse Practitioner Adult Health
DX: I26.99 Other pulmonary embolism without acute cor pulmonale (principal)
CPT/HCPCS: 86900; 86901; 82565; 84520; 86850; 71275; 36415; Q9967

== ENCOUNTER 2019-04-30 08:52 | Inpatient (IN) | payer MEDICARE, OTHER ==
[~2019-04-30 08:52] MED LIST changes: -DEXAMETHASONE SOD PHOSPHATE 10 MG/ML 1 ML VIAL IV ONE; -LACTATED RINGERS 1,000 ML IV SCH; +LIDOCAINE 1% 20 ML VIAL (10MG/ML) FOR IV START INTRADERMA PRN; -MIDAZOLAM (PF) 2 MG/2 ML VIAL IV PRN; +ONDANSETRON 4 MG/2 ML VIAL IVP PRN; -Pre Op ABX Message 1 EACH MISC MISCELLANE ONE; +ceFAZolin 3 GM in SODIUM CHLORIDE 0.9% 100 ML IVPB ONE; +metroNIDAZOLE-NS PMX 500 MG in SALINE 1 100ML.BAG IVPB ONE
[2019-04-30] MEDS: LACTATED RINGERS 1,000 ML IV SCH (09:30)
[2019-04-30 09:42] LABS: Glucose,Whole Blood 101 mg/dL (75-99)
[2019-04-30] MEDS ORDERED: MIDAZOLAM PF (FBP) 2 MG/2 ML VIAL IV ONE (09:52)
[2019-04-30] MEDS ORDERED: fentaNYL (PF) 50 MCG/ML 2 ML AMP IV ONE (09:52)
[2019-04-30] MEDS ORDERED: ALVIMOPAN 12 MG CAPSULE PO ONE (10:22)
--- NOTE | 2019-04-30 10:29 | P.GSHP ---
History of Present Illness H&P Date: 04/30/19 Chief Complaint: History of rectal cancer This a 48-year-old male who underwent previous right colectomy and low anterior resection for rectal cancer. Patient resents today for reversal of colostomy. Patient is a loop colostomy present in the right upper quadrant. Past Medical History Past Medical History: Cancer, Diabetes Mellitus, Hyperlipidemia, Hypertension, Pulmonary Embolus (PE), Seizure Disorder Additional Past Medical History / Comment(s): epilepsy-last seizure "10 years ago", ANEMIA, rectal cancer-last chemo Mar 21 and radiation through 08/06/18, kidney stone History of Any Multi-Drug Resistant Organisms: None Reported Past Surgical History: Appendectomy, Bowel Resection, Cholecystectomy, Hernia Repair Additional Past Surgical History / Comment(s): vasectomy, surg. to repair hypospadias as a child, bowel resection/colostomy 09/06/18, Past Anesthesia/Blood Transfusion Reactions: No Reported Reaction Smoking Status: Former smoker - Past Family History Brother(s) Family Medical History: Cancer, Deep Vein Thrombosis (DVT) Mother Family Medical History: Pulmonary Embolus Medications and Allergies Home Medications Medication Instructions Recorded Confirmed Type Divalproex [Depakote] 500 mg PO AC-BID 10/29/15 04/30/19 History metFORMIN HCL 1,000 mg PO BID #1 tab 09/18/18 04/30/19 Rx Atorvastatin [Lipitor] 20 mg PO HS 10/24/18 04/30/19 History Divalproex [Depakote] 750 mg PO HS 10/24/18 04/30/19 History Hydrochlorothiazide 12.5 mg PO BID 10/24/18 04/30/19 History Cyanocobalamin (Vitamin B-12) 1,000 mcg PO DAILY 04/02/19 04/30/19 History [Vitamin B-12] Pyridoxine HCl (Vitamin B6) 100 mg PO DAILY 04/02/19 04/30/19 History [Vitamin B-6] Rivaroxaban [Xarelto] 20 mg PO DAILY 04/02/19 04/30/19 History Allergies Allergy/AdvReac Type Severity Reaction Status Date / Time No Known Allergies Allergy Verified 04/30/19 09:09 Surgical - Exam Vital Signs Temp Pulse Resp BP Pulse Ox 98.0 F 95 16 154/84 91 L 04/30/19 09:30 04/30/19 09:30 04/30/19 09:30 04/30/19 09:30 04/30/19 09:30 - General well developed, well nourished, no distress - Eyes PERRL - ENT normal pinna - Neck no masses - Respiratory normal expansion - Cardiovascular Rhythm: regular - Abdomen Colostomy and right upper quadrant Abdomen: soft, non tender Results - Labs Abnormal Lab Results - Last 24 Hours (Table) 04/30/19 Range/Units 09:34 POC Glucose (mg/dL) 101 H (75-99) mg/dL Assessment and Plan Assessment: History of rectal cancer. We'll perform reversal of colostomy.
[2019-04-30] MEDS ORDERED: NALOXONE 0.4 MG/ML 1 ML VIAL IV PRN (10:39)
[2019-04-30] MEDS ORDERED: ROCURONIUM BROMIDE 10 MG/ML 10 ML VIAL IV ONE (10:58)
[2019-04-30] MEDS ORDERED: fentaNYL (PF) 50 MCG/ML 2 ML AMP ONE (10:58)
[2019-04-30] MEDS ORDERED: PROPOFOL 10 MG/ML 20 ML VIAL IV ONE (10:58)
[2019-04-30] MEDS ORDERED: SUCCINYLCHOLINE CHLORIDE 100 MG/5 ML SYR IV ONE (10:58)
[2019-04-30] MEDS ORDERED: NEOSTIGMINE 1 MG/ML 10 ML VIAL ONE (10:58)
[2019-04-30] MEDS ORDERED: GLYCOPYRROLATE 0.2 MG/ML 2 ML VIAL ONE (10:58)
[2019-04-30] MEDS ORDERED: MIDAZOLAM 2 MG/2 ML VIAL ONE (10:58)
[2019-04-30] MEDS ORDERED: LACTATED RINGERS 1,000 ML IV ONE (11:55)
[2019-04-30] MEDS ORDERED: HYDROmorphone 1 MG/ML 1 ML SYRINGE IVP PRN (12:10)
[2019-04-30] MEDS: ROPIVACAINE 250 MG, HYDROMORPHONE (PF) 5 MG in SODIUM CHLORIDE 0.9% 200 ML EPIDURAL PRN (12:39)
--- NOTE | 2019-04-30 12:44 | P.OP ---
Date of Procedure: 04/30/19 Preoperative Diagnosis: History of colon cancer Postoperative Diagnosis: History of colon cancer Procedure(s) Performed: Reversal of loop colostomy Lysis of adhesions Repair of incisional hernia Anesthesia: JOHN Surgeon: Daniel Sherman Estimated Blood Loss (ml): 50 Pathology: other (Colon) Condition: stable Disposition: PACU Description of Procedure: The patient's placed on the endoscopy table in the operative table in the supine position. He received general anesthesia. His abdomen and colostomy were prepped and draped in usual sterile fashion. The abdomen was entered through an upper midline incision. Patient a previous scar this incision. There was a small incisional hernia noted. There were adhesions to the anterior abdominal wall. Approximately 20 minutes of operative time used to lyse adhesions. Once the adhesions were lysed. The colostomy was visualized. The adhesions to the posterior were lysed. And then using the ANNITA stapler the afferent and 8. Lumen of the loop colostomy was transected. The adhesions to the colon were divided with sharp dissection and then a [id number] functional end-to-end staple anastomosis was created between the proximal and distal limb of the transverse colon. This was performed using the ANNITA and TA stapler. 3-0 GI silk suture was used as a crotch stitch. The fascia at the colostomy site was then closed using 0 Ethibond suture. Fascia in the midline was closed using #1 looped PDS suture. The incisional hernia was repaired entire fascial closure. The skin was closed el. The colostomy was then dissected from the abdominal wall using left cautery. The specimens of pathology. The skin was closed taped. ThePrevena wound system was then placed on the stapled skin.
[2019-04-30 12:56] LABS: Glucose,Whole Blood 131 mg/dL (75-99)
[2019-04-30 14:43] LABS: Basophils % (A) 0 %; Eosinophils # (A) 0.1 k/uL (0-0.7); Eosinophils % (A) 1 %; HCT 39.6 % (39.0-53.0); HGB 13.7 gm/dL (13.0-17.5); Lymphocytes # (A) 1.4 k/uL (1.0-4.8); Lymphocytes % (A) 20 %; MCH 34.3 pg (25.0-35.0); MCHC 34.6 g/dL (31.0-37.0); MCV 98.9 fL (80.0-100.0); Macrocytosis Slight; Mean Platelet Volume 7.3; Monocytes # (A) 0.8 k/uL (0-1.0); Monocytes % (A) 11 %; Neutrophils # (A) 4.3 k/uL (1.3-7.7); Neutrophils % (A) 63 %; Platelet Count 177 k/uL (150-450); RDW 15.9 % (11.5-15.5); WBC 6.7 k/uL (3.8-10.6)
[2019-04-30] MEDS: D5-0.45% NACL WITH KCL 20MEQ/L 1,000 ML IV SCH ×2 (15:25→23:16)
[2019-04-30] MEDS: HEPARIN SODIUM,PORCINE 5,000 UNIT/ML 1 ML VIAL SQ SCH ×2 (15:26→23:16)
[2019-04-30 16:37] LABS: Glucose,Whole Blood 87 mg/dL (75-99)
[2019-04-30] MEDS: KETOROLAC 30 MG/ML 1 ML VIAL IVP SCH ×3 (17:31→18:16)
--- NOTE | 2019-04-30 17:37 | CONS ---
CONSULTATION DATE OF SERVICE: 04/30/2019 REASON FOR CONSULTATION: Advice regarding pulmonary embolism and other medical issues requested by Dr. Sherman. HISTORY OF PRESENT ILLNESS: This 48-year-old gentleman with a past medical history of colon cancer, history of colostomy, history of diabetes, hypertension, hyperlipidemia, pulmonary embolisms, epilepsy, being followed by Dr. Leydi Davies in the outpatient setting, had possible pulmonary embolism with acute hypoxic respiratory failure. The patient has taken Xarelto for the last 9 months. The patient underwent reversal of loop colostomy and lysis of adhesions, repair of incisional hernia by Dr. Sherman. Patient tolerated the procedure well. The patient being closely monitored. There is no history of fever, rigors or chills. No history of headache, loss of consciousness, seizures at this time. PAST MEDICAL HISTORY: History of diabetes type 2, hypertension, hyperlipidemia, history of pulmonary embolus, seizure disorder. MEDICATION: Home medications are: 1. Metformin 1000 mg p.o. b.i.d. 2. Xarelto 20 mg p.o. daily. 3. Vitamin B6 100 mg p.o. daily. 4. Hydrochlorothiazide 12.5 mg b.i.d. 5. Depakote 750 mg p.o. q.h.s. 6. Depakote 500 mg p.o. b.i.d. 7. Vitamin B12 1000 mcg p.o. daily. 8. Lipitor 20 mg q.h.s. ALLERGIES: None. FAMILY HISTORY: History of DVT in multiple members of the family, history of cancer in the family. SOCIAL HISTORY: Previous history of smoking. No history of current smoking or alcohol intake. REVIEW OF SYSTEMS: ENT: No diminished vision or diminished hearing. CARDIOVASCULAR: No angina or palpitations. RESPIRATORY: As mentioned earlier. GI as mentioned earlier. no dysuria or hematuria. NERVOUS SYSTEM: No numbness or weakness. ALLERGY/IMMUNOLOGY: No asthma or hayfever. MUSCULOSKELETAL: As mentioned earlier. HEMATOLOGY/ONCOLOGY: As mentioned earlier. ENDOCRINE: As mentioned earlier. CONSTITUTIONAL: As mentioned earlier. DERMATOLOGY: Negative. RHEUMATOLOGY negative. PSYCHIATRY as mentioned earlier. PHYSICAL EXAMINATION: GENERAL: Alert and oriented times three. VITAL SIGNS: Pulse 98, blood pressure 143/90, respirations 16. Temperature is normal. Pulse ox 94% on 3 L. HEENT is conjunctivae normal. Oral mucosa moist. NECK is no jugular venous distention. No carotid bruit. No lymph node enlargement. No thyroid enlargement. CARDIOVASCULAR system: S1, S2 muffled. No S3, no S4. RESPIRATORY: Breath sounds diminished in the bases. A few scattered rhonchi. No crackles. ABDOMEN: Soft. Status post surgery. LEGS: No edema. No swelling. NERVOUS SYSTEM: Higher functions as mentioned earlier. Moves all 4 limbs. No focal motor or sensory deficits. Lymphatics: No lymph nodes palpable in the neck, axillae or groin. SKIN: No ulcer, no rash and no bleeding. JOINTS: No active deforming arthropathy. LABS: WBC 6.2, hemoglobin 13.7, glucose 131. ASSESSMENT: 1. Status post reversal of colostomy, lysis of adhesions, repair of incisional hernia. 2. History of postoperative pulmonary embolism with acute hypoxic respiratory failure. 3. Diabetes mellitus type 2. 4. Hypertension. 5. Hyperlipidemia. 6. History of seizure disorder. 7. Family history of coagulopathy. 8. History of seizure disorder. 9. History of anemia. 10.History of rectal cancer status post chemoradiation. 11.Appendectomy. 12.History of bowel resection. 13.History of cholecystectomy. 14.Remote history of nicotine dependence. 15.Obesity with body mass index 44.3. 16.FULL CODE. RECOMMENDATIONS AND DISCUSSION: This 48-year-old gentleman who presented with multiple complex medical issues. Otherwise, at this time, I recommend continue the current medications, symptomatic treatment. Otherwise, I would also recommend resume the Xarelto as soon as possible. Otherwise DVT prophylaxis. Resume the home medications. Patient may be asked to follow with primary physician closely and we will follow the patient closely. Thank you Dr. Sherman for letting us participate in the care of this patient. MMODL / IJN: [id number] /
[2019-04-30 21:08] LABS: Glucose,Whole Blood 120 mg/dL (75-99)
[2019-04-30] MEDS: ATORVASTATIN 20 MG TAB PO SCH (23:56)
[2019-04-30] MEDS: DIVALPROEX 250 MG TABLET.DR PO SCH (23:56)
[2019-05-01] MEDS: LACTATED RINGERS 1,000 ML IV SCH (05:42)
[2019-05-01] MEDS: D5-0.45% NACL WITH KCL 20MEQ/L 1,000 ML IV SCH ×3 (06:24→22:08)
[2019-05-01 07:10] LABS: Glucose,Whole Blood 131 mg/dL (75-99)
--- NOTE | 2019-05-01 07:19 | P.PN ---
Progress Note - Text Date:[05/01/2019] Time:[0701] The patient is status post[] postoperative day number[1] The patient has no complaints of nausea vomiting or headache. The patient does not complain of any lower extremity numbness or weakness. The epidural is running at[10] mL per hour. The epidural will be maintained and adjusted as needed.
[2019-05-01] MEDS: DIVALPROEX 500 MG TABLET.DR PO SCH ×2 (08:32→17:44)
[2019-05-01] MEDS: HEPARIN SODIUM,PORCINE 5,000 UNIT/ML 1 ML VIAL SQ SCH (08:32)
[2019-05-01] MEDS: CYANOCOBALAMIN 500 MCG TAB PO SCH (08:32)
[2019-05-01] MEDS: HYDROCHLOROTHIAZIDE 12.5 MG CAP PO SCH ×2 (08:33→21:15)
[2019-05-01] MEDS: ALVIMOPAN 12 MG CAPSULE PO SCH ×2 (08:33→21:16)
[2019-05-01] MEDS: PYRIDOXINE 50 MG TAB PO SCH (08:40)
[2019-05-01] MEDS: metFORMIN 500 MG TAB PO SCH ×2 (08:40→21:14)
[2019-05-01] MEDS: ROPIVACAINE 250 MG, HYDROMORPHONE (PF) 5 MG in SODIUM CHLORIDE 0.9% 200 ML EPIDURAL PRN (11:22)
[2019-05-01 11:42] LABS: Glucose,Whole Blood 139 mg/dL (75-99)
--- NOTE | 2019-05-01 12:12 | P.PN ---
Subjective Progress Note Date: 05/01/19 CHIEF COMPLAINT: colostomy reversal HISTORY OF PRESENT ILLNESS: 48-year-old male who is status post reversal of loop colostomy, lysis of adhesions, and repair of incisional hernia. Postop day #1. Patient is examined this morning sitting in the chair. He reports his pain is tolerable. Currently rating 0 out of 10. Patient has been up in the arias ambulating this morning. He denies passing flatus. Denies BM. Tolerating clear liquid diet. Denies nausea or vomiting. PHYSICAL EXAM: VITAL SIGNS: Reviewed. GENERAL: Well-developed in no acute distress. HEENT: No sclera icterus. Extraocular movements grossly intact. Moist buccal mucosa. Head is atraumatic, normocephalic. ABDOMEN: Soft. Nondistended. appropriate surgical tenderness. Prevena wound management system noted. NEUROLOGIC: Alert and oriented. Cranial nerves II through XII grossly intact. ASSESSMENT: 1. History of colon cancer, status post reversal of loop colostomy, lysis of adhesions, and repair of incisional hernia PLAN: 1. Continue clear liquid diet. Await bowel function. 2. Pain control. Continue epidural. Remove POD #3 3. Continue Samuel catheter while epidural intact. Accurate I&O 4. Incentive spirometry 5. Activity as tolerated Nurse practitioner note has been reviewed by physician. Signing provider agrees with the documented findings, assessment, and plan of care. Objective - Vital Signs Vital signs: Vital Signs Temp 99.0 F 05/01/19 07:26 Pulse 110 H 05/01/19 10:43 Resp 24 05/01/19 10:43 BP 136/83 05/01/19 07:26 Pulse Ox 91 L 05/01/19 07:26 Intake & Output 04/30/19 05/01/19 05/01/19 18:59 06:59 18:59 Intake Total 1695 1520 295.667 Output Total 300 800 Balance 1395 720 295.667 Weight 124.6 kg Intake: IV 1695 Intake, IV Titration 1500 55.667 Amount D5-0.45% NaCl with KCl 1500 20Meq/l 1,000 ml @ 125 mls/hr IV .Q8H [facility] Rx#: [id number] Ropivacaine 250 mg 55.667 Hydromorphone (Pf) 5 mg In Sodium Chloride 0.9% 200 ml @ Per Protocol EPIDURAL .Q0M PRN Rx#: [id number] Oral 20 240 Output: Urine 200 800 Estimated Blood Loss 100 Other: Voiding Method Indwelling Catheter Indwelling Catheter Indwelling Catheter - Labs CBC & Chem 7: 04/30/19 13:59 Labs: Abnormal Lab Results - Last 24 Hours (Table) 04/30/19 04/30/19 04/30/19 Range/Units 12:41 13:59 20:57 RBC 4.00 L (4.30-5.90) m/uL RDW 15.9 H (11.5-15.5) % POC Glucose (mg/dL) 131 H 120 H (75-99) mg/dL 05/01/19 05/01/19 Range/Units 07:08 11:40 RBC (4.30-5.90) m/uL RDW (11.5-15.5) % POC Glucose (mg/dL) 131 H 139 H (75-99) mg/dL
[2019-05-01] MEDS ORDERED: diphenhydrAMINE 50 MG/ML 1 ML VIAL IVP STA (14:08)
--- NOTE | 2019-05-01 15:08 | PN ---
PROGRESS NOTE DATE OF SERVICE: 05/01/2019 This is a 48-year-old gentleman who was admitted after reversal of colostomy, is being closely monitored. Patient also has history of pulmonary embolus. No chest pain. No palpitations. No fever. PHYSICAL EXAM: Alert and oriented x3, pulse is 119, blood pressure is 136/80, respiration 24, temperature 99 degrees, pulse ox 91% on 3 L. HEENT: Conjunctivae normal. NECK: No jugular venous distension. CARDIAC: S1, S2, muffled. RESPIRATION: Breath sounds diminished at the bases, a few scattered rhonchi, no crackles. ABDOMEN: Soft, obese, status post surgery. LEGS: No edema, no swelling. NERVOUS SYSTEM: No focal deficits. LABS: WBC is 6.8, hemoglobin is 13.7. ASSESSMENT: 1. Status post reversal of colostomy, lysis of adhesions, repair of incisional hernia. 2. History of postoperative pulmonary embolism and acute hypoxic respiratory failure. 3. Tachycardia. 4. Diabetes mellitus type 2. 5. Hypertension. 6. Hyperlipidemia. 7. History of seizure disorder. 8. Family history of coagulopathy. 9. History of seizure disorder. 10.History os anemia. 11.History of rectal cancer, status post chemoradiation. 12.Appendectomy. 13.History of bowel resection. 14.History of cholecystectomy. 15.Remote history of nicotine dependence. 16.Obesity, body mass index of 44.6. 17.FULL CODE. RECOMMENDATION: Recommend to continue current management and symptomatic treatment. I recommend resume the Xarelto and otherwise I would also recommend a set of troponins, repeat labs and baseline chest x-ray. Continue to monitor EKG. Continue to monitor. Further recommendation to follow. MMODL / IJN: [id number] /
[2019-05-01 15:56] LABS: ALT 25 U/L (21-72); AST 25 U/L (17-59); African American GFR (CKD) >90 (>60 ml/min/1.73 sqM); Albumin 3.2 g/dL (3.5-5.0); Alkaline Phosphatase 56 U/L (38-126); Anion Gap 10 mmol/L; Blood Urea Nitrogen 4 mg/dL (9-20); Calcium 8.6 mg/dL (8.4-10.2); Carbon Dioxide 24 mmol/L (22-30); Chloride 100 mmol/L (98-107); Glucose 146 mg/dL (74-99); Non-African American GFR(CKD) >90 (>60 ml/min/1.73 sqM); Potassium 3.7 mmol/L (3.5-5.1); Sodium 134 mmol/L (137-145); Total Bilirubin 1.3 mg/dL (0.2-1.3); Total Protein 6.3 g/dL (6.3-8.2)
[2019-05-01 16:44] LABS: Glucose,Whole Blood 120 mg/dL (75-99)
[2019-05-01] MEDS: RIVAROXABAN 20 MG TAB PO SCH (17:45)
[2019-05-01 20:51] LABS: Glucose,Whole Blood 128 mg/dL (75-99)
[2019-05-01] MEDS: ATORVASTATIN 20 MG TAB PO SCH (21:15)
[2019-05-01] MEDS: DIVALPROEX 250 MG TABLET.DR PO SCH (21:16)
[2019-05-01] MEDS ORDERED: diphenhydrAMINE 50 MG/ML 1 ML VIAL IVP PRN (21:34)
[2019-05-02] MEDS: LACTATED RINGERS 1,000 ML IV SCH (03:16)
[2019-05-02] MEDS: D5-0.45% NACL WITH KCL 20MEQ/L 1,000 ML IV SCH ×2 (05:16→13:15)
--- NOTE | 2019-05-02 05:48 | P.PN ---
Progress Note - Text Progress Note Date: 05/02/19 48-year-old female status post reversal of colostomy postop day #2, epidural catheter day #3. Solution consisting of ropivacaine 0.1% and Dilaudid 20 mics per mL. Rate is currently at 10. She does have complaints of pruritus but no motor or sensory deficits. He was treated with Benadryl for the pruritus. Catheter looks clean dry and intact. Patient had epidural catheter in for 1 more day if necessary. VAS is a 2-3 out of 10 depending on activity. Continue with current settings.
[2019-05-02 06:58] LABS: Glucose,Whole Blood 123 mg/dL (75-99)
[2019-05-02] MEDS: HYDROCHLOROTHIAZIDE 12.5 MG CAP PO SCH ×2 (07:19→22:24)
[2019-05-02] MEDS: DIVALPROEX 500 MG TABLET.DR PO SCH ×2 (07:19→16:32)
[2019-05-02] MEDS: metFORMIN 500 MG TAB PO SCH ×2 (07:19→22:28)
[2019-05-02] MEDS: CYANOCOBALAMIN 500 MCG TAB PO SCH (07:19)
[2019-05-02] MEDS: ALVIMOPAN 12 MG CAPSULE PO SCH ×2 (07:19→22:23)
[2019-05-02] MEDS: RIVAROXABAN 20 MG TAB PO SCH (07:20)
[2019-05-02] MEDS: PYRIDOXINE 50 MG TAB PO SCH (07:20)
--- NOTE | 2019-05-02 08:12 | XR ---
EXAMINATION TYPE: XR chest 1V portable DATE OF EXAM: 05/02/2019 HISTORY: Shortness of breath. COMPARISON: 10/26/2018 TECHNIQUE: Single view of the chest is submitted. FINDINGS: Demonstrated are scattered senescent parenchymal change. Patchy basilar infiltrates right greater than left remain unchanged. No evidence for congestive failu re. The heart is stable. Hilar and mediastinal structures are within normal limits. Degenerative changes are seen of the dorsal spine. IMPRESSION: 1. Patchy basilar infiltrates right greater than left. No evidence for congestive failure.
[2019-05-02 08:45] LABS: African American GFR (CKD) >90 (>60 ml/min/1.73 sqM); Anion Gap 8 mmol/L; Blood Urea Nitrogen 4 mg/dL (9-20); Calcium 8.4 mg/dL (8.4-10.2); Carbon Dioxide 27 mmol/L (22-30); Chloride 98 mmol/L (98-107); Glucose 134 mg/dL (74-99); Non-African American GFR(CKD) >90 (>60 ml/min/1.73 sqM); Potassium 3.8 mmol/L (3.5-5.1); Sodium 133 mmol/L (137-145)
[2019-05-02 08:50] LABS: Basophils % (A) 0 %; Eosinophils # (A) 0.1 k/uL (0-0.7); Eosinophils % (A) 1 %; HGB 12.6 gm/dL (13.0-17.5); Lymphocytes # (A) 1.2 k/uL (1.0-4.8); Lymphocytes % (A) 14 %; MCH 31.1 pg (25.0-35.0); MCHC 31.5 g/dL (31.0-37.0); MCV 98.6 fL (80.0-100.0); Monocytes # (A) 1.1 k/uL (0-1.0); Monocytes % (A) 12 %; Neutrophils # (A) 5.9 k/uL (1.3-7.7); Neutrophils % (A) 68 %; Platelet Count 180 k/uL (150-450); RBC 4.06 m/uL (4.30-5.90); RDW 15.5 % (11.5-15.5); WBC 8.7 k/uL (3.8-10.6)
[2019-05-02] MEDS: ONDANSETRON 4 MG/2 ML VIAL IVP PRN ×2 (10:37→17:18)
[2019-05-02 11:45] LABS: Glucose,Whole Blood 129 mg/dL (75-99)
--- NOTE | 2019-05-02 12:46 | P.PN ---
Subjective Progress Note Date: 05/02/19 CHIEF COMPLAINT: colostomy reversal HISTORY OF PRESENT ILLNESS: 48-year-old male who is status post reversal of loop colostomy, lysis of adhesions, and repair of incisional hernia. Postop day #2. Patient is examined this morning sitting in the chair. He reports his pain is tolerable. Epidural infusing. He denies passing flatus. Denies BM. Tolerating clear liquid diet. Denies nausea or vomiting. PHYSICAL EXAM: VITAL SIGNS: Reviewed. GENERAL: Well-developed in no acute distress. HEENT: No sclera icterus. Extraocular movements grossly intact. Moist buccal mucosa. Head is atraumatic, normocephalic. ABDOMEN: Soft. Nondistended. appropriate surgical tenderness. Prevena wound management system noted with erythema and blisters to edges of dressing. NEUROLOGIC: Alert and oriented. Cranial nerves II through XII grossly intact. ASSESSMENT: 1. History of colon cancer, status post reversal of loop colostomy, lysis of adhesions, and repair of incisional hernia PLAN: 1. Continue clear liquid diet. Await bowel function. 2. Pain control. Continue epidural. Remove POD #3 (tomorrow) 3. Continue Samuel catheter while epidural intact. Accurate I&O 4. Incentive spirometry 5. Activity as tolerated Nurse practitioner note has been reviewed by physician. Signing provider agrees with the documented findings, assessment, and plan of care. Objective - Vital Signs Vital signs: Vital Signs Temp 99.0 F 05/02/19 06:51 Pulse 101 H 05/02/19 07:54 Resp 20 05/02/19 07:54 BP 136/88 05/02/19 06:51 Pulse Ox 94 L 05/02/19 06:51 Intake & Output 05/01/19 05/02/19 05/02/19 18:59 06:59 18:59 Intake Total 860.667 473 Output Total 1200 2200 Balance -339.333 -1727 Intake: Intake, IV Titration 55.667 473 Amount D5-0.45% NaCl with KCl 375 20Meq/l 1,000 ml @ 125 mls/hr IV .Q8H [facility] Rx#: [id number] Ropivacaine 250 mg 55.667 98 Hydromorphone (Pf) 5 mg In Sodium Chloride 0.9% 200 ml @ Per Protocol EPIDURAL .Q0M PRN Rx#: [id number] Oral 805 Output: Urine 1200 2200 Uretheral (Samuel) 1000 Other: Voiding Method Indwelling Catheter Indwelling Catheter Indwelling Catheter - Labs CBC & Chem 7: 05/02/19 08:08 05/02/19 08:08 Labs: Abnormal Lab Results - Last 24 Hours (Table) 05/01/19 05/01/19 05/01/19 Range/Units 15:27 16:42 20:40 RBC (4.30-5.90) m/uL Hgb (13.0-17.5) gm/dL Monocytes # (0-1.0) k/uL Sodium 134 L (137-145) mmol/L BUN 4 L (9-20) mg/dL Creatinine 0.62 L (0.66-1.25) mg/dL Glucose 146 H (74-99) mg/dL POC Glucose (mg/dL) 120 H 128 H (75-99) mg/dL Albumin 3.2 L (3.5-5.0) g/dL 05/02/19 05/02/19 05/02/19 Range/Units 06:46 08:08 08:08 RBC 4.06 L (4.30-5.90) m/uL Hgb 12.6 L (13.0-17.5) gm/dL Monocytes # 1.1 H (0-1.0) k/uL Sodium 133 L (137-145) mmol/L BUN 4 L (9-20) mg/dL Creatinine 0.56 L (0.66-1.25) mg/dL Glucose 134 H (74-99) mg/dL POC Glucose (mg/dL) 123 H (75-99) mg/dL Albumin (3.5-5.0) g/dL 05/02/19 Range/Units 11:33 RBC (4.30-5.90) m/uL Hgb (13.0-17.5) gm/dL Monocytes # (0-1.0) k/uL Sodium (137-145) mmol/L BUN (9-20) mg/dL Creatinine (0.66-1.25) mg/dL Glucose (74-99) mg/dL POC Glucose (mg/dL) 129 H (75-99) mg/dL Albumin (3.5-5.0) g/dL
[2019-05-02] MEDS ORDERED: IPRATROPIUM-ALBUTEROL 3 ML NEB INHALATION PRN (13:15)
[2019-05-02] MEDS ORDERED: FUROSEMIDE 10 MG/ML 4 ML VIAL IV STA (13:15)
[2019-05-02] MEDS: PANTOPRAZOLE 40 MG/10 ML VIAL IVP SCH ×2 (13:24→22:28)
--- NOTE | 2019-05-02 14:37 | PN ---
PROGRESS NOTE DATE OF SERVICE: 05/02/2019 This is a 48-year-old gentleman who was admitted after a colostomy reversal, also had some adhesions. Patient complains of some mild nausea at this time. A chest x- ray done today which was reviewed by me showed some atelectasis. No chest pain. No palpitations. PAST MEDICAL HISTORY: Reviewed. REVIEW OF SYSTEMS: CARDIOVASCULAR SYSTEM: No angina or palpitations. RESPIRATORY: As mentioned earlier. GI: No nausea. : No dysuria. NERVOUS SYSTEM: No numbness or weakness. CURRENT MEDICATIONS ARE REVIEWED INCLUDE: 2. Lipitor 20 mg b.i.d. 3. Depakote 750 q.h.s. 4. HydroDIURIL 12.5 mg b.i.d. 5. Dilaudid p.r.n. 6. Glucophage. 7. Zofran. 8. Xarelto. 9. Ropivacaine. PHYSICAL EXAM: Patient is alert, oriented x3, pulse 101, blood pressure 130/88, respiration 20, temperature 98 degrees, pulse ox 94% on 3 L. HEENT: Conjunctivae normal. Oral mucosa moist. NECK: No jugular venous distention. No lymph node enlargement. CARDIOVASCULAR: S1, S2, muffled, no S3, no S4. RESPIRATORY: Breath sounds diminished at the bases, a few scattered rhonchi, no crackles. ABDOMEN: Soft, status post surgery. LEGS: No edema, no swelling. NERVOUS SYSTEM: Higher functions as mentioned earlier. Moves all 4 limbs. No focal motor or sensory deficits. LYMPHATICS: No lymph node enlargement in the neck or axillae. SKIN: No ulcer, no rashes. JOINTS: No active deforming arthropathy. LABS: WBC is 8.2, hemoglobin is 12.6, and monocytes 1.1. Sodium is 133, glucose 134. ASSESSMENT: 1. Status post colostomy reversal, lysis of adhesions and repair of incisional hernia. 2. History of postoperative pulmonary embolism and acute hypoxic respiratory failure. 3. Tachycardia. 4. Diabetes mellitus type 2. 5. Hypertension. 6. Hyperlipidemia. 7. History of seizure disorder. 8. Family history of coagulopathy. 9. History of anemia. 10.History of rectal cancer, status post chemoradiation. 11.History of appendectomy. 12.History of bowel resection. 13.History of cholecystectomy. 14.Remote history of nicotine dependence. 15.Obesity, body mass index of 44.6. 16.FULL CODE. RECOMMENDATION: Recommend to continue current medications, symptomatic treatment. I would recommend to add bronchodilators and incentive spirometry. Otherwise, cut down the fluids and continue with Xarelto. Will continue to monitor. DVT prophylaxis. Monitor blood sugars closely and closely follow with Surgery. Further recommendations to follow. See orders for details. MMODL / IJN: [id number] / MTDD
[2019-05-02] MEDS: ROPIVACAINE 250 MG, HYDROMORPHONE (PF) 5 MG in SODIUM CHLORIDE 0.9% 200 ML EPIDURAL PRN (16:30)
[2019-05-02 17:17] LABS: Glucose,Whole Blood 112 mg/dL (75-99)
[2019-05-02] MEDS: IPRATROPIUM-ALBUTEROL 3 ML NEB INHALATION SCH (19:45)
[2019-05-02 20:54] LABS: Glucose,Whole Blood 134 mg/dL (75-99)
[2019-05-02] MEDS: METOCLOPRAMIDE 5 MG/ML 2 ML VIAL IVP PRN (21:00)
[2019-05-02] MEDS: DIVALPROEX 250 MG TABLET.DR PO SCH (22:23)
[2019-05-02] MEDS: ATORVASTATIN 20 MG TAB PO SCH (22:23)
[2019-05-03] MEDS: D5-0.45% NACL WITH KCL 20MEQ/L 1,000 ML IV SCH (03:55)
[2019-05-03] MEDS: METOCLOPRAMIDE 5 MG/ML 2 ML VIAL IVP PRN ×2 (03:55→08:39)
[2019-05-03] MEDS: LACTATED RINGERS 1,000 ML IV SCH (03:55)
[2019-05-03] MEDS: ALVIMOPAN 12 MG CAPSULE PO SCH ×2 (07:24→21:16)
[2019-05-03] MEDS: CYANOCOBALAMIN 500 MCG TAB PO SCH (07:24)
[2019-05-03] MEDS: metFORMIN 500 MG TAB PO SCH ×2 (07:24→21:17)
[2019-05-03] MEDS: DIVALPROEX 500 MG TABLET.DR PO SCH ×2 (07:24→17:04)
[2019-05-03] MEDS: PYRIDOXINE 50 MG TAB PO SCH (07:25)
[2019-05-03] MEDS: HYDROCHLOROTHIAZIDE 12.5 MG CAP PO SCH ×2 (07:25→21:17)
[2019-05-03] MEDS: RIVAROXABAN 20 MG TAB PO SCH (07:25)
[2019-05-03] MEDS: PANTOPRAZOLE 40 MG/10 ML VIAL IVP SCH ×2 (07:27→21:17)
[2019-05-03 07:50] LABS: Glucose,Whole Blood 146 mg/dL (75-99)
[2019-05-03] MEDS: IPRATROPIUM-ALBUTEROL 3 ML NEB INHALATION SCH ×3 (08:01→19:07)
--- NOTE | 2019-05-03 08:18 | P.PN ---
Progress Note - Text Date: 05/03/2019 Time: 715 The patient is status post, exploratory laparotomy, postoperative day number 3 The patient has no complaints of nausea vomiting or headache. The patient does not complain of any lower extremity numbness or weakness. The epidural is running at[ 10] mL per hour. The epidural will be discontinued this a.m. Pain medicines will be provided to the patient by the service.
[2019-05-03] MEDS ORDERED: SODIUM CHLORIDE 0.9% 1,000 ML IV ONE ×2 (08:36→13:59)
[2019-05-03] MEDS: ONDANSETRON 4 MG/2 ML VIAL IVP PRN (08:39)
[2019-05-03 09:03] LABS: African American GFR (CKD) >90 (>60 ml/min/1.73 sqM); Anion Gap 14 mmol/L; Blood Urea Nitrogen 15 mg/dL (9-20); Calcium 9.3 mg/dL (8.4-10.2); Carbon Dioxide 25 mmol/L (22-30); Chloride 96 mmol/L (98-107); Glucose 165 mg/dL (74-99); Non-African American GFR(CKD) >90 (>60 ml/min/1.73 sqM); Potassium 4.1 mmol/L (3.5-5.1); Sodium 135 mmol/L (137-145)
[2019-05-03 09:22] LABS: Anisocytosis Slight; MCH 32.7 pg (25.0-35.0); MCHC 32.6 g/dL (31.0-37.0); MCV 100.4 fL (80.0-100.0); Macrocytosis Slight; Mean Platelet Volume 7.7; Platelet Count 226 k/uL (150-450); RBC 4.58 m/uL (4.30-5.90); RDW 16.3 % (11.5-15.5)
[2019-05-03 11:07] LABS: Band Neutrophils % 27 %; Lymphocytes # (M) 1.26 k/uL (1.0-4.8); Metamyelocytes # (M) 0.18 k/uL (0); Metamyelocytes % 3 %; Monocytes # (M) 1.08 k/uL (0-1.0); Myelocytes # (M) 0.06 k/uL (0); Myelocytes % 1 %; Neutrophils % (M) 32 %; Nucleated Red Blood Cells 0 /100 WBC (0-0); Total Cells Counted 200
[2019-05-03 11:08] LABS: Poikilocytosis (M) Present
[2019-05-03 11:58] LABS: Glucose,Whole Blood 156 mg/dL (75-99)
--- NOTE | 2019-05-03 13:54 | P.PN ---
Subjective Progress Note Date: 05/03/19 CHIEF COMPLAINT: colostomy reversal HISTORY OF PRESENT ILLNESS: 48-year-old male who is status post reversal of loop colostomy, lysis of adhesions, and repair of incisional hernia. Postop day #3. Patient is examined this morning sitting in the chair. patient reports feeling unwell this morning. He has been nauseous and vomiting overnight. Denies passing flatus. PHYSICAL EXAM: VITAL SIGNS: Reviewed. GENERAL: Well-developed in no acute distress. HEENT: No sclera icterus. Extraocular movements grossly intact. Moist buccal mucosa. Head is atraumatic, normocephalic. ABDOMEN: Soft. Nondistended. appropriate surgical tenderness. Prevena wound management system noted with erythema and blisters to edges of dressing. NEUROLOGIC: Alert and oriented. Cranial nerves II through XII grossly intact. ASSESSMENT: 1. History of colon cancer, status post reversal of loop colostomy, lysis of adhesions, and repair of incisional hernia 2. Postoperative ileus, an unexpected but potential outcome of surgery PLAN: 1. Downgrade diet to NPO. Insert NG tube to LIS 2. Discontinue epidural. Dilaudid PRN for pain 3. Continue Reglan and Zofran 4. 1 Liter fluid bolus secondary to dark donna urine. Increase IV fluids to 125cc/hr. 5. Continue urinary catheter today for accurate I&O. Will reassess daily for possible removal 6. Incentive spirometry 7. Activity as tolerated Nurse practitioner note has been reviewed by physician. Signing provider agrees with the documented findings, assessment, and plan of care. Objective - Vital Signs Vital signs: Vital Signs Temp 98.4 F 05/03/19 07:00 Pulse 111 H 05/03/19 07:00 Resp 16 05/03/19 07:00 BP 146/98 05/03/19 07:00 Pulse Ox 92 L 05/03/19 07:00 Intake & Output 05/02/19 05/03/19 05/03/19 18:59 06:59 18:59 Intake Total 96.667 943.583 21.233 Output Total 1200 325 Balance -1103.333 618.583 21.233 Intake: Intake, IV Titration 96.667 943.583 21.233 Amount D5-0.45% NaCl with KCl 915 20Meq/l 1,000 ml @ 60 mls /hr IV .[id number] [facility] Rx#: [id number] Ropivacaine 250 mg 96.667 28.583 21.233 Hydromorphone (Pf) 5 mg In Sodium Chloride 0.9% 200 ml @ Per Protocol EPIDURAL .Q0M PRN Rx#: [id number] Output: Urine 1200 325 Other: Voiding Method Indwelling Catheter Indwelling Catheter Indwelling Catheter - Labs CBC & Chem 7: 05/03/19 08:20 05/03/19 08:20 Labs: Abnormal Lab Results - Last 24 Hours (Table) 05/02/19 05/02/19 05/03/19 Range/Units 17:02 20:52 07:37 MCV (80.0-100.0) fL RDW (11.5-15.5) % Monocytes # (Manual) (0-1.0) k/uL Metamyelocytes # (Man) (0) k/uL Myelocytes # (Manual) (0) k/uL Sodium (137-145) mmol/L Chloride (98-107) mmol/L Creatinine (0.66-1.25) mg/dL Glucose (74-99) mg/dL POC Glucose (mg/dL) 112 H 134 H 146 H (75-99) mg/dL 05/03/19 05/03/19 05/03/19 Range/Units 08:20 08:20 11:46 MCV 100.4 H (80.0-100.0) fL RDW 16.3 H (11.5-15.5) % Monocytes # (Manual) 1.08 H (0-1.0) k/uL Metamyelocytes # (Man) 0.18 H (0) k/uL Myelocytes # (Manual) 0.06 H (0) k/uL Sodium 135 L (137-145) mmol/L Chloride 96 L (98-107) mmol/L Creatinine 0.62 L (0.66-1.25) mg/dL Glucose 165 H (74-99) mg/dL POC Glucose (mg/dL) 156 H (75-99) mg/dL
--- NOTE | 2019-05-03 14:53 | XR ---
EXAMINATION TYPE: XR chest 1V DATE OF EXAM: 05/03/2019 CLINICAL HISTORY: Hypoxia, status post nasogastric tube placement. TECHNIQUE: Single AP portable upright view of the chest is obtained. COMPARISON: Chest x-ray from one day earlier FINDINGS: Suboptimal due to patient's large body habitus. New Nasogastric tube projects below diaph ragm. Stable right subclavian Mediport catheter. Persistent cardiomegaly with central vascular conges tion. Persistent somewhat low lung volumes without new focal airspace opacity, pleural effusion, or p neumothorax. Osseous structures are intact. IMPRESSION: New nasogastric tube projects below diaphragm. Persistent low lung volumes and cardiomega ly with mild central vascular congestion, correlate for fluid overload state or CHF exacerbation.
[2019-05-03 15:23] VITALS: BMI 44.3
--- NOTE | 2019-05-03 17:13 | CT ---
EXAMINATION TYPE: CT angio chest DATE OF EXAM: 05/03/2019 4:54 PM COMPARISON: 04/27/2019 HISTORY: History of colon cancer, rule out PE. CT DLP: 723.3 mGycm Automated exposure control for dose reduction was used. CONTRAST: CTA scan of the thorax is performed with IV Contrast, patient injected with 100 mL of Isovue 370, pul monary embolism protocol. . There are 3-D post processed images. FINDINGS: There is some patchy linear infiltrate or atelectasis at the posterior lung bases. There is minimal s ubpleural 1.5 cm area of infiltrate lateral aspect left upper lobe. There is nasogastric tube. Thorac ic aorta is intact. There is no aortic dissection. There is mild aneurysm of the ascending aorta that measures 4.1 cm. There is normal contrast opacification of the pulmonary arteries. There are no filling defects. There is no mediastinal adenopathy. There are no hilar masses. The thoracic spine appears intact. There is 5% depression of the superior endplate of upper thoracic vertebra that appears old. IMPRESSION: NO EVIDENCE OF PULMONARY EMBOLISM. MINIMAL ANEURYSM ASCENDING AORTA UNCHANGED. LINEAR INFILTRATE AND ATELECTASIS IN BOTH LOWER LOBES SIGNIFICANTLY INCREASED COMPARED TO RECENT EXAM .
[2019-05-03 17:14] LABS: Glucose,Whole Blood 135 mg/dL (75-99)
--- NOTE | 2019-05-03 19:11 | PN ---
PROGRESS NOTE DATE OF SERVICE: 05/03/2019. This 48-year-old gentleman who was admitted after a colostomy reversal is also complaining of some nausea and vomiting today. The patient is n.p.o. at this time. Surgery is following the patient closely. A chest x-ray was repeated which showed some atelectasis. No chest pain. No palpitations. No fever. EXAM: Alert and oriented times three. Pulse 111, blood pressure 140/98, respirations 16, temperature 98.4, pulse ox 92% on 2 L. HEENT is conjunctivae normal. NECK: No JVD. CARDIOVASCULAR: S1, S2 muffled. RESPIRATORY: Breath sounds diminished in the bases. Scattered rhonchi and crackles. ABDOMEN is soft. Status post surgery. LEGS are no edema. No swelling. LABS: WBC 6, hemoglobin 15, sodium 135. ASSESSMENT: 1. Status post colostomy reversal of adhesions and repair of incisional hernia. 2. History of postoperative pulmonary embolism and acute hypoxic respiratory failure previously. 3. Postoperative ileus. 4. Tachycardia. 5. Diabetes type 2. 6. Hypertension. 7. Hyperlipidemia. 8. History of seizure disorder. 9. Family history of coagulopathy. 10.History of anemia. 11.History of rectal cancer status post chemoradiation. 12.History of appendectomy. 13.History of bowel resection. 14.History of cholecystectomy. 15.Remote history of nicotine dependence. 16.Obesity, body mass index of 44.6. 17.FULL CODE. RECOMMENDATIONS AND DISCUSSION: Recommend to continue current medications, continue with monitoring and symptomatic treatment. Otherwise, at this time, I would recommend continue with current medications. The oxygenation is well maintained. Patient is still tachycardic. Otherwise, recommended a set of troponins which was negative yesterday. We will continue to monitor. Surgery is following the patient closely. The patient was found to have postoperative ileus. We will continue to monitor and I would also recommend D- dimer, if it is elevated, I would also recommend spiral CT, angio of the chest also. Further recommendations to follow. MMODL / IJN: [id number] /
[2019-05-03 20:17] LABS: Glucose,Whole Blood 141 mg/dL (75-99)
[2019-05-03] MEDS: ATORVASTATIN 20 MG TAB PO SCH (21:16)
[2019-05-03] MEDS: DIVALPROEX 250 MG TABLET.DR PO SCH (21:17)
[2019-05-04] MEDS: D5-0.45% NACL WITH KCL 20MEQ/L 1,000 ML IV SCH ×3 (01:30→17:31)
[2019-05-04] MEDS: LACTATED RINGERS 1,000 ML IV SCH (04:49)
[2019-05-04 07:07] LABS: Glucose,Whole Blood 123 mg/dL (75-99)
[2019-05-04] MEDS: IPRATROPIUM-ALBUTEROL 3 ML NEB INHALATION SCH ×3 (07:52→19:47)
[2019-05-04] MEDS ORDERED: SODIUM CHLORIDE 0.9% 1,000 ML IV ONE (08:31)
[2019-05-04 09:28] LABS: African American GFR (CKD) >90 (>60 ml/min/1.73 sqM); Anion Gap 11 mmol/L; Blood Urea Nitrogen 13 mg/dL (9-20); Calcium 8.6 mg/dL (8.4-10.2); Carbon Dioxide 26 mmol/L (22-30); Chloride 99 mmol/L (98-107); Glucose 136 mg/dL (74-99); Non-African American GFR(CKD) >90 (>60 ml/min/1.73 sqM); Sodium 136 mmol/L (137-145)
[2019-05-04] MEDS: ALVIMOPAN 12 MG CAPSULE PO SCH ×2 (09:46→20:23)
[2019-05-04] MEDS: RIVAROXABAN 20 MG TAB PO SCH (09:47)
[2019-05-04] MEDS: DIVALPROEX 500 MG TABLET.DR PO SCH ×2 (09:47→17:30)
[2019-05-04] MEDS: CYANOCOBALAMIN 500 MCG TAB PO SCH (09:47)
[2019-05-04] MEDS: HYDROCHLOROTHIAZIDE 12.5 MG CAP PO SCH ×2 (09:47→22:00)
[2019-05-04] MEDS: metFORMIN 500 MG TAB PO SCH ×2 (09:47→22:00)
[2019-05-04] MEDS: PYRIDOXINE 50 MG TAB PO SCH (09:48)
[2019-05-04] MEDS: PANTOPRAZOLE 40 MG/10 ML VIAL IVP SCH ×2 (09:48→22:00)
[2019-05-04 10:20] LABS: Basophils % (A) 0 %; Eosinophils % (A) 1 %; HCT 39.2 % (39.0-53.0); HGB 12.4 gm/dL (13.0-17.5); Lymphocytes % (A) 17 %; MCH 31.2 pg (25.0-35.0); MCHC 31.5 g/dL (31.0-37.0); Macrocytosis Slight; Mean Platelet Volume 7.5; Monocytes # (A) 0.9 k/uL (0-1.0); Monocytes % (A) 14 %; Neutrophils # (A) 3.8 k/uL (1.3-7.7); Neutrophils % (A) 64 %; Platelet Count 241 k/uL (150-450); RBC 3.96 m/uL (4.30-5.90); RDW 15.3 % (11.5-15.5); WBC 5.9 k/uL (3.8-10.6)
[2019-05-04 12:17] LABS: Glucose,Whole Blood 138 mg/dL (75-99)
--- NOTE | 2019-05-04 12:53 | P.PN ---
<Fadia Wheat Magnolia - Last Filed: 05/04/19 12:48> Subjective Progress Note Date: 05/04/19 CHIEF COMPLAINT: colostomy reversal HISTORY OF PRESENT ILLNESS: 48-year-old male who is status post reversal of loop colostomy, lysis of adhesions, and repair of incisional hernia. Postop day #4. Patient developed postoperative ileus yesterday and NG tube was inserted. Patient is examined this morning sitting in the chair. He reports passing flatus and having about 8 bowel movements this morning. Denies nausea. NG with about 100cc output. Patient with 775 mL urine output over last 24 hours. Urine remains dark donna. WBC 5.9. Hemoglobin 12.4. PHYSICAL EXAM: VITAL SIGNS: Reviewed. GENERAL: Well-developed in no acute distress. HEENT: No sclera icterus. Extraocular movements grossly intact. Moist buccal mucosa. Head is atraumatic, normocephalic. ABDOMEN: Soft. Obese. Nondistended. appropriate surgical tenderness. Prevena wound management system noted with erythema and blisters to edges of dressing. NEUROLOGIC: Alert and oriented. Cranial nerves II through XII grossly intact. ASSESSMENT: 1. History of colon cancer, status post reversal of loop colostomy, lysis of adhesions, and repair of incisional hernia 2. Postoperative ileus, an unexpected but potential outcome of surgery, resolved PLAN: 1. Ileus resolved. Patient is nervous and hesitant to have NG DC. He is afraid to start clear liquids. Will clamp NG tube. Trial popsicles and ice chips. If patient tolerates, may DC NG tube later today and begin clear liquids. Patient agreeable to plan. 2. 1 L fluid bolus secondary to decreased urine output. Continue maintenance IV fluids at 125 mL an hour 3. Discontinue Samuel catheter this afternoon. Patient to void in urinal for accurate I&O 4. Incentive spirometry 5. Activity as tolerated Nurse practitioner note has been reviewed by physician. Signing provider agrees with the documented findings, assessment, and plan of care. Objective - Vital Signs Vital signs: Vital Signs Temp 97.7 F 05/04/19 07:45 Pulse 105 H 05/04/19 08:00 Resp 18 05/04/19 08:00 BP 155/103 05/04/19 07:45 Pulse Ox 90 L 05/04/19 07:45 Intake & Output 07/05/04/19 05/04/19 18:59 06:59 18:59 Intake Total 21.233 1250 Output Total 2475 300 275 Balance -2453.767 950 -275 Weight 124.6 kg Intake: Intake, IV Titration 21.233 1250 Amount D5-0.45% NaCl with KCl 1250 20Meq/l 1,000 ml @ 125 mls/hr IV .Q8H [facility] Rx#: [id number] Ropivacaine 250 mg 21.233 Hydromorphone (Pf) 5 mg In Sodium Chloride 0.9% 200 ml @ Per Protocol EPIDURAL .Q0M PRN Rx#: [id number] Output: Gastric Drainage 2000 Urine 475 300 275 Other: Voiding Method Indwelling Catheter Indwelling Catheter Indwelling Catheter # Bowel Movements 1 - Labs CBC & Chem 7: 05/04/19 08:04 05/04/19 08:04 Labs: Abnormal Lab Results - Last 24 Hours (Table) 05/03/19 05/03/19 05/03/19 Range/Units 15:00 17:02 20:16 RBC (4.30-5.90) m/uL Hgb (13.0-17.5) gm/dL D-Dimer 12.12 H (<0.60) mg/L FEU Sodium (137-145) mmol/L Creatinine (0.66-1.25) mg/dL Glucose (74-99) mg/dL POC Glucose (mg/dL) 135 H 141 H (75-99) mg/dL 05/04/19 05/04/19 05/04/19 Range/Units 07:05 08:04 08:04 RBC 3.96 L (4.30-5.90) m/uL Hgb 12.4 L (13.0-17.5) gm/dL D-Dimer (<0.60) mg/L FEU Sodium 136 L (137-145) mmol/L Creatinine 0.60 L (0.66-1.25) mg/dL Glucose 136 H (74-99) mg/dL POC Glucose (mg/dL) 123 H (75-99) mg/dL 05/04/19 Range/Units 12:16 RBC (4.30-5.90) m/uL Hgb (13.0-17.5) gm/dL D-Dimer (<0.60) mg/L FEU Sodium (137-145) mmol/L Creatinine (0.66-1.25) mg/dL Glucose (74-99) mg/dL POC Glucose (mg/dL) 138 H (75-99) mg/dL <Ubaldo Rivera - Last Filed: 05/04/19 16:36> Subjective As above. Patient had his nasogastric tube placed yesterday. Still nauseated. Some dry heaves. Urine has been somewhat dark. He has received fluid resuscitation. Pain is minimal. Labs reviewed. Objective - Vital Signs Vital signs: Vital Signs Temp 97.6 F 05/04/19 14:55 Pulse 95 05/04/19 14:55 Resp 16 05/04/19 14:55 BP 153/96 05/04/19 14:55 Pulse Ox 90 L 05/04/19 14:55 Intake & Output 05/03/19 05/04/19 05/04/19 18:59 06:59 18:59 Intake Total 21.233 1250 1875 Output Total 2475 300 275 Balance -2453.452 553 2922 Weight 124.6 kg 124.6 kg Intake: Intake, IV Titration 21.233 1250 1875 Amount D5-0.45% NaCl with KCl 1250 875 20Meq/l 1,000 ml @ 125 mls/hr IV .Q8H [facility] Rx#: [id number] Ropivacaine 250 mg 21.233 Hydromorphone (Pf) 5 mg In Sodium Chloride 0.9% 200 ml @ Per Protocol EPIDURAL .Q0M PRN Rx#: [id number] Sodium Chloride 0.9% 1, 1000 000 ml @ 999 mls/hr IV . Q1H1M ONE Rx#:[id number] Output: Gastric Drainage 2000 Urine 475 300 275 Other: Voiding Method Indwelling Catheter Indwelling Catheter Indwelling Catheter # Bowel Movements 1 - Labs CBC & Chem 7: 05/04/19 08:04 05/04/19 08:04 Labs: Abnormal Lab Results - Last 24 Hours (Table) 05/03/19 05/03/19 05/04/19 Range/Units 17:02 20:16 07:05 RBC (4.30-5.90) m/uL Hgb (13.0-17.5) gm/dL Sodium (137-145) mmol/L Creatinine (0.66-1.25) mg/dL Glucose (74-99) mg/dL POC Glucose (mg/dL) 135 H 141 H 123 H (75-99) mg/dL 05/04/19 05/04/19 05/04/19 Range/Units 08:04 08:04 12:16 RBC 3.96 L (4.30-5.90) m/uL Hgb 12.4 L (13.0-17.5) gm/dL Sodium 136 L (137-145) mmol/L Creatinine 0.60 L (0.66-1.25) mg/dL Glucose 136 H (74-99) mg/dL POC Glucose (mg/dL) 138 H (75-99) mg/dL
[2019-05-04 16:57] LABS: Glucose,Whole Blood 118 mg/dL (75-99)
[2019-05-04] MEDS: INSULIN ASPART (NovoLOG) 100 UNIT/ML VIAL SQ SCH ×2 (17:02→22:00)
--- NOTE | 2019-05-04 17:18 | PN ---
PROGRESS NOTE DATE OF SERVICE: 05/04/2019 This is a 48-year-old gentleman who was admitted after a colostomy reversal. Also had a history of possible pulmonary embolism. The patient also had some abdominal distention and postoperative ileus also. NG tube is in-situ at this time. The patient being closely monitored. D-dimer was elevated and CT showed no evidence of pulmonary embolism and lean atelectasis also noted. The patient also receiving IV fluid boluses because of diminished urine output also. Otherwise, NT proBNP is only 84. PAST MEDICAL HISTORY: Reviewed. REVIEW OF SYSTEMS: CARDIOVASCULAR SYSTEM: as mentioned earlier. RESPIRATORY: As mentioned earlier. no dysuria. GI: As mentioned earlier. CURRENT MEDICATIONS ARE: Reviewed and include: 1. DuoNeb q.i.d. and p.r.n. 2. Entereg 12 mg p.o. b.i.d. 3. Lipitor 20 mg q.h.s. 4. Vitamin B12 1000 mg daily. 5. Benadryl 25 mg q.6h. 6. Depakote 750 mg q.h.s. and 500 mg a.c. b.i.d. 7. HydroDIURIL 12.5 mg b.i.d. 8. Dilaudid 1 mg q.3 p.r.n. 9. Xylocaine. 10.Glucophage. 11.Reglan. 12.Narcan. 13.Zofran. 14.Vitamin B12. 15.Xarelto. PHYSICAL EXAM: Patient is alert, oriented x3. Pulse is 105, blood pressure 151/80, respiration 18, temperature 97.7, pulse ox 99% on room air. HEENT: Conjunctivae normal. Oral mucosa moist. NECK: Neck is no jugular venous distention. No carotid bruit. No lymph node enlargement. CARDIOVASCULAR: S1, S2 muffled. RESPIRATIONS: Breath sounds diminished in the bases. Bilateral scattered rhonchi and crackles. ABDOMEN: Soft, nontender. No mass palpable. Status post surgery. LEGS: No edema. No swelling. NERVOUS SYSTEM: Higher functions as mentioned earlier. Moves all four extremities. Lymphatics: No lymph nodes palpable in the neck, axillae or groin. SKIN: No ulcer, no rashes. No bleeding. JOINTS: No active deforming arthropathy. LABS: WBC 5.2, hemoglobin 12.4, sodium 136. ASSESSMENT: 1. Status post colostomy reversal and lysis of adhesions and repair of incisional hernia. 2. Atelectasis. 3. Abdominal ileus, improving. 4. History of previous postoperative pulmonary embolism, acute hypoxic respiratory failure during the previous surgery. 5. Tachycardia. 6. Diabetes mellitus type 2. 7. Hypertension. 8. Hyperlipidemia. 9. History of seizure disorder. 10.Family history of coagulopathy. 11.Anemia. 12.History of rectal cancer status post chemoradiation. 13.Appendectomy. 14.History of bowel resection. 15.History of cholecystomy. 16.Remote history of nicotine dependence. 17.Obesity, body mass index of 44.6. 18.FULL CODE. RECOMMENDATIONS AND DISCUSSION: In this 48-year-old gentleman who presented with multiple complex medical issues, we will monitor the patient closely. Continue the current medications, management and symptomatic treatment. Otherwise, I recommend [id number] bronchodilators and continued DVT prophylaxis. Guarded prognosis because of multiple complex medical issues. Further recommendations to follow. See orders for details. MMODL / IJN: [id number] /
[2019-05-04] MEDS: ATORVASTATIN 20 MG TAB PO SCH (21:59)
[2019-05-04] MEDS: DIVALPROEX 250 MG TABLET.DR PO SCH (21:59)
[2019-05-04 22:12] LABS: Glucose,Whole Blood 109 mg/dL (75-99)
[2019-05-05] MEDS: D5-0.45% NACL WITH KCL 20MEQ/L 1,000 ML IV SCH ×4 (02:12→18:37)
[2019-05-05] MEDS: METOCLOPRAMIDE 5 MG/ML 2 ML VIAL IVP PRN (04:14)
[2019-05-05 04:24] LABS: Glucose,Whole Blood 116 mg/dL (75-99)
[2019-05-05] MEDS: INSULIN ASPART (NovoLOG) 100 UNIT/ML VIAL SQ SCH ×4 (04:49→22:09)
[2019-05-05] MEDS: LACTATED RINGERS 1,000 ML IV SCH (04:50)
[2019-05-05] MEDS: IPRATROPIUM-ALBUTEROL 3 ML NEB INHALATION SCH ×3 (07:57→20:50)
[2019-05-05 10:13] LABS: Glucose,Whole Blood 116 mg/dL (75-99)
[2019-05-05] MEDS: PYRIDOXINE 50 MG TAB PO SCH (10:21)
[2019-05-05] MEDS: metFORMIN 500 MG TAB PO SCH ×2 (10:21→21:35)
[2019-05-05] MEDS: HYDROCHLOROTHIAZIDE 12.5 MG CAP PO SCH ×2 (10:22→21:35)
[2019-05-05] MEDS: RIVAROXABAN 20 MG TAB PO SCH (10:22)
[2019-05-05] MEDS: CYANOCOBALAMIN 500 MCG TAB PO SCH (10:22)
[2019-05-05] MEDS: PANTOPRAZOLE 40 MG/10 ML VIAL IVP SCH ×3 (10:23→23:12)
[2019-05-05] MEDS: ALVIMOPAN 12 MG CAPSULE PO SCH ×2 (10:23→21:35)
[2019-05-05] MEDS: DIVALPROEX 500 MG TABLET.DR PO SCH ×2 (10:30→16:54)
--- NOTE | 2019-05-05 10:34 | P.PN ---
Subjective Progress Note Date: 05/05/19 Principal diagnosis: Post colostomy reversal Patient feels better today. Still nauseated at times. Still having stools. CAT scan was performed to evaluate for PE which was negative. Morning labs pending. He is afebrile. Objective - Vital Signs Vital signs: Vital Signs Temp 97.3 F L 05/05/19 00:02 Pulse 91 05/05/19 00:02 Resp 14 05/05/19 00:02 BP 161/93 05/05/19 00:02 Pulse Ox 94 L 05/05/19 00:02 Intake & Output 05/04/19 05/05/19 05/05/19 18:59 06:59 18:59 Intake Total 1875 1000 Output Total 275 400 Balance 1600 600 Weight 124.6 kg Intake: Intake, IV Titration 1875 1000 Amount D5-0.45% NaCl with KCl 875 1000 20Meq/l 1,000 ml @ 125 mls/hr IV .Q8H [facility] Rx#: [id number] Sodium Chloride 0.9% 1, 1000 000 ml @ 999 mls/hr IV . Q1H1M ONE Rx#:[id number] Output: Urine 275 400 Other: Voiding Method Indwelling Catheter Indwelling Catheter # Bowel Movements 1 - Exam Abdomen: Soft, nondistended, blister along the right edge of dressing, mild tenderness - Labs CBC & Chem 7: 05/04/19 08:04 05/04/19 08:04 Labs: Abnormal Lab Results - Last 24 Hours (Table) 05/04/19 05/04/19 05/04/19 Range/Units 12:16 16:55 22:00 POC Glucose (mg/dL) 138 H 118 H 109 H (75-99) mg/dL 05/05/19 05/05/19 Range/Units 04:11 10:00 POC Glucose (mg/dL) 116 H 116 H (75-99) mg/dL Assessment and Plan (1) Rectal cancer Narrative/Plan: Patient seems to be doing better today. Keep nasogastric tube to low int ermittent suction with complaints of nausea. Await morning labs. Increase activity. Current Visit: No Status: Chronic Priority: Medium Code(s): C20 - MALIGNANT NEOPLASM OF RECTUM SNOMED Code(s): 446236787
[2019-05-05 11:39] LABS: ALT 19 U/L (21-72); AST 41 U/L (17-59); African American GFR (CKD) >90 (>60 ml/min/1.73 sqM); Albumin 2.9 g/dL (3.5-5.0); Alkaline Phosphatase 69 U/L (38-126); Anion Gap 10 mmol/L; Blood Urea Nitrogen 10 mg/dL (9-20); Calcium 8.6 mg/dL (8.4-10.2); Carbon Dioxide 25 mmol/L (22-30); Chloride 101 mmol/L (98-107); Glucose 136 mg/dL (74-99); Non-African American GFR(CKD) >90 (>60 ml/min/1.73 sqM); Potassium 3.3 mmol/L (3.5-5.1); Sodium 136 mmol/L (137-145); Total Bilirubin 0.4 mg/dL (0.2-1.3); Total Protein 6.1 g/dL (6.3-8.2)
[2019-05-05 11:45] LABS: Basophils % (A) 0 %; Eosinophils # (A) 0.1 k/uL (0-0.7); Eosinophils % (A) 1 %; HGB 12.8 gm/dL (13.0-17.5); Lymphocytes # (A) 0.9 k/uL (1.0-4.8); Lymphocytes % (A) 12 %; MCHC 32.8 g/dL (31.0-37.0); MCV 97.7 fL (80.0-100.0); Monocytes # (A) 1.3 k/uL (0-1.0); Monocytes % (A) 17 %; Neutrophils # (A) 4.9 k/uL (1.3-7.7); Neutrophils % (A) 66 %; Platelet Count 260 k/uL (150-450); RBC 3.99 m/uL (4.30-5.90); RDW 15.3 % (11.5-15.5); WBC 7.5 k/uL (3.8-10.6)
[2019-05-05] MEDS ORDERED: HEPARIN SODIUM,PORCINE 10,000 UNIT/ML 1 ML VIAL IV ONE (12:42)
[2019-05-05] MEDS ORDERED: HEPARIN SODIUM,PORCINE 5,000 UNIT/ML 1 ML VIAL IV PRN (12:42)
[2019-05-05 13:30] LABS: Partial Thromboplastin Time 26.4 sec (22.0-30.0); Prothrombin Time 10.4 sec (9.0-12.0)
[2019-05-05] MEDS: HEPARIN SOD,PORK IN 0.45% NACL 25,000 UNIT in 0.45% NACL 1 250ML.BAG IV SCH (15:15)
[2019-05-05 16:41] LABS: Glucose,Whole Blood 111 mg/dL (75-99)
[2019-05-05] MEDS ORDERED: Potassium Replacement Protocol 1 EACH MISC MISCELLANE PRN (17:52)
--- NOTE | 2019-05-05 21:28 | PN ---
PROGRESS NOTE DATE OF SERVICE: 05/05/2019. This 48-year-old gentleman who was admitted after a colostomy reversal and lysis of adhesions, is being closely monitored. Patient still has NG tube. No chest pain. No palpitations. Chest CTA did not show any evidence of any acute PE. Patient has significant diarrhea at this time. No chest pain. No palpitations. No fever. EXAM: Alert and oriented times three. Pulse 89, blood pressure 158/90, respiration 16, temperature 97.6, pulse ox 94% on room air. HEENT: Conjunctivae normal. NECK: No JVD. CARDIOVASCULAR: S1, S2 muffled. RESPIRATIONS: Breath sounds diminished in the bases. A few scattered rhonchi and crackles. ABDOMEN: Soft, status post surgery. LEGS: No edema. No swelling. CENTRAL NERVOUS SYSTEM: No focal deficits. LABS: WBC 7.2, hemoglobin 12.8, sodium 136, potassium 3.3. ASSESSMENT: 1. Status post colostomy reversal and lysis of adhesions, repair of incisional hernia. 2. Atelectasis. 3. Abdominal ileus, improved. 4. Hypokalemia. 5. History of previous postoperative pulmonary embolism acute hypoxic respiratory failure during previous surgery. 6. Tachycardia. 7. Diabetes type 2. 8. Hypertension. 9. Hyperlipidemia. 10.History of seizure disorder. 11.Family history of coagulopathy. 12.Anemia. 13.History of rectal cancer status post chemo radiation. 14.History of appendectomy. 15.History of bowel resection. 16.History of cholecystectomy. 17.Remote history of nicotine dependence. 18.Obesity, body mass index of 44.6. 19.FULL CODE. RECOMMENDATIONS AND DISCUSSION: I recommend to continue current medications, management and symptomatic treatment. Otherwise, continue the bronchodilators. I would also recommend monitor the lytes closely. Also recommend IV heparin drip. Otherwise, continue with potassium supplementation. I would also recommend potassium supplementation protocol also. Further recommendations to follow. MMODL / IJN: [id number] /
[2019-05-05] MEDS: ATORVASTATIN 20 MG TAB PO SCH (21:35)
[2019-05-05 22:04] LABS: Glucose,Whole Blood 107 mg/dL (75-99)
[2019-05-05] MEDS: DIVALPROEX 250 MG TABLET.DR PO SCH (22:35)
[2019-05-05] MEDS: VALPROATE SODIUM 250 MG in SODIUM CHLORIDE 0.9% 100 ML IVPB SCH (23:12)
[2019-05-06] MEDS: HEPARIN SOD,PORK IN 0.45% NACL 25,000 UNIT in 0.45% NACL 1 250ML.BAG IV SCH ×3 (01:00→14:50)
[2019-05-06] MEDS: LACTATED RINGERS 1,000 ML IV SCH (01:04)
[2019-05-06] MEDS: D5-0.45% NACL WITH KCL 20MEQ/L 1,000 ML IV SCH ×2 (04:08→21:28)
[2019-05-06] MEDS: INSULIN ASPART (NovoLOG) 100 UNIT/ML VIAL SQ SCH ×4 (04:10→23:17)
[2019-05-06 04:23] LABS: Glucose,Whole Blood 96 mg/dL (75-99)
[2019-05-06 05:36] LABS: Basophils % (A) 0 %; Eosinophils # (A) 0.1 k/uL (0-0.7); Eosinophils % (A) 1 %; HCT 37.9 % (39.0-53.0); HGB 11.8 gm/dL (13.0-17.5); Lymphocytes # (A) 0.7 k/uL (1.0-4.8); Lymphocytes % (A) 10 %; MCH 30.6 pg (25.0-35.0); MCV 98.6 fL (80.0-100.0); Monocytes # (A) 0.8 k/uL (0-1.0); Monocytes % (A) 12 %; Neutrophils % (A) 75 %; Platelet Count 216 k/uL (150-450); RBC 3.85 m/uL (4.30-5.90); RDW 15.4 % (11.5-15.5); WBC 6.7 k/uL (3.8-10.6)
[2019-05-06 06:06] LABS: African American GFR (CKD) >90 (>60 ml/min/1.73 sqM); Anion Gap 8 mmol/L; Blood Urea Nitrogen 6 mg/dL (9-20); Calcium 8.3 mg/dL (8.4-10.2); Carbon Dioxide 25 mmol/L (22-30); Chloride 101 mmol/L (98-107); Glucose 103 mg/dL (74-99); Non-African American GFR(CKD) >90 (>60 ml/min/1.73 sqM); Potassium 2.9 mmol/L (3.5-5.1); Sodium 134 mmol/L (137-145)
[2019-05-06] MEDS ORDERED: Potassium Replacement Protocol 1 EACH MISC MISCELLANE PRN (06:17)
[2019-05-06] MEDS: VALPROATE SODIUM 250 MG in SODIUM CHLORIDE 0.9% 100 ML IVPB SCH (06:37)
[2019-05-06 07:07] LABS: Glucose,Whole Blood 112 mg/dL (75-99)
--- NOTE | 2019-05-06 08:13 | P.PN ---
Subjective Progress Note Date: 05/06/19 Principal diagnosis: Post colostomy reversal Patient complaining of mild shortness of breath today. He states his abdominal pain is improved. He is having multiple loose stools. Nasogastric tube output is small in volume. Morning labs are pending however potassium was noted to be low at 2.9. Objective - Vital Signs Vital signs: Vital Signs Temp 97.5 F L 05/06/19 02:35 Pulse 90 05/06/19 02:35 Resp 16 05/06/19 02:35 BP 153/92 05/06/19 02:35 Pulse Ox 96 05/06/19 02:35 Intake & Output 05/05/19 05/06/19 05/06/19 18:59 06:59 18:59 Intake Total 1000 1300.000 Output Total 180 700 Balance 820 600.000 Intake: Intake, IV Titration 1000 1300.000 Amount D5-0.45% NaCl with KCl 1000 950 20Meq/l 1,000 ml @ 125 mls/hr IV .Q8H [facility] Rx#: [id number] Heparin Sod,Pork in 0.45% 250.000 NaCl 25,000 unit In 0.45 % NaCl 1 250ml.bag @ 18 UNITS/KG/HR 22.428 mls/hr IV .Q11H9M [facility] Rx#: [id number] Valproate Sodium 250 mg 100 In Sodium Chloride 0.9% 100 ml @ 100 mls/hr IVPB Q6HR [facility] Rx#:[id number] Output: Gastric Drainage 700 Urine 180 Other: Voiding Method Indwelling Catheter Toilet Diaper # Voids 2 # Bowel Movements 9 3 - Exam Abdomen: Soft, nondistended, mild tenderness, blisters along the right side of dressing had drained and appear clean - Labs CBC & Chem 7: 05/06/19 05:00 05/06/19 05:00 Labs: Abnormal Lab Results - Last 24 Hours (Table) 05/05/19 05/05/19 05/05/19 Range/Units 10:00 11:17 11:17 RBC 3.99 L (4.30-5.90) m/uL Hgb 12.8 L (13.0-17.5) gm/dL Hct (39.0-53.0) % Lymphocytes # 0.9 L (1.0-4.8) k/uL Monocytes # 1.3 H (0-1.0) k/uL APTT (22.0-30.0) sec Sodium 136 L (137-145) mmol/L Potassium 3.3 L (3.5-5.1) mmol/L BUN (9-20) mg/dL Creatinine 0.52 L (0.66-1.25) mg/dL Glucose 136 H (74-99) mg/dL POC Glucose (mg/dL) 116 H (75-99) mg/dL Calcium (8.4-10.2) mg/dL ALT 19 L (21-72) U/L Total Protein 6.1 L (6.3-8.2) g/dL Albumin 2.9 L (3.5-5.0) g/dL 05/05/19 05/05/19 05/05/19 Range/Units 16:11 21:52 22:18 RBC (4.30-5.90) m/uL Hgb (13.0-17.5) gm/dL Hct (39.0-53.0) % Lymphocytes # (1.0-4.8) k/uL Monocytes # (0-1.0) k/uL APTT 107.4 H* (22.0-30.0) sec Sodium (137-145) mmol/L Potassium (3.5-5.1) mmol/L BUN (9-20) mg/dL Creatinine (0.66-1.25) mg/dL Glucose (74-99) mg/dL POC Glucose (mg/dL) 111 H 107 H (75-99) mg/dL Calcium (8.4-10.2) mg/dL ALT (21-72) U/L Total Protein (6.3-8.2) g/dL Albumin (3.5-5.0) g/dL 05/06/19 05/06/19 05/06/19 Range/Units 05:00 05:00 06:56 RBC 3.85 L (4.30-5.90) m/uL Hgb 11.8 L (13.0-17.5) gm/dL Hct 37.9 L (39.0-53.0) % Lymphocytes # 0.7 L (1.0-4.8) k/uL Monocytes # (0-1.0) k/uL APTT (22.0-30.0) sec Sodium 134 L (137-145) mmol/L Potassium 2.9 L (3.5-5.1) mmol/L BUN 6 L (9-20) mg/dL Creatinine 0.45 L (0.66-1.25) mg/dL Glucose 103 H (74-99) mg/dL POC Glucose (mg/dL) 112 H (75-99) mg/dL Calcium 8.3 L (8.4-10.2) mg/dL ALT (21-72) U/L Total Protein (6.3-8.2) g/dL Albumin (3.5-5.0) g/dL 05/06/19 Range/Units 06:57 RBC (4.30-5.90) m/uL Hgb (13.0-17.5) gm/dL Hct (39.0-53.0) % Lymphocytes # (1.0-4.8) k/uL Monocytes # (0-1.0) k/uL APTT 60.5 H (22.0-30.0) sec Sodium (137-145) mmol/L Potassium (3.5-5.1) mmol/L BUN (9-20) mg/dL Creatinine (0.66-1.25) mg/dL Glucose (74-99) mg/dL POC Glucose (mg/dL) (75-99) mg/dL Calcium (8.4-10.2) mg/dL ALT (21-72) U/L Total Protein (6.3-8.2) g/dL Albumin (3.5-5.0) g/dL Assessment and Plan (1) Rectal cancer Narrative/Plan: We'll remove nasogastric tube at this time. Begin clear liquid diet. Ambulate. Medicine is addressing the shortness of breath per nursing staff. Continue heparin drip for history of PE. Current Visit: No Status: Chronic Priority: Medium Code(s): C20 - MALIGNANT NEOPLASM OF RECTUM SNOMED Code(s): 803991232
[2019-05-06] MEDS: POTASSIUM CHLORIDE 10 MEQ in WATER FOR INJECTION 1 100ML.BAG IVPB SCH ×7 (08:16→21:28)
[2019-05-06] MEDS: PANTOPRAZOLE 40 MG/10 ML VIAL IVP SCH ×2 (08:33→23:14)
[2019-05-06] MEDS: HYDROCHLOROTHIAZIDE 12.5 MG CAP PO SCH ×2 (08:34→23:16)
[2019-05-06] MEDS: CYANOCOBALAMIN 500 MCG TAB PO SCH (08:34)
[2019-05-06] MEDS: metFORMIN 500 MG TAB PO SCH ×2 (08:34→23:16)
[2019-05-06] MEDS: IPRATROPIUM-ALBUTEROL 3 ML NEB INHALATION SCH ×3 (08:42→19:19)
[2019-05-06] MEDS: PYRIDOXINE 50 MG TAB PO SCH (12:53)
[2019-05-06] MEDS: DIVALPROEX 500 MG TABLET.DR PO SCH ×2 (12:53→18:10)
[2019-05-06 12:56] LABS: Glucose,Whole Blood 107 mg/dL (75-99)
[2019-05-06 16:27] LABS: Magnesium 1.8 mg/dL (1.6-2.3); Potassium 3.1 mmol/L (3.5-5.1)
[2019-05-06 17:33] LABS: Glucose,Whole Blood 103 mg/dL (75-99)
--- NOTE | 2019-05-06 19:46 | PN ---
PROGRESS NOTE DATE OF SERVICE: 05/06/2019. This is a 48-year-old gentleman who was admitted after a colostomy reversal, lysis of adhesions, surgery incisional hernia had atelectasis. The patient is improving significantly. No chest pain. No palpitations. No fever. NG tube has been removed. Also the patient is on TPN. PAST MEDICAL HISTORY: Reviewed. REVIEW OF SYSTEMS: CARDIOVASCULAR SYSTEM: No angina or palpitations. RESPIRATORY: As mentioned earlier. GI no nausea or vomiting. : No dysuria. NERVOUS SYSTEMS: No numbness or weakness. CURRENT MEDICATIONS: Reviewed and include: 1. DuoNeb q.i.d. and p.r.n. 2. Lipitor 20 mg q.h.s. 3. Vitamin B12 1000 mcg b.i.d. 4. Benadryl 25 mg q.6h p.r.n. 5. Depakote 500 mcg p.o. b.i.d. 6. Depakote 750 mg p.o. q.h.s. 7. Heparin drip. 8. HydroDIURIL 12.5 mg p.o. b.i.d. 9. Dilaudid 1 mg q.3 p.r.n. 10.NovoLog. 11.Lactated Ringers. 12.Glucophage. 13.Reglan. 14.Replacement protocols. 15.Protonix. 16.Vitamin B6. PHYSICAL EXAM: Alert and oriented times three. Pulse is 88. Blood pressure 160/91, respiration 14, temperature 98.1, pulse ox 92% on room air. HEENT are conjunctivae normal. Oral mucosa moist. NECK is no JVD. RESPIRATORY: A few scattered rhonchi. CARDIOVASCULAR: S1, S2 muffled. ABDOMEN: Soft, status post surgery. No mass palpable. LEGS no edema. No swelling. NERVOUS SYSTEM: No focal deficits. LABS: WBC 6.6, hemoglobin 11.8, and APTT 60.4. Sodium 134, potassium 2.9. RECOMMENDATIONS AND DISCUSSION: In this 48-year-old gentleman who presented with multiple complex medical issues, at this time, I recommend to continue the current medications, management and symptomatic treatment. The patient is started on PPN. We will replace potassium and repeat lytes. We will check also magnesium also. DVT prophylaxis. Otherwise, we will continue to monitor. Continue with IV heparin until the patient is most stabilized and further recommendations to follow. See orders for details. MMODL / IJN: [id number] / SCOTT
[2019-05-06] MEDS: D5-0.45% NACL WITH KCL 40MEQ/L 1,000 ML IV SCH ×2 (21:25→21:28)
[2019-05-06 21:34] LABS: Glucose,Whole Blood 89 mg/dL (75-99)
[2019-05-06] MEDS: DIVALPROEX 250 MG TABLET.DR PO SCH (23:15)
[2019-05-06] MEDS: ATORVASTATIN 20 MG TAB PO SCH (23:16)
[2019-05-07] MEDS: VALPROATE SODIUM 250 MG in SODIUM CHLORIDE 0.9% 100 ML IVPB SCH (00:14)
[2019-05-07] MEDS: D5-0.45% NACL WITH KCL 40MEQ/L 1,000 ML IV SCH ×2 (05:05→05:25)
[2019-05-07] MEDS: INSULIN ASPART (NovoLOG) 100 UNIT/ML VIAL SQ SCH ×5 (05:14→21:54)
[2019-05-07] MEDS: LACTATED RINGERS 1,000 ML IV SCH (05:28)
[2019-05-07] MEDS: HEPARIN SOD,PORK IN 0.45% NACL 25,000 UNIT in 0.45% NACL 1 250ML.BAG IV SCH (07:06)
[2019-05-07 07:21] LABS: Glucose,Whole Blood 97 mg/dL (75-99)
[2019-05-07] MEDS: metFORMIN 500 MG TAB PO SCH ×2 (07:28→21:54)
[2019-05-07] MEDS: HYDROCHLOROTHIAZIDE 12.5 MG CAP PO SCH (07:28)
[2019-05-07] MEDS: DIVALPROEX 500 MG TABLET.DR PO SCH ×2 (07:28→17:21)
[2019-05-07] MEDS: PANTOPRAZOLE 40 MG/10 ML VIAL IVP SCH ×2 (07:29→21:53)
[2019-05-07] MEDS: CYANOCOBALAMIN 500 MCG TAB PO SCH (07:29)
[2019-05-07] MEDS: PYRIDOXINE 50 MG TAB PO SCH (07:29)
[2019-05-07] MEDS: IPRATROPIUM-ALBUTEROL 3 ML NEB INHALATION SCH ×3 (07:46→19:30)
[2019-05-07 07:48] LABS: Anisocytosis Slight; Basophils % (A) 1 %; Eosinophils # (A) 0.1 k/uL (0-0.7); Eosinophils % (A) 1 %; HGB 12.2 gm/dL (13.0-17.5); Lymphocytes # (A) 1.2 k/uL (1.0-4.8); Lymphocytes % (A) 20 %; MCH 31.9 pg (25.0-35.0); MCHC 31.4 g/dL (31.0-37.0); MCV 101.7 fL (80.0-100.0); Macrocytosis Slight; Mean Platelet Volume 7.3; Monocytes # (A) 0.5 k/uL (0-1.0); Monocytes % (A) 9 %; Neutrophils % (A) 67 %; Platelet Count 250 k/uL (150-450); RBC 3.83 m/uL (4.30-5.90); RDW 16.7 % (11.5-15.5)
[2019-05-07 08:01] LABS: African American GFR (CKD) >90 (>60 ml/min/1.73 sqM); Anion Gap 10 mmol/L; Blood Urea Nitrogen 3 mg/dL (9-20); Calcium 8.6 mg/dL (8.4-10.2); Carbon Dioxide 24 mmol/L (22-30); Chloride 103 mmol/L (98-107); Glucose 112 mg/dL (74-99); Non-African American GFR(CKD) >90 (>60 ml/min/1.73 sqM); Potassium 3.3 mmol/L (3.5-5.1); Sodium 137 mmol/L (137-145)
[2019-05-07] MEDS ORDERED: Potassium Replacement Protocol 1 EACH MISC MISCELLANE PRN ×2 (09:20→22:52)
[2019-05-07] MEDS: POTASSIUM CHLORIDE ER 20 MEQ TAB.ER PO SCH ×3 (10:31→23:06)
[2019-05-07 12:15] LABS: Glucose,Whole Blood 108 mg/dL (75-99)
[2019-05-07] MEDS ORDERED: POTASSIUM CHLORIDE ER 20 MEQ TAB.ER PO STA (12:37)
--- NOTE | 2019-05-07 12:50 | P.PN ---
Subjective 48-year-old male was admitted for reversal of colostomy lysis of adhesions and repair of incisional hernia patient apparently had history of rectal cancer. Patient has physician course was completed by postoperative ileus and patient was on 9 peripheral parenteral nutrition which was discontinued and patient is presently on 9 by mouth clear liquid diet. Patient will be switched to oral anti-correlation IV heparin was discontinued IV fluids and this can urine patient has some anasarca from IV fluids. Patient is bit hyponatremic because of his hydrocodone thiazide will be discontinued. Constitutional: Denied any fatigue denied any fever. Cardio vascular: denied any chest pain, palpitations Gastrointestinal denied any nausea vomiting Pulmonary: Denied any shortness of breath cough Neurologic denied any new focal deficits All inpatient medications were reviewed and appropriate changes in these medications as dictated in the interval history and assessment and plan. Objective - Vital Signs Vital signs: Vital Signs Temp 97.9 F 05/07/19 07:42 Pulse 80 05/07/19 07:57 Resp 16 05/07/19 08:30 BP 133/90 05/07/19 07:42 Pulse Ox 96 05/07/19 07:46 Intake & Output 05/06/19 05/07/19 05/07/19 18:59 06:59 18:59 Intake Total 750 310 535.199 Balance 750 310 535.199 Weight 124.6 kg Intake: Intake, IV Titration 250 250 35.199 Amount Heparin Sod,Pork in 0.45% 250 250 35.199 NaCl 25,000 unit In 0.45 % NaCl 1 250ml.bag @ 18 UNITS/KG/HR 22.428 mls/hr IV .Q11H9M [facility] Rx#: [id number] Oral 500 60 500 Other: Voiding Method Toilet Toilet Diaper Diaper # Voids 7 2 2 # Bowel Movements 3 3 - Exam PHYSICAL EXAMINATION: GENERAL: The patient is alert and oriented x3, not in any acute distress. obese HEENT: Pupils are round and equally reacting to light. EOMI. No scleral icterus. No conjunctival pallor. Normocephalic, atraumatic. No pharyngeal erythema. No thyromegaly. CARDIOVASCULAR: S1 and S2 present. No murmurs, rubs, or gallops. PULMONARY: Chest is clear to auscultation, no wheezing or crackles. ABDOMEN: Soft, nontender, nondistended, normoactive bowel sounds. No palpable organomegaly. she has a wound VAC in place MUSCULOSKELETAL: No joint swelling or deformity. EXTREMITIES: No cyanosis, clubbing, bilateral pedal edema NEUROLOGICAL: Gross neurological examination did not reveal any focal deficits. SKIN: No rashes. - Labs CBC & Chem 7: 05/07/19 07:25 05/07/19 07:25 Labs: Abnormal Lab Results - Last 24 Hours (Table) 05/06/19 05/06/19 05/06/19 Range/Units 12:44 15:48 17:20 RBC (4.30-5.90) m/uL Hgb (13.0-17.5) gm/dL MCV (80.0-100.0) fL RDW (11.5-15.5) % APTT (22.0-30.0) sec Sodium 133 L (137-145) mmol/L Potassium 3.1 L (3.5-5.1) mmol/L BUN (9-20) mg/dL Creatinine (0.66-1.25) mg/dL Glucose (74-99) mg/dL POC Glucose (mg/dL) 107 H 103 H (75-99) mg/dL 05/07/19 05/07/19 05/07/19 Range/Units 07:25 07:25 07:25 RBC 3.83 L (4.30-5.90) m/uL Hgb 12.2 L (13.0-17.5) gm/dL MCV 101.7 H (80.0-100.0) fL RDW 16.7 H (11.5-15.5) % APTT 40.0 H (22.0-30.0) sec Sodium (137-145) mmol/L Potassium 3.3 L (3.5-5.1) mmol/L BUN 3 L (9-20) mg/dL Creatinine 0.52 L (0.66-1.25) mg/dL Glucose 112 H (74-99) mg/dL POC Glucose (mg/dL) (75-99) mg/dL 05/07/19 Range/Units 12:03 RBC (4.30-5.90) m/uL Hgb (13.0-17.5) gm/dL MCV (80.0-100.0) fL RDW (11.5-15.5) % APTT (22.0-30.0) sec Sodium (137-145) mmol/L Potassium (3.5-5.1) mmol/L BUN (9-20) mg/dL Creatinine (0.66-1.25) mg/dL Glucose (74-99) mg/dL POC Glucose (mg/dL) 108 H (75-99) mg/dL Assessment and Plan Plan: -status post reversal loop colostomy and additional lysis: Patient was started on by mouth diet IV fluids are being discontinued -Postoperative ileus resolved -hypertension: Hydrochlorothiazide is being discontinued because of hyponatremia and hypokalemia, blood pressure is expected to get better with disc herniation of IV fluids -pre-diabetes, hemoglobin A1c of 6 -hyperlipidemia -Pulmonary embolism which was diagnosed during his recent hospitalization, patient will be resumed on oral anticoagulation this can you IV heparin -seizure disorder
--- NOTE | 2019-05-07 12:59 | P.PN ---
Subjective Progress Note Date: 05/07/19 CHIEF COMPLAINT: colostomy reversal HISTORY OF PRESENT ILLNESS: 48-year-old male who is status post reversal of loop colostomy, lysis of adhesions, and repair of incisional hernia. Postop day #7. Patients ileus is resolving. NG has been DC. He is tolerating clear liquid diet. Denies nausea or vomiting. Reports having multiple loose stools overnight and this morning. WBC 6.0. Hemoglobin 12.2. Potassium 3.3. Magnesium level pending. PHYSICAL EXAM: VITAL SIGNS: Currently stable. GENERAL: Well-developed in no acute distress. HEENT: No sclera icterus. Extraocular movements grossly intact. Moist buccal mucosa. Head is atraumatic, normocephalic. Hears conversational speech. No nasal drainage. NECK: Supple without lymphadenopathy. CHEST: Non-labored respirations and equal bilateral excursions. CARDIOVASCULAR: Regular rate with regular rhythm. Palpable 2+ radial pulses. ABDOMEN: Soft. Obese. Nondistended. Appropriate surgical tenderness. Prevena wound management system noted with erythema and blisters to edges of dressing. MUSCULOSKELETAL: No clubbing or cyanosis. NEUROLOGIC: No focal or lateralizing signs. Cranial nerves II through XII grossly intact. PSYCH: Appropriate affect. Alert and oriented to person, place and time. SKIN: Well perfused. Good skin turgor. ASSESSMENT: 1. History of colon cancer, status post reversal of loop colostomy, lysis of adhesions, and repair of incisional hernia 2. Postoperative ileus, an unexpected but potential outcome of surgery, re solved 3. History of pulmonary embolism PLAN: 1. Patient does not want diet advanced at this time. Continue clear liquids. May advance to full liquids this afternoon if patient agreeable 2. Incentive spirometry 3. Increase activity as tolerated 4. Replace potassium per protocol. Magnesium level ordered 5. We will discontinue PREVENA today Optifoam ordered. 6. Anticoagulation per medicine Nurse practitioner note has been reviewed by physician. Signing provider agrees with the documented findings, assessment, and plan of care. Objective - Vital Signs Vital signs: Vital Signs Temp 97.9 F 05/07/19 07:42 Pulse 80 05/07/19 07:57 Resp 16 05/07/19 08:30 BP 133/90 05/07/19 07:42 Pulse Ox 96 05/07/19 07:46 Intake & Output 0705/07/19 05/07/19 18:59 06:59 18:59 Intake Total 750 310 535.199 Balance 750 310 535.199 Weight 124.6 kg Intake: Intake, IV Titration 250 250 35.199 Amount Heparin Sod,Pork in 0.45% 250 250 35.199 NaCl 25,000 unit In 0.45 % NaCl 1 250ml.bag @ 18 UNITS/KG/HR 22.428 mls/hr IV .Q11H9M [facility] Rx#: [id number] Oral 500 60 500 Other: Voiding Method Toilet Toilet Diaper Diaper # Voids 7 2 2 # Bowel Movements 3 3 - Labs CBC & Chem 7: 05/07/19 07:25 05/07/19 07:25 Labs: Abnormal Lab Results - Last 24 Hours (Table) 05/06/19 05/06/19 05/06/19 Range/Units 12:44 15:48 17:20 RBC (4.30-5.90) m/uL Hgb (13.0-17.5) gm/dL MCV (80.0-100.0) fL RDW (11.5-15.5) % APTT (22.0-30.0) sec Sodium 133 L (137-145) mmol/L Potassium 3.1 L (3.5-5.1) mmol/L BUN (9-20) mg/dL Creatinine (0.66-1.25) mg/dL Glucose (74-99) mg/dL POC Glucose (mg/dL) 107 H 103 H (75-99) mg/dL 05/07/19 05/07/19 05/07/19 Range/Units 07:25 07:25 07:25 RBC 3.83 L (4.30-5.90) m/uL Hgb 12.2 L (13.0-17.5) gm/dL MCV 101.7 H (80.0-100.0) fL RDW 16.7 H (11.5-15.5) % APTT 40.0 H (22.0-30.0) sec Sodium (137-145) mmol/L Potassium 3.3 L (3.5-5.1) mmol/L BUN 3 L (9-20) mg/dL Creatinine 0.52 L (0.66-1.25) mg/dL Glucose 112 H (74-99) mg/dL POC Glucose (mg/dL) (75-99) mg/dL 05/07/19 Range/Units 12:03 RBC (4.30-5.90) m/uL Hgb (13.0-17.5) gm/dL MCV (80.0-100.0) fL RDW (11.5-15.5) % APTT (22.0-30.0) sec Sodium (137-145) mmol/L Potassium (3.5-5.1) mmol/L BUN (9-20) mg/dL Creatinine (0.66-1.25) mg/dL Glucose (74-99) mg/dL POC Glucose (mg/dL) 108 H (75-99) mg/dL Assessment and Plan (1) Ileus Current Visit: Yes Status: Acute Code(s): K56.7 - ILEUS, UNSPECIFIED SNOMED Code(s): 498460940 (2) History of pulmonary embolism Current Visit: Yes Status: Acute Code(s): Z86.711 - PERSONAL HISTORY OF PULMONARY EMBOLISM SNOMED Code(s): 824498219 (3) Colon cancer Current Visit: Yes Status: Acute Code(s): C18.9 - MALIGNANT NEOPLASM OF COLON, UNSPECIFIED SNOMED Code(s): 308166909
[2019-05-07 17:15] LABS: Glucose,Whole Blood 89 mg/dL (75-99)
[2019-05-07] MEDS ORDERED: RIVAROXABAN 20 MG TAB PO SCH (17:30)
[2019-05-07 18:53] LABS: Anisocytosis Slight; HCT 39.6 % (39.0-53.0); HGB 13.1 gm/dL (13.0-17.5); MCH 32.7 pg (25.0-35.0); MCHC 33.1 g/dL (31.0-37.0); MCV 98.5 fL (80.0-100.0); Macrocytosis Slight; Platelet Count 258 k/uL (150-450); RBC 4.02 m/uL (4.30-5.90); RDW 16.8 % (11.5-15.5); WBC 6.8 k/uL (3.8-10.6)
[2019-05-07 21:30] LABS: Glucose,Whole Blood 88 mg/dL (75-99)
[2019-05-07] MEDS: ATORVASTATIN 20 MG TAB PO SCH (21:54)
[2019-05-07] MEDS: DIVALPROEX 250 MG TABLET.DR PO SCH (21:54)
[2019-05-08] MEDS: POTASSIUM CHLORIDE ER 20 MEQ TAB.ER PO SCH (00:04)
[2019-05-08] MEDS: LACTATED RINGERS 1,000 ML IV SCH (02:25)
[2019-05-08 03:21] VITALS: RESP 16
[2019-05-08 06:48] LABS: Glucose,Whole Blood 89 mg/dL (75-99)
[2019-05-08] MEDS: INSULIN ASPART (NovoLOG) 100 UNIT/ML VIAL SQ SCH (07:27)
[2019-05-08] MEDS: metFORMIN 500 MG TAB PO SCH (07:36)
[2019-05-08] MEDS: PANTOPRAZOLE 40 MG/10 ML VIAL IVP SCH (07:36)
[2019-05-08] MEDS: PYRIDOXINE 50 MG TAB PO SCH (07:36)
[2019-05-08] MEDS: DIVALPROEX 500 MG TABLET.DR PO SCH (07:36)
[2019-05-08] MEDS: CYANOCOBALAMIN 500 MCG TAB PO SCH (07:36)
[2019-05-08 07:45] VITALS: BP 162/98; TEMP 97.7
[2019-05-08 08:07] LABS: African American GFR (CKD) >90 (>60 ml/min/1.73 sqM); Anion Gap 11 mmol/L; Blood Urea Nitrogen 5 mg/dL (9-20); Calcium 9.2 mg/dL (8.4-10.2); Carbon Dioxide 22 mmol/L (22-30); Chloride 104 mmol/L (98-107); Glucose 100 mg/dL (74-99); Non-African American GFR(CKD) >90 (>60 ml/min/1.73 sqM); Sodium 137 mmol/L (137-145)
[2019-05-08 08:20] LABS: Anisocytosis Slight; HCT 43.5 % (39.0-53.0); HGB 13.3 gm/dL (13.0-17.5); Hypochromasia Slight; MCH 31.7 pg (25.0-35.0); MCHC 30.7 g/dL (31.0-37.0); MCV 103.4 fL (80.0-100.0); Macrocytosis Moderate; Mean Platelet Volume 7.6; Platelet Count 330 k/uL (150-450); RBC 4.21 m/uL (4.30-5.90); RDW 16.7 % (11.5-15.5); WBC 6.4 k/uL (3.8-10.6)
[2019-05-08 08:28] LABS: Potassium 3.9 mmol/L (3.5-5.1)
[2019-05-08] MEDS: IPRATROPIUM-ALBUTEROL 3 ML NEB INHALATION SCH (08:31)
[2019-05-08 09:42] VITALS: PULSE 91
[2019-05-08 10:48] LABS: Band Neutrophils % 2 %; Eosinophils # (M) 0.06 k/uL (0-0.7); Lymphocytes # (M) 1.54 k/uL (1.0-4.8); Metamyelocytes # (M) 0.19 k/uL (0); Metamyelocytes % 3 %; Monocytes # (M) 1.15 k/uL (0-1.0); Myelocytes # (M) 0.13 k/uL (0); Myelocytes % 2 %; Neutrophils % (M) 53 %; Nucleated Red Blood Cells 0 /100 WBC (0-0); Total Cells Counted 200
[2019-05-08 10:50] LABS: Polychromasia Present; Toxic Granulation Present
--- NOTE | 2019-05-08 11:04 | P.DS ---
Providers Date of admission: 04/30/19 08:52 Attending physician: Daniel Sherman Consults: 04/30/19 12:10 Consult Physician Routine Consulting Provider: Priya Worrell Consult Reason/Comments: medical management Do you want consulting provider notified?: Yes Primary care physician: Leydi Davies - Discharge Diagnosis(es) (1) Ileus Current Visit: Yes Status: Acute (2) History of pulmonary embolism Current Visit: Yes Status: Acute (3) Colon cancer Current Visit: Yes Status: Acute Hospital Course: 48-year-old male who is status post reversal of loop colostomy, lysis of adhesions, and repair of incisional hernia. patient did fairly well postoperatively. He did develop an ileus. He was treated conservatively with NG tube with resolution of ileus. Patient was started on clear liquid diet and advanced as tolerated. He is currently tolerating regular diet without nausea or vomiting. Vital signs have been stable. Pain controlled on oral medications. He is stable for discharge home today. Please see EMR for further hospital course details. Discharge Diagnosis: 1. History of colon cancer, status post reversal of loop colostomy, lysis of adhesions, and repair of incisional hernia 2. Postoperative ileus, an unexpected but potential outcome of surgery, resolved 3. History of pulmonary embolism Nurse practitioner note has been reviewed by physician. Signing provider agrees with the documented findings, assessment, and plan of care. Plan - Discharge Summary Discharge Rx Participant: No New Discharge Prescriptions: New Acetaminophen Tab [Tylenol Tab] 650 mg PO Q4H PRN #30 tablet PRN Reason: Pain No Action Divalproex [Depakote] 500 mg PO AC-BID metFORMIN HCL 1,000 mg PO BID #1 tab Atorvastatin [Lipitor] 20 mg PO HS Divalproex [Depakote] 750 mg PO HS Hydrochlorothiazide 12.5 mg PO BID Rivaroxaban [Xarelto] 20 mg PO DAILY Pyridoxine HCl (Vitamin B6) [Vitamin B-6] 100 mg PO DAILY Cyanocobalamin (Vitamin B-12) [Vitamin B-12] 1,000 mcg PO DAILY Discharge Medication List Divalproex [Depakote] 500 mg PO AC-BID 10/29/15 [History] metFORMIN HCL 1,000 mg PO BID #1 tab 09/18/18 [Rx] Atorvastatin [Lipitor] 20 mg PO HS 10/24/18 [History] Divalproex [Depakote] 750 mg PO HS 10/24/18 [History] Hydrochlorothiazide 12.5 mg PO BID 10/24/18 [History] Cyanocobalamin (Vitamin B-12) [Vitamin B-12] 1,000 mcg PO DAILY 04/02/19 [History] Pyridoxine HCl (Vitamin B6) [Vitamin B-6] 100 mg PO DAILY 04/02/19 [History] Rivaroxaban [Xarelto] 20 mg PO DAILY 04/02/19 [History] Acetaminophen Tab [Tylenol Tab] 650 mg PO Q4H PRN #30 tablet 05/08/19 [Rx] Follow up Appointment(s)/Referral(s): [facility], [NON-STAFF] - As Needed Daniel Sherman MD [STAFF PHYSICIAN] - 1 Week Activity/Diet/Wound Care/Special Instructions: Advance diet as tolerated No lifting over 10 pounds You may shower. No soaking or tub baths Very light activity until you are reevaluated at your follow up appointment with your surgeon
[2019-05-08 12:19] LABS: Glucose,Whole Blood 92 mg/dL (75-99)
--- NOTE | 2019-05-08 16:24 | P.PN ---
Subjective Progress Note Date: 05/08/19 Principal diagnosis: This is a 48-year-old male who was admitted to surgery for reversal of his colostomy, lysis of adhesions, and repair of incisional hernia with a past medical history of rectal cancer. Patient was tolerating clear liquid diet and advancing as tolerated. Patient states that he was taking it easy as he didn't want to overdo it patient felt fine with clear liquids and will advance at home. Patient was hyponatremic and his hydrochlorothiazide was discontinued. Current sodium is 137. Potassium is 3.9. His creatinine is 0.57. Patient denies any shortness of breath, chest pain, or palpitations at this time. Patient denies any nausea or vomiting. Patient has been having a bowel movements are slightly loose. Patient is awaiting discharge today per surgery. Objective - Vital Signs Vital signs: Vital Signs Temp 97.7 F 05/08/19 07:00 Pulse 82 05/08/19 08:41 Resp 16 05/08/19 07:00 BP 162/98 05/08/19 07:00 Pulse Ox 94 L 05/08/19 07:00 Intake & Output 05/07/19 05/08/19 05/08/19 18:59 06:59 18:59 Intake Total 985.107 190 Balance 985.107 190 Weight 124.6 kg Intake: Intake, IV Titration 135.107 Amount Heparin Sod,Pork in 0.45% 135.107 NaCl 25,000 unit In 0.45 % NaCl 1 250ml.bag @ 18 UNITS/KG/HR 22.428 mls/hr IV .Q11H9M [facility] Rx#: [id number] Oral 850 190 Other: Voiding Method Toilet Toilet Diaper Diaper # Voids 1 2 # Bowel Movements 1 1 - Exam Gen: This is a 48-year-old male sitting up in the recliner with his legs elevated in no acute distress. Vital signs are stable. Blood pressure is 162/98, pulse is 91, respirations are 16, temp is 97.7F, oxygen saturation is 94% on room air. HEENT: Head is atraumatic, normocephalic. Pupils equal, round. Sclerae is anicteric. NECK: Supple. No JVD. No lymphadenopathy. No thyromegaly. LUNGS: Clear to auscultation. No wheezes or rhonchi. No intercostal retrac tions. HEART: Regular rate and rhythm. No murmur. ABDOMEN: Soft. Bowel sounds are present. No masses. No tenderness. Surgical dressings are dry and intact. Patient does have some redness and excoriation to the right side of the abdomen and states that was due to the tape that has been removed. No signs of pus or drainage to the area EXTREMITIES: No pedal edema. No calf tenderness. NEUROLOGICAL: Patient is awake, alert and oriented x3. Cranial nerves 2 through 12 are grossly intact. - Labs CBC & Chem 7: 05/08/19 07:34 05/08/19 07:34 Labs: Abnormal Lab Results - Last 24 Hours (Table) 05/07/19 05/07/19 05/08/19 Range/Units 18:08 21:40 07:34 RBC 4.02 L 4.21 L (4.30-5.90) m/uL MCV 103.4 H (80.0-100.0) fL MCHC 30.7 L (31.0-37.0) g/dL RDW 16.8 H 16.7 H (11.5-15.5) % Monocytes # (Manual) 1.15 H (0-1.0) k/uL Metamyelocytes # (Man) 0.19 H (0) k/uL Myelocytes # (Manual) 0.13 H (0) k/uL Potassium 3.3 L (3.5-5.1) mmol/L BUN (9-20) mg/dL Creatinine (0.66-1.25) mg/dL Glucose (74-99) mg/dL 05/08/19 Range/Units 07:34 RBC (4.30-5.90) m/uL MCV (80.0-100.0) fL MCHC (31.0-37.0) g/dL RDW (11.5-15.5) % Monocytes # (Manual) (0-1.0) k/uL Metamyelocytes # (Man) (0) k/uL Myelocytes # (Manual) (0) k/uL Potassium (3.5-5.1) mmol/L BUN 5 L (9-20) mg/dL Creatinine 0.57 L (0.66-1.25) mg/dL Glucose 100 H (74-99) mg/dL Assessment and Plan Assessment: Status post reversal loop colostomy and adhesion lysis: Patient tolerating clear liquid diet and advancing as tolerated. Postop ileus resolved Hypertension: Hydrochlorothiazide was discontinued because of hyponatremia and hypokalemia Prediabetes, hemoglobin A1c is 6 Hyperlipidemia Pulmonary embolism that was diagnosed during his recent hospitalization, patient will go home on oral anticoagulation. IV heparin was discontinued Seizure disorder Recommendations and discussion: Recommend continuing current medications and symptomatic treatment. Patient is awaiting discharge per surgery. Patient is stable with a guarded prognosis. We will continue to monitor. Discharge is set for today to home.
[2019-05-08] MEDS ORDERED: PANTOPRAZOLE 40 MG TABLET PO SCH (21:00)
== END 2019-05-08 13:12 | disposition home health service (06) | DRG 330 ==
LOC: 2ORMAIN 08:52 → 4SSUR 12:26
PROVIDERS: ADMIT Surgery; ATTEND Surgery
PROC: 0DBL0ZZ Excision of Transverse Colon, Open Approach (ICD-10-PCS; principal; 2019-04-30 10:30)
PROC: 0WQF0ZZ Repair Abdominal Wall, Open Approach (ICD-10-PCS; principal; 2019-04-30 10:30)
PROC: 0DNF0ZZ Release Right Large Intestine, Open Approach (ICD-10-PCS; principal; 2019-04-30 10:30)
PROC: 0D9670Z Drainage of Stomach with Drainage Device, Via Natural or Artificial Opening (ICD-10-PCS; 2019-05-04)
DX: Z43.3 Encounter for attention to colostomy (principal); Z68.41 Body mass index [BMI] 40.0-44.9, adult; J98.11 Atelectasis; K56.7 Ileus, unspecified; E87.1 Hypo-osmolality and hyponatremia; R00.0 Tachycardia, unspecified; L29.9 Pruritus, unspecified; I10 Essential (primary) hypertension; E66.9 Obesity, unspecified; D64.9 Anemia, unspecified; E87.6 Hypokalemia; K43.2 Incisional hernia without obstruction or gangrene; E78.5 Hyperlipidemia, unspecified; E11.9 Type 2 diabetes mellitus without complications; G40.909 Epilepsy, unspecified, not intractable, without status epilepticus; Z90.49 Acquired absence of other specified parts of digestive tract; Z79.899 Other long term (current) drug therapy; Z79.84 Long term (current) use of oral hypoglycemic drugs; Z79.01 Long term (current) use of anticoagulants; Z85.048 Personal history of other malignant neoplasm of rectum, rectosigmoid junction, and anus; Z86.711 Personal history of pulmonary embolism; Z87.891 Personal history of nicotine dependence; Z92.21 Personal history of antineoplastic chemotherapy; Z92.3 Personal history of irradiation; Z98.890 Other specified postprocedural states; Z82.49 Family history of ischemic heart disease and other diseases of the circulatory system; Z80.9 Family history of malignant neoplasm, unspecified; Z87.442 Personal history of urinary calculi; Z83.2 Family history of diseases of the blood and blood-forming organs and certain disorders involving the immune mechanism
CPT/HCPCS: 36415; 71045; 71275; 80048; 80051; 80053; 82272; 82565; 83735; 83880; 84132; 84484; 84520; 85025; 85027; 85379; 85610; 85730; 86850; 86900; 86901; 87324; 88304; 93005; 94640; 94760

== ENCOUNTER → 2019-07-02 | Outpatient (CLI) | payer MEDICARE, OTHER ==
[2019-07-02 09:58] LABS: African American GFR (CKD) >90 (>60 ml/min/1.73 sqM); Blood Urea Nitrogen 6 mg/dL (9-20)
--- NOTE | 2019-07-02 16:28 | CT ---
EXAMINATION TYPE: CT ChestAbdPelvis w con DATE OF EXAM: 07/02/2019 INDICATION: Rectal cancer with suspected mets COMPARISON: CTA chest 05/03/2019, CT abdomen and pelvis 03/28/2019 CT DLP: 3021.00 mGycm CONTRAST: Performed with Oral Contrast and with IV Contrast, patient injected with 100 mL of Isovue 300. TECHNIQUE: Axial images at 5 mm thick sections. Reconstructed images in the coronal plane. Delayed images through the kidneys. FINDINGS: CT CHEST: Portion of the thyroid visualized is normal. No suspicious lung nodules or focal infiltrates are present. No enlarged mediastinal or hilar adenopathy is evident. The ascending aorta diameter at the level of the main pulmonary artery is 3.8 cm. The main pulmonary artery diameter at the bifurcation is 2.[address] ABDOMEN: Liver: Normal Spleen: Normal Pancreas: Normal Adrenal glands: The adrenal glands are normal. Gallbladder: Normal Kidneys: No masses are evident. No hydronephrosis is present. Several small cortical renal cysts on the bilateral kidneys. The largest on the posterior left mid kidney measures 1.4 cm and 17 Hounsfiel d units. Delayed images were obtained through the kidneys, which remain unremarkable. Aorta: Minimal Vascular calcification is within the aorta. Inferior vena cava: Normal. CT PELVIS: Loops of bowel within the abdomen and pelvis are normal. There appears to be resection of portion of the ascending colon. There is filling fecal debris within the anastomosis in the right lower quadr ant. There are loops of bowel which are incompletely distended or lack oral contrast limiting their e valuation. There is an anastomosis in the rectosigmoid region without evidence of stenosis. Perirecta l fat is normal. No suspicious adenopathy is evident. Appendix: Absent Urinary bladder: Normal. Genitourinary structures: Prostate appears within normal limits Osseous structures: No suspicious lytic or sclerotic lesions. IMPRESSIONS: 1. No suspicious changes to suggest recurrent or metastatic rectal cancer.
== END | disposition home or self-care (01) ==
LOC: RADPROMAIN 08:32
PROVIDERS: ATTEND Internal Medicine Hematology & Oncology
DX: Z08 Encounter for follow-up examination after completed treatment for malignant neoplasm (principal); Z85.048 Personal history of other malignant neoplasm of rectum, rectosigmoid junction, and anus
CPT/HCPCS: 82565; 84520; 71260; 74177; 36415; Q9967 ×2

== ENCOUNTER 2019-08-15 08:03 | Day surgery (SDC) | payer MEDICARE, OTHER ==
[2019-08-15 08:18] VITALS: TEMP 96.5
[2019-08-15 08:25] LABS: Glucose,Whole Blood 102 mg/dL (75-99)
[2019-08-15] MEDS ORDERED: LACTATED RINGERS 1,000 ML IV ONE ×2 (08:27)
[2019-08-15] MEDS ORDERED: PROPOFOL 10 MG/ML 20 ML VIAL IV ONE (08:29)
[2019-08-15 09:27] VITALS: BP 120/80; PULSE 70; RESP 18
--- NOTE | 2019-08-15 09:27 | P.PCN ---
Date of Procedure: 08/15/19 Procedure(s) Performed: BRIEF HISTORY: Patient is a 48-year-old pleasant male scheduled for an elective colonoscopy as a part of rectal cancer diagnosed in April 2018. He was also noted to have a large 4 cm broad-based tubular villous adenoma in the ascending colon. He initially underwent chemoradiation followed by surgery in August 2018 with low anterior resection and right colectomy with loop colostomy done. He was noted to have positive lymph nodes. He underwent postoperative chemotherapy which ended in February of this year. He had he was of the colostomy performed in April 2019. He also developed he has been on Xarelto. PROCEDURE PERFORMED: Colonoscopy with snare polypectomy and tattooing with Jesika ink/biopsy. PREOPERATIVE DIAGNOSIS: History of rectal cancer diagnosed in April 2018 status post chemoradiation followed by low anterior resection/history of large 3 ascending colon polyp status post right colon surgery. IV sedation per Anesthesia. PROCEDURE: After informed consent was obtained, the patient, was brought into the endoscopy unit. IV sedation was administered by Anesthesia under continuous monitoring. Digital rectal examination was normal. Initially the Olympus CF-160 flexible video colonoscope was then inserted in the rectum, gradually advanced into the right colon with ileocolic anastomosis was visualized. Right at the anastomosis there was a 2 cm broad-based polyp that was removed by piecemeal snare polypectomy and complete polypectomy was performed. In the transverse colon approximately 70 cm from the anal verge there was circumferential erythema and slightly raised mucosa which probably could represent anastomosis but he had some polypoid like appearance hence multiple biopsies were performed in this area followed by tattooing with Jesika ink. The descending colon and sigmoid colon, and rectum appeared normal. Mild radiation proctitis noted. Scattered left sided diverticulosis seen. Retroflexion was performed in the rectum and no lesions were seen. The patient tolerated the procedure well. IMPRESSION: Normal right sided ileocolic anastomosis 2 cm broad-based polyp at the anastomosis status post piecemeal snare polypectomy and complete polypectomy. Circumferential erythema in the mid transverse colon at 70 cm from the anal verge with slightly raised mucosa with friability status post multiple biopsies followed by tattooing with Jesika ink (possibly the presence anastomosis) 3. Mild radiation proctitis RECOMMENDATIONS: Findings of this examination were discussed with the patient as well as his family. He was advised to follow with the biopsy results. He'll be seen in office in 2 weeks. We'll plan a repeat colonoscopy in one to 2 years.
== END 2019-08-15 09:59 | disposition home or self-care (01) ==
LOC: ORWHC2ENDO 08:03
PROVIDERS: ATTEND Internal Medicine Gastroenterology
DX: Z08 Encounter for follow-up examination after completed treatment for malignant neoplasm (principal); K91.89 Other postprocedural complications and disorders of digestive system; D12.6 Benign neoplasm of colon, unspecified; K63.5 Polyp of colon; K57.30 Diverticulosis of large intestine without perforation or abscess without bleeding; K62.7 Radiation proctitis; I10 Essential (primary) hypertension; E78.5 Hyperlipidemia, unspecified; E11.9 Type 2 diabetes mellitus without complications; D64.9 Anemia, unspecified; Z85.048 Personal history of other malignant neoplasm of rectum, rectosigmoid junction, and anus; Z86.010 Personal history of colon polyps; Z92.21 Personal history of antineoplastic chemotherapy; Z92.3 Personal history of irradiation; Z79.01 Long term (current) use of anticoagulants; Z93.3 Colostomy status; Z90.49 Acquired absence of other specified parts of digestive tract; Z86.69 Personal history of other diseases of the nervous system and sense organs; Z79.84 Long term (current) use of oral hypoglycemic drugs; Z79.899 Other long term (current) drug therapy; Z86.711 Personal history of pulmonary embolism; Z87.891 Personal history of nicotine dependence; Z87.442 Personal history of urinary calculi
CPT/HCPCS: 88305; 45380; 45385; 44404; J2704

== ENCOUNTER → 2019-09-20 | Outpatient (CLI) | payer MEDICARE, OTHER ==
[2019-09-20 11:22] LABS: African American GFR (CKD) >90 (>60 ml/min/1.73 sqM); Blood Urea Nitrogen 8 mg/dL (9-20); Non-African American GFR(CKD) >90 (>60 ml/min/1.73 sqM)
--- NOTE | 2019-09-20 14:38 | CT ---
EXAMINATION TYPE: CT ChestAbdPelvis w con DATE OF EXAM: 09/20/2019 COMPARISON: Prior CT chest abdomen pelvis 07/02/2019 HISTORY: Follow up rectal cancer CT DLP: 2649.8 mGycm Automated exposure control for dose reduction was used. CONTRAST: CT scan of the chest, abdomen and pelvis is performed with Oral Contrast and with IV Contrast, patien t injected with 100 mL of Isovue 300. FINDINGS: Port-A-Cath in the right pectoral region is noted and courses via subclavian approach into the superior vena cava. Four super aortic branch vessels are present. LUNGS: The lungs are stable, small subpleural nodule in the right lower lobe on axial image #34 is alston bcentimeter in size and unchanged. There is no pleural effusion or pneumothorax seen. The tracheob ronchial tree is patent. MEDIASTINUM: There are no greater than 1 cm hilar or mediastinal lymph nodes. No pericardial effusi on is seen. AORTA: No significant abnormality is seen. OTHER: Postop changes are noted to the anterior abdominal wall LIVER/GB: No significant interval change is appreciated. PANCREAS: No significant abnormality is seen. SPLEEN: No significant abnormality is seen. ADRENALS: No significant abnormality is seen. KIDNEYS: No significant interval change is seen. REPRODUCTIVE ORGANS: No gross abnormality seen. BOWEL: Postop changes are noted as on prior exam. Some mucosal thickening noted at the postop site i n the right lower quadrant has changed somewhat in appearance as compared to prior. FREE AIR: No Free Air visible. ASCITES: None seen. RETROPERITONEAL ADENOPATHY: No retroperitoneal adenopathy is seen. LYMPH NODES: No greater than 1 cm abdominal or pelvic lymph nodes are appreciated. URINARY BLADDER: No significant abnormality is seen. PELVIC ADENOPATHY: None visualized. OSSEOUS STRUCTURES: No significant abnormality is seen. IMPRESSION: There are postop changes. No recurrence is evident. Additional findings above.
== END | disposition home or self-care (01) ==
LOC: RADPROMAIN 09:57
PROVIDERS: ATTEND Internal Medicine Hematology & Oncology
DX: C20 Malignant neoplasm of rectum (principal); Z98.890 Other specified postprocedural states
CPT/HCPCS: 82565; 84520; 71260; 74177; J1642; Q9967

== ENCOUNTER → 2020-02-07 | Outpatient (CLI) | payer MEDICARE, OTHER ==
[2020-02-07 12:29] LABS: African American GFR (CKD) >90 (>60 ml/min/1.73 sqM); Blood Urea Nitrogen 10 mg/dL (9-20); Non-African American GFR(CKD) >90 (>60 ml/min/1.73 sqM)
--- NOTE | 2020-02-07 13:42 | CT ---
EXAMINATION TYPE: CT angio chest DATE OF EXAM: 02/07/2020 COMPARISON: CT chest September 20, 2019 and older CTs. HISTORY: Follow up rectal cancer. Pulmonary embolism. CT DLP: 593.3 mGycm. Automated Exposure Control for Dose Reduction was Utilized. CONTRAST: CTA scan of the thorax is performed with IV Contrast, patient injected with 100 mL of Isovue 370, pul monary embolism protocol. MIP Images are created on CT scanner and reviewed. FINDINGS: LUNGS: Elevated right hemidiaphragm redemonstrated. The lungs are grossly clear, there is no new conc erning greater than 4 mm parenchymal mass or nodule identified. Stable 3 mm posterior right lower radha ng nodule axial image 30 unchanged from March 28, 2019 CT. Some dependent atelectasis in the right low er lobe. There is no pleural effusion or pneumothorax seen. The tracheobronchial tree is patent. MEDIASTINUM: There is suboptimal bolus with near equal contrast in right and left heart systems and m ost dense contrast in the SVC. There is no central pulmonary embolism. Smaller segmental and subsegm ental PE not entirely excluded on this study. There are no new greater than 1 cm hilar or mediastinal lymph nodes. No cardiomegaly or pericardial effusion is seen. 4 vessel origin aortic arch which is normal variant is redemonstrated OTHER: Stable right subclavian Mediport catheter. Bilateral gynecomastia again seen. Please refer to same day CT abdomen and pelvis report for complete details on the upper abdomen. IMPRESSION: Suboptimal study without large central pulmonary embolism. No new acute pulmonary process . No new or enlarging nodules or masses.
--- NOTE | 2020-02-07 13:54 | CT ---
EXAMINATION TYPE: CT abdomen pelvis w con DATE OF EXAM: 02/07/2020 COMPARISON: CT September 20, 2019 and older studies. PET/CT May 13, 2018 HISTORY: Follow up rectal cancer. Pulmonary embolism. CT DLP: 1710.8 mGycm, Automated Exposure Control for Dose Reduction was Utilized. CONTRAST: CT scan of the abdomen and pelvis is performed with oral and with IV Contrast, patient injected with 100 mL of Isovue 370. FINDINGS: LUNG BASES: Please refer to same day CTA chest report. Some coronary artery calcification is noted. LIVER/GB: Gallbladder not seen and presumed surgically absent. PANCREAS: No significant abnormality is seen. SPLEEN: No significant abnormality is seen. ADRENALS: No significant abnormality is seen. KIDNEYS:. Small simple appearing thin-walled cysts scattered throughout both kidneys are redemonstrat ed. Bladder poorly distended and less suboptimally evaluated on current study. BOWEL: Oral contrast reaches level of the hepatic flexure on current study. Surgical sutures proximal transverse colon axial image 46 are present. Additional surgical sutures sigmoid rectal colon axial image 80 are identified. No suspicious small or large bowel dilatation. PROSTATE/SEMINAL VESICLES: No gross abnormality seen. LYMPH NODES: No new greater than 1cm abdominal or pelvic lymph nodes are appreciated. OSSEOUS STRUCTURES: No significant abnormality is seen. OTHER: Overlying vertical scarring anterior pelvic wall. Numerous coils from hernia repair surgery bi lateral inguinal regions. IMPRESSION: No suspicious new mass or adenopathy to suggest neoplastic recurrence. No significant ch michelle from most recent CT.
== END | disposition home or self-care (01) ==
LOC: RADPROMAIN 10:49
PROVIDERS: ATTEND Internal Medicine Hematology & Oncology
DX: C20 Malignant neoplasm of rectum (principal); I26.99 Other pulmonary embolism without acute cor pulmonale
CPT/HCPCS: 82565; 84520; 71275; 74177; 36415; Q9967 ×2

== ENCOUNTER → 2020-02-19 | Outpatient (CLI) | payer MEDICARE | END | disposition home or self-care (01) | LOC: LABWHC1 12:42 | PROVIDERS: ATTEND Surgery | DX: Z53.9 Procedure and treatment not carried out, unspecified reason (principal) ==

== ENCOUNTER → 2020-02-19 | Outpatient (CLI) | payer MEDICARE, OTHER | END | disposition home or self-care (01) | LOC: LABWHC1 12:03 | PROVIDERS: ATTEND Surgery | DX: Z11.59 Encounter for screening for other viral diseases (principal) | CPT/HCPCS: 87635 ==

== ENCOUNTER 2020-02-21 08:16 | Day surgery (SDC) | payer MEDICARE ==
[2020-02-20 12:50] VITALS: BMI 44.9
[~2020-02-21 08:16] MED LIST changes: +ACETAMINOPHEN TAB 500 MG TAB PO ONE; -HYDROmorphone 0.5 MG/0.5 ML SYRINGE IVP PRN; -LIDOCAINE 1% 20 ML VIAL (10MG/ML) FOR IV START INTRADERMA PRN; -ONDANSETRON 4 MG/2 ML VIAL IVP ONE; -ONDANSETRON 4 MG/2 ML VIAL IVP PRN; +Pre Op ABX Message 1 EACH MISC MISCELLANE ONE; -SCOPOLAMINE 1.5MG/72HR PATCH TRANSDERM ONE; -ceFAZolin 3 GM in SODIUM CHLORIDE 0.9% 100 ML IVPB ONE; -metroNIDAZOLE-NS PMX 500 MG in SALINE 1 100ML.BAG IVPB ONE
[2020-02-21] MEDS ORDERED: LACTATED RINGERS 1,000 ML IV SCH (08:26)
[2020-02-21 08:49] VITALS: RESP 16; TEMP 97
[2020-02-21] MEDS ORDERED: ONDANSETRON 4 MG/2 ML VIAL IVP ONE (09:03)
[2020-02-21] MEDS ORDERED: DEXAMETHASONE SOD PHOSPHATE 10 MG/ML 1 ML VIAL IV ONE (09:04)
[2020-02-21 09:10] LABS: Glucose,Whole Blood 137 mg/dL (75-99)
[2020-02-21] MEDS ORDERED: SODIUM CHLORIDE 0.9% 100 ML with ceFAZolin 2,000 MG IV ONE ×2 (10:55)
[2020-02-21] MEDS ORDERED: BUPIVACAIN-EPI 0.25%-1:200,000 30 ML VIAL SQ ONE (10:56)
--- NOTE | 2020-02-21 11:33 | P.GSHP ---
History of Present Illness H&P Date: 02/21/20 Chief Complaint: Cath malfunction Function This 49-year-old male history of rectal cancer. Patient has a right subclavian Port-A-Cath. His oncologist been unable to access the port. He presents today for revision or placement of Port-A-Cath. Past Medical History Past Medical History: Cancer, Diabetes Mellitus, Hyperlipidemia, Hypertension, Pulmonary Embolus (PE), Seizure Disorder Additional Past Medical History / Comment(s): epilepsy-last seizure "10 years ago", iron deficiency ANEMIA-supposed to have infusion tomorrow, rectal cancer- last chemo Mar 21, 2018 and radiation through 08/06/18, PE 2017, kidney stone History of Any Multi-Drug Resistant Organisms: None Reported Past Surgical History: Appendectomy, Bowel Resection, Cholecystectomy, Hernia Repair Additional Past Surgical History / Comment(s): vasectomy, surg. to repair hypospadias as a child, bowel resection/colostomy 09/06/18, reversal of colostomy 2018 Past Anesthesia/Blood Transfusion Reactions: No Reported Reaction Smoking Status: Former smoker - Past Family History Brother(s) Family Medical History: Cancer, Deep Vein Thrombosis (DVT) Mother Family Medical History: Pulmonary Embolus Medications and Allergies Home Medications Medication Instructions Recorded Confirmed Type Divalproex [Depakote] 500 mg PO AC-BID 10/29/15 02/21/20 History metFORMIN HCL 1,000 mg PO BID #1 tab 09/18/18 02/21/20 Rx Atorvastatin [Lipitor] 20 mg PO HS 10/24/18 02/21/20 History Divalproex [Depakote] 750 mg PO HS 10/24/18 02/21/20 History Hydrochlorothiazide 12.5 mg PO BID 10/24/18 02/21/20 History Cyanocobalamin (Vitamin B-12) 1,000 mcg PO DAILY 04/02/19 02/21/20 History [Vitamin B-12] Pyridoxine HCl (Vitamin B6) 100 mg PO DAILY 04/02/19 02/21/20 History [Vitamin B-6] Rivaroxaban [Xarelto] 20 mg PO DAILY 04/02/19 02/21/20 History Acetaminophen Tab [Tylenol Tab] 650 mg PO Q4H PRN #30 tablet 05/08/19 02/21/20 Rx Allergies Allergy/AdvReac Type Severity Reaction Status Date / Time No Known Allergies Allergy Verified 02/21/20 08:31 Surgical - Exam Vital Signs Temp Pulse Resp BP Pulse Ox 97 F L 102 H 16 155/99 93 L 02/21/20 08:38 02/21/20 08:38 02/21/20 08:38 02/21/20 08:38 02/21/20 08:38 - General The patient is obese. His BMI is 49. His chest was quite thick. The Port-A-Cath is very difficult to palpate. well developed, well nourished, no distress - Eyes PERRL - ENT normal pinna - Neck no masses - Respiratory normal expansion - Cardiovascular Rhythm: regular - Abdomen Abdomen: soft, non tender Results - Labs Abnormal Lab Results - Last 24 Hours (Table) 02/21/20 Range/Units 08:56 POC Glucose (mg/dL) 137 H (75-99) mg/dL Assessment and Plan Assessment: Port-A-Cath malfunction. Patient will undergo revision or placement of Port-A-Cath
--- NOTE | 2020-02-21 11:35 | P.OP ---
Date of Procedure: 02/21/20 Preoperative Diagnosis: Rectal cancer Postoperative Diagnosis: Rectal cancer Malfunctioning Port-A-Cath Procedure(s) Performed: Revision of Port-A-Cath Anesthesia: MAC Surgeon: Daniel Sherman Pathology: none sent Condition: stable Disposition: PACU Description of Procedure: Patient's placed the operative table in supine position. He received IV sedation. His right chest wall was prepped and draped usual fashion. The skin was incised over the Port-A-Cath. Using a large cautery and blunt dissection the Port-A-Cath was exposed. The Port-A-Cath appeared to be slightly rotated. The Port-A-Cath was then flushed there was no evidence of obstruction Port-A-Cath. This point the Port-A-Cath was resecured to the chest wall using 3-0 Prolene suture. The Port-A-Cath was then flushed again and then Hep-Lock solution was placed in Port-A-Cath. The skin was closed interrupted 3-0 Monocryl suture. Dermabond was applied. Patient top she will was sent to recovery room in stable condition.
[2020-02-21 12:29] VITALS: BP 141/75; PULSE 97
== END 2020-02-21 12:32 | disposition home or self-care (01) ==
LOC: OR 08:16
PROVIDERS: ATTEND Surgery
DX: T82.594A Other mechanical complication of infusion catheter, initial encounter (principal); C20 Malignant neoplasm of rectum; E11.9 Type 2 diabetes mellitus without complications; I10 Essential (primary) hypertension; E78.5 Hyperlipidemia, unspecified; G40.909 Epilepsy, unspecified, not intractable, without status epilepticus; D50.9 Iron deficiency anemia, unspecified; Z86.711 Personal history of pulmonary embolism; Z87.442 Personal history of urinary calculi; Z92.21 Personal history of antineoplastic chemotherapy; Z92.3 Personal history of irradiation; Z87.891 Personal history of nicotine dependence; Z98.52 Vasectomy status; Z90.49 Acquired absence of other specified parts of digestive tract; Z98.890 Other specified postprocedural states; Z79.84 Long term (current) use of oral hypoglycemic drugs; Z79.01 Long term (current) use of anticoagulants; Z79.899 Other long term (current) drug therapy; Z82.49 Family history of ischemic heart disease and other diseases of the circulatory system
CPT/HCPCS: 93005; 36576; J1644; J1100; J2405; J0690; J1642

== ENCOUNTER → 2020-10-28 | Outpatient (CLI) | payer MEDICARE ==
[2020-10-28 14:21] LABS: African American GFR (CKD) >90 (>60 ml/min/1.73 sqM); Blood Urea Nitrogen 8 mg/dL (9-20); Non-African American GFR(CKD) >90 (>60 ml/min/1.73 sqM)
--- NOTE | 2020-10-28 15:57 | CT ---
EXAMINATION TYPE: CT ChestAbdPelvis w con DATE OF EXAM: 10/28/2020 INDICATION: Follow up for rectal cancer. COMPARISON: CT a chest 02/07/2020, CT abdomen pelvis 02/07/2020 CT DLP: 2960.6 mGycm CONTRAST: Performed with Oral Contrast and with IV Contrast, patient injected with 100ml mL of Isovue 300. TECHNIQUE: Axial images at 5 mm thick sections. Reconstructed images in the coronal plane. Delayed images through the kidneys. FINDINGS: CT CHEST: Portion of the thyroid visualized is normal. There is a 0.5 cm nodule within the periphery of the right posterior upper lung field. Series 4 image 31. This was present previously and stable. Some minimal compressive atelectasis may be present. No enlarged mediastinal or hilar adenopathy is evident. The ascending aorta diameter at the level of the main pulmonary artery is 4.0 cm. The main pulmonary artery diameter at the bifurcation is 3.3 cm. Coronary artery calcification is present. CT ABDOMEN: Liver: Normal Spleen: Normal Pancreas: Normal Adrenal glands: The adrenal glands are normal. Gallbladder: Not identified. Correlate with surgical history Kidneys: No masses are evident. No hydronephrosis is present. No cysts are present. Delayed images were obtained through the kidneys, which remain unremarkable. Aorta: Vascular calcification is within the aorta. Inferior vena cava: Normal. CT PELVIS: Loops of bowel within the abdomen and pelvis are normal. There are loops of bowel which are incom pletely distended or lack oral contrast limiting their evaluation. No suspicious recurrent masses are identified. The anastomosis appears normal, no obstruction is evident. Appendix: Not identified. No dilated tubular structures or inflammatory changes evident. Urinary bladder: Normal. Genitourinary structures: Prostate is normal. Osseous structures: No suspicious lytic or sclerotic lesions. IMPRESSIONS: 1. No suspicious changes to suggest recurrent or metastatic rectal cancer.
== END | disposition home or self-care (01) ==
LOC: RADCTMAIN 13:14
PROVIDERS: ATTEND Internal Medicine Hematology & Oncology
DX: C20 Malignant neoplasm of rectum (principal)
CPT/HCPCS: 82565; 84520; 71260; 74177; 36415; Q9967

== ENCOUNTER 2020-12-16 16:49 | Emergency (ER) | payer MEDICARE ==
[2020-12-16 16:55] VITALS: RESP 18; TEMP 97.8
[2020-12-16 18:06] LABS: Basophils % (A) 1 %; Eosinophils # (A) 0.1 k/uL (0-0.7); Eosinophils % (A) 1 %; HCT 42.7 % (39.0-53.0); HGB 14.3 gm/dL (13.0-17.5); Lymphocytes # (A) 2.1 k/uL (1.0-4.8); Lymphocytes % (A) 29 %; MCH 30.8 pg (25.0-35.0); MCHC 33.4 g/dL (31.0-37.0); MCV 92.1 fL (80.0-100.0); Mean Platelet Volume 7.4; Monocytes # (A) 0.9 k/uL (0-1.0); Monocytes % (A) 12 %; Neutrophils # (A) 3.8 k/uL (1.3-7.7); Neutrophils % (A) 54 %; Platelet Count 284 k/uL (150-450); RBC 4.64 m/uL (4.30-5.90); RDW 13.6 % (11.5-15.5); WBC 7.1 k/uL (3.8-10.6)
[2020-12-16 18:24] LABS: ALT 12 U/L (4-49); AST 16 U/L (17-59); African American GFR (CKD) >90 (>60 ml/min/1.73 sqM); Albumin 3.4 g/dL (3.5-5.0); Alkaline Phosphatase 58 U/L (38-126); Anion Gap 9 mmol/L; Blood Urea Nitrogen 9 mg/dL (9-20); C Reactive Protein 31.2 mg/L (<10.0); Calcium 9.1 mg/dL (8.4-10.2); Carbon Dioxide 25 mmol/L (22-30); Chloride 104 mmol/L (98-107); Glucose 135 mg/dL (74-99); Non-African American GFR(CKD) >90 (>60 ml/min/1.73 sqM); Sodium 138 mmol/L (137-145); Total Bilirubin 0.4 mg/dL (0.2-1.3); Total Protein 6.6 g/dL (6.3-8.2)
--- NOTE | 2020-12-16 18:26 | ED ---
Lower Extremity Injury HPI - General Chief Complaint: Extremity Injury, Lower Stated Complaint: leg swelling/pain Time Seen by Provider: 12/16/20 17:20 Source: patient Mode of arrival: ambulatory Limitations: no limitations - History of Present Illness Initial Comments: Patient is a 50-year-old male with history of diabetes, hypertension, PE, presenting to the emergency Department with complaints of redness, swelling of his right lower extremity 4 days. Patient states he noticed some increasing pain in the right lower leg about 4 days ago and then noticed some increasing redness of the leg. Patient states he had a total health visit with his primary care physician today and they recommended him coming into the ER. He denies any fever or chills, no nausea or vomiting. He states he does have a history of a PE, is currently on xarelto. He denies any chest pain or shortness of breath, no cough. He has no further complaints at this time. Upon arrival to the ER, his vitals are stable. - Related Data Home Medications Medication Instructions Recorded Confirmed Divalproex [Depakote] 500 mg PO BID 10/29/15 12/16/20 Atorvastatin [Lipitor] 20 mg PO HS 10/24/18 12/16/20 Divalproex [Depakote] 750 mg PO HS 10/24/18 12/16/20 Rivaroxaban [Xarelto] 20 mg PO DAILY 04/02/19 12/16/20 Furosemide [Lasix] 20 mg PO DAILY 12/16/20 12/16/20 Keto Cuts Pm 1 tab PO HS 12/16/20 12/16/20 Potassium Chloride ER [K-Dur 20] 20 meq PO DAILY 12/16/20 12/16/20 lisinopriL [Zestril] 5 mg PO DAILY 12/16/20 12/16/20 metFORMIN HCL 1,000 mg PO DAILY 12/16/20 12/16/20 Previous Rx's Medication Instructions Recorded Cephalexin [Keflex] 500 mg PO Q6HR 10 Days #40 cap 12/16/20 Allergies Allergy/AdvReac Type Severity Reaction Status Date / Time No Known Allergies Allergy Verified 12/16/20 17:49 Review of Systems ROS Statement: Those systems with pertinent positive or pertinent negative responses have been documented in the HPI. ROS Other: All systems not noted in ROS Statement are negative. Past Medical History Past Medical History: Cancer, Diabetes Mellitus, Hyperlipidemia, Hypertension, Pulmonary Embolus (PE), Seizure Disorder Additional Past Medical History / Comment(s): epilepsy-last seizure "10 years ago", ANEMIA, rectal cancer-last chemo Mar 21 and radiation through 08/06/18, kidney stone, History of Any Multi-Drug Resistant Organisms: None Reported Past Surgical History: Appendectomy, Bowel Resection, Cholecystectomy, Hernia Repair Additional Past Surgical History / Comment(s): vasectomy, surg. to repair hypo spadias as a child, bowel resection/colostomy 09/06/18, Right upper chest post, Past Anesthesia/Blood Transfusion Reactions: No Reported Reaction Past Psychological History: No Psychological Hx Reported Smoking Status: Former smoker Past Alcohol Use History: Rare Past Drug Use History: None Reported - Past Family History Brother(s) Family Medical History: Cancer, Deep Vein Thrombosis (DVT) Mother Family Medical History: Pulmonary Embolus General Exam - General Exam Comments Initial Comments: GENERAL: Patient is well-developed and well-nourished. Patient is nontoxic and in no acute distress. HEAD: Atraumatic, normocephalic. EYES: Pupils equal round and reactive to light, extraocular movements intact, sclera anicteric, conjunctiva are normal. Eyelids were unremarkable. ENT: TMs normal, nares patent, oropharynx clear without exudates. Moist mucous membranes. NECK: Normal range of motion, supple without lymphadenopathy or JVD. LUNGS: Unlabored respirations. Breath sounds clear to auscultation bilaterally and equal. No wheezes rales or rhonchi. HEART: Regular rate and rhythm without murmurs, rubs or gallops. ABDOMEN: Soft, nontender, normoactive bowel sounds. No guarding, no rebound. No masses appreciated. : Deferred MUSCULOSKELETAL: Normal extremities with adequate strength and normal range of motion. No clubbing or cyanosis. Patient has pitting edema of both lower legs, worse on the right side, I do feel faint dorsal pedis pulses bilaterally. NEUROLOGICAL: Patient is alert and oriented x 3. Motor and sensory are also intact. Cranial nerves II through XII grossly intact. Symmetrical smile. Normal speech, normal gait. PSYCH: Normal mood, normal affect. SKIN: Warm, Dry, normal turgor, no rashes. Patient has significant erythema of the right lower leg, swelling, warmth and pain with palpation. Limitations: no limitations Course Vital Signs 12/16/20 12/16/20 16:50 17:55 Temperature 97.8 F Pulse Rate 101 H Respiratory 18 18 Rate Blood Pressure 146/79 O2 Sat by Pulse 95 Oximetry Medical Decision Making - Medical Decision Making Patient is a 50-year-old male here for right lower leg pain, swelling and redness for the past 4 days. He had a telemetry health visit with his PCP who recommended coming to the ER. He does have history of PEs, is currently on Xarelto. Vital signs are stable, no fevers. Labs show normal white count, , CRP is 31. Ultrasound reveals no evidence for DVT. I discussed with patient that started antibiotics for cellulitis. I will give him 1 g of Rocephin here in the ER and continue with Keflex at home. He needs to follow-up with his PCP within 1-3 days. Patient is stable for discharge. Patient is in agreement with this plan of care. Return parameters were discussed with the patient and they verbalized understanding. Case discussed with Dr. Meehan. - Lab Data Result diagrams: 12/16/20 17:58 12/16/20 17:58 Lab Results 12/16/20 12/16/20 Range/Units 17:58 17:58 WBC 7.1 (3.8-10.6) k/uL RBC 4.64 (4.30-5.90) m/uL Hgb 14.3 (13.0-17.5) gm/dL Hct 42.7 (39.0-53.0) % MCV 92.1 (80.0-100.0) fL MCH 30.8 (25.0-35.0) pg MCHC 33.4 (31.0-37.0) g/dL RDW 13.6 (11.5-15.5) % Plt Count 284 (150-450) k/uL MPV 7.4 Neutrophils % 54 % Lymphocytes % 29 % Monocytes % 12 % Eosinophils % 1 % Basophils % 1 % Neutrophils # 3.8 (1.3-7.7) k/uL Lymphocytes # 2.1 (1.0-4.8) k/uL Monocytes # 0.9 (0-1.0) k/uL Eosinophils # 0.1 (0-0.7) k/uL Basophils # 0.0 (0-0.2) k/uL ESR 87 H (0-15) mm/hr Sodium 138 (137-145) mmol/L Potassium 4.0 (3.5-5.1) mmol/L Chloride 104 (98-107) mmol/L Carbon Dioxide 25 (22-30) mmol/L Anion Gap 9 mmol/L BUN 9 (9-20) mg/dL Creatinine 0.58 L (0.66-1.25) mg/dL Est GFR (CKD-EPI)AfAm >90 (>60 ml/min/1.73 sqM) Est GFR (CKD-EPI)NonAf >90 (>60 ml/min/1.73 sqM) Glucose 135 H (74-99) mg/dL Calcium 9.1 (8.4-10.2) mg/dL Total Bilirubin 0.4 (0.2-1.3) mg/dL AST 16 L (17-59) U/L ALT 12 (4-49) U/L Alkaline Phosphatase 58 (38-126) U/L C-Reactive Protein 31.2 H (<10.0) mg/L Total Protein 6.6 (6.3-8.2) g/dL Albumin 3.4 L (3.5-5.0) g/dL Disposition Clinical Impression: Cellulitis of right lower leg Disposition: HOME SELF-CARE Condition: Stable Instructions (If sedation given, give patient instructions): Cellulitis (ED) Additional Instructions: Please return to the Emergency Department if symptoms worsen or any other concerns. Take antibiotic as prescribed. Elevation above the heart level for the swelling. Follow-up with your regular doctor in 1-3 days. Prescriptions: Cephalexin [Keflex] 500 mg PO Q6HR 10 Days #40 cap Is patient prescribed a controlled substance at d/c from ED?: No Referrals: Leydi Davies MD [Primary Care Provider] - 1-2 days
[2020-12-16 18:54] LABS: Erythrocyte Sedimentation Rate 87 mm/hr (0-15)
--- NOTE | 2020-12-16 19:10 | US ---
EXAMINATION TYPE: US venous doppler duplex LE RT DATE OF EXAM: 12/16/2020 7:00 PM COMPARISON: Bilateral lower extremity venous ultrasound March 01, 2019 CLINICAL HISTORY: swelling, pain, erythema. Swelling, pain, and erythema x 4 days. Patient is on Xare lto. Kyle historian. SIDE PERFORMED: Right TECHNIQUE: The lower extremity deep venous system is examined utilizing real time linear array sonog levi with graded compression, doppler sonography and color-flow sonography. VESSELS IMAGED: Common Femoral Vein Deep Femoral Vein Greater Saphenous Vein * Femoral Vein Popliteal Vein Small Saphenous Vein * Proximal Calf Veins (* superficial vessels) Right Leg: No evidence of DVT in veins imaged at this time from prox calf veins to CFV/GSV. Hypoecho ic area with hyperechoic center and vascular hilum seen within the right groin measurin.0 x 1.5 x 0.7 cm. IMPRESSION: No ultrasound evidence for acute DVT in the right lower extremity. Abnormal right groin lymph node suspected in the right groin region on current study. Nonemergent follow-up advised.
[2020-12-16] MEDS ORDERED: cefTRIAXone IN SWFI 1,000 MG/10 ML SYRINGE IVP STA (19:13)
[2020-12-16 19:22] VITALS: BP 148/79; PULSE 90
[2020-12-16] MEDS ORDERED: cefTRIAXone 1,000 MG VIAL (IM USE) IM STA (19:24)
== END 2020-12-16 19:32 | disposition home or self-care (01) ==
LOC: EC 16:49
DX: L03.115 Cellulitis of right lower limb (principal); E11.9 Type 2 diabetes mellitus without complications; G40.909 Epilepsy, unspecified, not intractable, without status epilepticus; E78.5 Hyperlipidemia, unspecified; I10 Essential (primary) hypertension; Z85.048 Personal history of other malignant neoplasm of rectum, rectosigmoid junction, and anus; Z86.711 Personal history of pulmonary embolism; Z87.442 Personal history of urinary calculi; Z87.891 Personal history of nicotine dependence; Z79.84 Long term (current) use of oral hypoglycemic drugs
CPT/HCPCS: 36415; 80053; 85652; 85025; 86140; 93971; 99284; 96372; J0696

== ENCOUNTER → 2021-03-03 | Outpatient (CLI) | payer MEDICARE ==
[2021-03-03 14:05] LABS: African American GFR (CKD) >90 (>60 ml/min/1.73 sqM); Blood Urea Nitrogen 9 mg/dL (9-20); Non-African American GFR(CKD) >90 (>60 ml/min/1.73 sqM)
--- NOTE | 2021-03-03 15:31 | CT ---
EXAMINATION TYPE: CT ChestAbdPelvis w con DATE OF EXAM: 03/03/2021 COMPARISON: 10/28/2020 HISTORY: Follow up for rectal cancer. CT DLP: 3049.6 mGycm CONTRAST: CT scan of the chest, abdomen and pelvis is performed with Oral Contrast and with IV Contrast, patien t injected with 100ml mL of Isovue 300. CT Chest: LUNGS: The lungs are clear and free of infiltrate or atelectasis. There is linear parenchymal scarrin g lower lobes. No pulmonary nodule or mass is detected. No pleural effusion or CT evidence of inters titial lung disease. MEDIASTINUM: Thoracic aorta is of normal caliber. The heart is not enlarged. No evidence for media stinal mass or adenopathy. HILAR STRUCTURES: No evidence for mass. No hilar adenopathy is appreciated. OTHER: No significant abnormality. CONTRAST CT ABDOMEN AND PELVIS FINDINGS: LIVER/GB: The gallbladder is surgically absent. No space occupying hepatic lesion. Biliary tree is of normal caliber. PANCREAS: No inflammation. No distinct mass. SPLEEN: No splenic enlargement. No lesion seen. ADRENALS: No nodule. No thickening. KIDNEYS/BLADDER: No hydronephrosis. No nephrolithiasis. No distinct renal mass. BOWEL: Normal appendix. Rectosigmoid anastomosis without recurrent mass. Normal bowel caliber. No i nflammation. GENITAL ORGANS: No gross abnormality. LYMPH NODES: No greater than 1cm abdominal or pelvic lymph nodes are appreciated. AORTA: No significant abnormality. OSSEOUS STRUCTURES: No significant abnormality is seen. OTHER: No significant additional abnormality is seen. IMPRESSION: 1. No evidence for metastatic disease or recurrent disease at this time.
== END | disposition home or self-care (01) ==
LOC: RADCTMAIN 13:09
PROVIDERS: ATTEND Internal Medicine Hematology & Oncology
DX: C20 Malignant neoplasm of rectum (principal)
CPT/HCPCS: 82565; 84520; 71260; 74177; 36415; Q9967

== ENCOUNTER 2021-03-26 10:50 | Observation (INO) | payer MEDICARE ==
[2021-03-26] MEDS ORDERED: ASPIRIN 325 MG TAB PO STA (11:27)
[2021-03-26 11:49] LABS: Basophils % (A) 1 %; Eosinophils # (A) 0.1 k/uL (0-0.7); Eosinophils % (A) 1 %; HCT 45.3 % (39.0-53.0); HGB 15.7 gm/dL (13.0-17.5); Lymphocytes # (A) 2.3 k/uL (1.0-4.8); Lymphocytes % (A) 38 %; MCHC 34.7 g/dL (31.0-37.0); MCV 89.4 fL (80.0-100.0); Mean Platelet Volume 7.5; Monocytes # (A) 0.6 k/uL (0-1.0); Monocytes % (A) 10 %; Neutrophils % (A) 48 %; Platelet Count 249 k/uL (150-450); RBC 5.07 m/uL (4.30-5.90); RDW 14.9 % (11.5-15.5); WBC 6.1 k/uL (3.8-10.6)
[2021-03-26 12:00] LABS: D-Dimer 0.18 mg/L FEU (<0.60); Partial Thromboplastin Time 22.6 sec (22.0-30.0); Prothrombin Time 10.3 sec (9.0-12.0)
[2021-03-26 12:05] LABS: ALT 16 U/L (4-49); AST 19 U/L (17-59); African American GFR (CKD) >90 (>60 ml/min/1.73 sqM); Alkaline Phosphatase 60 U/L (38-126); Anion Gap 13 mmol/L; Blood Urea Nitrogen 11 mg/dL (9-20); Calcium 9.5 mg/dL (8.4-10.2); Carbon Dioxide 23 mmol/L (22-30); Chloride 101 mmol/L (98-107); Glucose 165 mg/dL (74-99); Magnesium 1.7 mg/dL (1.6-2.3); Non-African American GFR(CKD) >90 (>60 ml/min/1.73 sqM); Potassium 3.7 mmol/L (3.5-5.1); Sodium 137 mmol/L (137-145); Total Bilirubin 0.3 mg/dL (0.2-1.3)
--- NOTE | 2021-03-26 12:33 | ED ---
SOB HPI - General Chief Complaint: Shortness of Breath Stated Complaint: SOB Time Seen by Provider: 03/26/21 11:09 Source: patient, EMS Mode of arrival: EMS Limitations: no limitations - History of Present Illness Initial Comments: Patient is a 50-year-old male with history of rectal cancer, in remission, diabetes, hypertension, PE, presenting to the emergency Department with complaints of shortness of breath that started about 2-3 hours prior to arrival. Patient states he was just getting ready to play video game when he noticed the shortness of breath. He states it lasted for about 1 minute and then seemed to get a little bit better. He states over the next hour he states it has progressed and so he decided to come in to be seen. He is complaining of chest pressure as well. He feels like somebody is sitting on his chest. He states he was recently taken off his blood thinner secondary to the fact that this been a few years since his PE. No other recent changes in his medication. He denies any nausea or vomiting, no abdominal pain. He denies any lightheadedness. He states he's had swelling in his legs for years and he does not feel like they are getting worse. He is on Lasix. He has no further complaints at this time. Upon arrival to the ER, he has tachycardia at 105, 95% on room air, rest of vitals are within normal limits. - Related Data Home Medications Medication Instructions Recorded Confirmed Divalproex [Depakote] 500 mg PO BID 10/29/15 03/26/21 Atorvastatin [Lipitor] 20 mg PO HS 10/24/18 03/26/21 Divalproex [Depakote] 750 mg PO HS 10/24/18 03/26/21 Furosemide [Lasix] 20 mg PO DAILY 12/16/20 03/26/21 Potassium Chloride ER [K-Dur 20] 20 meq PO DAILY 12/16/20 03/26/21 metFORMIN HCL 1,000 mg PO DAILY 12/16/20 03/26/21 Acetaminophen [Tylenol] 650 mg PO DAILY PRN 03/26/21 03/26/21 Aspirin EC [Ecotrin Low Dose] 162 mg PO DAILY 03/26/21 03/26/21 Lisinopril [Zestril] 10 mg PO DAILY 03/26/21 03/26/21 Allergies Allergy/AdvReac Type Severity Reaction Status Date / Time No Known Allergies Allergy Verified 03/26/21 13:06 Review of Systems ROS Statement: Those systems with pertinent positive or pertinent negative responses have been documented in the HPI. ROS Other: All systems not noted in ROS Statement are negative. Past Medical History Past Medical History: Cancer, Diabetes Mellitus, Hyperlipidemia, Hypertension, Pulmonary Embolus (PE), Seizure Disorder Additional Past Medical History / Comment(s): epilepsy-last seizure "10 years ago", ANEMIA, rectal cancer-last chemo Mar 21 and radiation through 08/06/18, kidney stone, History of Any Multi-Drug Resistant Organisms: None Reported Past Surgical History: Appendectomy, Bowel Resection, Cholecystectomy, Hernia Repair Additional Past Surgical History / Comment(s): vasectomy, surg. to repair hypospadias as a child, bowel resection/colostomy 09/06/18, Right upper chest post, Past Anesthesia/Blood Transfusion Reactions: No Reported Reaction Past Psychological History: No Psychological Hx Reported Smoking Status: Former smoker Past Alcohol Use History: Rare Past Drug Use History: None Reported - Past Family History Brother(s) Family Medical History: Cancer, Deep Vein Thrombosis (DVT) Mother Family Medical History: Pulmonary Embolus General Exam - General Exam Comments Initial Comments: GENERAL: Patient is well-developed and well-nourished. Patient is nontoxic and in no acute distress. HEAD: Atraumatic, normocephalic. EYES: Pupils equal round and reactive to light, extraocular movements intact, sclera anicteric, conjunctiva are normal. Eyelids were unremarkable. ENT: TMs normal, nares patent, oropharynx clear without exudates. Moist mucous membranes. NECK: Normal range of motion, supple without lymphadenopathy or JVD. LUNGS: Unlabored respirations. Breath sounds clear to auscultation bilaterally and equal. No wheezes rales or rhonchi. HEART: Tachycardia rate and rhythm without murmurs, rubs or gallops. ABDOMEN: Soft, nontender, normoactive bowel sounds. No guarding, no rebound. No masses appreciated. : Deferred MUSCULOSKELETAL: Normal extremities with adequate strength and normal range of motion. Patient has edema bilateral lower legs, this is chronic and seems to be stable. No clubbing or cyanosis. NEUROLOGICAL: Patient is alert and oriented x 3. Motor and sensory are also intact. Cranial nerves II through XII grossly intact. Symmetrical smile. Normal speech, normal gait. PSYCH: Normal mood, normal affect. SKIN: Warm, Dry, normal turgor, no rashes or lesions noted. Limitations: no limitations Course Vital Signs 03/26/21 03/26/21 03/26/21 10:53 11:03 11:54 Temperature 97.7 F 97.7 F Pulse Rate 105 H 101 H Respiratory 20 20 22 Rate Blood Pressure 153/87 161/88 O2 Sat by Pulse 95 94 L Oximetry 03/26/21 03/26/21 14:02 18:18 Temperature 98.6 F 97.8 F Pulse Rate 88 85 Respiratory 18 Rate Blood Pressure 131/88 140/87 O2 Sat by Pulse 94 L 95 Oximetry Medical Decision Making - Medical Decision Making Patient is a 50-year-old male with history of hypertension, PE, diabetes, presenting with shortness of breath that started about 3 hours prior to arrival. He is slightly tachycardia and hypoxic upon arrival at 94%. He was recently taken off his blood thinners at this been a few years since his PE. EKG shows no acute process. Labs are all within normal limits including electrolytes, troponin, BNP. Lactic acid came back elevated at 4.4. Patient does not seem to have an infectious process at this time, no fevers, no source of infection. Given patient's high risk for PE, CT chest angio was performed, no evidence of pulmonary embolism, there is no pleural effusions, aortic aneurysm is stable. He was given half a liter fluids, Protonix and aspirin. Patient will be admitted with cardiac consult. He is in agreement this plan of care. Patient accepted by Dr. Harvey. Case discussed with Dr. Meehan. - Lab Data Result diagrams: 03/26/21 11:32 03/26/21 11:32 Lab Results 03/26/21 03/26/21 03/26/21 Range/Units 11:32 11:32 11:32 WBC 6.1 (3.8-10.6) k/uL RBC 5.07 (4.30-5.90) m/uL Hgb 15.7 (13.0-17.5) gm/dL Hct 45.3 (39.0-53.0) % MCV 89.4 (80.0-100.0) fL MCH 31.0 (25.0-35.0) pg MCHC 34.7 (31.0-37.0) g/dL RDW 14.9 (11.5-15.5) % Plt Count 249 (150-450) k/uL MPV 7.5 Neutrophils % 48 % Lymphocytes % 38 % Monocytes % 10 % Eosinophils % 1 % Basophils % 1 % Neutrophils # 3.0 (1.3-7.7) k/uL Lymphocytes # 2.3 (1.0-4.8) k/uL Monocytes # 0.6 (0-1.0) k/uL Eosinophils # 0.1 (0-0.7) k/uL Basophils # 0.0 (0-0.2) k/uL PT 10.3 (9.0-12.0) sec INR 1.0 (<1.2) APTT 22.6 (22.0-30.0) sec D-Dimer 0.18 (<0.60) mg/L FEU Sodium 137 (137-145) mmol/L Potassium 3.7 (3.5-5.1) mmol/L Chloride 101 (98-107) mmol/L Carbon Dioxide 23 (22-30) mmol/L Anion Gap 13 mmol/L BUN 11 (9-20) mg/dL Creatinine 0.66 (0.66-1.25) mg/dL Est GFR (CKD-EPI)AfAm >90 (>60 ml/min/1.73 sqM) Est GFR (CKD-EPI)NonAf >90 (>60 ml/min/1.73 sqM) Glucose 165 H (74-99) mg/dL Lactic Ac Sepsis Rflx Plasma Lactic Acid Jason (0.7-2.0) mmol/L Calcium 9.5 (8.4-10.2) mg/dL Magnesium 1.7 (1.6-2.3) mg/dL Total Bilirubin 0.3 (0.2-1.3) mg/dL AST 19 (17-59) U/L ALT 16 (4-49) U/L Alkaline Phosphatase 60 (38-126) U/L CK-MB (CK-2) (0.0-2.4) ng/mL Troponin I (0.000-0.034) ng/mL NT-Pro-B Natriuret Pep pg/mL Total Protein 7.0 (6.3-8.2) g/dL Albumin 4.0 (3.5-5.0) g/dL Urine Color Urine Appearance (Clear) Urine pH (5.0-8.0) Ur Specific [place] (1.001-1.035) Urine Protein (Negative) Urine Glucose (UA) (Negative) Urine Ketones (Negative) Urine Blood (Negative) Urine Nitrite (Negative) Urine Bilirubin (Negative) Urine Urobilinogen (<2.0) mg/dL Ur Leukocyte Esterase (Negative) Urine RBC (0-5) /hpf Urine WBC (0-5) /hpf Ur Squamous Epith Cells (0-4) /hpf Hyaline Casts (0-2) /lpf Urine Mucus (None) /hpf Coronavirus (PCR) (Not Detectd) 03/26/21 03/26/21 03/26/21 Range/Units 11:32 11:32 11:32 WBC (3.8-10.6) k/uL RBC (4.30-5.90) m/uL Hgb (13.0-17.5) gm/dL Hct (39.0-53.0) % MCV (80.0-100.0) fL MCH (25.0-35.0) pg MCHC (31.0-37.0) g/dL RDW (11.5-15.5) % Plt Count (150-450) k/uL MPV Neutrophils % % Lymphocytes % % Monocytes % % Eosinophils % % Basophils % % Neutrophils # (1.3-7.7) k/uL Lymphocytes # (1.0-4.8) k/uL Monocytes # (0-1.0) k/uL Eosinophils # (0-0.7) k/uL Basophils # (0-0.2) k/uL PT (9.0-12.0) sec INR (<1.2) APTT (22.0-30.0) sec D-Dimer (<0.60) mg/L FEU Sodium (137-145) mmol/L Potassium (3.5-5.1) mmol/L Chloride (98-107) mmol/L Carbon Dioxide (22-30) mmol/L Anion Gap mmol/L BUN (9-20) mg/dL Creatinine (0.66-1.25) mg/dL Est GFR (CKD-EPI)AfAm (>60 ml/min/1.73 sqM) Est GFR (CKD-EPI)NonAf (>60 ml/min/1.73 sqM) Glucose (74-99) mg/dL Lactic Ac Sepsis Rflx Plasma Lactic Acid Jason 4.4 H* (0.7-2.0) mmol/L Calcium (8.4-10.2) mg/dL Magnesium (1.6-2.3) mg/dL Total Bilirubin (0.2-1.3) mg/dL AST (17-59) U/L ALT (4-49) U/L Alkaline Phosphatase (38-126) U/L CK-MB (CK-2) (0.0-2.4) ng/mL Troponin I <0.012 (0.000-0.034) ng/mL NT-Pro-B Natriuret Pep 35 pg/mL Total Protein (6.3-8.2) g/dL Albumin (3.5-5.0) g/dL Urine Color Urine Appearance (Clear) Urine pH (5.0-8.0) Ur Specific [place] (1.001-1.035) Urine Protein (Negative) Urine Glucose (UA) (Negative) Urine Ketones (Negative) Urine Blood (Negative) Urine Nitrite (Negative) Urine Bilirubin (Negative) Urine Urobilinogen (<2.0) mg/dL Ur Leukocyte Esterase (Negative) Urine RBC (0-5) /hpf Urine WBC (0-5) /hpf Ur Squamous Epith Cells (0-4) /hpf Hyaline Casts (0-2) /lpf Urine Mucus (None) /hpf Coronavirus (PCR) (Not Detectd) 03/26/21 03/26/21 03/26/21 Range/Units 12:14 13:51 13:53 WBC (3.8-10.6) k/uL RBC (4.30-5.90) m/uL Hgb (13.0-17.5) gm/dL Hct (39.0-53.0) % MCV (80.0-100.0) fL MCH (25.0-35.0) pg MCHC (31.0-37.0) g/dL RDW (11.5-15.5) % Plt Count (150-450) k/uL MPV Neutrophils % % Lymphocytes % % Monocytes % % Eosinophils % % Basophils % % Neutrophils # (1.3-7.7) k/uL Lymphocytes # (1.0-4.8) k/uL Monocytes # (0-1.0) k/uL Eosinophils # (0-0.7) k/uL Basophils # (0-0.2) k/uL PT (9.0-12.0) sec INR (<1.2) APTT (22.0-30.0) sec D-Dimer (<0.60) mg/L FEU Sodium (137-145) mmol/L Potassium (3.5-5.1) mmol/L Chloride (98-107) mmol/L Carbon Dioxide (22-30) mmol/L Anion Gap mmol/L BUN (9-20) mg/dL Creatinine (0.66-1.25) mg/dL Est GFR (CKD-EPI)AfAm (>60 ml/min/1.73 sqM) Est GFR (CKD-EPI)NonAf (>60 ml/min/1.73 sqM) Glucose (74-99) mg/dL Lactic Ac Sepsis Rflx Y Plasma Lactic Acid Jason (0.7-2.0) mmol/L Calcium (8.4-10.2) mg/dL Magnesium (1.6-2.3) mg/dL Total Bilirubin (0.2-1.3) mg/dL AST (17-59) U/L ALT (4-49) U/L Alkaline Phosphatase (38-126) U/L CK-MB (CK-2) (0.0-2.4) ng/mL Troponin I (0.000-0.034) ng/mL NT-Pro-B Natriuret Pep pg/mL Total Protein (6.3-8.2) g/dL Albumin (3.5-5.0) g/dL Urine Color Light Yellow Urine Appearance Cloudy (Clear) Urine pH 5.0 (5.0-8.0) Ur Specific [place] 1.009 (1.001-1.035) Urine Protein Negative (Negative) Urine Glucose (UA) 1+ H (Negative) Urine Ketones Trace H (Negative) Urine Blood Negative (Negative) Urine Nitrite Negative (Negative) Urine Bilirubin Negative (Negative) Urine Urobilinogen <2.0 (<2.0) mg/dL Ur Leukocyte Esterase Small H (Negative) Urine RBC <1 (0-5) /hpf Urine WBC 3 (0-5) /hpf Ur Squamous Epith Cells 4 (0-4) /hpf Hyaline Casts 3 H (0-2) /lpf Urine Mucus Occasional H (None) /hpf Coronavirus (PCR) Not Detected (Not Detectd) 03/26/21 03/26/21 03/26/21 Range/Units 14:40 14:40 15:11 WBC (3.8-10.6) k/uL RBC (4.30-5.90) m/uL Hgb (13.0-17.5) gm/dL Hct (39.0-53.0) % MCV (80.0-100.0) fL MCH (25.0-35.0) pg MCHC (31.0-37.0) g/dL RDW (11.5-15.5) % Plt Count (150-450) k/uL MPV Neutrophils % % Lymphocytes % % Monocytes % % Eosinophils % % Basophils % % Neutrophils # (1.3-7.7) k/uL Lymphocytes # (1.0-4.8) k/uL Monocytes # (0-1.0) k/uL Eosinophils # (0-0.7) k/uL Basophils # (0-0.2) k/uL PT (9.0-12.0) sec INR (<1.2) APTT (22.0-30.0) sec D-Dimer (<0.60) mg/L FEU Sodium (137-145) mmol/L Potassium (3.5-5.1) mmol/L Chloride (98-107) mmol/L Carbon Dioxide (22-30) mmol/L Anion Gap mmol/L BUN (9-20) mg/dL Creatinine (0.66-1.25) mg/dL Est GFR (CKD-EPI)AfAm (>60 ml/min/1.73 sqM) Est GFR (CKD-EPI)NonAf (>60 ml/min/1.73 sqM) Glucose (74-99) mg/dL Lactic Ac Sepsis Rflx Y Plasma Lactic Acid Jason 3.1 H* (0.7-2.0) mmol/L Calcium (8.4-10.2) mg/dL Magnesium (1.6-2.3) mg/dL Total Bilirubin (0.2-1.3) mg/dL AST (17-59) U/L ALT (4-49) U/L Alkaline Phosphatase (38-126) U/L CK-MB (CK-2) 0.8 (0.0-2.4) ng/mL Troponin I <0.012 (0.000-0.034) ng/mL NT-Pro-B Natriuret Pep pg/mL Total Protein (6.3-8.2) g/dL Albumin (3.5-5.0) g/dL Urine Color Urine Appearance (Clear) Urine pH (5.0-8.0) Ur Specific [place] (1.001-1.035) Urine Protein (Negative) Urine Glucose (UA) (Negative) Urine Ketones (Negative) Urine Blood (Negative) Urine Nitrite (Negative) Urine Bilirubin (Negative) Urine Urobilinogen (<2.0) mg/dL Ur Leukocyte Esterase (Negative) Urine RBC (0-5) /hpf Urine WBC (0-5) /hpf Ur Squamous Epith Cells (0-4) /hpf Hyaline Casts (0-2) /lpf Urine Mucus (None) /hpf Coronavirus (PCR) (Not Detectd) - EKG Data EKG Comments: Normal sinus rhythm, nonspecific ST and T-wave abnormalities, no signs of an acute ischemic process. Similar to previous EKG on 02/21/2020. Particular rate 96, SD interval 158, QT 358. Disposition Clinical Impression: Chest pain, Dyspnea, Lactic acidosis Disposition: ADMITTED IP TO THIS [facility] Condition: Stable Decision Date: 03/26/21 Decision Time: 13:52
--- NOTE | 2021-03-26 13:22 | CT ---
EXAMINATION TYPE: CT chest angio for PE DATE OF EXAM: 03/26/2021 COMPARISON: 03/03/2021 HISTORY: dyspnea, chest pain CT DLP: 1012.1 mGycm Automated exposure control for dose reduction was used. CONTRAST: CT Chest for pulmonary embolism performed with with IV Contrast, patient injected with 100 mL of Isov ue 370. 3-dimensional reconstructions performed on an alternate workstation. FINDINGS: LUNGS: The lungs are remarkable for some dependent atelectatic change, bandlike area of atelectasis i n the right lung base, there is no concerning parenchymal mass or nodule identified. There is no pl eural effusion or pneumothorax seen. The tracheobronchial tree is patent. MEDIASTINUM: There is satisfactory enhancement of the pulmonary artery and its branches, there is no CT evidence for pulmonary embolism. There are no greater than 1 cm hilar or mediastinal lymph nodes. No pericardial effusion is seen. AORTA: Ascending aorta measures 4 cm on axial image #65, proximal descending aorta is normal at 6 cm , aortic root is not dilated, stable. OTHER: There is persistent elevation of the right hemidiaphragm, the liver is thought to be enlarged and shows low-attenuation suggestive of hepatic steatosis. There are changes of gynecomastia. IMPRESSION: No evident pulmonary embolism. Aortic aneurysm is stable. Hepatomegaly is suspected, hepatic steatosi s.
[2021-03-26] MEDS ORDERED: SODIUM CHLORIDE 0.9% 1,000 ML IV STA (13:29)
[2021-03-26] MEDS ORDERED: NITROGLYCERIN SL TABS 0.4 MG TAB SUBLINGUAL PRN (13:49)
[2021-03-26 14:32] LABS: Appearance,Urine Cloudy (Clear); Bilirubin,Urine Negative (Negative); Blood,Urine Negative (Negative); Color,Urine Light Yellow; Glucose,Urine (UA) 1+ (Negative); Hyaline Casts,Urine 3 /lpf (0-2); Ketones,Urine Trace (Negative); Leukocyte Esterase,Urine Small (Negative); Mucus,Urine Occasional /hpf; Nitrite,Urine Negative (Negative); Protein,Urine Negative (Negative); RBC,Urine <1 /hpf (0-5); Specific Gravity,Urine 1.009 (1.001-1.035); Squamous Epithelial Cell,Urine 4 /hpf (0-4); Urobilinogen,Urine <2.0 mg/dL (<2.0); WBC,Urine 3 /hpf (0-5)
[2021-03-26 15:40] LABS: Creatine Kinase MB 0.8 ng/mL (0.0-2.4); Troponin I <0.012 ng/mL (0.000-0.034)
--- NOTE | 2021-03-26 18:25 | ECHOF ---
Referral Reason:dyspnea, chest pain MEASUREMENTS -------- HEIGHT: 162.6 cm WEIGHT: 137.9 kg BP: IVSd: 1.4 cm (0.6 - 1.1) LVIDd: 3.3 cm (3.9 - 5.3) LVPWd: 1.5 cm (0.6 - 1.1) IVSs: 1.6 cm LVIDs: 2.1 cm LVPWs: 1.8 cm Ao Diam: 3.9 cm (2.0 - 3.7) AV Cusp: 2.4 cm (1.5 - 2.6) LA Diam: 3.5 cm (2.7 - 3.8) MV E Kd: 0.64 m/s MV DecT: 144 ms MV A Kd: 0.72 m/s MV E/A Ratio: 0.89 RAP: 5.00 mmHg RVSP: 11.68 mmHg FINDINGS -------- Sinus rhythm. This was a technically difficult study with suboptimal views. The left ventricular size is normal. There is moderate concentric left ventricular hypertrophy. O verall left ventricular systolic function is normal with, an EF between 55 - 60 %. The right ventricle is normal in size. The left atrial size is normal. The right atrium was not well visualized. Lumason used The aortic valve was not well visualized. The mitral valve is normal. There is trace mitral regurgitation. The tricuspid valve appears structurally normal. Trace tricuspid regurgitation present. Right millie tricular systolic pressure is normal at < 35 mmHg. The pulmonic valve was not well visualized. There is no pulmonic regurgitation present. The aortic root size is normal. IVC Not well visulized. There is no pericardial effusion. CONCLUSIONS -------- 1. This was a technically difficult study with suboptimal views. 2. There is moderate concentric left ventricular hypertrophy. 3. Overall left ventricular systolic function is normal with, an EF between 55 - 60 %. 4. The left atrial size is normal. 5. The aortic valve was not well visualized. 6. There is trace mitral regurgitation. 7. Trace tricuspid regurgitation present. 8. There is no pericardial effusion. TEST PREPARER: Melanie Corcoran, [facility]
[2021-03-26 20:13] LABS: Glucose,Whole Blood 148 mg/dL (75-99)
[2021-03-26] MEDS ORDERED: ATORVASTATIN 20 MG TAB PO SCH (21:45)
[2021-03-26] MEDS ORDERED: SODIUM CHLORIDE 0.9% 1,000 ML IV SCH (21:45)
[2021-03-26] MEDS ORDERED: ACETAMINOPHEN TAB 325 MG TAB PO PRN (21:45)
[2021-03-26] MEDS ORDERED: PANTOPRAZOLE 40 MG TABLET PO STA (21:51)
[2021-03-26] MEDS: HEPARIN SODIUM,PORCINE/PF 5,000 UNIT/0.5 ML SYRINGE SQ SCH (21:59)
[2021-03-26] MEDS ORDERED: DIVALPROEX 250 MG TABLET.DR PO SCH (22:00)
[2021-03-26] MEDS: MAGNESIUM SULFATE-D5W PMX 1 GM in DEXTROSE/WATER 1 100ML.BAG IVPB SCH ×2 (22:26→23:33)
--- NOTE | 2021-03-26 22:28 | P.HPIM ---
History of Present Illness H&P Date: 03/26/21 Chief Complaint: Chest Pressure Patient is a 50-year-old male with a known history of hypertension, diabetes type 2, [id number], history of rectal cancer diagnosed in 2018 currently no active disease, GERD, history of PE completed anticoagulation about 2 weeks ago, seizure disorder, previous history of smoking and renal stones presents to ER with complaints of difficulty in breathing about 2 hours prior to admission. Patient states that he developed chest pressure today at around 10:30 AM and felt like someone sitting on the chest. Associated with difficulty in breathing. Patient also felt cold sweats and chills. Associated with dizziness and lightheadedness. Denied any fever. Patient did take aspirin which seemed to improve his pain. Patient states that he did have nausea and episodes of diarrhea yesterday. Diarrhea currently resolved. No complaints of abdominal pain. Patient states that he always have bilateral lower extremity swelling. Patient does take Lasix 20 mg daily at home. On admission blood pressure 153/87 pulse 105 and respirations 20 and pulse ox 95% on room air. Laboratory data show WBC 6.1 hemoglobin 15.7 and platelets 249 D-dimer is 0.18 BUN 11 and creatinine 0.66 Blood sugar is 165 and lactic acid 4.4 Magnesium 1.7 CTA showed no evidence of PE. Aortic aneurysm is stable. Hepatomegaly is suspected. Hepatic steatosis. EKG showed normal sinus rhythm. Nonspecific ST-T abnormalities. proBNP 35 and troponin x2 -. Liver enzymes not elevated. Review of Systems Constitutional: Patient denies any fever or chills . No generalized weakness or weight loss. Abdomen: Patient denied nausea vomiting and diarrhea and abdominal pain. Cardiovascular: Patient does complain of chest pressure. No associated shortness of breath. No increased leg swelling. Respiratory: patient denied any cough or sputum production. No shortness of breath Neurologic: Patient denied any numbness or tingling headache. Musculoskeletal: Patient denies any complaints of joint swelling or deformity. Skin: Negative Psychiatric: Negative Endocrine: No heat or cold intolerance. No recent weight gain. Genitourinary: No dysuria or hematuria. All other 14 point ROS negative except the above Past Medical History Past Medical History: Cancer, Diabetes Mellitus, Hyperlipidemia, Hypertension, Pulmonary Embolus (PE), Seizure Disorder Additional Past Medical History / Comment(s): epilepsy-last seizure "10 years ago", ANEMIA, rectal cancer-last chemo Mar 21 and radiation through 08/06/18, kidney stone, History of Any Multi-Drug Resistant Organisms: None Reported Past Surgical History: Appendectomy, Bowel Resection, Cholecystectomy, Hernia Repair Additional Past Surgical History / Comment(s): vasectomy, surg. to repair hypospadias as a child, bowel resection/colostomy 09/06/18, Right upper chest post, Past Anesthesia/Blood Transfusion Reactions: No Reported Reaction Past Psychological History: No Psychological Hx Reported Smoking Status: Former smoker Past Alcohol Use History: Rare Past Drug Use History: None Reported - Past Family History Brother(s) Family Medical History: Cancer, Deep Vein Thrombosis (DVT) Mother Family Medical History: Pulmonary Embolus Medications and Allergies Home Medications Medication Instructions Recorded Confirmed Type Divalproex [Depakote] 500 mg PO BID 10/29/15 03/26/21 History Atorvastatin [Lipitor] 20 mg PO HS 10/24/18 03/26/21 History Divalproex [Depakote] 750 mg PO HS 10/24/18 03/26/21 History Furosemide [Lasix] 20 mg PO DAILY 12/16/20 03/26/21 History Potassium Chloride ER [K-Dur 20] 20 meq PO DAILY 12/16/20 03/26/21 History metFORMIN HCL 1,000 mg PO DAILY 12/16/20 03/26/21 History Acetaminophen [Tylenol] 650 mg PO DAILY PRN 03/26/21 03/26/21 History Aspirin EC [Ecotrin Low Dose] 162 mg PO DAILY 03/26/21 03/26/21 History Lisinopril [Zestril] 10 mg PO DAILY 03/26/21 03/26/21 History Allergies Allergy/AdvReac Type Severity Reaction Status Date / Time No Known Allergies Allergy Verified 03/26/21 13:06 Physical Exam Vitals: Vital Signs Temp Pulse Resp BP Pulse Ox 03/26/21 14:02 98.6 F 88 131/88 94 L 03/26/21 11:54 97.7 F 101 H 22 161/88 94 L 03/26/21 11:03 20 03/26/21 10:53 97.7 F 105 H 20 153/87 95 Intake and Output 03/26/21 03/26/21 03/26/21 06:59 14:59 22:59 Other: Weight 137.892 kg PHYSICAL EXAMINATION: Patient is lying in the bed comfortably, no acute distress, awake alert and oriented.Morbidly obese.. HEENT: Normocephalic. Neck is supple. Pupils reactive. Nostrils clear. Oral cavity is moist. Neck reveals no JVD, carotid bruits, or thyromegaly. CHEST EXAMINATION: Trachea is central. Symmetrical expansion. Bibasilar diminished air entry. Lung frias clear to auscultation and percussion. CARDIAC: Normal S1, S2 with no gallops. No murmurs ABDOMEN: Soft. Bowel sounds normal. No organomegaly. No abdominal bruits. Extremities: Bilateral lower extremity 2+ edema. No clubbing or cyanosis Neurologically awake, alert, oriented x3 with well-coordinated movements. No focal deficits noted Skin: No rash or skin lesions. Psychiatric: Coperative. Nonsuicidal Musculoskeletal: No joint swelling or deformity. Normal range of motion. Results CBC & Chem 7: 03/26/21 11:32 03/26/21 11:32 Labs: Abnormal Lab Results - Last 24 Hours (Table) 03/26/21 03/26/21 03/26/21 Range/Units 11:32 11:32 13:51 Glucose 165 H (74-99) mg/dL Plasma Lactic Acid Jason 4.4 H* (0.7-2.0) mmol/L Urine Glucose (UA) 1+ H (Negative) Urine Ketones Trace H (Negative) Ur Leukocyte Esterase Small H (Negative) Hyaline Casts 3 H (0-2) /lpf Urine Mucus Occasional H (None) /hpf 03/26/21 Range/Units 14:40 Glucose (74-99) mg/dL Plasma Lactic Acid Jason 3.1 H* (0.7-2.0) mmol/L Urine Glucose (UA) (Negative) Urine Ketones (Negative) Ur Leukocyte Esterase (Negative) Hyaline Casts (0-2) /lpf Urine Mucus (None) /hpf Thrombosis Risk Factor Assmnt - DVT/VTE Prophylaxis DVT/VTE Prophylaxis: Pharmacologic Prophylaxis ordered Assessment and Plan Assessment: Chest discomfort/atypical chest pain. Ruled out ACS. Lactic acidosis. Possible dehydration and volume depletion. No evidence of infection noted. Acute diarrhea x1 day duration. Improved. Diabetes type 2 [id number] Hypertension controlled History of rectal cancer diagnosed in 2018. No active disease currently. GERD History of PE status post anticoagulation for 2 years. Stopped 2 weeks ago. History of seizure disorder Previous history of smoking DVT prophylaxis Heparin subcu Plan: Patient was admitted to hospital due to chest pressure and dizziness. Continue with telemetry monitoring. Troponin x2 -. Ruled out ACS. No evidence of PE on CTA. Patient does have hepatic steatosis. proBNP is not elevated and liver e nzymes are not elevated. 2D echocardiogram was ordered. Continue with gentle IV hydration monitor lactic acid level. No evidence of pneumonia. Urinalysis is negative for infection. Time with Patient: Greater than 30
[2021-03-27 07:28] LABS: Glucose,Whole Blood 109 mg/dL (75-99)
[2021-03-27] MEDS: INSULIN ASPART (NovoLOG) 100 UNIT/ML VIAL SQ SCH ×2 (07:39→12:57)
[2021-03-27] MEDS: HEPARIN SODIUM,PORCINE/PF 5,000 UNIT/0.5 ML SYRINGE SQ SCH (07:42)
[2021-03-27 07:56] VITALS: BP 140/84; PULSE 82; RESP 20; TEMP 97.7
[2021-03-27] MEDS ORDERED: DOBUTamine DRIP for NUC MED 500 MG in DEXTROSE/WATER 1 250ML.BAG IV PRN (08:03)
[2021-03-27] MEDS ORDERED: lisinopriL 10 MG TAB PO SCH (09:00)
[2021-03-27] MEDS ORDERED: ASPIRIN 325 MG TAB PO SCH (09:00)
[2021-03-27] MEDS ORDERED: ASPIRIN 81 MG PO SCH ×2 (09:00)
[2021-03-27] MEDS ORDERED: DIVALPROEX 500 MG TABLET.DR PO SCH (09:00)
--- NOTE | 2021-03-27 09:11 | CONS ---
CONSULTATION ATTENDING PHYSICIAN: Leydi Davies MD. HISTORY OF PRESENT ILLNESS: Mr. Weller is a 50-year-old male with a known history of diabetes mellitus, history of hyperlipidemia and hypertension and a prior history of smoking, who presented with symptoms of chest discomfort. The discomfort occurred at rest, associated with dyspnea and some dizziness. He passed some gas with some improvement but then reoccurred and because of that he came into the emergency room. His discomfort occurred at rest and was not activity related. The patient is not very active physically. He has no exertional chest discomfort. He has dyspnea on exertion. He has chronic peripheral edema. No clear PND. No orthopnea. No syncope. He was seen by Dr. Phelps in the past, the last time in 2018 and underwent a myocardial perfusion imaging in 2017 that revealed no evidence of inducible ischemia. His coronary risk factors are remarkable for hypertension, hyperlipidemia and diabetes. He has stopped smoking in the past. MEDICATIONS: Include Depakote, metformin 1 g daily, aspirin, Lipitor 20 mg daily, Lasix 20 mg daily, lisinopril 10 mg daily. PAST MEDICAL HISTORY: Remarkable for history of diabetes as well history of rectal cancer. REVIEW OF SYSTEMS: RESPIRATORY SYSTEM: Dyspnea on exertion. No history of recent wheezing or fever. GI SYSTEM: Occasional GI bleeding. No nausea or vomiting. SYSTEM: No dysuria or hematuria. NERVOUS SYSTEM: No history of stroke. PHYSICAL EXAMINATION: GENERAL: A 50-year-old male, alert, oriented, no apparent distress. VITAL SIGNS: Blood pressure running in the 130s to 140s with a heart rate in the 80s. HEAD: Normocephalic. Eyes sclerae nonicteric. NECK: Good carotid upstroke, no bruit, no jugular venous distention. LUNGS: Clear to auscultation. HEART: Regular rate and rhythm S1, S2. No S3 with systolic murmur at the base. No diastolic murmur, no rub. ABDOMEN: Soft, obese, nontender. Positive bowel sounds. No organomegaly. EXTREMITIES: +1 edema bilaterally. LAB DATA: Lab data revealed troponin less than 0.012. His lactic acid on presentation was 4.4, down to 1.4 now. His hemoglobin 15.7, white blood cells 6.1. BUN and creatinine 11 and 0.66. NT proBNP of 35. Echocardiogram performed showed a normal left ventricular size and systolic function. EKG revealed a sinus mechanism with nonspecific ST-T wave changes. Chest CT angiogram revealed no evidence of pulmonary embolism but an ascending aorta measuring 4 cm, reported stable. With reviewing his old EKGs, there are no significant changes. He had a prior echocardiogram in 2018 that revealed no evidence of segmental wall motion abnormality. He had evidence of pulmonary hypertension at that time. IMPRESSION: 1. Chest discomfort of unclear etiology. Has some atypical features for ischemic heart disease, probably noncardiac. 2. History of hypertension. 3. Hyperlipidemia. 4. Diabetes mellitus. 5. Obesity. 6. Ascending aortic aneurysm. 7. Prior history of pulmonary embolism. RECOMMENDATION: From the cardiac standpoint, I would recommend to obtain a dobutamine stress echocardiogram to further assess his status and guide his treatment. In the meantime, will continue present therapy and depending on his progress further recommendation will be made. Thank you for this consult. We will follow with you. MMODL / IJN: [id number] /
[2021-03-27 09:27] LABS: Chol/HDL Ratio 3.22
[2021-03-27 11:49] LABS: Glucose,Whole Blood 121 mg/dL (75-99)
--- NOTE | 2021-03-27 15:55 | ECHOS ---
STRESS ECHOCARDIOGRAM LUMASON: INDICATIONS: Chest pain MEDICATIONS: BASELINE HEART RATE: 89 BASELINE BLOOD PRESSURE: 168/97 MAXIMUM HEART RATE: 152 MAXIMUM BLOOD PRESSURE: 163/77 85% MPHR: 143 100% MPHR: 168 METS: MAXIMUM STAGE REACHED: III TOTAL EXERCISE TIME: 7:44 CLINICAL INFORMATION: Baseline rhythm is a sinus mechanism, rate of 89, normal axis and intervals. Minor nonspecific ST-T wave changes. Baseline blood pressure 168/97 mmHg. Patient exercised on a Artie protocol for 7 minute 44 seconds reaching peak rate 152 beats per minute which is equal to 90% maximum predicted heart rate. Peak blood pressure 163/77 mmHg. Test was terminated due to significant fatigue. There was no chest pain. Electrocardiograph monitoring revealed no evidence of diagnostic ischemic ST deviation. Baseline echocardiogram revealed normal wall thickening and motion. At peak exercise, there was normal wall motion augmentation with no hypokinesis or dyskinesis. CONCLUSION: 1. Average exercise tolerance with normal electrocardiograph response to exercise. 2. Normal stress echocardiogram with no evidence of stress-induced ischemia. MMODL / IJN: [id number] /
--- NOTE | 2021-03-28 23:12 | P.DS ---
Providers Date of admission: 03/26/21 15:34 Expected date of discharge: 03/27/21 Attending physician: Kenton Harvey Primary care physician: Leydi Davies [facility] Course: Final Diagnosis Chest discomfort/atypical chest pain. Ruled out ACS. Lactic acidosis. Possible dehydration and volume depletion. No evidence of infection noted. Acute diarrhea x1 day duration. Improved. Diabetes type 2 [id number] Hypertension controlled History of rectal cancer diagnosed in 2018. No active disease currently. GERD History of PE status post anticoagulation for 2 years. Stopped 2 weeks ago. History of seizure disorder Previous history of smoking DVT prophylaxis Discharge disposition Patient is being discharged in a stable condition with guarded prognosis to home. Patient will follow-up with Dr. Davies in the outpatient setting upon discharge. Patient to follow up with cardiology Dr. Altman outpatient. Total time taken is greater than 35 minutes. Hospital course Patient is a 50-year-old male with a known history of hypertension, diabetes type 2, [id number], history of rectal cancer diagnosed in 2018 currently no active disease, GERD, history of PE completed anticoagulation about 2 weeks ago, seizure disorder, previous history of smoking and renal stones presents to ER with complaints of difficulty in breathing about 2 hours prior to admission. Patient states that he developed chest pressure today at around 10:30 AM and felt like someone sitting on the chest. Associated with difficulty in breathing. Patient also felt cold sweats and chills. Associated with dizziness and lightheadedness. Denied any fever. Patient did take aspirin which seemed to improve his pain. Patient states that he did have nausea and episodes of diarrhea yesterday. Diarrhea currently resolved. No complaints of abdominal pain. Patient states that he always have bilateral lower extremity swelling. Patient does take Lasix 20 mg daily at home. On admission blood pressure 153/87 pulse 105 and respirations 20 and pulse ox 95% on room air. Laboratory data show WBC 6.1 hemoglobin 15.7 and platelets 249 D-dimer is 0.18 BUN 11 and creatinine 0.66 Blood sugar is 165 and lactic acid 4.4 Magnesium 1.7 CTA showed no evidence of PE. Aortic aneurysm is stable. Hepatomegaly is suspected. Hepatic steatosis. EKG showed normal sinus rhythm. Nonspecific ST-T abnormalities. proBNP 35 and troponin x2 -. Liver enzymes not elevated. 03/27/2021 Patient is seen in follow up this morning and was evaluated by cardiology and will follow up outpatient. Stress test was negative. Currently no reports of chest pain, shortness of breath, or palpitations. Patient is afebrile. No reports of nausea or vomiting and patient is tolerating diet. Patient to continue with prilosec daily. Patient will be discharged to home today. On exam vital signs are stable. Cardio S1, S2 are muffled. Respiratory system shows diminished breath sounds at the bases with no wheezing or rhonchi noted. Abdomen is soft and nontender. Nervous system shows no focal deficits. Please refer to medication reconciliation sheet for a list of medications. Patient Condition at Discharge: Stable Plan - Discharge Summary New Discharge Prescriptions: New Omeprazole [PriLOSEC] 20 mg PO AC-BRKFST 30 Days #30 cap Continue Divalproex [Depakote] 500 mg PO BID Atorvastatin [Lipitor] 20 mg PO HS Divalproex [Depakote] 750 mg PO HS Potassium Chloride ER [K-Dur 20] 20 meq PO DAILY Furosemide [Lasix] 20 mg PO DAILY metFORMIN HCL 1,000 mg PO DAILY Lisinopril [Zestril] 10 mg PO DAILY Aspirin EC [Ecotrin Low Dose] 162 mg PO DAILY Acetaminophen [Tylenol] 650 mg PO DAILY PRN PRN Reason: Pain Discharge Medication List Divalproex [Depakote] 500 mg PO BID 10/29/15 [History] Atorvastatin [Lipitor] 20 mg PO HS 10/24/18 [History] Divalproex [Depakote] 750 mg PO HS 10/24/18 [History] Furosemide [Lasix] 20 mg PO DAILY 12/16/20 [History] Potassium Chloride ER [K-Dur 20] 20 meq PO DAILY 12/16/20 [History] metFORMIN HCL 1,000 mg PO DAILY 12/16/20 [History] Acetaminophen [Tylenol] 650 mg PO DAILY PRN 03/26/21 [History] Aspirin EC [Ecotrin Low Dose] 162 mg PO DAILY 03/26/21 [History] Lisinopril [Zestril] 10 mg PO DAILY 03/26/21 [History] Omeprazole [PriLOSEC] 20 mg PO AC-BRKFST 30 Days #30 cap 03/27/21 [Rx] Follow up Appointment(s)/Referral(s): Samman,Bashar, MD [STAFF PHYSICIAN] - 1 Week (Office will call patient with appointment date and time.) Leydi Davies MD [Primary Care Provider] - 1-2 days (Pt will need to call for appointment, no answer at office at this time.) Patient Instructions/Handouts: Chest Pain (DC), Heart Healthy Diet (DC), Basic Carbohydrate Counting (GEN) Activity/Diet/Wound Care/Special Instructions: Activity Limited until follow-up Follow-up with primary care provider upon discharge follow up with cardiology outpatient Continue heart healthy diabetic diet Continue with Prilosec daily in the morning with breakfast Continue with Franc wraps to bilateral lower extremities from the toes up to the knees and elevate lower extremities while at rest Continue to hold metformin for another 24 hours and may resume tomorrow monitor blood sugars closely Discharge Disposition: HOME SELF-CARE
== END 2021-03-27 14:08 | disposition home or self-care (01) ==
LOC: EC 10:50 → 6NMEDSUR 15:34
PROVIDERS: ADMIT Internal Medicine; ATTEND Internal Medicine
DX: R07.89 Other chest pain (principal); E87.2 Acidosis; R19.7 Diarrhea, unspecified; E11.9 Type 2 diabetes mellitus without complications; Z20.822 Contact with and (suspected) exposure to COVID-19; R00.0 Tachycardia, unspecified; R09.02 Hypoxemia; R68.83 Chills (without fever); R42 Dizziness and giddiness; R06.02 Shortness of breath; I10 Essential (primary) hypertension; G40.909 Epilepsy, unspecified, not intractable, without status epilepticus; K21.9 Gastro-esophageal reflux disease without esophagitis; E78.5 Hyperlipidemia, unspecified; R60.0 Localized edema; M79.89 Other specified soft tissue disorders; R06.09 Other forms of dyspnea; R16.0 Hepatomegaly, not elsewhere classified; K76.0 Fatty (change of) liver, not elsewhere classified; E66.9 Obesity, unspecified; I71.2 Thoracic aortic aneurysm, without rupture; Z79.899 Other long term (current) drug therapy; Z79.84 Long term (current) use of oral hypoglycemic drugs; Z79.82 Long term (current) use of aspirin; Z79.01 Long term (current) use of anticoagulants; D64.9 Anemia, unspecified; Z90.89 Acquired absence of other organs; Z87.442 Personal history of urinary calculi; Z87.891 Personal history of nicotine dependence; Z86.711 Personal history of pulmonary embolism; Z98.52 Vasectomy status; Z90.49 Acquired absence of other specified parts of digestive tract; Z85.048 Personal history of other malignant neoplasm of rectum, rectosigmoid junction, and anus
CPT/HCPCS: 96361 ×2; 96372 ×2; 93005 ×2; 96360; 99285; 36415; 85379; 83880; 80061; 80053; 82553; 83605; 83735; 84484; 85025; 85610; 85730; 81001; 87635; 71275; G0378 ×2; C8929; C8930; J1250; J3475; Q9950 ×2; Q9967; J1644 ×2; 93306; 93351

== ENCOUNTER 2021-09-23 07:59 | Day surgery (SDC) | payer MEDICARE ==
[2021-09-18 15:45] VITALS: BMI 45.1
[~2021-09-23 07:59] MED LIST changes: -ACETAMINOPHEN TAB 500 MG TAB PO ONE; -HEPARIN SODIUM,PORCINE 5,000 UNIT/ML 1 ML VIAL SQ ONE; +LACTATED RINGERS 1,000 ML IV SCH; +LIDOCAINE 1% (10MG/ML) FOR IV START INTRADERMA PRN; -Pre Op ABX Message 1 EACH MISC MISCELLANE ONE
[2021-09-23 08:33] LABS: Glucose,Whole Blood 112 mg/dL (75-99)
[2021-09-23 08:37] VITALS: RESP 16; TEMP 97
[2021-09-23] MEDS ORDERED: LIDOCAINE 1% INJ 10MG/ML (20 ML MDV) ONE (08:43)
[2021-09-23] MEDS ORDERED: PROPOFOL 10 MG/ML 20 ML VIAL IV ONE (08:43)
--- NOTE | 2021-09-23 09:04 | P.PCN ---
Date of Procedure: 09/23/21 Procedure(s) Performed: BRIEF HISTORY: Patient is a 51-year-old pleasant male scheduled for an elective colonoscopy as a part of surveillance of prior history of rectal cancer which was diagnosed in April 2018 status post chemoradiation followed by low anterior resection. He also had large ascending colon polyp for which she underwent right hemicolectomy the seen. Last colonoscopy was 2 years ago and was noted to have a 2 cm broad-based polyp at the anastomosis that was removed completely and biopsies revealed tubular villous adenoma. PROCEDURE PERFORMED: Colonoscopy snare polypectomy. PREOPERATIVE DIAGNOSIS: History of rectal cancer/colon polyps diagnosed in April 2018. Status post chemoradiation followed by low anterior resection and right hemicolectomy. IV sedation per Anesthesia. PROCEDURE: After informed consent was obtained, the patient, was brought into the endoscopy unit. IV sedation was administered by Anesthesia under continuous monitoring. Digital rectal examination was normal. Initially the Olympus CF-160 flexible video colonoscope was then inserted in the rectum, gradually advanced into the c) with anastomosis was visualized and appeared normal. In the transverse colon there were 2 polyps measuring 5 mm and 6 mm in size both of which were removed by snare polypectomy. The mucosa in the transverse colon at 70 cm from anal was there previous tattooing was performed with Jesika ink appeared normal with no residual polyp noted. Rest of the ascending colon, transverse colon, descending colon, sigmoid colon, and rectum appeared normal. Scattered sigmoid diverticulosis seen. Retroflexion was performed in the rectum and no lesions were seen. The patient tolerated the procedure well. IMPRESSION: 5 mm and 6 mm transverse colon polyp status post snare polypectomy Scattered sigmoid diverticulosis Normal-appearing ileal colic anastomosis RECOMMENDATIONS: Findings of this examination were discussed with the patient as well as his family. He was advised to follow with the biopsy results. He will have a repeat surveillance colonoscopy in 2 years..
[2021-09-23 09:31] VITALS: BP 154/96; PULSE 98
== END 2021-09-23 09:37 | disposition home or self-care (01) ==
LOC: ORWHC2ENDO 07:59
PROVIDERS: ATTEND Internal Medicine Gastroenterology
DX: Z12.11 Encounter for screening for malignant neoplasm of colon (principal); E11.9 Type 2 diabetes mellitus without complications; I10 Essential (primary) hypertension; D12.3 Benign neoplasm of transverse colon; R56.9 Unspecified convulsions; E78.5 Hyperlipidemia, unspecified; E66.01 Morbid (severe) obesity due to excess calories; Z79.84 Long term (current) use of oral hypoglycemic drugs; Z79.899 Other long term (current) drug therapy; Z85.048 Personal history of other malignant neoplasm of rectum, rectosigmoid junction, and anus; Z92.21 Personal history of antineoplastic chemotherapy; Z86.010 Personal history of colon polyps; Z92.3 Personal history of irradiation
CPT/HCPCS: 88305; 45385; J2001; J2704

== ENCOUNTER → 2021-10-12 | Outpatient (CLI) | payer MEDICARE, OTHER ==
[2021-10-12 08:52] LABS: African American GFR (CKD) >90 (>60 ml/min/1.73 sqM); Blood Urea Nitrogen 12 mg/dL (9-20); Non-African American GFR(CKD) >90 (>60 ml/min/1.73 sqM)
--- NOTE | 2021-10-12 11:37 | CT ---
EXAMINATION TYPE: CT ChestAbdPelvis w con DATE OF EXAM: 10/12/2021 COMPARISON: 03/03/2021 HISTORY: 51-year-old male follow up rectal cancer. C20 rectal CA, Z03.89observation for suspected me ts. TECHNIQUE: Contiguous axial scanning of the chest, abdomen, and pelvis performed with IV Contrast, pa tient injected with 100 mL of Isovue 300. Delayed images through the kidneys were obtained. Coronal/s agittal reconstructions performed. CT DLP: 2900.2 mGycm Automated exposure control for dose reduction was used. FINDINGS: CHEST: Heart normal size without pericardial effusion. Minimal LAD coronary artery calcifications are presen t. Ectatic ascending aorta 3.9 cm. Variant direct takeoff of the nondominant left vertebral artery direc tly from the aortic arch. Mild bilateral gynecomastia. Right anterior chest wall injection port. Catheter tip at the brachiocep halic vein confluence level. The tip may be extending just beyond the posterior wall of the vessel. C orrelate for appropriate functioning of the catheter. Refer to sagittal image 72. Axial image 12. No thoracic lymph adenopathy by CT size criteria. Some hazy opacity, atelectasis or scarring at the posterior right midlung. Increased hazy density at the lung bases, likely atelectasis. No consolidation or pleural effusion. ABDOMEN: No focal liver lesion or biliary ductal dilatation. Portal venous system is patent. Gallbladder surgi lalito absent. Adrenal glands Spleen, pancreas within normal limits. Punctate 2 mm nonobstructive right renal calculus. 1.5 cm cyst left mid pole kidney. Symmetric uptake and excretion of contrast from both kidneys. Anterior midline laparotomy scar as well as surgical change anterior right midabdomen from prior colo stomy site. No dilated small bowel, free fluid, or free air. No mesenteric or retroperitoneal lymphadenopathy see n. Post surgical change of resection and re-anastomosis near the hepatic flexure of the colon. Mild stoo l wording. Mildly redundant sigmoid colon. The second staple line from resection and re-anastomosis r ectosigmoid junction. Mild diverticular change on the left side of the colon. No pericolonic inflamma tory change. PELVIS: Coils related to previous mesh repair along the inguinal regions. Focal soft tissue thickening just b ehind the left-sided deep inguinal ring measuring 2.9 x 1.8 cm remains unchanged suggesting scarring. No abnormal fluid collection in the pelvis or pelvic lymphadenopathy. Prostate gland measures 3.7 cm wide. BONES: Mild degenerative change of the hips. Facet arthropathy lower lumbar spine. Anterior endplate spondyl osis lower thoracic spine. IMPRESSION: 1. SURGICAL CHANGE WITH RESECTION AND REANASTOMOSIS NEAR THE HEPATIC FLEXURE OF THE COLON AND ALSO AT THE RECTAL SIGMOID JUNCTION. 2. NO EVIDENCE FOR RECURRENT OR METASTATIC DISEASE. 3. LEFT-SIDED COLONIC DIVERTICULOSIS WITHOUT ACUTE DIVERTICULITIS. PUNCTATE 2 MM NONOBSTRUCTIVE RIGHT RENAL CALCULUS. 4. PREVIOUS BILATERAL INGUINAL MESH REPAIR. SOME FOCAL 2.9 CM SOFT TISSUE THICKENING BEHIND THE DEEP LEFT INGUINAL RING REMAINS UNCHANGED SUGGESTING SCAR TISSUE.
== END | disposition home or self-care (01) ==
LOC: RADPROMAIN 07:40
PROVIDERS: ATTEND Internal Medicine Hematology & Oncology
DX: K57.30 Diverticulosis of large intestine without perforation or abscess without bleeding (principal); N20.0 Calculus of kidney; Z85.048 Personal history of other malignant neoplasm of rectum, rectosigmoid junction, and anus
CPT/HCPCS: 82565; 84520; 71260; 74177; 36415; Q9967

== ENCOUNTER 2021-10-18 14:34 | Observation (INO) | payer MEDICARE, OTHER ==
[2021-10-18 15:34] LABS: Basophils % (A) 0 %; Eosinophils # (A) 0.1 k/uL (0-0.7); Eosinophils % (A) 1 %; HCT 46.1 % (39.0-53.0); Lymphocytes # (A) 2.7 k/uL (1.0-4.8); Lymphocytes % (A) 44 %; MCH 29.3 pg (25.0-35.0); MCHC 32.6 g/dL (31.0-37.0); MCV 89.7 fL (80.0-100.0); Mean Platelet Volume 8.4; Monocytes # (A) 0.6 k/uL (0-1.0); Monocytes % (A) 10 %; Neutrophils # (A) 2.7 k/uL (1.3-7.7); Neutrophils % (A) 43 %; Platelet Count 233 k/uL (150-450); RBC 5.14 m/uL (4.30-5.90); RDW 15.5 % (11.5-15.5); WBC 6.3 k/uL (3.8-10.6)
[2021-10-18 15:43] LABS: ALT 19 U/L (4-49); AST 22 U/L (17-59); African American GFR (CKD) >90 (>60 ml/min/1.73 sqM); Albumin 3.8 g/dL (3.5-5.0); Alkaline Phosphatase 47 U/L (38-126); Anion Gap 9 mmol/L; Blood Urea Nitrogen 6 mg/dL (9-20); Calcium 9.3 mg/dL (8.4-10.2); Carbon Dioxide 24 mmol/L (22-30); Chloride 104 mmol/L (98-107); Glucose 195 mg/dL (74-99); Magnesium 1.9 mg/dL (1.6-2.3); Non-African American GFR(CKD) >90 (>60 ml/min/1.73 sqM); Partial Thromboplastin Time 24.9 sec (22.0-30.0); Potassium 4.6 mmol/L (3.5-5.1); Prothrombin Time 10.4 sec (9.0-12.0); Sodium 137 mmol/L (137-145); Total Bilirubin 0.7 mg/dL (0.2-1.3); Total Protein 7.1 g/dL (6.3-8.2)
--- NOTE | 2021-10-18 15:58 | ED ---
General Adult HPI - General Chief complaint: Chest Pain Stated complaint: chest pain , left arm numb/pain Time Seen by Provider: 10/18/21 14:56 Source: patient, RN notes reviewed, old records reviewed Mode of arrival: ambulatory Limitations: no limitations - History of Present Illness Initial comments: 51-year-old male residing with left-sided chest pain radiating to the left arm. This began just are to arrival. No associated nausea or diaphoresis. Patient felt lightheaded with this episode. He states that it has lessened currently 3 out of 10. No previous cardiac history. No cough or URI symptoms. - Related Data Home Medications Medication Instructions Recorded Confirmed Divalproex [Depakote] 500 mg PO QAM 10/29/15 09/18/21 Atorvastatin [Lipitor] 20 mg PO HS 10/24/18 09/18/21 Divalproex [Depakote] 500 mg PO HS 10/24/18 09/18/21 Furosemide [Lasix] 20 mg PO DAILY 12/16/20 09/18/21 Potassium Chloride ER [K-Dur 20] 20 meq PO DAILY 12/16/20 09/18/21 metFORMIN HCL [Glucophage] 1,000 mg PO DAILY 12/16/20 09/18/21 Aspirin EC [Ecotrin Low Dose] 162 mg PO DAILY 03/26/21 09/18/21 Divalproex [Depakote] 500 mg PO PC-LUNCH 09/18/21 09/18/21 lisinopriL [Prinivil] 20 mg PO DAILY 09/18/21 09/18/21 Allergies Allergy/AdvReac Type Severity Reaction Status Date / Time No Known Allergies Allergy Verified 10/18/21 14:54 Review of Systems ROS Statement: Those systems with pertinent positive or pertinent negative responses have been documented in the HPI. ROS Other: All systems not noted in ROS Statement are negative. Past Medical History Past Medical History: Cancer, Diabetes Mellitus, Hyperlipidemia, Hypertension, Pulmonary Embolus (PE), Seizure Disorder Additional Past Medical History / Comment(s): epilepsy-last seizure "10 years ago", ANEMIA, rectal cancer-last chemo Mar 21 and radiation through 08/06/18, kidney stone, hx of PE. History of Any Multi-Drug Resistant Organisms: None Reported Past Surgical History: Appendectomy, Bowel Resection, Cholecystectomy, Hernia Repair Additional Past Surgical History / Comment(s): vasectomy, surg. to repair hypospadias as a child, bowel resection/colostomy 09/06/18, Right upper chest post, Past Anesthesia/Blood Transfusion Reactions: No Reported Reaction Past Psychological History: No Psychological Hx Reported Smoking Status: Former smoker Past Alcohol Use History: Rare Past Drug Use History: None Reported - Past Family History Brother(s) Family Medical History: Cancer, Deep Vein Thrombosis (DVT) Mother Family Medical History: Pulmonary Embolus General Exam Limitations: no limitations General appearance: alert, in no apparent distress Head exam: Present: atraumatic, normocephalic Eye exam: Present: normal appearance, PERRL ENT exam: Present: normal exam Neck exam: Present: normal inspection. Absent: tenderness, meningismus Respiratory exam: Present: normal lung sounds bilaterally. Absent: respiratory distress, wheezes Cardiovascular Exam: Present: regular rate, normal rhythm GI/Abdominal exam: Present: soft. Absent: distended, tenderness, guarding Extremities exam: Present: normal capillary refill, pedal edema Neurological exam: Present: alert, oriented X3, CN II-XII intact. Absent: motor sensory deficit Psychiatric exam: Present: normal affect, normal mood Skin exam: Present: warm, dry, intact. Absent: cyanosis, diaphoretic Course Vital Signs 10/18/21 10/18/21 14:49 17:09 Temperature 98.5 F 98.7 F Pulse Rate 92 92 Respiratory 18 18 Rate Blood Pressure 146/85 147/86 O2 Sat by Pulse 96 93 L Oximetry EKG Findings - EKG Comments: EKG Findings:: EKG: Normal sinus rhythm T-wave flattening in the precordial leads, no ST segment elevation, rate of 88, AK interval 132, QRS duration 84, QTC 440 Medical Decision Making - Medical Decision Making 51-year-old male presenting with chest pain with some typical features. EKG sinus rhythm. No ST segment elevation. Patient has normal CBC, normal CMP, negative initial troponin. Given his risk factors he will be kept in observation for stroke or headache enzymes, telemetry, cardiology consultation. Case discussed with [facility] - Lab Data Result diagrams: 10/18/21 15:19 10/18/21 15:19 Lab Results 10/18/21 10/18/21 10/18/21 Range/Units 15:19 15:19 15:19 WBC 6.3 (3.8-10.6) k/uL RBC 5.14 (4.30-5.90) m/uL Hgb 15.0 (13.0-17.5) gm/dL Hct 46.1 (39.0-53.0) % MCV 89.7 (80.0-100.0) fL MCH 29.3 (25.0-35.0) pg MCHC 32.6 (31.0-37.0) g/dL RDW 15.5 (11.5-15.5) % Plt Count 233 (150-450) k/uL MPV 8.4 Neutrophils % 43 % Lymphocytes % 44 % Monocytes % 10 % Eosinophils % 1 % Basophils % 0 % Neutrophils # 2.7 (1.3-7.7) k/uL Lymphocytes # 2.7 (1.0-4.8) k/uL Monocytes # 0.6 (0-1.0) k/uL Eosinophils # 0.1 (0-0.7) k/uL Basophils # 0.0 (0-0.2) k/uL PT 10.4 (9.0-12.0) sec INR 1.0 (<1.2) APTT 24.9 (22.0-30.0) sec Sodium 137 (137-145) mmol/L Potassium 4.6 (3.5-5.1) mmol/L Chloride 104 (98-107) mmol/L Carbon Dioxide 24 (22-30) mmol/L Anion Gap 9 mmol/L BUN 6 L (9-20) mg/dL Creatinine 0.60 L (0.66-1.25) mg/dL Est GFR (CKD-EPI)AfAm >90 (>60 ml/min/1.73 sqM) Est GFR (CKD-EPI)NonAf >90 (>60 ml/min/1.73 sqM) Glucose 195 H (74-99) mg/dL Calcium 9.3 (8.4-10.2) mg/dL Magnesium 1.9 (1.6-2.3) mg/dL Total Bilirubin 0.7 (0.2-1.3) mg/dL AST 22 (17-59) U/L ALT 19 (4-49) U/L Alkaline Phosphatase 47 (38-126) U/L Troponin I (0.000-0.034) ng/mL Total Protein 7.1 (6.3-8.2) g/dL Albumin 3.8 (3.5-5.0) g/dL 10/18/21 Range/Units 15:19 WBC (3.8-10.6) k/uL RBC (4.30-5.90) m/uL Hgb (13.0-17.5) gm/dL Hct (39.0-53.0) % MCV (80.0-100.0) fL MCH (25.0-35.0) pg MCHC (31.0-37.0) g/dL RDW (11.5-15.5) % Plt Count (150-450) k/uL MPV Neutrophils % % Lymphocytes % % Monocytes % % Eosinophils % % Basophils % % Neutrophils # (1.3-7.7) k/uL Lymphocytes # (1.0-4.8) k/uL Monocytes # (0-1.0) k/uL Eosinophils # (0-0.7) k/uL Basophils # (0-0.2) k/uL PT (9.0-12.0) sec INR (<1.2) APTT (22.0-30.0) sec Sodium (137-145) mmol/L Potassium (3.5-5.1) mmol/L Chloride (98-107) mmol/L Carbon Dioxide (22-30) mmol/L Anion Gap mmol/L BUN (9-20) mg/dL Creatinine (0.66-1.25) mg/dL Est GFR (CKD-EPI)AfAm (>60 ml/min/1.73 sqM) Est GFR (CKD-EPI)NonAf (>60 ml/min/1.73 sqM) Glucose (74-99) mg/dL Calcium (8.4-10.2) mg/dL Magnesium (1.6-2.3) mg/dL Total Bilirubin (0.2-1.3) mg/dL AST (17-59) U/L ALT (4-49) U/L Alkaline Phosphatase (38-126) U/L Troponin I <0.012 (0.000-0.034) ng/mL Total Protein (6.3-8.2) g/dL Albumin (3.5-5.0) g/dL Disposition Clinical Impression: Chest pain Disposition: ADMITTED IP TO THIS HOSP Condition: Stable Is patient prescribed a controlled substance at d/c from ED?: No Referrals: Leydi Davies MD [Primary Care Provider] - 1-2 days Decision to Admit Reason: Admit from EC Decision Date: 10/18/21 Decision Time: 17:14
--- NOTE | 2021-10-18 16:13 | XR ---
EXAMINATION TYPE: XR chest 2V DATE OF EXAM: 10/18/2021 COMPARISON: 05/03/2019 HISTORY: Chest pain TECHNIQUE: 2 views FINDINGS: There is right central venous catheter with tip in the superior vena cava. There are chest leads. There is some mild increased interstitial density right lower lobe. Left lung is fairly clear. No heart failure. No pleural effusion. IMPRESSION: There are some minimal interstitial density right lower lobe which is new compared to old exam. There is improved inspiration compared to old exam. No heart failure.
[2021-10-18] MEDS ORDERED: ASPIRIN 325 MG TAB PO STA (17:15)
[2021-10-18] MEDS ORDERED: ACETAMINOPHEN TAB 325 MG TAB PO PRN (17:15)
[2021-10-18] MEDS ORDERED: NALOXONE 0.4 MG/ML 1 ML VIAL IV PRN (17:15)
[2021-10-18] MEDS ORDERED: ONDANSETRON 4 MG/2 ML VIAL IVP PRN (22:40)
[2021-10-18] MEDS ORDERED: DIVALPROEX 250 MG TABLET.DR PO SCH (23:00)
[2021-10-18] MEDS: ATORVASTATIN 20 MG TAB PO SCH (23:37)
[2021-10-19] MEDS: DIVALPROEX 500 MG TABLET.DR PO SCH ×2 (05:58→13:19)
[2021-10-19] MEDS ORDERED: FUROSEMIDE 20 MG TAB PO SCH (09:00)
[2021-10-19] MEDS ORDERED: ASPIRIN 81 MG PO SCH (09:00)
[2021-10-19] MEDS ORDERED: NITROGLYCERIN SL TABS 0.4 MG TAB SUBLINGUAL PRN (09:03)
[2021-10-19] MEDS ORDERED: ASPIRIN 325 MG TAB PO STA (09:03)
[2021-10-19] MEDS ORDERED: ATORVASTATIN 80 MG TAB PO STA (09:03)
[2021-10-19] MEDS ORDERED: ALPRAZolam 0.25 MG TAB PO PRN (09:03)
[2021-10-19] MEDS ORDERED: ALPRAZolam 0.5 MG TAB PO PRN (09:03)
[2021-10-19] MEDS: ATORVASTATIN 20 MG TAB PO SCH (09:06)
--- NOTE | 2021-10-19 10:31 | P.CRDCN ---
History of Present Illness Consult date: 10/19/21 History of present illness: HISTORY OF PRESENT ILLNESS: This is a 51 year old male with a past medical history significant for hypertension, hyperlipidemia, diabetes, and seizure disorder. Patient follows in the office with Dr. Phelps. We have been asked to see the patient in consultation for chest pain. Patient examined at the bedside. Patient states yesterday he was sitting at home when he began to have chest pain. He states the pain was a pressure-like sensation and also a sharp pain. He states the pain radiated down his arm. He denies any nausea or vomiting. He denied any shortness of breath. He states he took 2 baby aspirin with little relief. At the time of my examination this morning, the patient denies any chest pain or pressure. EKG reveals sinus mechanism with no signs of acute ischemia Chest xray there is some minimal interstitial density right lower lobe which is new compared to old exam. There is improved inspiration compared to old exam. No heart failure. Laboratory data: WBC 6.3. Hemoglobin 15.0. Platelet count 233. Sodium 138. Potassium 4.6. BUN 6. Creatinine 0.60. Magnesium 1.9. Troponin negative 3. Current home cardiac medications include lisinopril 20 mg daily, Lasix 20 mg daily, Lipitor 20 mg daily, and aspirin 162 mg daily Most recent echocardiogram obtained in March 2021 revealed ejection fraction 55- 60%, trace mitral regurgitation, and trace tricuspid regurgitation. Patient underwent debridement stress test in March 2021 which was negative for ischemia REVIEW OF SYSTEMS: At the time of my exam: CONSTITUTIONAL: Denies fever or chills. HEENT: Denies blurred vision, vision changes, or eye pain. Denies hemoptysis CARDIOVASCULAR: Denies chest pain. Denies orthopnea. Denies PND. Denies palpitations RESPIRATORY: Denies shortness of breath. GASTROINTESTINAL: Denies abdominal pain. Denies nausea or vomiting. HEMATOLOGIC: Denies bleeding disorders. GENITOURINARY: Denies any blood in urine. SKIN: Denies pruitis. Denies rash. PHYSICAL EXAM: VITAL SIGNS: Reviewed. GENERAL: Well-developed in no acute distress. HEENT: Head is normocephalic. Pupils are equal, round. Sclerae anicteric. Mucous membranes of the mouth are moist. Neck supple. No JVD or thyromegaly LUNGS: Respirations even and unlabored. Lungs essentially clear to auscultation bilaterally. HEART: Regular rate and rhythm. S1 and S2 heard. ABDOMEN: Soft. Nondistended. Nontender. EXTREMITIES: Normal range of motion. No clubbing or cyanosis. Peripheral pulses intact. No lower extremity edema NEUROLOGIC: Awake and alert. Oriented x 3. ASSESSMENT: Chest pain, troponins negative 3 Hypertension Hyperlipidemia Diabetes History of seizure disorder PLAN: An acute coronary event has been ruled out Obtain 2D echo to assess cardiac structure and function Resume home cardiac medications Patient offered repeat stress test versus cardiac cath. Patient requesting cardiac cath. Patient to undergo cardiac cath today with Dr. Phelps Further recommendations pending patient's course Nurse practitioner note has been reviewed by physician. Signing provider agrees with the documented findings, assessment, and plan of care. Past Medical History Past Medical History: Cancer, Diabetes Mellitus, Hyperlipidemia, Hypertension, Pulmonary Embolus (PE), Seizure Disorder Additional Past Medical History / Comment(s): epilepsy-last seizure "10 years ago", ANEMIA, rectal cancer-last chemo Mar 21 2019 and radiation through 08/06/18, kidney stone, hx of PE. History of Any Multi-Drug Resistant Organisms: None Reported Past Surgical History: Appendectomy, Bowel Resection, Cholecystectomy, Hernia Repair Additional Past Surgical History / Comment(s): vasectomy, surg. to repair hypospadias as a child, bowel resection/colostomy with reversal 09/06/18, Right upper chest port Past Anesthesia/Blood Transfusion Reactions: No Reported Reaction Past Psychological History: No Psychological Hx Reported Smoking Status: Former smoker Past Alcohol Use History: Rare Additional Past Alcohol Use History / Comment(s): quit smoking 2016,, smoked 1-2 ppd, smoked from age 16 Past Drug Use History: None Reported - Past Family History Brother(s) Family Medical History: Cancer, Deep Vein Thrombosis (DVT) Mother Family Medical History: Pulmonary Embolus Medications and Allergies Home Medications Medication Instructions Recorded Confirmed Type Divalproex [Depakote] 750 mg PO HS 10/29/15 10/18/21 History Atorvastatin [Lipitor] 20 mg PO HS 10/24/18 10/18/21 History Divalproex [Depakote] 500 mg PO BID@0600,1200 10/24/18 10/18/21 History Furosemide [Lasix] 20 mg PO DAILY 12/16/20 10/18/21 History Potassium Chloride ER [K-Dur 20] 20 meq PO DAILY 12/16/20 10/18/21 History metFORMIN HCL [Glucophage] 1,000 mg PO DAILY 12/16/20 10/18/21 History Aspirin EC [Ecotrin Low Dose] 162 mg PO DAILY 03/26/21 10/18/21 History lisinopriL [Prinivil] 20 mg PO DAILY 09/18/21 10/18/21 History Allergies Allergy/AdvReac Type Severity Reaction Status Date / Time No Known Allergies Allergy Verified 10/18/21 17:24 Physical Exam Vitals: Vital Signs Temp Pulse Pulse Resp BP BP BP 10/19/21 08:00 87 18 10/19/21 07:00 97.7 F 87 18 166/96 10/19/21 05:00 74 130/79 10/19/21 01:48 98.0 F 79 18 170/105 10/19/21 01:42 18 10/18/21 23:38 77 18 128/81 10/18/21 17:09 98.7 F 92 18 147/86 10/18/21 14:49 98.5 F 92 18 146/85 Pulse Ox 10/19/21 08:00 10/19/21 07:00 95 10/19/21 05:00 10/19/21 01:48 94 L 10/19/21 01:42 10/18/21 23:38 96 10/18/21 17:09 93 L 10/18/21 14:49 96 Intake and Output 10/18/21 10/19/21 10/19/21 22:59 06:59 14:59 Intake Total 0 Balance 0 Intake: Oral 0 Other: Voiding Method Toilet Toilet Urinal Urinal # Voids 1 Weight 136.985 kg Results 10/18/21 15:19 10/18/21 15:19 Cardiac Enzymes 10/18/21 10/18/21 10/18/21 Range/Units 15:19 15:19 18:06 AST 22 (17-59) U/L Troponin I <0.012 <0.012 (0.000-0.034) ng/mL 10/18/21 Range/Units 20:49 AST (17-59) U/L Troponin I <0.012 (0.000-0.034) ng/mL Coagulation 10/18/21 Range/Units 15:19 PT 10.4 (9.0-12.0) sec APTT 24.9 (22.0-30.0) sec CBC 10/18/21 Range/Units 15:19 WBC 6.3 (3.8-10.6) k/uL RBC 5.14 (4.30-5.90) m/uL Hgb 15.0 (13.0-17.5) gm/dL Hct 46.1 (39.0-53.0) % Plt Count 233 (150-450) k/uL Comprehensive Metabolic Panel 10/18/21 Range/Units 15:19 Sodium 137 (137-145) mmol/L Potassium 4.6 (3.5-5.1) mmol/L Chloride 104 (98-107) mmol/L Carbon Dioxide 24 (22-30) mmol/L BUN 6 L (9-20) mg/dL Creatinine 0.60 L (0.66-1.25) mg/dL Glucose 195 H (74-99) mg/dL Calcium 9.3 (8.4-10.2) mg/dL AST 22 (17-59) U/L ALT 19 (4-49) U/L Alkaline Phosphatase 47 (38-126) U/L Total Protein 7.1 (6.3-8.2) g/dL Albumin 3.8 (3.5-5.0) g/dL Current Medications Generic Name Dose Route Start Last Admin Trade Name Freq PRN Reason Stop Dose Admin Acetaminophen 650 mg 10/18/21 17:15 Acetaminophen Tab 325 Mg Tab PO Q6HR PRN Mild Pain or Fever > 100.5 Alprazolam 0.25 mg 10/19/21 09:03 Alprazolam 0.25 Mg Tab PO Q6HR PRN Mild Anxiety Alprazolam 0.5 mg 10/19/21 09:03 Alprazolam 0.5 Mg Tab PO Q6HR PRN Moderate Anxiety Aspirin 81 mg 10/19/21 09:00 10/19/21 09:00 Aspirin 81 Mg PO Not Given DAILY SERJIO Atorvastatin Calcium 20 mg 10/18/21 23:00 10/19/21 09:06 Atorvastatin 20 Mg Tab PO Not Given HS SERJIO Divalproex Sodium 750 mg 10/18/21 23:00 10/18/21 23:37 Divalproex 250 Mg Tablet. PO 750 mg HS SERJIO Administration Divalproex Sodium 500 mg 10/19/21 06:00 10/19/21 05:58 Divalproex 500 Mg Tablet. PO 500 mg BID@0600,1200 SERJIO Administration Furosemide 20 mg 10/19/21 09:00 Furosemide 20 Mg Tab PO DAILY SERJIO Heparin Sodium (Porcine) 10, 1,001 mls @ 999 mls/hr 10/20/21 07:00 000 unit/ Sodium Chloride IRRIGATION 10/20/21 23:00 ONCE PRN INTRA-OP Heparin Sodium (Porcine) 2,500 250.5 mls @ 250 mls/hr 10/20/21 07:00 unit/ Sodium Chloride IRRIGATION 10/20/21 23:00 ONCE PRN INTRA-OP Lisinopril 20 mg 10/19/21 09:00 Lisinopril 20 Mg Tab PO DAILY SERJIO Naloxone HCl 0.2 mg 10/18/21 17:15 Naloxone 0.4 Mg/Ml 1 Ml Vial IV Q2M PRN Opioid Reversal Nitroglycerin 0.4 mg 10/19/21 09:03 Nitroglycerin Sl Tabs 0.4 Mg Tab SUBLINGUAL Q5M PRN Chest Pain Ondansetron HCl 4 mg 10/18/21 22:40 Ondansetron 4 Mg/2 Ml Vial IVP Q6HR PRN Nausea And Vomiting Intake and Output 10/18/21 10/19/21 10/19/21 22:59 06:59 14:59 Intake Total 0 Balance 0 Intake: Oral 0 Other: Voiding Method Toilet Toilet Urinal Urinal # Voids 1 Weight 136.985 kg 10/18/21 15:19 10/18/21 15:19
[2021-10-19] MEDS: lisinopriL 20 MG TAB PO SCH (10:55)
[2021-10-19] MEDS ORDERED: VERAPAMIL 2.5 MG/ML 2 ML AMP ONE (11:21)
[2021-10-19] MEDS ORDERED: LIDOCAINE 1% INJ 10MG/ML (20 ML MDV) ONE (11:21)
[2021-10-19] MEDS ORDERED: HEPARIN SODIUM 1,000 UN/ML (10ML VL) ONE (11:22)
[2021-10-19] MEDS ORDERED: fentaNYL (PF) 50 MCG/ML 2 ML AMP ONE (11:22)
[2021-10-19] MEDS ORDERED: IV FLUID CONTINUATION 1,000 ML IV ONE (11:34)
[2021-10-19] MEDS ORDERED: fentaNYL (PF) 50 MCG/ML 2 ML AMP IV ONE (11:46)
[2021-10-19] MEDS: MIDAZOLAM 2 MG/2 ML VIAL IV ONE ×4 (11:46→12:30)
[2021-10-19] MEDS ORDERED: LIDOCAINE 1% INJ 10MG/ML (20 ML MDV) SQ ONE (11:48)
[2021-10-19] MEDS: VERAPAMIL SYRINGE (5 MG/10 ML) INTRAARTER ONE ×3 (11:50→12:32)
[2021-10-19] MEDS ORDERED: HEPARIN SODIUM 1,000 UN/ML (10ML VL) IV ONE (11:57)
--- NOTE | 2021-10-19 12:31 | ECHOF ---
Referral Reason:LV function, chest pain MEASUREMENTS -------- HEIGHT: 167.6 cm WEIGHT: 137.0 kg BP: 166/96 RVIDd: 3.2 cm (< 3.3) IVSd: 1.5 cm (0.6 - 1.1) LVIDd: 3.8 cm (3.9 - 5.3) LVPWd: 1.3 cm (0.6 - 1.1) IVSs: 1.7 cm LVIDs: 2.7 cm LVPWs: 1.6 cm LA Diam: 3.2 cm (2.7 - 3.8) LAESV Index (A-L): 14.09 ml/m Ao Diam: 3.5 cm (2.0 - 3.7) AV Cusp: 2.1 cm (1.5 - 2.6) MV EXCURSION: 13.883 mm (> 18.000) MV EF SLOPE: 27 mm/s (70 - 150) EPSS: 0.2 cm MV E Kd: 0.67 m/s MV DecT: 220 ms MV A Kd: 0.91 m/s MV E/A Ratio: 0.74 FINDINGS -------- Sinus rhythm. This was a technically difficult study with suboptimal views. The left ventricular size is normal. There is moderate concentric left ventricular hypertrophy. O verall left ventricular systolic function is normal with, an EF between 60 - 65 %. The right ventricle is normal in size. Normal LA size by volume 22+/-6 ml/m2. The right atrium is normal in size. 3 ml of Lumason was utilized for enhancement of images. Interatrial and interventricular septum intact. The aortic valve is trileaflet, and appears structurally normal. No aortic stenosis or regurgitation. The mitral valve is normal. The tricuspid valve appears structurally normal. Unable to estimate RVSP due to inadequate TR jet s pectral doppler profile. Trace/mild (physiologic) pulmonic regurgitation. The aortic root size is normal. IVC Not well visulized. Echo free space indicative of a pericardial fat pad. There is no pericardial effusion. CONCLUSIONS -------- 1. This was a technically difficult study with suboptimal views. 2. The left ventricular size is normal. 3. There is moderate concentric left ventricular hypertrophy. 4. Overall left ventricular systolic function is normal with, an EF between 60 - 65 %. 5. 3 ml of Lumason was utilized for enhancement of images. 6. The aortic valve is trileaflet, and appears structurally normal. No aortic stenosis or regurgitati on. 7. Trace/mild (physiologic) pulmonic regurgitation. 8. Echo free space indicative of a pericardial fat pad. 9. There is no pericardial effusion. TEACHING PASTOR: Chrissie Sandhu RDCS
[2021-10-19] MEDS ORDERED: IOPAMIDOL-370 125ML BTL INJ ONE (12:33)
[2021-10-19] MEDS ORDERED: RX INFO: IV CONTRAST WAS GIVEN 1 EACH MISC MISCELLANE PRN (12:40)
[2021-10-19] MEDS ORDERED: SODIUM CHLORIDE 0.9% 1,000 ML IV SCH (12:45)
--- NOTE | 2021-10-19 13:57 | CC ---
CARDIAC CATHETERIZATION REPORT INDICATION: Unstable angina. PROCEDURE NOTE: After obtaining informed consent, left heart catheterization and coronary angiogram were performed via the right radial artery using standard Blank catheters. The patient tolerated the procedure well without any obvious immediate complications. A total of 12-1/2 mm of Verapamil was given to prevent spasm and 5000 units of heparin were also given. The total sedation time was 45 minutes. Right radial artery access was obtained using modified Seldinger technique and the guidewire was floated into the ascending aorta under fluoroscopic guidance. The right coronary artery was engaged using a size 4 Blank catheter. The left coronary artery was engaged using a Lenard catheter and pressures were obtained using pigtail. At the end of the procedure, hemostasis was obtained using a TR band by protocol and the pulse ox was at 94%. FINDING: HEMODYNAMICS: Left ventricular end-diastolic pressure is 8 to 10 mm. There is no significant gradient across the aortic valve. LEFT VENTRICULOGRAM: Left ventriculogram is not performed. ANGIOGRAPHIC DATA: RIGHT CORONARY ARTERY: Right coronary artery is a large dominant vessel and is free of significant disease. LEFT MAIN CORONARY ARTERY is a normal-sized vessel and is free of stenosis. Divides into left anterior descending coronary artery and circumflex coronary artery. LEFT ANTERIOR DESCENDING CORONARY ARTERY: LAD and its branches, circumflex coronary artery and its branches are free of significant stenosis. CONCLUSIONS: 1. Normal left ventricular end-diastolic pressure. 2. Normal coronary arteries. PLAN: The patient's chest pain is noncardiac in origin and his management is going to be in the form of risk factor modification and optimal medical therapy. MMODL / IJN: [id number] /
[2021-10-19 14:12] VITALS: RESP 16; TEMP 98
--- NOTE | 2021-10-19 15:29 | CT ---
EXAMINATION TYPE: CT angio chest DATE OF EXAM: 10/19/2021 COMPARISON: CT chest one week ago and older studies HISTORY: chest pain, SOB. History of rectal cancer. CT DLP: 1421 mGycm. Automated Exposure Control for Dose Reduction was Utilized. CONTRAST: CTA scan of the thorax is performed with IV Contrast, patient injected with 80cc mL of Isovue 370, pu lmonary embolism protocol. MIP Images are created on CT scanner and reviewed. FINDINGS: LUNGS: [id number] posterior right basilar linear scarring and/or atelectasis is redemonstrated. No new suspicious focal consolidation or groundglass opacity. There is no pleural effusion or pneum othorax seen. The tracheobronchial tree is patent. MEDIASTINUM: There is suboptimal study with more dense contrast in aorta versus pulmonary arteries. Ascending aorta measures up to 3.8 cm in diameter similar to prior. No thoracic aortic dissection is present. No central pulmonary embolism. Suboptimal evaluation of peripheral vessels due to heterogene ity and poor contrast opacification. There are no new greater than 1 cm hilar or mediastinal lymph no nikolas. No cardiomegaly or pericardial effusion is seen. Some Coronary artery calcification is redemon strated OTHER: Scoliosis with multilevel spurring in the spine is redemonstrated. Left-sided subareolar gynec omastia is partially imaged similar to prior. IMPRESSION: 1. Suboptimal study without central pulmonary embolism, cannot entirely exclude peripheral segmental and subsegmental PE on this exam. 2. No suspicious new acute pulmonary process.
[2021-10-19 15:54] VITALS: BP 156/92; PULSE 89
--- NOTE | 2021-10-19 19:01 | HP ---
HISTORY AND PHYSICAL This is a combination history and physical and discharge summary. CHIEF COMPLAINT: Chest pain. HISTORY OF PRESENT ILLNESS: This 51-year-old gentleman with a past medical history of diabetes mellitus, hypertension, hyperlipidemia, pulmonary embolism, seizure disorder, being followed by Dr. Leydi Davies in the outpatient setting, was complaining of severe chest pain. The pain was felt on the left side of the chest, without much radiation. The patient felt some lightheadedness. There was no nausea, no diaphoresis. The patient came to [facility] and troponins were negative. Patient underwent a cardiac catheterization through route. A 2D echo was also done and the 2D echo showed ejection fraction about 60% to 65% with moderate concentric left ventricular hypertrophy. Cardiac cath showed normal LV end-diastolic pressure and normal coronary arteries. Patient is being closely monitored at this time. The patient also had a chest CTA to complete the workup. Chest CTA was suboptimal, but no suspicious changes were noted. The patient is keen on going home. The patient will be discharged in stable condition with further plans to follow up in the outpatient setting. There is no history of any fever, rigors or chills at this time. PAST MEDICAL HISTORY: Diabetes mellitus, hypertension, hyperlipidemia, history of pulmonary embolus, seizure disorder. HOME MEDICATIONS: Reviewed. They include Glucophage, lisinopril, K-Dur, Lasix, Depakote, Lipitor, Ecotrin. Doses are reviewed. ALLERGIES: NONE. FAMILY HISTORY: History of DVT in the family. SOCIAL HISTORY: History of smoking. REVIEW OF SYSTEMS: ENT: No diminished hearing. No diminished vision. CARDIOVASCULAR SYSTEM: As mentioned earlier. RESPIRATORY SYSTEM: As mentioned earlier. GI: No nausea, vomiting, diarrhea. : No dysuria. NERVOUS SYSTEM: No numbness, weakness. ALLERGY/IMMUNOLOGY: No asthma or hay fever. MUSCULOSKELETAL: As mentioned earlier. HEMATOLOGY/ONCOLOGY: No history of anemia. ENDOCRINE: As mentioned earlier. CONSTITUTIONAL: As mentioned earlier. DERMATOLOGY: Negative. RHEUMATOLOGY: Negative. PSYCHIATRY: As mentioned earlier. PHYSICAL EXAMINATION: Patient alert and oriented x3. Pulse 95, blood pressure 130/83, respirations 16, temperature normal. Pulse ox 90% on room air. HEENT: Conjunctivae normal. Oral mucosa moist. NECK: No jugular venous distention. No carotid bruit. No lymph node enlargement. CARDIOVASCULAR: S1, S2 muffled. RESPIRATION: Breath sounds diminished at the bases. A few scattered rhonchi. ABDOMEN: Soft, nontender. No mass palpable. LEGS: No edema. No swelling. NERVOUS SYSTEM: Higher functions as mentioned earlier. Moves all 4 limbs. No focal motor or sensory deficit. LYMPHATICS: No lymph node palpable in neck, axillae or groin. SKIN: No ulcer, rash, bleeding. JOINTS: No active deforming arthropathy. LABS: CBC within normal limits. D-dimer is 0.3. Creatinine is 0.6. ASSESSMENT: 1. Chest pain, possibly musculoskeletal. Normal cardiac catheterization, and CTA is negative. 2. Diabetes mellitus, type 2. 3. Hypertension. 4. Hyperlipidemia. 5. History of pulmonary embolism. 6. History of seizure disorder. 7. History of appendectomy. 8. History of bowel resection. 9. History of cholecystectomy. 10.Remote history of nicotine dependence. 11.FULL CODE. RECOMMENDATIONS AND DISCUSSION: In this 51-year-old gentleman who presented with multiple complex medical issues, at this time workup to rule out the possibility of myocardial infarction or pulmonary embolism. At this time I recommend continue the current medication, continue symptomatic treatment. Otherwise, resume the home medications and follow closely with Dr. Leydi Davies and Cardiology in the outpatient setting. Prognosis is guarded. Please refer to the medication reconciliation sheet for list of medications. MMODL / IJN: [id number] / MTDD
[2021-10-19] MEDS ORDERED: ATORVASTATIN 20 MG TAB PO SCH (21:00)
[2021-10-20] MEDS ORDERED: HEPARIN SODIUM,PORCINE 2,500 UNIT in SODIUM CHLORIDE 0.9% 250 ML IRRIGATION PRN (07:00)
[2021-10-20] MEDS ORDERED: HEPARIN SODIUM,PORCINE 10,000 UNIT in SODIUM CHLORIDE 0.9% 1,000 ML IRRIGATION PRN (07:00)
== END 2021-10-19 18:15 | disposition home or self-care (01) ==
LOC: EC 14:34 → 6NMEDSUR 17:15
PROVIDERS: ADMIT Hospitalist; ATTEND Hospitalist
DX: R07.89 Other chest pain (principal); I11.9 Hypertensive heart disease without heart failure; R42 Dizziness and giddiness; E11.9 Type 2 diabetes mellitus without complications; E78.5 Hyperlipidemia, unspecified; G40.909 Epilepsy, unspecified, not intractable, without status epilepticus; M41.9 Scoliosis, unspecified; N62 Hypertrophy of breast; Z79.82 Long term (current) use of aspirin; Z79.84 Long term (current) use of oral hypoglycemic drugs; Z79.899 Other long term (current) drug therapy; Z86.711 Personal history of pulmonary embolism; Z85.048 Personal history of other malignant neoplasm of rectum, rectosigmoid junction, and anus; Z87.442 Personal history of urinary calculi; Z92.21 Personal history of antineoplastic chemotherapy; Z92.3 Personal history of irradiation; Z90.49 Acquired absence of other specified parts of digestive tract; Z87.891 Personal history of nicotine dependence; Z98.52 Vasectomy status; Z87.710 Personal history of (corrected) hypospadias; Z93.3 Colostomy status; Z98.890 Other specified postprocedural states; Z82.49 Family history of ischemic heart disease and other diseases of the circulatory system; Z80.9 Family history of malignant neoplasm, unspecified
CPT/HCPCS: 99285; 36415; 93005; 93458; 85379; 80053; 83735; 84484; 85025; 85610; 85730; 87635; 71046; 71275; G0378 ×2; C8929; C1894; C1769; J2250; J2001; J3010; J1644; Q9950; Q9967 ×2; 93306

== ENCOUNTER → 2021-11-11 | Outpatient (CLI) | payer MEDICARE, OTHER ==
[2021-11-11 13:53] LABS: African American GFR (CKD) >90 (>60 ml/min/1.73 sqM); Blood Urea Nitrogen 6 mg/dL (9-20); Non-African American GFR(CKD) >90 (>60 ml/min/1.73 sqM)
--- NOTE | 2021-11-11 15:56 | CT ---
EXAMINATION TYPE: CT abdomen pelvis w con DATE OF EXAM: 11/11/2021 COMPARISON: 10/12/2021 HISTORY: hernia CT DLP: 2837.7 mGycm CONTRAST: CT scan of the abdomen and pelvis is performed with Oral Contrast and with IV Contrast, patient injec cheryl with 100 mL of Isovue 300. FINDINGS: LUNG BASES-: No visible nodule. No infiltrate. LIVER/GB: The gallbladder is surgically absent. No space occupying hepatic lesion. Biliary tree is of normal caliber. PANCREAS: No inflammation. No distinct mass. SPLEEN: No splenic enlargement. No lesion seen. ADRENALS: No nodule. No thickening. KIDNEYS/BLADDER: No hydronephrosis. 2 mm nonobstructing right renal calculus is unchanged. Stable 0. 4 cm left renal cyst. Urinary bladder grossly unremarkable. BOWEL: Umbilical hernia containing a short segment of small bowel. Inguinal hernia mesh repair seen b ilaterally with postsurgical scar tissue seen on the left. Surgical reanastomosis rectal sigmoid junc tion as well as at the hepatic flexure. No acute inflammatory process seen. GENITAL ORGANS: No gross abnormality. LYMPH NODES: No greater than 1cm abdominal or pelvic lymph nodes are appreciated. AORTA: No significant abnormality. OSSEOUS STRUCTURES: No significant abnormality is seen. OTHER: No significant additional abnormality is seen. IMPRESSION: 1. No acute intra-abdominal process. Inguinal surgical mesh repair with left-sided scar tissue. 2. Small umbilical hernia unchanged. 3. Postoperative changes of the colon.
== END | disposition home or self-care (01) ==
LOC: RADPROMAIN 13:16
PROVIDERS: ATTEND Surgery
DX: C18.9 Malignant neoplasm of colon, unspecified (principal); K42.9 Umbilical hernia without obstruction or gangrene
CPT/HCPCS: 82565; 84520; 74177; 36415; Q9967

== ENCOUNTER → 2021-11-20 | Outpatient (CLI) | payer MEDICARE, OTHER ==
[2021-11-20 14:33] LABS: Basophils # (A) 0.04 X 10*3/uL (0.00-0.10); Basophils % (A) 0.7 %; Eosinophils # (A) 0.05 X 10*3/uL (0.04-0.35); Eosinophils % (A) 0.9 %; HCT 46.4 % (39.6-50.0); HGB 14.6 g/dL (13.0-17.0); Immature Grans, Automated 0.3 %; Lymphocytes # (A) 2.36 X 10*3/uL (0.90-5.00); Lymphocytes % (A) 41.2 %; MCH 28.7 pg (27.0-32.0); MCHC 31.5 g/dL (32.0-37.0); MCV 91.2 fL (80.0-97.0); Mean Platelet Volume 10.3 fL (9.5-12.2); Monocytes # (A) 1.19 X 10*3/uL (0.20-1.00); Monocytes % (A) 20.8 %; NRBC Per 100 WBC 0 /100 WBCS (0.0-0.0); Neutrophils # (A) 2.07 X 10*3/uL (1.80-7.70); Neutrophils % (A) 36.1 %; Platelet Count 238 X 10*3/uL (140-440); RBC 5.09 X 10*6/uL (4.40-5.60); RDW 15.9 % (11.5-14.5); WBC 5.73 X 10*3/uL (4.50-10.00)
== END | disposition home or self-care (01) ==
LOC: LABPAT 09:21
PROVIDERS: ATTEND Surgery
DX: Z01.812 Encounter for preprocedural laboratory examination (principal); K43.0 Incisional hernia with obstruction, without gangrene
CPT/HCPCS: 83036; 85025

== ENCOUNTER 2021-11-24 07:01 | Inpatient (IN) | payer MEDICARE, OTHER ==
[2021-11-20 10:34] VITALS: BMI 49.2
[~2021-11-24 07:01] MED LIST changes: +ACETAMINOPHEN TAB 500 MG TAB PO PRN; +HEPARIN SODIUM,PORCINE/PF 5,000 UNIT/0.5 ML SYRINGE SQ PRN; -LACTATED RINGERS 1,000 ML IV SCH; -LIDOCAINE 1% (10MG/ML) FOR IV START INTRADERMA PRN
[2021-11-24] MEDS ORDERED: HYDROmorphone 0.5 MG/0.5 ML SYRINGE IVP PRN (07:24)
[2021-11-24] MEDS ORDERED: DEXAMETHASONE SOD PHOSPHATE 4 MG/ML 1 ML VIAL IV ONE (07:24)
[2021-11-24] MEDS ORDERED: ONDANSETRON 4 MG/2 ML VIAL IVP ONE (07:24)
[2021-11-24] MEDS ORDERED: LIDOCAINE 1% (10MG/ML) FOR IV START INTRADERMA ONE (07:49)
[2021-11-24] MEDS: LACTATED RINGERS 1,000 ML IV SCH (07:50)
[2021-11-24 07:51] LABS: Glucose,Whole Blood 111 mg/dL (75-99)
[2021-11-24] MEDS ORDERED: MIDAZOLAM 2 MG/2 ML VIAL IVP ONE (08:25)
[2021-11-24] MEDS ORDERED: fentaNYL (PF) 50 MCG/ML 2 ML AMP IVP ONE (08:25)
--- NOTE | 2021-11-24 08:42 | P.GSHP ---
History of Present Illness H&P Date: 11/24/21 Chief Complaint: Incisional hernia This is a 51-year-old male with history of colon cancer. Patient's had multiple laparotomies related to his colon cancer. He is developed an incisional hernia. He presents today for laparoscopic robotic-assisted repair. Past Medical History Past Medical History: Cancer, Chest Pain / Angina, Diabetes Mellitus, Hyperlipidemia, Hypertension, Pulmonary Embolus (PE), Seizure Disorder Additional Past Medical History / Comment(s): epilepsy-last seizure "10 years ago", ANEMIA, rectal cancer-last chemo Mar 21 2019 and radiation through 08/06/18, kidney stone, hx of PE. GALLBLADDER DISORDER History of Any Multi-Drug Resistant Organisms: None Reported Past Surgical History: Appendectomy, Bowel Resection, Cholecystectomy, Heart Catheterization, Hernia Repair Additional Past Surgical History / Comment(s): vasectomy, surg. to repair hypospadias as a child, bowel resection/colostomy with reversal 09/06/18, Right upper chest port , COLONOSCOPY Past Anesthesia/Blood Transfusion Reactions: No Reported Reaction Smoking Status: Former smoker - Past Family History Brother(s) Family Medical History: Cancer, Deep Vein Thrombosis (DVT) Mother Family Medical History: Pulmonary Embolus Medications and Allergies Home Medications Medication Instructions Recorded Confirmed Type Divalproex [Depakote] 750 mg PO HS 10/29/15 11/24/21 History Atorvastatin [Lipitor] 20 mg PO HS 10/24/18 11/24/21 History Divalproex [Depakote] 500 mg PO BID@0600,1200 10/24/18 11/20/21 History Furosemide [Lasix] 20 mg PO DAILY 12/16/20 11/20/21 History Potassium Chloride ER [K-Dur 20] 20 meq PO DAILY 12/16/20 11/20/21 History metFORMIN HCL [Glucophage] 1,000 mg PO DAILY 12/16/20 11/20/21 History lisinopriL [Prinivil] 20 mg PO DAILY 09/18/21 11/20/21 History Acetaminophen Tab [Tylenol] 650 mg PO Q6HR PRN #30 tab 10/19/21 11/24/21 Rx Aspirin EC [Ecotrin Low Dose] 162 mg PO DAILY 11/20/21 11/20/21 History Allergies Allergy/AdvReac Type Severity Reaction Status Date / Time No Known Allergies Allergy Verified 11/24/21 07:33 Surgical - Exam Vital Signs Temp Pulse Resp BP Pulse Ox 97.7 F 100 18 155/80 95 11/24/21 07:31 11/24/21 07:31 11/24/21 07:31 11/24/21 07:31 11/24/21 07:31 - General Morbidly obese, BMI 48 - Eyes PERRL - ENT normal pinna - Neck no masses - Respiratory normal expansion - Cardiovascular Rhythm: regular - Abdomen Incisional hernia located at the midline scar. The hernia measured approximat jaren 13 cm in length Abdomen: soft, non tender Results - Labs Abnormal Lab Results - Last 24 Hours (Table) 11/24/21 Range/Units 07:47 POC Glucose (mg/dL) 111 H (75-99) mg/dL Assessment and Plan Assessment: Incisional hernia. We'll perform laparoscopic robotic system repair. Patient's aware the risk of conversion to the open procedure due to adhesions.
[2021-11-24] MEDS ORDERED: ROCURONIUM 10 MG/ML (5 ML VIAL) IV ONE (09:03)
[2021-11-24] MEDS ORDERED: SUCCINYLCHOLINE CHLORIDE VIAL 200 MG/10 ML VIAL IV ONE (09:03)
[2021-11-24] MEDS ORDERED: PROPOFOL 10 MG/ML 20 ML VIAL IV ONE (09:03)
[2021-11-24] MEDS ORDERED: fentaNYL (PF) 50 MCG/ML 2 ML AMP ONE (09:03)
[2021-11-24] MEDS ORDERED: ROPIVACAINE 5 MG/ML 30 ML VIAL ONE (09:03)
[2021-11-24] MEDS ORDERED: NEOSTIGMINE 1 MG/ML 10 ML VIAL ONE (09:03)
[2021-11-24] MEDS ORDERED: SODIUM CHLORIDE 0.9% (PF) 10 ML VIAL ONE (09:03)
[2021-11-24] MEDS ORDERED: GLYCOPYRROLATE 0.2 MG/ML 2 ML VIAL ONE (09:03)
[2021-11-24] MEDS ORDERED: LIDOCAINE 1% INJ 10MG/ML (20 ML MDV) ONE (09:03)
[2021-11-24] MEDS ORDERED: BUPIVACAIN-EPI 0.25%-1:200,000 30 ML VIAL SQ ONE (10:00)
[2021-11-24] MEDS ORDERED: LACTATED RINGERS 1,000 ML IV ONE ×3 (10:06→13:55)
[2021-11-24] MEDS ORDERED: ONDANSETRON 4 MG/2 ML VIAL IVP PRN (10:57)
[2021-11-24] MEDS ORDERED: HYDROmorphone 1 MG/ML 1 ML SYRINGE IVP PRN (10:57)
[2021-11-24] MEDS ORDERED: NALOXONE 0.4 MG/ML 1 ML VIAL IV PRN (10:57)
--- NOTE | 2021-11-24 10:57 | P.OP ---
Date of Procedure: 11/24/21 Preoperative Diagnosis: Incisional hernia Postoperative Diagnosis: Incisional hernia Extensive adhesions Procedure(s) Performed: Diagnostic laparoscopy Exploratory laparotomy Lysis of extensive adhesions Repair of incisional hernia with mesh Anesthesia: JOHN Surgeon: Daniel Sherman Estimated Blood Loss (ml): 50 Pathology: none sent Condition: stable Disposition: PACU Operative Findings: Hernia location ventral abdominal wall Hernia size 15 x 5 cm Prolene mesh measuring approximately 25 x 15 cm Onlay mesh Mesh fixation with secure strap tacker Description of Procedure: Patient's placed on the operating table in the supine position. He received general endotracheal tube anesthesia. His abdomen was prepped and draped usual sterile fashion. Using a 5 mm optical trocar in the left upper quadrant the peritoneal cavity is entered. The abdomen was a split. After adequate insufflation the laparoscope was placed back the pleural cavity. There extensive adhesions seen. At this point decided to perform an open hernia repair. The trochars withdrawn. The skin was incised in midline. The scar was discarded. The fascia was opened. Approximately 25 minutes of operative time used to lyse adhesions. Once the adhesions were lysed. The hernia defect was visualized. The hernia defect was then closed using interrupted. 0 Ethibond suture. And #1 Radha fix suture. Once the fascial defect was closed a onlay mesh of Prolene mesh was performed. This was secured to secure strap tacker. A GLENN drains placed over top apparent brought out through a skin incision in the left upper quadrant. Juanita's fascia close [place]. Skin was closed el. Patient was sent to recovery room in stable condition.
--- NOTE | 2021-11-24 12:51 | P.ANPRN ---
Procedure Note - Anesthesia - Nerve Block Performed Rectus Abdominis Time Out Performed: Yes (:) Date of Procedure: 11/24/21 Procedure Start Time: Procedure Stop Time: Indication: Acute Post-Operative Pain, Requested by Surgeon (Dr Sherman) Preparation: Sterile Prep Position: Supine Catheter: None Needle Gauge: 21 Ultrasound used to observe medication spread: Yes Injectate: 0.5% Ropivacaine (see comment for volume) (15 cc +10cc PF Normal saline each side) Blood Aspirated: No Pain Paresthesia on Injection Noted: No Image Stored and Saved: Yes Events: Uneventful and Well Tolerated
[2021-11-24] MEDS: KETOROLAC 30 MG/ML 1 ML VIAL IVP SCH ×2 (13:55→17:43)
--- NOTE | 2021-11-24 17:01 | CONS ---
CONSULTATION REASON FOR CONSULTATION: Advice regarding diabetes mellitus and other medical issues, requested by Surgery. HISTORY OF PRESENT ILLNESS: This 51-year-old gentleman with a past medical history of diabetes, hypertension, being followed by Dr. Leydi Davies in the outpatient setting, underwent exploratory laparotomy, lysis of extensive adhesions and repair of incisional hernia with mesh by Dr. Sherman. There is no history of any fever, rigors or chills. No history of headache, loss of consciousness, seizures at this time. PAST MEDICAL HISTORY: History of diabetes mellitus, hypertension, hyperlipidemia. MEDICATIONS: Medications prior to admission are reviewed and include Depakote, Lipitor, Tylenol, Glucophage. Doses and other medications are reviewed. ALLERGIES: NONE. FAMILY HISTORY: DVT. SOCIAL HISTORY: Smoking previously. REVIEW OF SYSTEMS: Fourteen-point review of systems negative except as mentioned above. PHYSICAL EXAMINATION: Pulse 92, blood pressure 127/84, temperature 98.2. HEENT: Conjunctivae normal. NECK: No jugular venous distention. CARDIOVASCULAR: S1, S2 muffled. RESPIRATION: Breath sounds diminished at the bases. A few scattered rhonchi. ABDOMEN: Soft. Status post surgery. LEGS: No edema. No swelling. NERVOUS SYSTEM: Higher functions as mentioned earlier. No focal deficit. LYMPHATICS: No lymph node palpable in neck, axillae or groin. SKIN: No ulcer, rash, bleeding. JOINTS: No active deforming arthropathy. LABS: Glucose 111. Otherwise, reviewed. ASSESSMENT: 1. Status post exploratory laparotomy, lysis of adhesions and repair of incisional hernia with mesh. 2. Diabetes mellitus, type 2. 3. Hypertension. 4. Hyperlipidemia. 5. History of pulmonary embolism. 6. History of seizure disorder. RECOMMENDATIONS AND DISCUSSION: In this 51-year-old gentleman who presented with multiple medical issues, at this time I recommend to continue the current medications, continue symptomatic treatment. Otherwise, resume the home medications. DVT prophylaxis. Proton pump inhibitors. Pain management. Will follow the patient closely with you. Monitor blood sugars closely. The patient may be asked to follow up with primary physician closely. Thank you for the consult. MMODL / IJN: [id number] /
[2021-11-24 17:14] LABS: Glucose,Whole Blood 154 mg/dL (75-99)
[2021-11-24] MEDS: PANTOPRAZOLE 40 MG/10 ML VIAL IVP SCH (17:43)
[2021-11-24] MEDS: INSULIN ASPART (NovoLOG) 100 UNIT/ML VIAL SQ SCH ×2 (17:43→21:26)
[2021-11-24] MEDS: FUROSEMIDE 20 MG TAB PO SCH (17:43)
[2021-11-24] MEDS ORDERED: DIVALPROEX 250 MG TABLET.DR PO SCH (21:00)
[2021-11-24] MEDS ORDERED: ATORVASTATIN 20 MG TAB PO SCH (21:00)
[2021-11-24 21:14] LABS: Glucose,Whole Blood 148 mg/dL (75-99)
[2021-11-25] MEDS: KETOROLAC 30 MG/ML 1 ML VIAL IVP SCH ×3 (03:30→12:38)
[2021-11-25] MEDS: DIVALPROEX 500 MG TABLET.DR PO SCH ×2 (06:03→12:38)
[2021-11-25 07:19] LABS: Glucose,Whole Blood 108 mg/dL (75-99)
[2021-11-25] MEDS: INSULIN ASPART (NovoLOG) 100 UNIT/ML VIAL SQ SCH ×2 (08:38→12:30)
[2021-11-25] MEDS: PANTOPRAZOLE 40 MG/10 ML VIAL IVP SCH (08:48)
[2021-11-25] MEDS: FUROSEMIDE 20 MG TAB PO SCH (08:48)
[2021-11-25] MEDS ORDERED: lisinopriL 20 MG TAB PO SCH (09:00)
[2021-11-25] MEDS ORDERED: metFORMIN 500 MG TAB PO SCH (09:00)
[2021-11-25] MEDS ORDERED: ASPIRIN 81 MG PO SCH (09:00)
[2021-11-25] MEDS ORDERED: ENOXAPARIN 40 MG/0.4 ML SYRINGE SQ SCH (09:00)
[2021-11-25] MEDS ORDERED: PANTOPRAZOLE 40 MG TABLET PO SCH (09:00)
[2021-11-25 09:35] LABS: HCT 41.6 % (39.6-50.0); HGB 12.7 g/dL (13.0-17.0); MCH 28.9 pg (27.0-32.0); MCHC 30.5 g/dL (32.0-37.0); MCV 94.5 fL (80.0-97.0); Mean Platelet Volume 10.4 fL (9.5-12.2); NRBC Per 100 WBC 0 /100 WBCS (0.0-0.0); Platelet Count 261 X 10*3/uL (140-440); RDW 16.4 % (11.5-14.5)
[2021-11-25 09:49] LABS: African American GFR (CKD) 124.9 (60.0-200.0); Albumin 3.3 g/dL (3.8-4.9); Albumin/Globulin Ratio 1.22 (1.60-3.17); Anion Gap 12.5 mmol/L (10.00-18.00); BUN/Creat Ratio 17.71 Ratio (12.00-20.00); Blood Urea Nitrogen 12.4 mg/dL (9.0-27.0); Calcium 8.6 mg/dL (8.7-10.3); Carbon Dioxide 22.5 mmol/L (20.0-27.5); Globulin 2.7 g/dL (1.6-3.3); Non-African American GFR(CKD) 107.7 (60.0-200.0); Potassium 4.6 mmol/L (3.5-5.5); Total Bilirubin 0.6 mg/dL (0.30-1.20)
[2021-11-25] MEDS: LACTATED RINGERS 1,000 ML IV SCH (10:40)
[2021-11-25 10:44] LABS: Acanthocytes 2+; Basophils # (M) 0 X 10*3/uL (0.00-0.10); Eosinophils # (M) 0 X 10*3/uL (0.04-0.35); Lymphocytes # (M) 1.29 X 10*3/uL (0.90-5.00); Monocytes # (M) 0.69 X 10*3/uL (0.20-1.00); Neutrophils # (M) 7.92 X 10*3/uL (2.00-8.90); Neutrophils % (M) 80 %
[2021-11-25 11:37] VITALS: BP 114/75; PULSE 95; RESP 18; TEMP 98.4
[2021-11-25 11:53] LABS: Glucose,Whole Blood 120 mg/dL (75-99)
--- NOTE | 2021-11-25 12:52 | PN ---
PROGRESS NOTE DATE OF SERVICE: 11/25/2021 This 51-year-old gentleman who was admitted after exploratory laparotomy and lysis of adhesions is improving significantly. No chest pain. No palpitations. No fever. The patient is complaining of abdominal pain. PHYSICAL EXAMINATION: Pulse 95, blood pressure 140/75, respiration 18. CHEST: Clear to auscultation. CARDIOVASCULAR: S1, S2 muffled. ABDOMEN: Soft. Mildly distended. No guarding. No rigidity. LEGS: No edema. No swelling. LABS: WBC 9.2, hemoglobin 12.7. Other labs are reviewed. ASSESSMENT: 1. Status post exploratory laparotomy, lysis of adhesion and repair of incisional hernia with mesh. 2. Diabetes mellitus, type 2. 3. Hypertension. 4. History of pulmonary embolism. 5. History of seizure disorder. RECOMMENDATIONS AND DISCUSSION: I recommend to continue current medications, continue with the monitoring, symptomatic treatment. The patient is on Lovenox. Continue the rest of the medications. Incentive spirometry. Further recommendations to follow. MMKRISHAN / DIVINAN: [id number] /
--- NOTE | 2021-11-25 14:53 | P.DS ---
Providers Date of admission: 11/24/21 10:55 Expected date of discharge: 11/25/21 Attending physician: Daniel Sherman Consults: 11/24/21 10:57 Consult Physician Routine Consulting Provider: Priya Worrell Consult Reason/Comments: Medical management Do you want consulting provider notified?: Yes Primary care physician: Leydi Davies Hospital Course: Discharge diagnosis 1. Incisional hernia and extensive adhesions status post diagnostic laparoscopy, exploratory laparotomy, lysis of extensive adhesions and repair of incisional hernia with mesh Hospital course This is a 51-year-old male with history of colon cancer. Patient's had multiple laparotomies related to his colon cancer. He is developed an incisional hernia. Patient is status post diagnostic laparoscopy, exploratory laparotomy, lysis of extensive adhesions and repair of incisional hernia with mesh. Patient tolerated surgery well. Pain is controlled. He has been up and ambulating. Afebrile. He is stable for discharge. Please refer to chart for any further details. Physician [employer] note has been reviewed by physician. Signing provider agrees with the documented findings, assessment, and plan of care. Patient Condition at Discharge: Stable Plan - Discharge Summary Discharge Rx Participant: No New Discharge Prescriptions: New HYDROcodone/APAP 5-325MG [[place]adiz 5-325] 1 tab PO Q6HR PRN 3 Days #12 tab PRN Reason: Pain Docusate [Colace] 100 mg PO BID #30 capsule Continue Divalproex [Depakote] 750 mg PO HS Atorvastatin [Lipitor] 20 mg PO HS Divalproex [Depakote] 500 mg PO BID@0600,1200 Potassium Chloride ER [K-Dur 20] 20 meq PO DAILY Furosemide [Lasix] 20 mg PO DAILY metFORMIN HCL [Glucophage] 1,000 mg PO DAILY lisinopriL [Prinivil] 20 mg PO DAILY Aspirin EC [Ecotrin Low Dose] 162 mg PO DAILY Discontinued Acetaminophen Tab [Tylenol] 650 mg PO Q6HR PRN #30 tab PRN Reason: Mild Pain Or Fever > 100.5 Discharge Medication List Divalproex [Depakote] 750 mg PO HS 10/29/15 [History] Atorvastatin [Lipitor] 20 mg PO HS 10/24/18 [History] Divalproex [Depakote] 500 mg PO BID@0600,1200 10/24/18 [History] Furosemide [Lasix] 20 mg PO DAILY 03/09/21 [History] Potassium Chloride ER [K-Dur 20] 20 meq PO DAILY 12/16/20 [History] metFORMIN HCL [Glucophage] 1,000 mg PO DAILY 12/16/20 [History] lisinopriL [Prinivil] 20 mg PO DAILY 09/18/21 [History] Aspirin EC [Ecotrin Low Dose] 162 mg PO DAILY 11/20/21 [History] Docusate [Colace] 100 mg PO BID #30 capsule 11/25/21 [Rx] HYDROcodone/APAP 5-325MG [[place]iz 5-325] 1 tab PO Q6HR PRN 3 Days #12 tab 11/25/21 [Rx] Follow up Appointment(s)/Referral(s): Daniel Sherman MD [STAFF PHYSICIAN] - 12/01/21 3:15 pm Activity/Diet/Wound Care/Special Instructions: No driving while taking [place] No lifting over 10 pounds You may shower. No soaking or tub baths for 2 weeks Very light activity until you are reevaluated at your follow up appointment with your surgeon Keep a log of GLENN drain output and bring with you to your follow-up appointment Milk/strip drains 2-3 times a day Discharge Disposition: HOME SELF-CARE
--- NOTE | 2021-11-25 15:15 | XR ---
EXAMINATION TYPE: XR chest 1V portable DATE OF EXAM: 11/25/2021 HISTORY: Shortness of breath. COMPARISON: 10/18/2021 TECHNIQUE: Single view of the chest is submitted. FINDINGS: Demonstrated are scattered senescent parenchymal change. There is no evidence for focal infiltrate. The heart is stable. Right-sided MediPort catheter is in place. Hilar and mediastinal structures are within normal limits. Degenerative changes are seen of the dorsal spine. IMPRESSION: 1. Chronic changes without evidence for acute pulmonary disease.
--- NOTE | 2021-11-25 15:37 | PN ---
PROGRESS NOTE ADDENDUM: DATE OF SERVICE: 11/25/2021 This 51-year-old gentleman admitted after incisional hernia repair also had some difficulty during intubation. A mass was suspected. Recommend CT scan of the chest and neck with contrast and followup with Pulmonary in the outpatient setting. Discussed with staff. RICARDO / BARRY: [id number] /
== END 2021-11-25 17:27 | disposition home or self-care (01) | DRG 337 ==
LOC: OR 07:01 → 5NMEDONC 10:55
PROVIDERS: ADMIT Surgery; ATTEND Surgery
PROC: 0DNW4ZZ Release Peritoneum, Percutaneous Endoscopic Approach (ICD-10-PCS; 2021-11-24)
PROC: 0DNU0ZZ Release Omentum, Open Approach (ICD-10-PCS; 2021-11-24)
PROC: 0WUF4JZ Supplement Abdominal Wall with Synthetic Substitute, Percutaneous Endoscopic Approach (ICD-10-PCS; principal; 2021-11-24 08:50)
DX: K43.0 Incisional hernia with obstruction, without gangrene (principal); E11.9 Type 2 diabetes mellitus without complications; D64.9 Anemia, unspecified; E78.5 Hyperlipidemia, unspecified; Z20.822 Contact with and (suspected) exposure to COVID-19; G40.909 Epilepsy, unspecified, not intractable, without status epilepticus; I10 Essential (primary) hypertension; K66.0 Peritoneal adhesions (postprocedural) (postinfection); Z79.82 Long term (current) use of aspirin; Z79.84 Long term (current) use of oral hypoglycemic drugs; Z79.899 Other long term (current) drug therapy; Z85.048 Personal history of other malignant neoplasm of rectum, rectosigmoid junction, and anus; Z86.711 Personal history of pulmonary embolism; Z87.442 Personal history of urinary calculi; Z87.891 Personal history of nicotine dependence; Z87.19 Personal history of other diseases of the digestive system; Z90.49 Acquired absence of other specified parts of digestive tract; Z92.3 Personal history of irradiation
CPT/HCPCS: 64999; 71045; 80053; 85025; 86850; 86900; 86901; 87635

== ENCOUNTER 2022-01-31 14:53 | Emergency (ER) | payer MEDICARE, OTHER ==
[2022-01-31 15:00] VITALS: RESP 18
[2022-01-31] MEDS ORDERED: MORPHINE SULFATE 4 MG/ML SYRINGE IV STA (17:33)
--- NOTE | 2022-01-31 17:39 | ED ---
General Adult HPI - General Chief complaint: Abdominal Pain Stated complaint: Rt Side Pain Time Seen by Provider: 01/31/22 17:27 Source: patient, family, RN notes reviewed, old records reviewed Mode of arrival: ambulatory Limitations: no limitations - History of Present Illness Initial comments: 51-year-old male presents for evaluation of right sided abdominal pain. This is been worsening over the past 3 weeks. He has a remote history of rectal cancer and recent anterior abdominal hernia repair. He denies fever. He states his last bowel movement was 2 days ago. No vomiting. The pain is predominantly in the right flank and right upper abdomen. He has not had hematuria or dysuria. - Related Data Home Medications Medication Instructions Recorded Confirmed Divalproex [Depakote] 750 mg PO HS 10/29/15 11/24/21 Atorvastatin [Lipitor] 20 mg PO HS 10/24/18 11/24/21 Divalproex [Depakote] 500 mg PO BID@0600,1200 10/24/18 11/20/21 Furosemide [Lasix] 20 mg PO DAILY 12/16/20 11/20/21 Potassium Chloride ER [K-Dur 20] 20 meq PO DAILY 12/16/20 11/20/21 metFORMIN HCL [Glucophage] 1,000 mg PO DAILY 12/16/20 11/20/21 lisinopriL [Prinivil] 20 mg PO DAILY 09/18/21 11/20/21 Aspirin EC [Ecotrin Low Dose] 162 mg PO DAILY 11/20/21 11/20/21 Previous Rx's Medication Instructions Recorded Docusate [Colace] 100 mg PO BID #30 capsule 11/25/21 HYDROcodone/APAP 5-325MG [[facility] 1 tab PO Q6HR PRN 3 Days #12 tab 11/25/21 5-325] Allergies Allergy/AdvReac Type Severity Reaction Status Date / Time No Known Allergies Allergy Verified 01/31/22 15:00 Review of Systems ROS Statement: Those systems with pertinent positive or pertinent negative responses have been documented in the HPI. ROS Other: All systems not noted in ROS Statement are negative. Past Medical History Past Medical History: Cancer, Diabetes Mellitus, Hyperlipidemia, Hypertension, Pulmonary Embolus (PE), Seizure Disorder Additional Past Medical History / Comment(s): epilepsy-last seizure "10 years ago", ANEMIA, rectal cancer-last chemo Mar 21 2019 and radiation through 08/06/18, kidney stone, hx of PE. History of Any Multi-Drug Resistant Organisms: None Reported Past Surgical History: Appendectomy, Bowel Resection, Cholecystectomy, Hernia Repair Additional Past Surgical History / Comment(s): vasectomy, surg. to repair hypospadias as a child, bowel resection/colostomy with reversal 09/06/18, Right upper chest port Past Anesthesia/Blood Transfusion Reactions: No Reported Reaction Past Psychological History: No Psychological Hx Reported Smoking Status: Former smoker - Past Family History Brother(s) Family Medical History: Cancer, Deep Vein Thrombosis (DVT) Mother Family Medical History: Pulmonary Embolus General Exam Limitations: no limitations General appearance: alert, in no apparent distress Head exam: Present: atraumatic, normocephalic Eye exam: Present: normal appearance, PERRL ENT exam: Present: normal exam Neck exam: Present: normal inspection. Absent: tenderness, meningismus Respiratory exam: Present: normal lung sounds bilaterally. Absent: respiratory distress, wheezes Cardiovascular Exam: Present: regular rate, normal rhythm GI/Abdominal exam: Present: soft, distended, tenderness. Absent: guarding, rebound Extremities exam: Present: normal capillary refill Back exam: Absent: CVA tenderness (R), CVA tenderness (L) Neurological exam: Present: alert, oriented X3, CN II-XII intact. Absent: motor sensory deficit Psychiatric exam: Present: normal affect, normal mood Skin exam: Present: warm, dry, intact. Absent: cyanosis, diaphoretic Course Vital Signs 01/31/22 01/31/22 14:56 19:00 Temperature 98.0 F 98.3 F Pulse Rate 99 81 Respiratory 18 18 Rate Blood Pressure 136/80 137/81 O2 Sat by Pulse 95 96 Oximetry Medical Decision Making - Medical Decision Making 51-year-old male presenting for evaluation of right-sided abdominal pain and flank pain. Patient states the pain is worse with movement. He had recent abdominal surgery. I did perform workup including CBC, CMP, urinalysis. He has a normal CBC without leukocytosis, stable hemoglobin, he has a mild lactic acid, normal kidney function. He has white cells in his urine without urinary symptoms. CT shows a hematoma seroma on his previous surgery without any other acute findings or so findings to elucidate why he has right abdominal pain and flank pain. Patient should follow-up with his primary care physician. He should return with worsening or changing symptoms. - Lab Data Result diagrams: 01/31/22 17:56 01/31/22 17:56 Lab Results 01/31/22 01/31/22 01/31/22 Range/Units 17:56 17:56 17:56 WBC 8.8 (3.8-10.6) k/uL RBC 5.12 (4.30-5.90) m/uL Hgb 14.9 (13.0-17.5) gm/dL Hct 45.6 (39.0-53.0) % MCV 88.9 (80.0-100.0) fL MCH 29.1 (25.0-35.0) pg MCHC 32.7 (31.0-37.0) g/dL RDW 15.3 (11.5-15.5) % Plt Count 280 (150-450) k/uL MPV 7.8 Neutrophils % 56 % Lymphocytes % 28 % Monocytes % 12 % Eosinophils % 1 % Basophils % 1 % Neutrophils # 4.9 (1.3-7.7) k/uL Lymphocytes # 2.5 (1.0-4.8) k/uL Monocytes # 1.0 (0-1.0) k/uL Eosinophils # 0.0 (0-0.7) k/uL Basophils # 0.0 (0-0.2) k/uL PT 10.5 (9.0-12.0) sec INR 1.0 (<1.2) APTT 25.8 (22.0-30.0) sec Sodium (137-145) mmol/L Potassium (3.5-5.1) mmol/L Chloride (98-107) mmol/L Carbon Dioxide (22-30) mmol/L Anion Gap mmol/L BUN (9-20) mg/dL Creatinine (0.66-1.25) mg/dL Est GFR (CKD-EPI)AfAm (>60 ml/min/1.73 sqM) Est GFR (CKD-EPI)NonAf (>60 ml/min/1.73 sqM) Glucose (74-99) mg/dL Plasma Lactic Acid Jason (0.7-2.0) mmol/L Calcium (8.4-10.2) mg/dL Total Bilirubin (0.2-1.3) mg/dL AST (17-59) U/L ALT (4-49) U/L Alkaline Phosphatase (38-126) U/L Total Protein (6.3-8.2) g/dL Albumin (3.5-5.0) g/dL Lipase (23-300) U/L Urine Color Yellow Urine Appearance Cloudy (Clear) Urine pH 6.5 (5.0-8.0) Ur Specific [place] 1.014 (1.001-1.035) Urine Protein Trace H (Negative) Urine Glucose (UA) Negative (Negative) Urine Ketones 1+ H (Negative) Urine Blood Trace H (Negative) Urine Nitrite Negative (Negative) Urine Bilirubin Negative (Negative) Urine Urobilinogen 2.0 (<2.0) mg/dL Ur Leukocyte Esterase Large H (Negative) Urine RBC 2 (0-5) /hpf Urine WBC 38 H (0-5) /hpf Ur Squamous Epith Cells 3 (0-4) /hpf Urine Mucus Many H (None) /hpf 01/31/22 01/31/22 Range/Units 17:56 17:56 WBC (3.8-10.6) k/uL RBC (4.30-5.90) m/uL Hgb (13.0-17.5) gm/dL Hct (39.0-53.0) % MCV (80.0-100.0) fL MCH (25.0-35.0) pg MCHC (31.0-37.0) g/dL RDW (11.5-15.5) % Plt Count (150-450) k/uL MPV Neutrophils % % Lymphocytes % % Monocytes % % Eosinophils % % Basophils % % Neutrophils # (1.3-7.7) k/uL Lymphocytes # (1.0-4.8) k/uL Monocytes # (0-1.0) k/uL Eosinophils # (0-0.7) k/uL Basophils # (0-0.2) k/uL PT (9.0-12.0) sec INR (<1.2) APTT (22.0-30.0) sec Sodium 136 L (137-145) mmol/L Potassium 4.2 (3.5-5.1) mmol/L Chloride 102 (98-107) mmol/L Carbon Dioxide 26 (22-30) mmol/L Anion Gap 8 mmol/L BUN 7 L (9-20) mg/dL Creatinine 0.64 L (0.66-1.25) mg/dL Est GFR (CKD-EPI)AfAm >90 (>60 ml/min/1.73 sqM) Est GFR (CKD-EPI)NonAf >90 (>60 ml/min/1.73 sqM) Glucose 114 H (74-99) mg/dL Plasma Lactic Acid Jason 2.8 H* (0.7-2.0) mmol/L Calcium 8.9 (8.4-10.2) mg/dL Total Bilirubin 0.9 (0.2-1.3) mg/dL AST 18 (17-59) U/L ALT 13 (4-49) U/L Alkaline Phosphatase 67 (38-126) U/L Total Protein 7.3 (6.3-8.2) g/dL Albumin 3.7 (3.5-5.0) g/dL Lipase 72 (23-300) U/L Urine Color Urine Appearance (Clear) Urine pH (5.0-8.0) Ur Specific [place] (1.001-1.035) Urine Protein (Negative) Urine Glucose (UA) (Negative) Urine Ketones (Negative) Urine Blood (Negative) Urine Nitrite (Negative) Urine Bilirubin (Negative) Urine Urobilinogen (<2.0) mg/dL Ur Leukocyte Esterase (Negative) Urine RBC (0-5) /hpf Urine WBC (0-5) /hpf Ur Squamous Epith Cells (0-4) /hpf Urine Mucus (None) /hpf Disposition Clinical Impression: Abdominal pain Disposition: HOME SELF-CARE Condition: Fair Instructions (If sedation given, give patient instructions): Abdominal Pain (ED) Is patient prescribed a controlled substance at d/c from ED?: No Referrals: Leydi Davies MD [Primary Care Provider] - 1-2 days Time of Disposition: 20:35
[2022-01-31 18:15] LABS: ALT 13 U/L (4-49); AST 18 U/L (17-59); African American GFR (CKD) >90 (>60 ml/min/1.73 sqM); Albumin 3.7 g/dL (3.5-5.0); Alkaline Phosphatase 67 U/L (38-126); Anion Gap 8 mmol/L; Blood Urea Nitrogen 7 mg/dL (9-20); Calcium 8.9 mg/dL (8.4-10.2); Carbon Dioxide 26 mmol/L (22-30); Chloride 102 mmol/L (98-107); Glucose 114 mg/dL (74-99); Lipase 72 U/L (23-300); Non-African American GFR(CKD) >90 (>60 ml/min/1.73 sqM); Potassium 4.2 mmol/L (3.5-5.1); Sodium 136 mmol/L (137-145); Total Bilirubin 0.9 mg/dL (0.2-1.3); Total Protein 7.3 g/dL (6.3-8.2)
[2022-01-31 18:17] LABS: Partial Thromboplastin Time 25.8 sec (22.0-30.0); Prothrombin Time 10.5 sec (9.0-12.0)
[2022-01-31 18:21] LABS: Basophils % (A) 1 %; Eosinophils % (A) 1 %; HCT 45.6 % (39.0-53.0); HGB 14.9 gm/dL (13.0-17.5); Lymphocytes # (A) 2.5 k/uL (1.0-4.8); Lymphocytes % (A) 28 %; MCH 29.1 pg (25.0-35.0); MCHC 32.7 g/dL (31.0-37.0); MCV 88.9 fL (80.0-100.0); Mean Platelet Volume 7.8; Monocytes % (A) 12 %; Neutrophils # (A) 4.9 k/uL (1.3-7.7); Neutrophils % (A) 56 %; Platelet Count 280 k/uL (150-450); RBC 5.12 m/uL (4.30-5.90); RDW 15.3 % (11.5-15.5); WBC 8.8 k/uL (3.8-10.6)
[2022-01-31 19:06] VITALS: BP 137/81; PULSE 81; TEMP 98.3
[2022-01-31] MEDS ORDERED: SODIUM CHLORIDE 0.9% 500 ML 500 ML IV ONE (19:35)
--- NOTE | 2022-01-31 20:04 | CT ---
EXAMINATION TYPE: CT abdomen pelvis w con DATE OF EXAM: 01/31/2022 COMPARISON: 11/11/2021 HISTORY: RT side abdomen pain CT DLP: 2806.4 mGycm Automated exposure control for dose reduction was used. CONTRAST: Performed with IV Contrast, patient injected with 100 mL of Isovue 300. Images obtained from the diaphragm to the floor the pelvis with IV contrast. There is some mild subsegmental atelectasis right lung base. Heart size is normal. No pericardial eff usion. Liver spleen and stomach pancreas appear intact. The bile ducts are not dilated. There is no adrenal mass. Kidneys show satisfactory contrast opacification. There is no hydronephrosi s. Ureters are not dilated. Bladder is almost empty. There are numerous surgical clips over the anter ior lower abdomen. There is no free fluid in the pelvis. No pelvic mass. Appendix not seen. No sign o f thickened appendix. There is subcutaneous fluid collection over the anterior lower abdomen that sharri sures 12 x 4 cm. This has low attenuation. There is evidence of previous bowel surgery. The lumbar vertebra have normal alignment. Posterior elements are intact. No compression fracture. Donnie ny pelvis is intact. The hip joints are intact. No hip dysplasia. IMPRESSION: There is apparent hernia surgery with subcutaneous hematoma or seroma over the anterior lower abdomen . I do not see a cause for right-sided pain. Mild subsegmental atelectasis right posterior lung base which is mostly new compared to old exam.
[2022-01-31 20:07] LABS: Appearance,Urine Cloudy (Clear); Bilirubin,Urine Negative (Negative); Blood,Urine Trace (Negative); Color,Urine Yellow; Glucose,Urine (UA) Negative (Negative); Ketones,Urine 1+ (Negative); Leukocyte Esterase,Urine Large (Negative); Mucus,Urine Many /hpf; Nitrite,Urine Negative (Negative); PH, Urine 6.5 (5.0-8.0); Protein,Urine Trace (Negative); RBC,Urine 2 /hpf (0-5); Specific Gravity,Urine 1.014 (1.001-1.035); Squamous Epithelial Cell,Urine 3 /hpf (0-4); WBC,Urine 38 /hpf (0-5)
[2022-01-31] MEDS ORDERED: KETOROLAC 15 MG/ML 1 ML VIAL IVP STA (20:10)
== END 2022-01-31 21:24 | disposition home or self-care (01) ==
LOC: EC 14:53
DX: R10.11 Right upper quadrant pain (principal); E11.9 Type 2 diabetes mellitus without complications; E78.5 Hyperlipidemia, unspecified; G40.909 Epilepsy, unspecified, not intractable, without status epilepticus; I10 Essential (primary) hypertension; Z79.84 Long term (current) use of oral hypoglycemic drugs; Z79.82 Long term (current) use of aspirin; Z85.048 Personal history of other malignant neoplasm of rectum, rectosigmoid junction, and anus; Z86.711 Personal history of pulmonary embolism; Z90.49 Acquired absence of other specified parts of digestive tract; Z87.891 Personal history of nicotine dependence
CPT/HCPCS: 99284; 96374; 96375; 96361; 36415; 80053; 83605; 83690; 85025; 85610; 85730; 81001; 87086; 74177; J2270; J1885; Q9967

== ENCOUNTER → 2022-02-02 | Outpatient (CLI) | payer MEDICARE, OTHER ==
[2022-02-02 14:16] LABS: Basophils # (A) 0.03 X 10*3/uL (0.00-0.10); Basophils % (A) 0.5 %; Eosinophils # (A) 0.09 X 10*3/uL (0.04-0.35); Eosinophils % (A) 1.5 %; HCT 43.1 % (39.6-50.0); HGB 13.6 g/dL (13.0-17.0); Immature Grans, Automated 0.3 %; Lymphocytes # (A) 2.38 X 10*3/uL (0.90-5.00); Lymphocytes % (A) 39.1 %; MCH 28.8 pg (27.0-32.0); MCHC 31.6 g/dL (32.0-37.0); MCV 91.3 fL (80.0-97.0); Mean Platelet Volume 11.4 fL (9.5-12.2); Monocytes # (A) 1.08 X 10*3/uL (0.20-1.00); Monocytes % (A) 17.7 %; NRBC Per 100 WBC 0 /100 WBCS (0.0-0.0); Neutrophils # (A) 2.49 X 10*3/uL (1.80-7.70); Neutrophils % (A) 40.9 %; Platelet Count 389 X 10*3/uL (140-440); RBC 4.72 X 10*6/uL (4.40-5.60); WBC 6.09 X 10*3/uL (4.50-10.00)
[2022-02-02 18:26] LABS: Valproic Acid (Depakene) 46.5 ug/mL (50.0-100.0)
== END | disposition home or self-care (01) ==
LOC: LABWHC1 09:05
PROVIDERS: ATTEND Psychiatry & Neurology Neurology
DX: G40.209 Localization-related (focal) (partial) symptomatic epilepsy and epileptic syndromes with complex partial seizures, not intractable, without status epilepticus (principal)
CPT/HCPCS: 36415; 80164; 84450; 84460; 85025

== ENCOUNTER 2022-05-03 00:40 | Emergency (ER) | payer MEDICARE, OTHER ==
[2022-05-03 00:52] VITALS: TEMP 98.7
--- NOTE | 2022-05-03 01:15 | ED ---
General Adult HPI - General Chief complaint: Shortness of Breath Stated complaint: Shortness of breath Time Seen by Provider: 05/03/22 01:00 Source: patient, RN notes reviewed Mode of arrival: ambulatory - History of Present Illness Initial comments: 51-year-old male presents to the emergency Department with complaints of shortness of breath, sudden onset around 11:30 this evening. Patient states he was in bed resting at onset. States he felt like he could not catch his breath. Reports mild epigastric burning at that time. States symptoms have nearly resolved since arrival. Did not take anything to treat symptoms prior to arrival. No history of asthma or COPD. Denies fever, chills, headache, dizziness, chest pain, palpitations, abdominal pain, nausea, vomiting, diarrhea, or dysuria. - Related Data Home Medications Medication Instructions Recorded Confirmed Divalproex [Depakote] 750 mg PO HS 10/29/15 11/24/21 Atorvastatin [Lipitor] 20 mg PO HS 10/24/18 11/24/21 Divalproex [Depakote] 500 mg PO BID@0600,1200 10/24/18 11/20/21 Furosemide [Lasix] 20 mg PO DAILY 12/16/20 11/20/21 Potassium Chloride ER [K-Dur 20] 20 meq PO DAILY 12/16/20 11/20/21 metFORMIN HCL [Glucophage] 1,000 mg PO DAILY 12/16/20 11/20/21 lisinopriL [Prinivil] 20 mg PO DAILY 09/18/21 11/20/21 Aspirin EC [Ecotrin Low Dose] 162 mg PO DAILY 11/20/21 11/20/21 Previous Rx's Medication Instructions Recorded Docusate [Colace] 100 mg PO BID #30 capsule 11/25/21 HYDROcodone/APAP 5-325MG [[place] 1 tab PO Q6HR PRN 3 Days #12 tab 11/25/21 5-325] Esomeprazole Magnesium [NexIUM] 20 mg PO DAILY #30 cap 05/03/22 Allergies Allergy/AdvReac Type Severity Reaction Status Date / Time No Known Allergies Allergy Verified 05/03/22 00:52 Review of Systems ROS Statement: Those systems with pertinent positive or pertinent negative responses have been documented in the HPI. ROS Other: All systems not noted in ROS Statement are negative. Past Medical History Past Medical History: Cancer, Diabetes Mellitus, Hyperlipidemia, Hypertension, Pulmonary Embolus (PE), Seizure Disorder Additional Past Medical History / Comment(s): epilepsy-last seizure "10 years ago", ANEMIA, rectal cancer-last chemo Mar 21 2019 and radiation through 08/06/18, kidney stone, hx of PE. History of Any Multi-Drug Resistant Organisms: None Reported Past Surgical History: Appendectomy, Bowel Resection, Cholecystectomy, Hernia Repair Additional Past Surgical History / Comment(s): vasectomy, surg. to repair hypospadias as a child, bowel resection/colostomy with reversal 09/06/18, Right upper chest port Past Anesthesia/Blood Transfusion Reactions: No Reported Reaction Past Psychological History: No Psychological Hx Reported Smoking Status: Former smoker Past Alcohol Use History: None Reported Past Drug Use History: None Reported - Past Family History Brother(s) Family Medical History: Cancer, Deep Vein Thrombosis (DVT) Mother Family Medical History: Pulmonary Embolus General Exam Limitations: no limitations (well-developed, well-nourished male in no acute distress. Initial temperature 98.7, pulse 80, respirations 19, blood pressure 162/99, pulse ox 95% on room air.) General appearance: alert, in no apparent distress ENT exam: Present: normal exam, normal oropharynx, mucous membranes moist, TM's normal bilaterally Neck exam: Present: normal inspection, full ROM. Absent: tenderness, meningismus, lymphadenopathy Respiratory exam: Present: normal lung sounds bilaterally. Absent: respiratory distress, wheezes, rales, rhonchi, stridor Cardiovascular Exam: Present: regular rate, normal rhythm, normal heart sounds. Absent: systolic murmur, diastolic murmur, rubs, gallop, clicks GI/Abdominal exam: Present: soft, normal bowel sounds, other (Large abdominal habitus). Absent: distended, tenderness, guarding, rebound, rigid Extremities exam: Present: normal inspection, full ROM, normal capillary refill. Absent: tenderness, pedal edema, joint swelling, calf tenderness Neurological exam: Present: alert, oriented X3, CN II-XII intact Psychiatric exam: Present: normal affect, normal mood Skin exam: Present: warm, dry, intact, normal color. Absent: rash Course Vital Signs 05/03/22 05/03/22 05/03/22 00:47 00:52 04:07 Temperature 98.7 F Pulse Rate 88 79 84 Respiratory 19 16 16 Rate Blood Pressure 162/99 166/86 176/113 O2 Sat by Pulse 95 93 L 94 L Oximetry - Reevaluation(s) Reevaluation #1: 05/03/22 02:30 Patient able to ambulate without difficulty. No shortness of breath or difficulty breathing. 05/03/22 03:30 Discussed results from work up with patient and spouse. After talking, they feel that his symptoms are likely more related to indigestion. Will follow up with his PCP. Strict return parameters were discussed. Medical Decision Making - Medical Decision Making This is a 51-year-old male with a past medical history of hypertension, PE, diabetes, and epilepsy who presents to the emergency department for evaluation of isolated episode of shortness of breath. Upon exam, patient is well- appearing and in no acute distress. Lung sounds are clear to auscultation. Does have mild indigestion. Laboratory studies were obtained and are unremarkable. EKG shows normal sinus rhythm with no ectopy. Chest x-ray is negative. Patient remains comfortable throughout his stay with no shortness of breath or difficulty breathing. As onset occurred at rest, exertional activity is noncontributory. No anxiety, increased stress, or anginal symptoms. Discussed possibility of indigestion triggering symptoms of shortness of breath and patient feels that this is likely. Prescribed Nexium as patient has taken Prilosec in the past with no success. Instructed to follow up with PCP for a recheck this week. Strict return parameters were discussed in detail. Patient verbalizes understanding and agrees with this plan. Attending: Sumanth. - Lab Data Result diagrams: 05/03/22 01:59 05/03/22 01:59 Lab Results 05/03/22 05/03/22 05/03/22 Range/Units 01:59 01:59 01:59 WBC 6.4 (3.8-10.6) k/uL RBC 4.80 (4.30-5.90) m/uL Hgb 14.4 (13.0-17.5) gm/dL Hct 44.5 (39.0-53.0) % MCV 92.7 (80.0-100.0) fL MCH 30.1 (25.0-35.0) pg MCHC 32.4 (31.0-37.0) g/dL RDW 16.2 H (11.5-15.5) % Plt Count 253 (150-450) k/uL MPV 8.1 Neutrophils % 46 % Lymphocytes % 35 % Monocytes % 12 % Eosinophils % 2 % Basophils % 1 % Neutrophils # 3.0 (1.3-7.7) k/uL Lymphocytes # 2.2 (1.0-4.8) k/uL Monocytes # 0.8 (0-1.0) k/uL Eosinophils # 0.1 (0-0.7) k/uL Basophils # 0.0 (0-0.2) k/uL Anisocytosis Slight PT 10.5 (9.0-12.0) sec INR 1.0 (<1.2) APTT 24.1 (22.0-30.0) sec D-Dimer 0.42 (<0.60) mg/L FEU Sodium 139 (137-145) mmol/L Potassium 3.9 (3.5-5.1) mmol/L Chloride 109 H (98-107) mmol/L Carbon Dioxide 23 (22-30) mmol/L Anion Gap 7 mmol/L BUN 14 (9-20) mg/dL Creatinine 0.60 L (0.66-1.25) mg/dL Est GFR (CKD-EPI)AfAm >90 (>60 ml/min/1.73 sqM) Est GFR (CKD-EPI)NonAf >90 (>60 ml/min/1.73 sqM) Glucose 154 H (74-99) mg/dL Calcium 9.1 (8.4-10.2) mg/dL Magnesium 1.9 (1.6-2.3) mg/dL Total Bilirubin 0.2 (0.2-1.3) mg/dL AST 14 L (17-59) U/L ALT 12 (4-49) U/L Alkaline Phosphatase 61 (38-126) U/L Troponin I (0.000-0.034) ng/mL Total Protein 6.7 (6.3-8.2) g/dL Albumin 3.6 (3.5-5.0) g/dL 05/03/22 Range/Units 01:59 WBC (3.8-10.6) k/uL RBC (4.30-5.90) m/uL Hgb (13.0-17.5) gm/dL Hct (39.0-53.0) % MCV (80.0-100.0) fL MCH (25.0-35.0) pg MCHC (31.0-37.0) g/dL RDW (11.5-15.5) % Plt Count (150-450) k/uL MPV Neutrophils % % Lymphocytes % % Monocytes % % Eosinophils % % Basophils % % Neutrophils # (1.3-7.7) k/uL Lymphocytes # (1.0-4.8) k/uL Monocytes # (0-1.0) k/uL Eosinophils # (0-0.7) k/uL Basophils # (0-0.2) k/uL Anisocytosis PT (9.0-12.0) sec INR (<1.2) APTT (22.0-30.0) sec D-Dimer (<0.60) mg/L FEU Sodium (137-145) mmol/L Potassium (3.5-5.1) mmol/L Chloride (98-107) mmol/L Carbon Dioxide (22-30) mmol/L Anion Gap mmol/L BUN (9-20) mg/dL Creatinine (0.66-1.25) mg/dL Est GFR (CKD-EPI)AfAm (>60 ml/min/1.73 sqM) Est GFR (CKD-EPI)NonAf (>60 ml/min/1.73 sqM) Glucose (74-99) mg/dL Calcium (8.4-10.2) mg/dL Magnesium (1.6-2.3) mg/dL Total Bilirubin (0.2-1.3) mg/dL AST (17-59) U/L ALT (4-49) U/L Alkaline Phosphatase (38-126) U/L Troponin I <0.012 (0.000-0.034) ng/mL Total Protein (6.3-8.2) g/dL Albumin (3.5-5.0) g/dL - EKG Data EKG shows normal: sinus rhythm Rate: normal EKG Comments: EKG obtained at 0129 shows sinus rhythm with nonspecific T-wave abnormality. Ventricular rate 84, NC interval 142, QRS duration 93, QT/QTC 371/412. Interpretation borderline ECG. - Radiology Data Radiology results: report reviewed, image reviewed Two-view chest x-ray was obtained. Report was reviewed in its entirety. Impression per Dr. Walters is no active cardiopulmonary disease. There is clearing of the minimal atelectasis right lung base compared to old exam. Disposition Clinical Impression: Shortness of breath, Indigestion Disposition: HOME SELF-CARE Condition: Stable Instructions (If sedation given, give patient instructions): Indigestion (ED), Shortness of Breath (ED) Additional Instructions: Take medication as we discussed. If you develop worsening shortness of breath or any chest pain, return to the emergency department immediately. Follow up with your PCP for a recheck this week. Prescriptions: Esomeprazole Magnesium [NexIUM] 20 mg PO DAILY #30 cap Is patient prescribed a controlled substance at d/c from ED?: No Referrals: Leydi Davies MD [Primary Care Provider] - 1-2 days Time of Disposition: 03:55
[2022-05-03 02:07] LABS: Anisocytosis Slight; Basophils % (A) 1 %; Eosinophils # (A) 0.1 k/uL (0-0.7); Eosinophils % (A) 2 %; HCT 44.5 % (39.0-53.0); HGB 14.4 gm/dL (13.0-17.5); Lymphocytes # (A) 2.2 k/uL (1.0-4.8); Lymphocytes % (A) 35 %; MCH 30.1 pg (25.0-35.0); MCHC 32.4 g/dL (31.0-37.0); MCV 92.7 fL (80.0-100.0); Mean Platelet Volume 8.1; Monocytes # (A) 0.8 k/uL (0-1.0); Monocytes % (A) 12 %; Neutrophils % (A) 46 %; Platelet Count 253 k/uL (150-450); RDW 16.2 % (11.5-15.5); WBC 6.4 k/uL (3.8-10.6)
[2022-05-03 02:20] LABS: Partial Thromboplastin Time 24.1 sec (22.0-30.0); Prothrombin Time 10.5 sec (9.0-12.0)
--- NOTE | 2022-05-03 02:32 | XR ---
EXAMINATION TYPE: XR chest 2V DATE OF EXAM: 05/03/2022 COMPARISON: 11/25/2021 HISTORY: Short of breath TECHNIQUE: FINDINGS: Heart and mediastinum are normal. Lungs are clear. Diaphragm is normal. Bony thorax is inta ct. There is a right-sided central venous catheter with tip probably in the superior vena cava. IMPRESSION: No active cardiopulmonary disease. There is clearing of the minimal atelectasis right sukhdev g base compared to old exam.
[2022-05-03 02:51] LABS: ALT 12 U/L (4-49); AST 14 U/L (17-59); African American GFR (CKD) >90 (>60 ml/min/1.73 sqM); Albumin 3.6 g/dL (3.5-5.0); Alkaline Phosphatase 61 U/L (38-126); Anion Gap 7 mmol/L; Blood Urea Nitrogen 14 mg/dL (9-20); Calcium 9.1 mg/dL (8.4-10.2); Carbon Dioxide 23 mmol/L (22-30); Chloride 109 mmol/L (98-107); Glucose 154 mg/dL (74-99); Magnesium 1.9 mg/dL (1.6-2.3); Non-African American GFR(CKD) >90 (>60 ml/min/1.73 sqM); Potassium 3.9 mmol/L (3.5-5.1); Sodium 139 mmol/L (137-145); Total Bilirubin 0.2 mg/dL (0.2-1.3); Total Protein 6.7 g/dL (6.3-8.2)
[2022-05-03 03:07] VITALS: RESP 16
[2022-05-03 04:10] VITALS: BP 176/113; PULSE 84
== END 2022-05-03 04:10 | disposition home or self-care (01) ==
LOC: EC 00:40
DX: R06.02 Shortness of breath (principal); K30 Functional dyspepsia; E11.9 Type 2 diabetes mellitus without complications; E78.5 Hyperlipidemia, unspecified; I10 Essential (primary) hypertension; Z86.711 Personal history of pulmonary embolism; Z87.891 Personal history of nicotine dependence; Z79.84 Long term (current) use of oral hypoglycemic drugs; Z79.899 Other long term (current) drug therapy
CPT/HCPCS: 36415; 71046; 80053; 83735; 84484; 85025; 85379; 85610; 85730; 93005; 99285

== ENCOUNTER → 2022-09-28 | Outpatient (CLI) | payer MEDICARE, OTHER ==
[2022-09-28 18:09] LABS: African American GFR (CKD) >90 (>60 ml/min/1.73 sqM); Blood Urea Nitrogen 8 mg/dL (9-20); Non-African American GFR(CKD) >90 (>60 ml/min/1.73 sqM)
--- NOTE | 2022-09-28 19:34 | CT ---
EXAMINATION TYPE: CT ChestAbdPelvis w con DATE OF EXAM: 09/28/2022 COMPARISON: Most recent CT abdomen and pelvis January 31, 2022 and older studies HISTORY: rectal ca CT DLP: 3563.3 mGycm. Automated Exposure Control for Dose Reduction was Utilized. CONTRAST: CT scan of the thorax, abdomen and pelvis is performed with oral and with IV Contrast, patient inject ed with 100ML mL of Isovue 300. FINDINGS: LUNGS: Mild right lower lobe linear scarring is redemonstrated. No new greater than 5 mm pulmonary no dules or masses. There is no pleural effusion or pneumothorax seen. The tracheobronchial tree is pat ent. Eventration and elevation right hemidiaphragm redemonstrated. MEDIASTINUM: There are no greater than 1 cm hilar or mediastinal lymph nodes. No cardiomegaly or pe ricardial effusion is seen. OTHER: Bilateral gynecomastia redemonstrated. LIVER/GB: Gallbladder not seen and presumed surgically absent similar to prior studies. PANCREAS: No significant abnormality is seen. SPLEEN: No significant abnormality is seen. ADRENALS: No significant abnormality is seen. KIDNEYS: Simply appearing 2.1 cm thin-walled cyst in the left kidney upper to mid pole level delayed axial image 36 is redemonstrated. BOWEL: Oral contrast reaches level of the cecum. No suspicious small or large bowel dilatation is see n. Surgical sutures sigmoid rectal colon level axial image 101 redemonstrated. Few diverticula in the proximal sigmoid colon again seen. GENITAL ORGANS: No gross abnormality seen. LYMPH NODES: No greater than 1cm abdominal or pelvic lymph nodes are appreciated. OSSEOUS STRUCTURES: No significant abnormality is seen. OTHER: Numerous coils from bilateral inguinal canal hernia repair surgery overlie the anterior pelvic wall similar to prior. There is persistent vertical oriented midline subcutaneous scar with more foc al fluid collection better defined on current study measuring 8.4 x 1.6 cm axial image 78 is nonspeci fic but favor post surgical seroma. IMPRESSION: No suspicious new mass or adenopathy seen to suggest active neoplastic recurrence.
== END | disposition home or self-care (01) ==
LOC: RADCTMAIN 16:31
PROVIDERS: ATTEND Internal Medicine Hematology & Oncology
DX: C20 Malignant neoplasm of rectum (principal)
CPT/HCPCS: 82565; 84520; 71260; 74177; 36415; Q9967

== ENCOUNTER 2022-10-12 08:00 | Day surgery (SDC) | payer MEDICARE, OTHER ==
[2022-10-12 08:21] LABS: Glucose,Whole Blood 125 mg/dL (70-110)
[2022-10-12 08:24] VITALS: RESP 16; TEMP 98
[2022-10-12] MEDS ORDERED: IOPAMIDOL-370 50ML BTL INJ ONE (09:01)
--- NOTE | 2022-10-12 09:27 | IR ---
Fluoroscopic portogram(mediport). HISTORY: Device malfunction. The patient presented to the CVL with a Banda needle within the port. Preliminary fluoroscopy demonst rated the catheter to have a kink at the level of the upper rib cage. Small amount of contrast was injected to fill the proximal portion of the catheter without evidence o f extravasation at the level imaging compatible catheter injury or laceration. 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 Findings also suspicious for fibrin sheath complete occlusion of the distal catheter. 0.3 minutes of fluoroscopy and 10 images submitted. IMPRESSION: 1. Catheter kinking with contrast extravasation and evidence of catheter injury or laceration as disc ussed above. Surgical consultation recommended. 2. Fibrin sheath occlusion of the distal catheter
[2022-10-12 14:44] VITALS: BP 165/76; PULSE 67
== END 2022-10-12 09:32 | disposition home or self-care (01) ==
LOC: CATHCVL 08:00
PROVIDERS: ATTEND Radiology Diagnostic Radiology
DX: T82.598A Other mechanical complication of other cardiac and vascular devices and implants, initial encounter (principal); Y83.1 Surgical operation with implant of artificial internal device as the cause of abnormal reaction of the patient, or of later complication, without mention of misadventure at the time of the procedure; E11.9 Type 2 diabetes mellitus without complications; E78.5 Hyperlipidemia, unspecified; G40.909 Epilepsy, unspecified, not intractable, without status epilepticus; Z87.891 Personal history of nicotine dependence; F10.20 Alcohol dependence, uncomplicated; Z85.048 Personal history of other malignant neoplasm of rectum, rectosigmoid junction, and anus; Z86.010 Personal history of colon polyps; Z87.19 Personal history of other diseases of the digestive system; Z90.49 Acquired absence of other specified parts of digestive tract; D50.9 Iron deficiency anemia, unspecified; Z98.52 Vasectomy status; Z79.84 Long term (current) use of oral hypoglycemic drugs; Z79.02 Long term (current) use of antithrombotics/antiplatelets; Z79.891 Long term (current) use of opiate analgesic; Z79.899 Other long term (current) drug therapy
CPT/HCPCS: 36598; Q9967

== ENCOUNTER 2022-11-02 08:18 | Day surgery (SDC) | payer MEDICARE, OTHER ==
[2022-10-28 09:39] VITALS: BMI 46.2
[2022-11-02] MEDS ORDERED: ONDANSETRON 4 MG/2 ML VIAL IVP ONE (08:34)
[2022-11-02] MEDS ORDERED: HYDROmorphone 0.5 MG/0.5 ML SYRINGE IVP PRN (08:34)
[2022-11-02] MEDS ORDERED: SCOPOLAMINE 1 MG/72 HR PATCH TRANSDERM ONE (08:34)
[2022-11-02] MEDS ORDERED: MIDAZOLAM 2 MG/2 ML VIAL IV PRN (08:34)
[2022-11-02] MEDS ORDERED: DEXAMETHASONE SOD PHOSPHATE 4 MG/ML 1 ML VIAL IV ONE (08:34)
[2022-11-02] MEDS ORDERED: ONDANSETRON 4 MG/2 ML VIAL ONE (08:36)
[2022-11-02 08:45] VITALS: TEMP 96.4
[2022-11-02] MEDS ORDERED: LIDOCAINE 1% (10MG/ML) FOR IV START INTRADERMA ONE (08:50)
[2022-11-02] MEDS: LACTATED RINGERS 1,000 ML IV SCH ×2 (08:50→11:58)
[2022-11-02 08:53] LABS: Glucose,Whole Blood 109 mg/dL (70-110)
[2022-11-02 09:16] LABS: HCT 46.5 % (39.0-53.0); HGB 15.9 gm/dL (13.0-17.5); MCH 30.3 pg (25.0-35.0); MCHC 34.2 g/dL (31.0-37.0); MCV 88.7 fL (80.0-100.0); Mean Platelet Volume 7.8; Platelet Count 212 k/uL (150-450); RBC 5.24 m/uL (4.30-5.90); RDW 14.7 % (11.5-15.5); WBC 6.9 k/uL (3.8-10.6)
--- NOTE | 2022-11-02 11:44 | P.GSHP ---
History of Present Illness H&P Date: 11/02/22 Chief Complaint: History of colon cancer [id number] male with previous history of colon cancer. Patient presents today for Port-A-Cath removal and replacement. Past Medical History Past Medical History: Cancer, Diabetes Mellitus, GERD/Reflux, Hyperlipidemia, Hypertension, Pulmonary Embolus (PE), Seizure Disorder Additional Past Medical History / Comment(s): Epilepsy-last seizure "10 years ago". Anemia. Hx rectal cancer-last chemo 03/21/19 and radiation through 08/06/18. Hx kidney stone. History of Any Multi-Drug Resistant Organisms: None Reported Past Surgical History: Appendectomy, Bowel Resection, Cholecystectomy, Hernia Repair Additional Past Surgical History / Comment(s): Vasectomy, surgery to repair hypospadias as a child, bowel resection/colostomy with reversal 09/06/18, right upper chest port, colonoscopy. Past Anesthesia/Blood Transfusion Reactions: No Reported Reaction Past Psychological History: No Psychological Hx Reported Smoking Status: Former smoker Past Alcohol Use History: None Reported Additional Past Alcohol Use History / Comment(s): Quit smoking in 2016, smoked 1-2 ppd, smoked since age 16. Past Drug Use History: None Reported - Past Family History Brother(s) Family Medical History: Cancer, Deep Vein Thrombosis (DVT) Mother Family Medical History: Pulmonary Embolus Medications and Allergies Home Medications Medication Instructions Recorded Confirmed Type Divalproex [Depakote] 750 mg PO HS 10/29/15 11/02/22 History Atorvastatin [Lipitor] 20 mg PO HS 10/24/18 11/02/22 History Divalproex [Depakote] 500 mg PO BID@0600,1200 10/24/18 11/02/22 History Furosemide [Lasix] 20 mg PO DAILY 12/16/20 11/02/22 History Potassium Chloride ER [K-Dur 20] 20 meq PO DAILY 12/16/20 11/02/22 History metFORMIN HCL [Glucophage] 1,000 mg PO DAILY 12/16/20 11/02/22 History lisinopriL [Prinivil] 20 mg PO QAM 09/18/21 11/02/22 History Esomeprazole Magnesium [NexIUM] 20 mg PO DAILY #30 cap 05/03/22 11/02/22 Rx Psyllium Husk [Metamucil] 0.4 gm PO DAILY 10/07/22 11/02/22 History Aspirin [Adult Low Dose Aspirin EC] 81 mg PO DAILY 10/28/22 11/02/22 History Allergies Allergy/AdvReac Type Severity Reaction Status Date / Time No Known Allergies Allergy Verified 11/02/22 08:47 Surgical - Exam Vital Signs Temp Pulse Resp BP Pulse Ox 96.4 F L 101 H 20 159/95 97 11/02/22 08:43 11/02/22 08:43 11/02/22 08:43 11/02/22 08:43 11/02/22 08:43 - General well developed, well nourished, no distress - Eyes PERRL - ENT normal pinna - Neck no masses - Respiratory normal expansion - Cardiovascular Rhythm: regular - Abdomen Abdomen: soft, non tender Results - Labs 11/02/22 08:50 Assessment and Plan Assessment: History of colon cancer. We'll perform Port-A-Cath removal and replacement.
[2022-11-02] MEDS ORDERED: PROPOFOL 10 MG/ML 20 ML VIAL IV ONE (11:55)
[2022-11-02] MEDS ORDERED: fentaNYL (PF) 50 MCG/ML 2 ML AMP ONE (11:55)
[2022-11-02] MEDS ORDERED: MIDAZOLAM 2 MG/2 ML VIAL ONE (11:55)
[2022-11-02] MEDS ORDERED: KETAMINE 10 MG/ML 20 ML VIAL ONE (11:55)
[2022-11-02] MEDS ORDERED: BUPIVACAIN-EPI 0.25%-1:200,000 30 ML VIAL SQ ONE (12:19)
[2022-11-02] MEDS ORDERED: IOPAMIDOL-370 50ML BTL IRRIGATION ONE (12:19)
[2022-11-02] MEDS ORDERED: HEPARIN SODIUM,PORCINE 100 UNIT/ML 5 ML VIAL IV ONE (12:19)
--- NOTE | 2022-11-02 12:44 | P.OP ---
Date of Procedure: 11/02/22 Preoperative Diagnosis: History of colon cancer Postoperative Diagnosis: History of colon cancer Procedure(s) Performed: Removal and replacement of right subclavian Port-A-Cath Anesthesia: MAC Surgeon: Daniel Sherman Estimated Blood Loss (ml): 5 Pathology: none sent Condition: stable Disposition: PACU Description of Procedure: Patient's placed in the operative table in the supine position. He received IV sedation. His chest was prepped and draped usual fashion. The area of the port site was localized 1% local Xylocaine. Using 11 blade the skin was incised and then using blunt and sharp dissection with cautery the old Port-A-Cath was dissected free. Next using Seldinger technique the subclavian vein was cannulized. The wire was placed into the vein and the wire was confirmed with fluoroscopy to be in the superior vena cava. At this point the needle was withdrawn. A small skin incision was made. The tunneler was used to bring the new Port-A-Cath catheter from the pocket site to the wire insertion site. And then the introducer sheath placed over top the wire and placed into the vein. The introducer was withdrawn. In the catheter was placed in the sheath. The catheter position at the age appeared just. And then the sheath was removed. The port was then connected to the catheter. The port was then placed in subcutaneous pocket. The port was flushed with heparinized saline. Skin was closed interrupted 3-0 Monocryl suture. Dermabond was applied. Patient top she will was sent to recovery room in stable condition.
[2022-11-02 12:47] VITALS: RESP 16
--- NOTE | 2022-11-02 13:19 | XR ---
EXAMINATION TYPE: XR chest 1V portable DATE OF EXAM: 11/02/2022 HISTORY: Shortness of breath. COMPARISON: 05/03/2022 TECHNIQUE: Single view of the chest is submitted. FINDINGS: Demonstrated are scattered senescent parenchymal change. Sided Port-A-Cath with the distal tip overl joi the SVC. No evidence for pneumothorax. Continued elevation right hemidiaphragm. There is no evidence for focal infiltrate. The heart is stable. Hilar and mediastinal structures are within normal limits. Degenerative changes are seen of the dorsal spine. IMPRESSION: 1. Chronic changes without evidence for acute pulmonary disease.
[2022-11-02 13:29] VITALS: BP 128/85; PULSE 94
--- NOTE | 2022-11-02 15:48 | FL ---
Fluoroscopy History: PORTACATH PLACEMENT PORTACATH REMOVAL AND NEW INSERT. FL TIME 12 SECS
== END 2022-11-02 13:46 | disposition home or self-care (01) ==
LOC: OR 08:18
PROVIDERS: ATTEND Surgery
DX: Z85.038 Personal history of other malignant neoplasm of large intestine (principal); Z85.048 Personal history of other malignant neoplasm of rectum, rectosigmoid junction, and anus; Z92.3 Personal history of irradiation; Z92.21 Personal history of antineoplastic chemotherapy; E11.9 Type 2 diabetes mellitus without complications; K21.9 Gastro-esophageal reflux disease without esophagitis; E78.5 Hyperlipidemia, unspecified; I10 Essential (primary) hypertension; Z86.711 Personal history of pulmonary embolism; G40.909 Epilepsy, unspecified, not intractable, without status epilepticus; D64.9 Anemia, unspecified; Z87.442 Personal history of urinary calculi; Z90.49 Acquired absence of other specified parts of digestive tract; Z98.890 Other specified postprocedural states; Z98.52 Vasectomy status; Z93.3 Colostomy status; Z87.891 Personal history of nicotine dependence; F10.20 Alcohol dependence, uncomplicated; Z83.2 Family history of diseases of the blood and blood-forming organs and certain disorders involving the immune mechanism; Z79.02 Long term (current) use of antithrombotics/antiplatelets; Z79.84 Long term (current) use of oral hypoglycemic drugs; Z79.82 Long term (current) use of aspirin; Z79.01 Long term (current) use of anticoagulants; Z79.811 Long term (current) use of aromatase inhibitors; Z79.891 Long term (current) use of opiate analgesic; Z79.899 Other long term (current) drug therapy; E66.01 Morbid (severe) obesity due to excess calories; Z68.42 Body mass index [BMI] 45.0-49.9, adult
CPT/HCPCS: 36582; 77001; 85027; 71045; C1788; J2250; J1642; J1100; J0690; J2405; J3010; J2704; Q9967; J1644

== ENCOUNTER → 2023-04-01 | Outpatient (CLI) | payer MEDICARE, OTHER ==
[2023-04-01 14:32] LABS: African American GFR (CKD) >90 (>60 ml/min/1.73 sqM); Blood Urea Nitrogen 6 mg/dL (9-20); Non-African American GFR(CKD) >90 (>60 ml/min/1.73 sqM)
--- NOTE | 2023-04-03 13:08 | CT ---
EXAMINATION TYPE: CT ChestAbdPelvis w con CT DLP: 3059.9 mGycm, Automated exposure control for dose reduction was used. DATE OF EXAM: 04/01/2023 3:59 PM COMPARISON: 09/28/2022 CLINICAL INDICATION:Male, 52 years old with history of C20;, Rectal ca Technique: Multiple axial images of the chest, abdomen, and pelvis were obtained. Two-dimensional cor onal and sagittal reconstructions were obtained. Contrast used:100ml mL of Isovue 300 with IV Contrast, Oral contrast used: with Oral Contrast Findings: CHEST: LUNGS/ PLEURA: Elevated right diaphragm with associated atelectasis change./Scarring most pronounced on the right likely secondary to elevated diaphragm. AIRWAY: Patent and unremarkable. HEART: Size within normal limits. MEDIASTINUM: No gross evidence of adenopathy. VASCULATURE: No aortic aneurysm. Right chest [id number] with tip terminating in the superior vena cava. MUSCULOSKELETAL: No acute osseous abnormalities. SOFT TISSUES/LYMPH NODES: Mild gynecomastia changes bilaterally. LOWER NECK: No significant findings. ABDOMEN: ABDOMEN LIVER: Unremarkable GALLBLADDER AND BILE DUCTS: Unremarkable. PANCREAS: Unremarkable. SPLEEN: Unremarkable. ADRENAL GLANDS: Unremarkable. KIDNEYS AND URETERS: No evidence of hydronephrosis or renal calculus. The ureters are unremarkable. PELVIS BLADDER: No gross abnormality. REPRODUCTIVE: Prostate gland appears within normal limits for size ABDOMEN & PELVIS STOMACH AND BOWEL: No evidence of bowel obstruction. There is some submucosal fat deposition most pro nounced in the rectum could be posttreatment change. Few scattered colonic diverticula are present. P ost surgical changes to the right colon. Postsurgical changes with suture near the rectum. No abnorma l wall thickening visualized. Greater than 1.0 cm lymph nodes present. PERITONEUM: No evidence of pneumoperitoneum or free fluid. Multiple surgical clips/coils are seen in the low anterior abdomen. VASCULATURE: No evidence of aortic aneurysm. MUSCULOSKELETAL: No acute osseous abnormalities LYMPH NODES: No gross evidence for lymphadenopathy. SOFT TISSUE/ABDOMINAL WALL: Postsurgical changes anterior abdominal wall. There remains similar appea ring postop seroma in the subcutaneous tissues compared to prior. Bilateral fat-containing inguinal h ernias. IMPRESSION: 1. No evidence for lymphadenopathy or suspicious mass. 2. Postsurgical changes to the anterior abdominal wall with stable appearing suspected postop seroma .
== END | disposition home or self-care (01) ==
LOC: RADCTMAIN 13:48
PROVIDERS: ATTEND Internal Medicine Hematology & Oncology
DX: C20 Malignant neoplasm of rectum (principal)
CPT/HCPCS: 82565; 84520; 71260; 74177; 36415; J1642; Q9967

== ENCOUNTER → 2023-08-30 | Outpatient (CLI) | payer MEDICARE, OTHER ==
[2023-08-30 18:12] LABS: Basophils # (A) 0.04 X 10*3/uL (0.00-0.10); Basophils % (A) 0.6 %; Eosinophils # (A) 0.08 X 10*3/uL (0.04-0.35); Eosinophils % (A) 1.2 %; HCT 48.8 % (39.6-50.0); HGB 15.8 g/dL (13.0-17.0); Lymphocytes # (A) 3.39 X 10*3/uL (0.90-5.00); Lymphocytes % (A) 49.6 %; MCH 30.7 pg (27.0-32.0); MCHC 32.4 g/dL (32.0-37.0); MCV 94.9 FL (80.0-97.0); Mean Platelet Volume 10.6 FL (9.5-12.2); Monocytes # (A) 1.08 X 10*3/uL (0.20-1.00); Monocytes % (A) 15.8 %; NRBC Per 100 WBC 0 X 10*3/uL (0.00-0.01); Neutrophils # (A) 2.22 X 10*3/uL (1.80-7.70); Neutrophils % (A) 32.4 %; Platelet Count 254 X 10*3/uL (140-440); RBC 5.14 X 10*6/uL (4.40-5.60); RDW 14.9 % (11.5-14.5); WBC 6.84 X 10*3/uL (4.50-10.00)
== END | disposition home or self-care (01) ==
LOC: RADCTMAIN 09:08
PROVIDERS: ATTEND Internal Medicine Hematology & Oncology
DX: C20 Malignant neoplasm of rectum (principal); E78.5 Hyperlipidemia, unspecified; K63.5 Polyp of colon; G40.909 Epilepsy, unspecified, not intractable, without status epilepticus; E11.9 Type 2 diabetes mellitus without complications; R94.31 Abnormal electrocardiogram [ECG] [EKG]
CPT/HCPCS: 84132; 85025; 93005

== ENCOUNTER 2023-08-31 07:10 | Day surgery (SDC) | payer MEDICARE, OTHER ==
[2023-08-26 11:22] VITALS: BMI 46.7
[~2023-08-31 07:10] MED LIST changes: +DEXAMETHASONE SOD PHOSPHATE 4 MG/ML 1 ML VIAL IV ONE; +HYDROmorphone 0.5 MG/0.5 ML SYRINGE IVP PRN; +LACTATED RINGERS 1,000 ML IV SCH; +LIDOCAINE 1% (10MG/ML) FOR IV START INTRADERMA PRN; +MIDAZOLAM 2 MG/2 ML VIAL IV PRN; +ONDANSETRON 4 MG/2 ML VIAL IVP ONE; +Pre Op ABX Message 1 EACH MISC MISCELLANE ONE
[2023-08-31 07:58] VITALS: TEMP 97.2
[2023-08-31 08:00] LABS: Glucose,Whole Blood 125 mg/dL (70-110)
[2023-08-31] MEDS ORDERED: MIDAZOLAM 2 MG/2 ML VIAL ONE (08:33)
[2023-08-31] MEDS ORDERED: SODIUM CHLORIDE 0.9% 100 ML BAG ONE (08:33)
[2023-08-31] MEDS ORDERED: ceFAZolin 1,000 MG VIAL ONE (08:33)
[2023-08-31] MEDS ORDERED: fentaNYL (PF) 50 MCG/ML 2 ML AMP ONE (08:33)
[2023-08-31] MEDS ORDERED: PROPOFOL 10 MG/ML 20 ML VIAL IV ONE (08:33)
[2023-08-31] MEDS ORDERED: SODIUM CHLORIDE 0.9% 50 ML with ceFAZolin 2,000 MG IV ONE ×2 (08:53)
--- NOTE | 2023-08-31 09:04 | P.OP ---
Date of Procedure: 08/31/23 Preoperative Diagnosis: Posterior neck skin lesion Postoperative Diagnosis: Posterior neck sebaceous cyst 3 cm Procedure(s) Performed: excision of left posterior neck sebaceous cyst Anesthesia: MAC Surgeon: Daniel Sherman Estimated Blood Loss (ml): 5 Pathology: none sent Condition: stable Disposition: PACU Description of Procedure: Patient's placed on the operating table in the lateral position. He received IV sedation. His neck was prepped and draped in sterile fashion. The neck was anesthetized 1% local Xylocaine. Using a 15 blade skin was incised and using blunt and sharp dissection with cautery the subcutaneous cyst was excised. The cyst measured pressure 3 cm diameter. The wound packed for hemostasis. There is no bleeding seen. Skin was closed interrupted 3-0 nylon suture. Dermabond dressing applied. Patient top she will he was sent to recovery room in stable condition.
[2023-08-31 09:52] VITALS: BP 118/70; PULSE 90; RESP 16
== END 2023-08-31 09:49 | disposition home or self-care (01) ==
LOC: OR 07:10
PROVIDERS: ATTEND Surgery
DX: L72.3 Sebaceous cyst (principal); I10 Essential (primary) hypertension; E78.00 Pure hypercholesterolemia, unspecified; E11.9 Type 2 diabetes mellitus without complications; G40.909 Epilepsy, unspecified, not intractable, without status epilepticus; Z85.048 Personal history of other malignant neoplasm of rectum, rectosigmoid junction, and anus; Z86.711 Personal history of pulmonary embolism; Z90.49 Acquired absence of other specified parts of digestive tract; Z87.891 Personal history of nicotine dependence
CPT/HCPCS: 11423; J2250; J1100; J2405; J0690; J3010; J2704; J1644

== ENCOUNTER → 2023-09-20 | Outpatient (CLI) | payer MEDICARE, OTHER ==
[2023-09-20 15:42] LABS: Platelet Count 240 X 10*3/uL (140-440)
[2023-09-20 18:27] LABS: Valproic Acid (Depakene) 65.4 UG/ML (50.0-100.0)
== END | disposition home or self-care (01) ==
LOC: LABWHC1 09:03
PROVIDERS: ATTEND Psychiatry & Neurology Neurology
DX: G40.109 Localization-related (focal) (partial) symptomatic epilepsy and epileptic syndromes with simple partial seizures, not intractable, without status epilepticus (principal)
CPT/HCPCS: 36415; 80164; 84450; 84460; 85049

== ENCOUNTER → 2023-12-20 | Outpatient (CLI) | payer MEDICARE, OTHER ==
[2023-12-20 10:23] LABS: African American GFR (CKD) >90 (>60 ml/min/1.73 sqM); Blood Urea Nitrogen 14 mg/dL (9-20); Non-African American GFR(CKD) >90 (>60 ml/min/1.73 sqM)
--- NOTE | 2023-12-20 13:21 | CT ---
EXAMINATION: CT CHEST, ABDOMEN AND PELVIS WITH IV CONTRAST DATE OF EXAMINATION: 12/20/2023. COMPARISON: 04/01/2023.. INDICATION: Follow-up for rectal cancer. PROCEDURE: Axial CT of the chest, abdomen and pelvis was performed following the intravenous adminis tration of 100 ml Isovue 300. Coronal and sagittal reformats were performed. CT dose lowering techni ques were used, to include: automated exposure control, adjustment for patient size, and/or use of it erative reconstruction. FINDINGS: CHEST: CHEST WALL: Right-sided Mediport is unchanged. Mediastinum and Ashley: There is no axillary, mediastinal or hilar lymphadenopathy. Pleural and Pericardial spaces: There are no pleural or pericardial effusions. Cardiovascular: The thoracic aorta is normal in size without evidence of aneurysm or dissection. Pulmonary Artery: There are no central pulmonary arterial filling defects. Lung Parenchyma and Airways: The lungs are clear. ABDOMEN: Liver and Biliary system: Normal. Adrenal glands: Normal. Kidneys and ureters: Normal. Spleen: Normal. Pancreas: Normal. Gallbladder: Surgically absent. Lymph nodes, Peritoneum and mesentery: There is no mesenteric or retroperitoneal lymphadenopathy. Gastrointestinal tract: There are no dilated loops of bowel or free intraperitoneal air. . Prior pa rtial right colectomy. No local recurrent disease identified. There is a surgical anastomosis also se en within the transverse colonic region. Surgical anastomosis is seen within the rectosigmoid region as well. Aorta/IVC: Moderate vascular calcification is seen throughout the abdominal aorta without evidence of aneurysmal dilation or dissection. IVC normal. Abdominal wall: Prior surgical changes and seroma are seen in the abdominal wall which are unchanged . Prior bilateral inguinal hernia repair is also likely noted and unchanged.. PELVIS: Fluid: There is no free fluid in the pelvis. Lymph Nodes: There is no pelvic or inguinal lymphadenopathy.. Urinary bladder: Normal. BONES: There are no osseous destructive lesions.. ADDITIONAL SIGNIFICANT FINDINGS: None. IMPRESSION: 1. No definitive evidence of metastatic disease seen within the chest, abdomen or pelvis. 2. Additional findings described above.
== END | disposition home or self-care (01) ==
LOC: RADPROMAIN 09:37
PROVIDERS: ATTEND Internal Medicine Hematology & Oncology
DX: C20 Malignant neoplasm of rectum (principal); K63.5 Polyp of colon; E78.5 Hyperlipidemia, unspecified; E11.9 Type 2 diabetes mellitus without complications; G40.909 Epilepsy, unspecified, not intractable, without status epilepticus; Z90.49 Acquired absence of other specified parts of digestive tract
CPT/HCPCS: 82565; 84520; 71260; 74177; 36415; J1642; Q9967

== ENCOUNTER 2024-03-12 11:38 | Day surgery (SDC) | payer MEDICARE, OTHER ==
[2024-03-08 10:35] VITALS: BMI 45.1
[2024-03-12] MEDS: LACTATED RINGERS 1,000 ML IV SCH (12:12)
[2024-03-12] MEDS: IV FLUID CONTINUATION 1,000 ML IV ONE (12:12)
[2024-03-12] MEDS: LIDOCAINE 1% (10MG/ML) FOR IV START INTRADERMA PRN (12:13)
[2024-03-12 12:16] LABS: Glucose,Whole Blood 112 mg/dL (70-110)
[2024-03-12] MEDS ORDERED: PROPOFOL 10 MG/ML 20 ML VIAL IV ONE (12:54)
--- NOTE | 2024-03-12 12:56 | P.GSHP ---
History of Present Illness H&P Date: 03/12/24 Chief Complaint: history of colon cancer this is a 53-year-old male with previous history of colon cancer. Patient presents today for colonoscopy. Past Medical History Past Medical History: Cancer, Diabetes Mellitus, GERD/Reflux, Hearing Disorder / Deafness, Hyperlipidemia, Hypertension, Pulmonary Embolus (PE), Seizure Disorder, Skin Disorder Additional Past Medical History / Comment(s): Epilepsy-last seizure apprx.1995. Anemia. Hx rectal cancer-last chemo 03/21/19 and radiation through 08/06/19. Hx kidney stone. Type I NIDDM. Tinnitis @ times. Rash on rt arm-"It's been going away." "Sometimes my feet swell." History of Any Multi-Drug Resistant Organisms: None Reported Past Surgical History: Appendectomy, Bowel Resection, Cholecystectomy, Hernia Repair Additional Past Surgical History / Comment(s): Vasectomy, surgery to repair hypospadias as a child, bowel resection/colostomy with reversal 09/06/18, right upper chest port for chemo- still has port -is still functional 03/08/24- last flushed December 2023 per pt, colonoscopy. "Knot on the left side of my neck that Dr. Sherman removed." Past Anesthesia/Blood Transfusion Reactions: No Reported Reaction Additional Past Anesthesia/Blood Transfusion Reaction / Comment(s): No hx of blood transfusion. Smoking Status: Former smoker - Past Family History Brother(s) Family Medical History: Cancer, Deep Vein Thrombosis (DVT) Additional Family Medical History / Comment(s): skin Mother Family Medical History: Pulmonary Embolus Medications and Allergies Home Medications Medication Instructions Recorded Confirmed Type Divalproex [Depakote] 750 mg PO HS 10/29/15 03/08/24 History Atorvastatin [Lipitor] 20 mg PO HS 10/24/18 03/08/24 History Divalproex [Depakote] 500 mg PO BID@0600,1200 10/24/18 03/08/24 History Furosemide [Lasix] 20 mg PO QAM 12/16/20 03/08/24 History Potassium Chloride ER [K-Dur 20] 20 meq PO QAM 12/16/20 03/08/24 History metFORMIN HCL [Glucophage] 1,000 mg PO QAM 12/16/20 03/08/24 History lisinopriL [Prinivil] 20 mg PO QAM 09/18/21 03/08/24 History Psyllium Husk [Metamucil] 0.4 gm PO QAM 10/07/22 03/08/24 History Aspirin [Adult Low Dose Aspirin EC] 81 mg PO QAM 10/28/22 03/08/24 History Esomeprazole Magnesium [NexIUM] 20 mg PO QAM 03/08/24 03/08/24 History Tylenol (Unknown Dose) 1 dose PO Q8H PRN 03/08/24 03/08/24 History Allergies Allergy/AdvReac Type Severity Reaction Status Date / Time No Known Allergies Allergy Verified 03/12/24 11:55 Surgical - Exam Vital Signs Temp Pulse Resp BP Pulse Ox 97.2 F L 90 16 146/99 92 L 03/12/24 12:02 03/12/24 12:02 03/12/24 12:02 03/12/24 12:02 03/12/24 12:02 - General well developed, well nourished, no distress - Eyes PERRL - ENT normal pinna - Neck no masses - Respiratory normal expansion - Cardiovascular Rhythm: regular - Abdomen Abdomen: soft, non tender Results - Labs Abnormal Lab Results - Last 24 Hours (Table) 03/12/24 Range/Units 12:08 POC Glucose (mg/dL) 112 H (70-110) mg/dL Assessment and Plan Assessment: history: Cancer We'll perform colonoscopy.
--- NOTE | 2024-03-12 13:07 | P.OP ---
Date of Procedure: 03/12/24 Preoperative Diagnosis: history of colon cancer Postoperative Diagnosis: mild diverticulosis Possible inflammatory change of colon. Large external hemorrhoids Procedure(s) Performed: colonoscopy Anesthesia: MAC Surgeon: Daniel Sherman Pathology: other (colon) Condition: stable Disposition: PACU Description of Procedure: the patient's placed on the endoscopy table in the lateral position. He received IV sedation. Digital rectal exam was performed. There were external hemorrhoids noted. The flexible colonoscopewas placed patient anus passed throughout the entire colon. The ileocecal valve was visually is. The cecum, ascending and transverse colon appeared normal. In the descending colon was a few scattered diverticula. Patient had a previous colorectal anastomosis. The colon appeared to be mildly inflamed just distal to the anastomosis. It was unsure if this was due to scope trauma. The this area was biopsied the cold forcep. The remaining rectum appeared normal. Scope withdrawn for anus and internal and external hemorrhoids were noted.
[2024-03-12 13:30] VITALS: RESP 16; TEMP 97.2
[2024-03-12 13:35] VITALS: BP 150/95; PULSE 81
== END 2024-03-12 14:07 | disposition home or self-care (01) ==
LOC: ORWHC2ENDO 11:38
PROVIDERS: ATTEND Surgery
DX: Z12.11 Encounter for screening for malignant neoplasm of colon (principal); K57.30 Diverticulosis of large intestine without perforation or abscess without bleeding; K64.4 Residual hemorrhoidal skin tags; K64.8 Other hemorrhoids; Z85.038 Personal history of other malignant neoplasm of large intestine; K21.9 Gastro-esophageal reflux disease without esophagitis; I10 Essential (primary) hypertension; E10.69 Type 1 diabetes mellitus with other specified complication; E78.5 Hyperlipidemia, unspecified; G40.909 Epilepsy, unspecified, not intractable, without status epilepticus; Z86.711 Personal history of pulmonary embolism; Z87.891 Personal history of nicotine dependence; Z79.84 Long term (current) use of oral hypoglycemic drugs; Z79.82 Long term (current) use of aspirin; Z79.899 Other long term (current) drug therapy
CPT/HCPCS: 88305; J2704; G0105; 45380

== ENCOUNTER 2024-04-09 07:10 | Day surgery (SDC) | payer MEDICARE, OTHER ==
[~2024-04-09 07:10] MED LIST changes: -ACETAMINOPHEN TAB 500 MG TAB PO PRN; -DEXAMETHASONE SOD PHOSPHATE 4 MG/ML 1 ML VIAL IV ONE; -HEPARIN SODIUM,PORCINE/PF 5,000 UNIT/0.5 ML SYRINGE SQ PRN; -HYDROmorphone 0.5 MG/0.5 ML SYRINGE IVP PRN; -LACTATED RINGERS 1,000 ML IV SCH; -LIDOCAINE 1% (10MG/ML) FOR IV START INTRADERMA PRN; -MIDAZOLAM 2 MG/2 ML VIAL IV PRN; -ONDANSETRON 4 MG/2 ML VIAL IVP ONE
[2024-04-09 07:44] LABS: Glucose,Whole Blood 105 mg/dL (70-110)
[2024-04-09] MEDS: ONDANSETRON 4 MG/2 ML VIAL IVP ONE (07:46)
[2024-04-09] MEDS: LACTATED RINGERS 1,000 ML IV SCH (07:46)
[2024-04-09] MEDS: HEPARIN SODIUM,PORCINE 5,000 UNIT/ML 1 ML VIAL SQ PRN (07:47)
[2024-04-09] MEDS: ACETAMINOPHEN TAB 500 MG TAB PO PRN (07:47)
[2024-04-09] MEDS: IV FLUID CONTINUATION 1,000 ML IV ONE (07:47)
[2024-04-09] MEDS ORDERED: SUCCINYLCHOLINE CHLORIDE 200 MG/10 ML VIAL IV ONE (08:50)
[2024-04-09] MEDS ORDERED: KETOROLAC 15 MG/ML 1 ML VIAL ONE (08:50)
[2024-04-09] MEDS ORDERED: PROPOFOL 10 MG/ML 20 ML VIAL IV ONE (08:50)
[2024-04-09] MEDS ORDERED: KETAMINE HCL IN 0.9 % NACL 50 MG/5 ML SYRINGE ONE (08:50)
[2024-04-09] MEDS ORDERED: LIDOCAINE 1% INJ 10MG/ML (20 ML MDV) ONE (08:50)
[2024-04-09] MEDS ORDERED: fentaNYL (PF) 50 MCG/ML 2 ML AMP ONE (08:50)
[2024-04-09] MEDS: LIDOCAINE 1%-EPI 1:100,000 20 ML VIAL SQ ONE (09:30)
[2024-04-09] MEDS: LACTATED RINGERS 1,000 ML IV ONE (09:48)
--- NOTE | 2024-04-09 10:15 | P.OP ---
Date of Procedure: 04/09/24 Preoperative Diagnosis: internal and external hemorrhoids Postoperative Diagnosis: internal and external hemorrhoids Procedure(s) Performed: hemorrhoidectomy Anesthesia: JOHN Surgeon: Daniel Sherman Estimated Blood Loss (ml): 5 Pathology: other (hemorrhoids) Condition: stable Disposition: PACU Description of Procedure: patient's placed on the operative table in the supine position he received general endotracheal tube anesthesia. He was then placed in the prone jackknife position. His anus was prepped and draped usual fashion. Patient had a very large intraductal hemorrhoids. The anal retractors placed anus. The left lateral hemorrhoidal column was then grasped with Allis clamps and using Harmonic scissors the rectus performed. The right anterior and right posterior hemorrhoidal column was then divided and dissected in a similar fashion. Hemostasis was achieved with electrocautery. Several small bleeding points were suture ligated with 0 Vicryl stick tie. No bleeding was seen. Gelfoam and Surgicel pack was placed anus. Patient tolerated procedure well. He was sent to the recovery room in stable condition.
[2024-04-09 10:23] VITALS: TEMP 97.6
[2024-04-09] MEDS: HYDROmorphone 0.5 MG/0.5 ML SYRINGE IVP PRN (10:29)
[2024-04-09 11:14] LABS: Glucose,Whole Blood 147 mg/dL (70-110)
[2024-04-09 12:30] VITALS: BP 139/81; RESP 18
[2024-04-09 12:40] VITALS: PULSE 96
== END 2024-04-09 12:30 | disposition home or self-care (01) ==
LOC: OR 07:10
PROVIDERS: ATTEND Surgery
DX: K64.4 Residual hemorrhoidal skin tags (principal); K64.8 Other hemorrhoids; I10 Essential (primary) hypertension; E78.5 Hyperlipidemia, unspecified; E11.9 Type 2 diabetes mellitus without complications; G40.909 Epilepsy, unspecified, not intractable, without status epilepticus; K21.9 Gastro-esophageal reflux disease without esophagitis; Z86.711 Personal history of pulmonary embolism; Z85.048 Personal history of other malignant neoplasm of rectum, rectosigmoid junction, and anus; Z87.442 Personal history of urinary calculi; Z79.84 Long term (current) use of oral hypoglycemic drugs; Z79.82 Long term (current) use of aspirin; Z79.899 Other long term (current) drug therapy
CPT/HCPCS: 88304; 46260; J0330; J1644; J2405; J2001; J3010; J1885; J2704; J1170

== ENCOUNTER 2024-08-24 07:01 | Day surgery (SDC) | payer MEDICARE, OTHER ==
[2024-08-24] MEDS: IV FLUID CONTINUATION 1,000 ML IV ONE (07:33)
[2024-08-24 07:38] VITALS: TEMP 97.3
[2024-08-24] MEDS ORDERED: MIDAZOLAM 2 MG/2 ML VIAL IV PRN (07:40)
[2024-08-24] MEDS ORDERED: SCOPOLAMINE 1 MG/72 HR PATCH TRANSDERM ONE (07:40)
[2024-08-24] MEDS ORDERED: HYDROmorphone 0.5 MG/0.5 ML SYRINGE IVP PRN (07:40)
[2024-08-24 08:04] LABS: Glucose,Whole Blood 92 mg/dL (70-110)
[2024-08-24 08:08] LABS: Basophils % (A) 0 %; Eosinophils % (A) 1 %; HCT 48.3 % (39.0-53.0); Lymphocytes # (A) 3.8 k/uL (1.0-4.8); Lymphocytes % (A) 52 %; MCH 30.7 pg (25.0-35.0); MCHC 33.1 g/dL (31.0-37.0); MCV 92.6 fL (80.0-100.0); Mean Platelet Volume 7.5; Monocytes # (A) 0.6 k/uL (0-1.0); Monocytes % (A) 8 %; Neutrophils # (A) 2.6 k/uL (1.3-7.7); Neutrophils % (A) 36 %; Platelet Count 243 k/uL (150-450); RBC 5.22 m/uL (4.30-5.90); WBC 7.3 k/uL (3.8-10.6)
[2024-08-24] MEDS: LACTATED RINGERS 1,000 ML IV SCH (08:09)
[2024-08-24] MEDS: DEXAMETHASONE SOD PHOSPHATE 4 MG/ML 1 ML VIAL IV ONE (08:09)
[2024-08-24] MEDS: HEPARIN SODIUM,PORCINE 5,000 UNIT/ML 1 ML VIAL SQ PRN (08:09)
[2024-08-24] MEDS: ACETAMINOPHEN TAB 500 MG TAB PO PRN (08:09)
[2024-08-24] MEDS: ONDANSETRON 4 MG/2 ML VIAL IVP ONE (08:09)
[2024-08-24] MEDS ORDERED: MIDAZOLAM 2 MG/2 ML VIAL ONE (08:27)
[2024-08-24] MEDS ORDERED: fentaNYL (PF) 50 MCG/ML 2 ML AMP ONE (08:27)
[2024-08-24] MEDS ORDERED: PROPOFOL 10 MG/ML 20 ML VIAL IV ONE (08:27)
--- NOTE | 2024-08-24 08:27 | P.GSHP ---
History of Present Illness H&P Date: 08/24/24 Chief Complaint: History of colon cancer This a 53-year-old male who presents today for removal of Port-A-Cath. Patient's previous history of colon cancer. Past Medical History Past Medical History: Cancer, Diabetes Mellitus, GERD/Reflux, Hyperlipidemia, Hypertension, Pulmonary Embolus (PE), Seizure Disorder Additional Past Medical History / Comment(s): Epilepsy-last seizure apprx. 2013, hx Anemia, Hx rectal cancer-last chemo 03/21/19 and radiation through 08/06/19. Hx kidney stone. Tinnitis @ times. " "Sometimes my feet swell." Back pain History of Any Multi-Drug Resistant Organisms: None Reported Past Surgical History: Appendectomy, Bowel Resection, Cholecystectomy, Hernia Repair Additional Past Surgical History / Comment(s): Vasectomy, surgery to repair hypospadias as a child, bowel resection/colostomy with reversal 09/06/18, right upper chest port for chemo- still has port -is still functional - last flushed December 2023 per pt, colonoscopy. "Knot on the left side of my neck that Dr. Sherman removed." Past Anesthesia/Blood Transfusion Reactions: No Reported Reaction Additional Past Anesthesia/Blood Transfusion Reaction / Comment(s): No hx of blood transfusion. Smoking Status: Former smoker - Past Family History Brother(s) Family Medical History: Cancer, Deep Vein Thrombosis (DVT) Additional Family Medical History / Comment(s): skin Mother Family Medical History: COPD, Pulmonary Embolus Additional Family Medical History / Comment(s): age 74 Medications and Allergies Home Medications Medication Instructions Recorded Confirmed Type Atorvastatin [Lipitor] 20 mg PO HS 10/24/18 08/24/24 History Divalproex [Depakote] 500 mg PO TID 10/24/18 08/24/24 History Furosemide [Lasix] 20 mg PO QAM 12/16/20 08/24/24 History metFORMIN HCL [Glucophage] 1,000 mg PO QAM 12/16/20 08/24/24 History lisinopriL [Prinivil] 20 mg PO QAM 09/18/21 08/24/24 History Aspirin [Adult Low Dose Aspirin EC] 162 mg PO QAM 10/28/22 08/24/24 History Esomeprazole Magnesium [NexIUM] 20 mg PO QAM 03/08/24 08/24/24 History Acetaminophen Tab [Tylenol] 650 mg PO Q6H PRN 08/21/24 08/24/24 History Allergies Allergy/AdvReac Type Severity Reaction Status Date / Time No Known Allergies Allergy Verified 08/24/24 07:40 Surgical - Exam Vital Signs Temp Pulse Resp BP Pulse Ox 97.3 F L 98 18 170/85 95 08/24/24 07:35 08/24/24 07:35 08/24/24 07:35 08/24/24 07:35 08/24/24 07:35 - General well developed, well nourished, no distress - Eyes PERRL - ENT normal pinna - Neck no masses - Respiratory normal expansion - Cardiovascular Rhythm: regular - Abdomen Abdomen: soft, non tender Results - Labs 08/24/24 07:55 Assessment and Plan Assessment: History of colon cancer. Will remove Port-A-Cath.
[2024-08-24] MEDS: ceFAZolin 3 GM in SODIUM CHLORIDE 0.9% 100 ML IVPB PRN (08:32)
[2024-08-24] MEDS: LIDOCAINE 1%-EPI 1:100,000 20 ML VIAL SQ ONE ×3 (08:47→08:58)
--- NOTE | 2024-08-24 09:10 | P.OP ---
Date of Procedure: 08/24/24 Preoperative Diagnosis: History of colon cancer Postoperative Diagnosis: History of colon cancer Procedure(s) Performed: Removal of Port-A-Cath Anesthesia: JOHN Surgeon: Daniel Sherman Estimated Blood Loss (ml): 5 Pathology: none sent Condition: stable Disposition: PACU Description of Procedure: Patient was placed on the operative table in the supine position. He received IV sedation. The skin was anesthetized at his right subclavian Port-A-Cath. Using 15 blade the skin incised and using blunt sharp/electrocautery the port was excised. Hemostasis was achieved. Skin was closed interrupted 3-0 Monocryl suture. Dermabond dressing applied. Patient Toller procedure well. He was sent to recovery in stable condition.
[2024-08-24 09:45] VITALS: BP 127/78; RESP 18
[2024-08-24 10:06] VITALS: PULSE 85
== END 2024-08-24 10:12 | disposition home or self-care (01) ==
LOC: OR 07:01
PROVIDERS: ATTEND Surgery
DX: K21.9 Gastro-esophageal reflux disease without esophagitis (principal); E11.9 Type 2 diabetes mellitus without complications; I10 Essential (primary) hypertension; G40.909 Epilepsy, unspecified, not intractable, without status epilepticus; E78.5 Hyperlipidemia, unspecified; M54.50 Low back pain, unspecified; Z86.711 Personal history of pulmonary embolism; Z85.048 Personal history of other malignant neoplasm of rectum, rectosigmoid junction, and anus; Z98.890 Other specified postprocedural states; Z90.49 Acquired absence of other specified parts of digestive tract; Z87.891 Personal history of nicotine dependence; Z79.84 Long term (current) use of oral hypoglycemic drugs; Z79.82 Long term (current) use of aspirin; Z79.899 Other long term (current) drug therapy
CPT/HCPCS: 84132; 85025; 36590; J2250; J1644; J1100; J0690; J2405; J3010; J2704

== ENCOUNTER 2024-09-02 09:28 | Emergency (ER) | payer MEDICARE, MEDICAID ==
[2024-09-02 09:45] VITALS: RESP 18
--- NOTE | 2024-09-02 09:52 | ED ---
General Adult HPI - General Chief complaint: Animal Bite Stated complaint: Animal bite left hand Time Seen by Provider: 09/02/24 09:45 Source: patient, RN notes reviewed Mode of arrival: ambulatory Limitations: no limitations - History of Present Illness Initial comments: Patient is a 54-year-old male present to the emergency department with concern for cat bite left hand. Incident occurred around 530 this morning. Patient believes he scared his cat and was bit to the left hand. Patient has mild discomfort. No redness or swelling or fever. No weakness of the hand. Tetanus immunization is up-to-date, 1 year ago. Patient states cats immunizations are up-to-date. - Related Data Home Medications Medication Instructions Recorded Confirmed Atorvastatin [Lipitor] 20 mg PO HS 10/24/18 08/24/24 Divalproex [Depakote] 500 mg PO TID 10/24/18 08/24/24 Furosemide [Lasix] 20 mg PO QAM 12/16/20 08/24/24 metFORMIN HCL [Glucophage] 1,000 mg PO QAM 12/16/20 08/24/24 lisinopriL [Prinivil] 20 mg PO QAM 09/18/21 08/24/24 Aspirin [Adult Low Dose Aspirin EC] 162 mg PO QAM 10/28/22 08/24/24 Esomeprazole Magnesium [NexIUM] 20 mg PO QAM 03/08/24 08/24/24 Acetaminophen Tab [Tylenol] 650 mg PO Q6H PRN 08/21/24 08/24/24 Previous Rx's Medication Instructions Recorded Amoxic-Pot Clav 875-125Mg 1 tab PO BID #14 tab 09/02/24 [Augmentin 875-125] Allergies Allergy/AdvReac Type Severity Reaction Status Date / Time No Known Allergies Allergy Verified 09/02/24 09:42 Review of Systems ROS Statement: Those systems with pertinent positive or pertinent negative responses have been documented in the HPI. ROS Other: All systems not noted in ROS Statement are negative. Constitutional: Denies: fever Respiratory: Denies: cough, dyspnea Cardiovascular: Denies: chest pain Musculoskeletal: Reports: as per HPI Skin: Denies: rash Past Medical History Past Medical History: Cancer, Diabetes Mellitus, GERD/Reflux, Hyperlipidemia, Hypertension, Pulmonary Embolus (PE), Seizure Disorder Additional Past Medical History / Comment(s): Epilepsy-last seizure apprx. 2013, hx Anemia, Hx rectal cancer-last chemo 03/21/19 and radiation through 08/06/19. Hx kidney stone. Tinnitis @ times. " "Sometimes my feet swell." Back pain History of Any Multi-Drug Resistant Organisms: None Reported Past Surgical History: Appendectomy, Bowel Resection, Cholecystectomy, Hernia Repair Additional Past Surgical History / Comment(s): Vasectomy, surgery to repair hypospadias as a child, bowel resection/colostomy with reversal 09/06/18, right upper chest port for chemo- still has port -is still functional - last flushed December 2023 per pt, colonoscopy. "Knot on the left side of my neck that Dr. Sherman removed." Past Anesthesia/Blood Transfusion Reactions: No Reported Reaction Additional Past Anesthesia/Blood Transfusion Reaction / Comment(s): No hx of blood transfusion. Past Psychological History: No Psychological Hx Reported Smoking Status: Former smoker Past Alcohol Use History: Rare Past Drug Use History: None Reported - Past Family History Brother(s) Family Medical History: Cancer, Deep Vein Thrombosis (DVT) Additional Family Medical History / Comment(s): skin Mother Family Medical History: COPD, Pulmonary Embolus Additional Family Medical History / Comment(s): age 74 General Exam Limitations: no limitations General appearance: alert, in no apparent distress Head exam: Present: normocephalic Respiratory exam: Present: normal lung sounds bilaterally Cardiovascular Exam: Present: regular rate, normal rhythm GI/Abdominal exam: Present: soft. Absent: tenderness Extremities exam: Present: other (Left hand on the palmar side distal to the thenar eminence with puncture. No significant tenderness. No sensation of foreign body. No redness or swelling.) Neurological exam: Present: alert Psychiatric exam: Present: normal affect, normal mood Skin exam: Present: other (Puncture) Course Vital Signs 09/02/24 09:42 Temperature 98.2 F Pulse Rate 96 Respiratory 18 Rate Blood Pressure 155/104 O2 Sat by Pulse 94 L Oximetry Medical Decision Making - Medical Decision Making Was pt. sent in by a medical professional or institution (, PA, [employer], urgent care, hospital, or [facility]...) When possible be specific @ -No Did you speak to anyone other than the patient for history (EMS, parent, family, police, friend...)? What history was obtained from this source @ -No Did you review nursing and triage notes (agree or disagree)? Why? @ -I reviewed and agree with nursing and triage notes Were old charts reviewed (outside hosp., previous admission, EMS record, old EKG, old radiological studies, urgent care reports/EKG's, [facility] records)? Report findings @ -No old charts were reviewed Differential Diagnosis (chest pain, altered mental status, abdominal pain women, abdominal pain men, vaginal bleeding, weakness, fever, dyspnea, syncope, headache, dizziness, GI bleed, back pain, seizure, CVA, palpatations, mental health, musculoskeletal)? @ -Differential Musculoskeletal Muscular strain, contusion, ligament sprain, fracture, arthritis, septic arthritis, bursitis, cellulitis, muscle spasm, nerve compression, DVT, arterial occlusion, herpes zoster, electrolyte abnormality, tumor.... This is not meant to be in all inclusive list EKG interpreted by me (3pts min.). @ -As above X-rays interpreted by me (1pt min.). @ -None done CT interpreted by me (1pt min.). @ -None done U/S interpreted by me (1pt. min.). @ -None done What testing was considered but not performed or refused? (CT, X-rays, U/S, labs)? Why? @ -None What meds were considered but not given or refused? Why? @ -Considered rabies and tetanus however patient and animal are both up-to-date Did you discuss the management of the patient with other professionals (professionals i.e. , PA, EN[employer], lab, RT, psych nurse, nursing home social worker, utility clerk, teacher, foreign service officer, family caseworker)? Give summary @ -No Was smoking cessation discussed for >3mins.? @ -No Was critical care preformed (if so, how long)? @ -No Were there social determinants of health that impacted care today? How? (Homelessness, low income, unemployed, alcoholism, drug addiction, transportation, low edu. Level, literacy, decrease access to med. care, fdc, rehab)? @ -No Was there de-escalation of care discussed even if they declined (Discuss DNR or withdrawal of care, Hospice)? DNR status @ -No What co-morbidities impacted this encounter? (DM, HTN, Smoking, COPD, CAD, Cancer, CVA, ARF, Chemo, Hep., AIDS, mental health diagnosis, sleep apnea, morbid obesity)? @ -None Was patient admitted / discharged? Hospital course, mention meds given and route, prescriptions, significant lab abnormalities, going to OR and other pertinent info. @ -Patient presents with cat bite left hand. No signs of infection or retained foreign body. Patient will be discharged with antibiotics and advised of symptoms to return if worsen. Undiagnosed new problem with uncertain prognosis? @ -No Drug Therapy requiring intensive monitoring for toxicity (Heparin, Nitro, Insulin, Cardizem)? @ -No Were any procedures done? @ -No Diagnosis/symptom? @ -Cat bite left hand Acute, or Chronic, or Acute on Chronic? @ -Acute Uncomplicated (without systemic symptoms) or Complicated (systemic symptoms)? @ -Default Side effects of treatment? @ -No Exacerbation, Progression, or Severe Exacerbation? @ -No Poses a threat to life or bodily function? How? (Chest pain, [place], [place], pneumonia, PE, COPD, DKA, ARF, appy, cholecystitis, CVA, Diverticulitis, Homicidal, Suicidal, threat to staff... and all critical care pts) @ -No Disposition Clinical Impression: Cat bite Disposition: HOME SELF-CARE Condition: Stable Instructions (If sedation given, give patient instructions): Animal Bite (ED) Additional Instructions: Prescription sent to pharmacy, please start this today. Continue to wash hands thoroughly with soap and water 2-3 times daily. Return for increased pain, swelling, redness, fever, hand problems, worsening symptoms or any other concerns. Prescriptions: Amoxic-Pot Clav 875-125Mg [Augmentin 875-125] 1 tab PO BID #14 tab Is patient prescribed a controlled substance at d/c from ED?: No Referrals: Leydi Davies MD [Primary Care Provider] - 1-2 days Time of Disposition: 09:51
[2024-09-02 10:11] VITALS: BP 143/88; PULSE 94; TEMP 98.1
== END 2024-09-02 10:08 | disposition home or self-care (01) ==
LOC: EC 09:28
DX: S61.412A Laceration without foreign body of left hand, initial encounter (principal); Z87.891 Personal history of nicotine dependence; W55.01XA Bitten by cat, initial encounter
CPT/HCPCS: 99283

== ENCOUNTER → 2024-10-16 | Outpatient (CLI) | payer MEDICARE, OTHER ==
[2024-10-16 15:56] LABS: Platelet Count 212 X 10*3/uL (140-440)
[2024-10-16 19:40] LABS: Valproic Acid (Depakene) 68.3 UG/ML (50.0-100.0)
== END | disposition home or self-care (01) ==
LOC: LABWHC1 09:17
PROVIDERS: ATTEND Psychiatry & Neurology Neurology
DX: G40.109 Localization-related (focal) (partial) symptomatic epilepsy and epileptic syndromes with simple partial seizures, not intractable, without status epilepticus (principal)
CPT/HCPCS: 36415; 80164; 84450; 84460; 85049